=== PATIENT | male | born 1940 | race Caucasian/White ===

== ENCOUNTER → 2016-06-26 | Outpatient (REF) | payer MEDICARE ==
[~2016-06-26] MED LIST: /AUGM875TA OR; /CLON1TA PO; /QUIN20TA PO; ACET65TA OR; ALLO300T PO; AUGM875T27 PO; EUCECRE2 TOP; GLUC1000 PO; LASI80TA PO; LEVO500T PO; LOPR50TA PO; MILKSUS OR; MULTIVIT PO; PRADAXA PO; PRAV20TA2 PO; Pradaxa PO; TRAVATAN Z OU; VITA500C24 PO; XALA0.002 OU; ZINC220T PO; [UNRECOGNIZED DRUG - OTHER] PO; spironolactone PO
[2016-06-26 17:09] LABS: ALBUMIN 3.7 GM/DL (3.2-5.2); ALBUMIN/GLOBULIN RATIO 1.06 (1.00-1.93); BILIRUBIN,TOTAL 0.8 MG/DL (0.2-1.0); CALCIUM LEVEL 9.3 MG/DL (8.8-10.2); CREATININE FOR GFR 1.51 MG/DL (0.70-1.30); FREE T4 1.04 NG/DL (0.76-1.46); GLOMERULAR FILTRATION RATE 47.9 (>42); POTASSIUM SERUM 5.1 MEQ/L (3.5-5.1); TOTAL PROTEIN 7.2 GM/DL (6.4-8.2)
[2016-06-26 17:48] LABS: MEAN CORPUSCULAR HGB CONC 32.8 g/dl (32.0-36.5); MEAN CORPUSCULAR VOLUME 100.6 fl (80.0-96.0); RED CELL DISTRIBUTION WIDTH 12.3 % (11.5-14.5); WHITE BLOOD COUNT 9.4 K/mm3 (4.0-10.0)
== END | disposition home or self-care (01) ==
LOC: M SFHCADAM 11:36
PROVIDERS: ATTEND Family Medicine
DX: R41.3 Other amnesia (principal); E11.21 Type 2 diabetes mellitus with diabetic nephropathy; E78.2 Mixed hyperlipidemia

== ENCOUNTER → 2016-06-26 | Outpatient (CLI) | payer MEDICARE ==
--- NOTE | 2016-06-26 12:27 | REP ---
Clinical: Cough. Technique: PA and lateral. Comparison: 09/07/2013. Findings: Stable cardiomegaly. Lung cruz demonstrate stable chronic changes without acute consolidation, effusion, or pneumothorax. Skeletal structures demonstrate osteopenia and degenerative changes primarily involving the thoracic spine and left shoulder. Impression: Chronic stable changes and cardiomegaly. If the patient remains symptomatic consider chest CT for further investigation. Signed by Garett Beaulieu MD 06/26/2016 12:18 P
== END ==
LOC: M ADAMS 11:53
PROVIDERS: ATTEND Family Medicine
DX: I51.7 Cardiomegaly (principal); R05 Cough; R41.3 Other amnesia; E11.21 Type 2 diabetes mellitus with diabetic nephropathy; E78.2 Mixed hyperlipidemia; Z23 Encounter for immunization
CPT/HCPCS: 71020; 80053; 80061; 82607; 82746; 83036; 84439; 84443; 85027; 90471; 90732; G0463

== ENCOUNTER → 2016-06-28 | Outpatient (REF) | payer MEDICARE | LOC: M SFHCADAM 17:47 | PROVIDERS: ATTEND Family Medicine | DX: R41.3 Other amnesia (principal); E11.21 Type 2 diabetes mellitus with diabetic nephropathy; E78.2 Mixed hyperlipidemia ==

== ENCOUNTER → 2016-08-10 | Outpatient (REF) | payer MEDICARE ==
[~2016-08-10] MED LIST changes: +FURO1TAB15 PO; +LATA5OPD OU; +METF1000 PO; +MULT1TAB10 PO; +PRAD150C PO; +QUIN40TA5 PO; +SPIR50TA2 PO; +VITA-108 PO; +ZINC220C3 PO
== END ==
LOC: M SFHCPLAZ 14:59
PROVIDERS: ATTEND Family Medicine
DX: D23.30 Other benign neoplasm of skin of unspecified part of face (principal); L85.9 Epidermal thickening, unspecified; N87.0 Mild cervical dysplasia; L57.0 Actinic keratosis

== ENCOUNTER → 2016-09-07 | Outpatient (CLI) | payer MEDICARE ==
[~2016-09-07] VITALS: Ht 182.9 cm; Wt 119.7 kg
[~2016-09-07] MED LIST changes: +BACITRACIN OINT 30GM TOP ONE; +LIDOCAINE 2% INJ 100 MG/5 ML SDV (FOR ANES.) As Ordered ONE; +NS 1,000 ML IV SCH; +PROPOFOL 200 MG/20 ML VIAL As Ordered ONE
--- NOTE | 2016-09-07 07:56 | ROOR ---
Patient Name: Saurabh Felipe Procedure Date: 09/07/2016 7:33 AM Date of : 1940 Age: 76 Room: [facility] Gender: Male Note Status: Finalized Procedure: Colonoscopy Indications: High risk colon cancer surveillance: Personal history of colonic polyps, Surveillance: Personal history of piecemeal removal of adenoma on last colonoscopy (less than 1 year ago), Last colonoscopy: May 2015 Providers: Pipe PETERSEN MD Referring MD: Marco Merino MD Requesting Provider: Medicines: Monitored Anesthesia Care Complications: No immediate complications. Procedure: Pre-Anesthesia Assessment: - The heart rate, respiratory rate, oxygen saturations, blood pressure, adequacy of pulmonary ventilation, and response to care were monitored throughout the procedure. - The heart rate, respiratory rate, oxygen saturations, blood pressure, adequacy of pulmonary ventilation, and response to care were monitored throughout the procedure. The Colonoscope was introduced through the anus and advanced to the cecum, identified by appendiceal orifice and ileocecal valve. The colonoscopy was performed without difficulty. The patient tolerated the procedure well. The quality of the bowel preparation was good and fair. Findings: The perianal and digital rectal examinations were normal. Multiple small-mouthed diverticula were found in the sigmoid colon. A tattoo was seen at the splenic flexure. A post-polypectomy scar was found at the tattoo site. There was no evidence of residual polyp tissue. Internal hemorrhoids were found during retroflexion. The hemorrhoids were moderate. Impression: - Preparation of the colon was fair. - Diverticulosis in the sigmoid colon. - A tattoo was seen at the splenic flexure. A post-polypectomy scar was found at the tattoo site. There was no evidence of residual polyp tissue. - Internal hemorrhoids. - No specimens collected. Recommendation: - Repeat colonoscopy in 3 years for surveillance. - Resume Pradaxa (dabigatran) at prior dose today. Pipe Petersen MD Pipe PETERSEN MD 09/07/2016 7:56:35 AM This report has been signed electronically. Number of Addenda: 0 Note Initiated On: 09/07/2016 7:33 AM Estimated Blood Loss: Estimated blood loss: none.
[2016-09-07 08:15] VITALS: BP 109/58
== END | disposition home or self-care (01) ==
LOC: M OPP 06:11
PROVIDERS: ATTEND Internal Medicine Gastroenterology
DX: Z09 Encounter for follow-up examination after completed treatment for conditions other than malignant neoplasm (principal); Z86.010 Personal history of colon polyps; K57.30 Diverticulosis of large intestine without perforation or abscess without bleeding; K64.8 Other hemorrhoids; I48.91 Unspecified atrial fibrillation; I10 Essential (primary) hypertension; E78.00 Pure hypercholesterolemia, unspecified; E11.9 Type 2 diabetes mellitus without complications; M19.90 Unspecified osteoarthritis, unspecified site; E66.01 Morbid (severe) obesity due to excess calories; I50.9 Heart failure, unspecified; G47.30 Sleep apnea, unspecified; Z87.891 Personal history of nicotine dependence; Z79.899 Other long term (current) drug therapy; Z79.84 Long term (current) use of oral hypoglycemic drugs

== ENCOUNTER → 2016-10-25 | Outpatient (CLI) | payer MEDICARE ==
[~2016-10-25] MED LIST changes: +ASCO500T PO; -AUGM875T27 PO; +AUGM875T28 PO; -BACITRACIN OINT 30GM TOP ONE; -FURO1TAB15 PO; +FURO80TA2 PO; +HYDR-3713 PO; +LEVA750T7 PO; -LIDOCAINE 2% INJ 100 MG/5 ML SDV (FOR ANES.) As Ordered ONE; -METF1000 PO; +METF10004 PO; -NS 1,000 ML IV SCH; -PROPOFOL 200 MG/20 ML VIAL As Ordered ONE; +QUIN1TAB15 PO; -QUIN40TA5 PO; +SILV40CR TOP; -XALA0.002 OU; +XALA0.007 OU
[2016-10-25 15:01] LABS: MEAN CORPUSCULAR HEMOGLOBIN 32.6 pg (27.0-33.0); MEAN CORPUSCULAR HGB CONC 33.6 g/dl (32.0-36.5); MEAN CORPUSCULAR VOLUME 96.8 fl (80.0-96.0); RED CELL DISTRIBUTION WIDTH 12.6 % (11.5-14.5); WHITE BLOOD COUNT 10.3 K/mm3 (4.0-10.0)
--- NOTE | 2016-10-25 15:16 | REP ---
Chest two views HISTORY: Cellulitis Comparison: 09/07/2013 A minimal increase in interstitial markings is present in the lungs consistent with chronic interstitial change. The cardiac silhouette is enlarged. The pulmonary vasculature is normal in appearance. The bony structure is intact. IMPRESSION: 1. Chronic interstitial change. 2. Cardiomegaly. Signed by Saurabh Rivera MD 10/25/2016 03:08 P
[2016-10-25 15:20] LABS: CALCIUM LEVEL 9.4 MG/DL (8.8-10.2); CREATININE FOR GFR 1.61 MG/DL (0.70-1.30); GLOMERULAR FILTRATION RATE 44.5 (>42)
--- NOTE | 2016-10-25 17:16 | ECGEPIP ---
Stationary ECG Study [facility] Test Date: 2016-10-25 Pat Name: SEAN GE Department: Room: - Gender: M Cotton Baler: [facility] : 1940 Requested By: Marco Merino Order Number: [id number] Reading MD: Elkin Felipe Measurements Intervals [place] Rate: 74 P: [place]: 0 QRS: -35 QRSD: 132 T: 77 QT: 362 QTc: 404 Interpretive Statements Atrial fibrillation with a controlled ventricular response Left anterior fascicular block Anterior NC of indeterminate age Nonspecific repolarization abnormalities No significant change since prior tracing of 10/16/2013 Electronically Signed On 10-25-2016 17:16:08 EDT by Elkin Felipe
== END ==
LOC: M LAB 14:35
PROVIDERS: ATTEND Family Medicine
DX: Z01.818 Encounter for other preprocedural examination (principal); L03.032 Cellulitis of left toe; E11.42 Type 2 diabetes mellitus with diabetic polyneuropathy

== ENCOUNTER → 2016-10-25 | Outpatient (REF) | payer MEDICARE ==
[~2016-10-25] MED LIST changes: -ASCO500T PO; +AUGM875T27 PO; -AUGM875T28 PO; +FURO1TAB15 PO; -FURO80TA2 PO; -HYDR-3713 PO; -LEVA750T7 PO; +METF1000 PO; -METF10004 PO; -QUIN1TAB15 PO; +QUIN40TA5 PO; +SILV40CR EXT; -SILV40CR TOP; +XALA0.002 OU; -XALA0.007 OU
== END ==
LOC: M LAB REF 16:39
PROVIDERS: ATTEND Podiatrist Foot & Ankle Surgery
DX: E11.42 Type 2 diabetes mellitus with diabetic polyneuropathy (principal); L03.031 Cellulitis of right toe

== ENCOUNTER → 2016-11-05 | Day surgery (SDC) | payer MEDICARE ==
[~2016-11-05] VITALS: Ht 182.9 cm; Wt 112.9 kg
[~2016-11-05] MED LIST changes: +BUPIVACAINE HCL 0.5% 10 ML VIAL As Ordered ONE; +HYDR-3713 PO; +LIDOCAINE 2% INJ 100 MG/5 ML SDV (FOR ANES.) As Ordered ONE; +LIDOCAINE 2% MDV 20 ML VIAL As Ordered ONE; +LR 1,000 ML IV ONE; +LR 1,000 ML IV SCH; +MIDAZOLAM INJ 2 MG/2 ML VIAL (J2250) As Ordered ONE; +ONDANSETRON 4MG/2ML VIAL (J2405) As Ordered ONE; +ONDANSETRON 4MG/2ML VIAL (J2405) IV PRN; +PERCOCET 5MG/325MG TAB PO PRN; +PROPOFOL 200 MG/20 ML VIAL As Ordered ONE; +PROPOFOL 500 MG/50 ML VIAL As Ordered ONE; +fentaNYL 100 MCG/2 ML INJECTION (J3010) As Ordered ONE
[2016-11-05 10:25] VITALS: BP 143/63
--- NOTE | 2016-11-05 12:16 | RO ---
DATE OF PROCEDURE: 11/05/2016 PREPROCEDURE DIAGNOSIS: Right third toe osteomyelitis. POSTPROCEDURE DIAGNOSIS: Right third toe osteomyelitis. PROCEDURE: Right third toe amputation. SURGEON: Enoch Medina DPM ROLL EDGE STITCHER HAND: None. ANESTHESIA: Monitored anesthesia care with preoperative injection of 8 mL of 1:1 mixture of 1% lidocaine plain and 1/2% Marcaine plain. ESTIMATED BLOOD LOSS: Minimal. MATERIALS: #3-0 nylon. INJECTABLES: None. COMPLICATION: None. CONDITION: None. SPECIMEN: Right third toe. Saurabh Felipe is a 76-year-old male who presented to [facility] with complaints of ulceration of his third toe. He had worsening of this wound with bone extruding from the distal aspect of the toe. Decision was made to bring him to the operating room for third toe amputation. The patient side and site were identified and marked in preoperative holding area. Consent was reviewed and obtained. All risks, complications and alternatives to the procedure were explained to the patient in detail and all questions were answered. DESCRIPTION OF PROCEDURE: The patient was brought to the operating room and placed on the operating room table in supine position. Monitored anesthesia care was delivered by the anesthesia team. Preoperative injection of 8 mL of 1:1 mixture of 1% lidocaine plain and 1/2% Marcaine plain were injected to the right foot. The right foot was prepped and draped in a normal sterile fashion. No tourniquet was used for the procedure. Patient received Ancef preoperatively. A racquet-type incision was drawn around the third toe and carried through with #15 blade full thickness. The third toe was disarticulated at the proximal interphalangeal joint and the distal portion of the toe was sent for pathology. Any nonviable tissue was debrided. Site was irrigated with normal saline. The proximal phalanx was inspected and appeared to be free of infection. One more irrigation was performed and the incision was closed with #3-0 Nylon. Sterile dressings were applied. Patient was brought to postanesthesia care unit with vital signs stable, neurovascular status intact. He will be weight bearing as tolerated. Followup in office in 2 days. He will continue his Augmentin.
== END | disposition home or self-care (01) ==
LOC: M SDC 07:14
PROVIDERS: ATTEND Podiatrist Foot & Ankle Surgery
DX: M86.18 Other acute osteomyelitis, other site (principal); H40.9 Unspecified glaucoma; R94.31 Abnormal electrocardiogram [ECG] [EKG]; I35.8 Other nonrheumatic aortic valve disorders; I50.32 Chronic diastolic (congestive) heart failure; I11.0 Hypertensive heart disease with heart failure; E78.00 Pure hypercholesterolemia, unspecified; I34.8 Other nonrheumatic mitral valve disorders; I42.9 Cardiomyopathy, unspecified; M10.9 Gout, unspecified; R29.898 Other symptoms and signs involving the musculoskeletal system; M12.9 Arthropathy, unspecified; E11.40 Type 2 diabetes mellitus with diabetic neuropathy, unspecified; R06.83 Snoring; G47.33 Obstructive sleep apnea (adult) (pediatric); R06.09 Other forms of dyspnea; Z79.899 Other long term (current) drug therapy; Z79.01 Long term (current) use of anticoagulants; Z79.84 Long term (current) use of oral hypoglycemic drugs; Z87.891 Personal history of nicotine dependence; Z96.1 Presence of intraocular lens
CPT/HCPCS: 28825; 88307; J0690; J2250; J2405; J3010

== ENCOUNTER → 2017-02-04 | Outpatient (REF) | payer MEDICARE ==
[~2017-02-04] MED LIST changes: +ASCO500T PO; -AUGM875T27 PO; +AUGM875T28 PO; -BUPIVACAINE HCL 0.5% 10 ML VIAL As Ordered ONE; -FURO1TAB15 PO; +FURO80TA2 PO; +LEVA750T7 PO; -LIDOCAINE 2% INJ 100 MG/5 ML SDV (FOR ANES.) As Ordered ONE; -LIDOCAINE 2% MDV 20 ML VIAL As Ordered ONE; -LR 1,000 ML IV ONE; -LR 1,000 ML IV SCH; -METF1000 PO; +METF10004 PO; -MIDAZOLAM INJ 2 MG/2 ML VIAL (J2250) As Ordered ONE; -ONDANSETRON 4MG/2ML VIAL (J2405) As Ordered ONE; -ONDANSETRON 4MG/2ML VIAL (J2405) IV PRN; -PERCOCET 5MG/325MG TAB PO PRN; -PROPOFOL 200 MG/20 ML VIAL As Ordered ONE; -PROPOFOL 500 MG/50 ML VIAL As Ordered ONE; +QUIN1TAB15 PO; -QUIN40TA5 PO; -SILV40CR EXT; +SILV40CR TOP; -XALA0.002 OU; +XALA0.007 OU; -fentaNYL 100 MCG/2 ML INJECTION (J3010) As Ordered ONE
[2017-02-04 15:19] LABS: ALBUMIN 3.5 GM/DL (3.2-5.2); BILIRUBIN,TOTAL 0.9 MG/DL (0.2-1.0); CALCIUM LEVEL 8.6 MG/DL (8.8-10.2); CREATININE FOR GFR 1.66 MG/DL (0.70-1.30); POTASSIUM SERUM 4.8 MEQ/L (3.5-5.1)
== END ==
LOC: M SFHCPLAZ 11:50
PROVIDERS: ATTEND Family Medicine
DX: E11.21 Type 2 diabetes mellitus with diabetic nephropathy (principal)

== ENCOUNTER 2017-02-27 13:30 | Inpatient (IN) | payer MEDICARE ==
[~2017-02-27] VITALS: Ht 180.3 cm; Wt 112.5 kg
[~2017-02-27 13:30] MED LIST changes: -ASCO500T PO; -LEVA750T7 PO
[2017-02-27] MEDS ORDERED: NS 1,000 ML IV ONE (15:45)
[2017-02-27] MEDS ORDERED: IBUPROFEN 800 MG TAB PO ONE (15:45)
[2017-02-27] MEDS ORDERED: CEFTAROLINE FOSAMIL 600 MG in D5W 50 ML IV ONE (15:45)
[2017-02-27 16:13] LABS: BASO # 0.1 10^3/uL (0.0-0.2); BASO % 0.2 % (0.0-1.0); IMMATURE GRANULOCYTE % 1.1 % (0-0); LYMPH # 0.4 10^3/uL (1.5-4.5); LYMPH % 1.4 % (24.0-44.0); MEAN CORPUSCULAR HEMOGLOBIN 31.9 pg (27.0-33.0); MEAN CORPUSCULAR HGB CONC 33.1 g/dl (32.0-36.5); MEAN CORPUSCULAR VOLUME 96.4 fl (80.0-96.0); MONO # 0.6 10^3/uL (0.0-0.8); MONO % 2.3 % (0.0-5.0); PLATELET COUNT, AUTOMATED 223 10^3/uL (150-450); RED CELL DISTRIBUTION WIDTH 13.6 % (11.5-14.5); WHITE BLOOD COUNT 27.2 10^3/uL (4.0-10.0)
[2017-02-27 16:17] LABS: NEUTROPHILS # 25.9 10^3/uL (1.8-7.7); POSITIVE DIFF POS FLAG
[2017-02-27 16:37] LABS: ALBUMIN 3.3 GM/DL (3.2-5.2); ALBUMIN/GLOBULIN RATIO 0.77 (1.00-1.93); BILIRUBIN,DIRECT 0.3 MG/DL (0.0-0.2); BILIRUBIN,TOTAL 1.2 MG/DL (0.2-1.0); CALCIUM LEVEL 9.1 MG/DL (8.8-10.2); CREATININE FOR GFR 1.74 MG/DL (0.70-1.30); GLOMERULAR FILTRATION RATE 40.7 (>42); POTASSIUM SERUM 4.7 MEQ/L (3.5-5.1); TOTAL PROTEIN 7.6 GM/DL (6.4-8.2)
--- NOTE | 2017-02-27 16:49 | REP ---
Right lower extremity Duplex Doppler venous ultrasound: Real time compression and duplex Doppler interrogation of the right lower extremity deep venous system is performed. The right common femoral, superficial femoral and popliteal veins are fully compressible with transducer pressure and demonstrate normal spontaneous and phasic flow, without evidence of deep venous thrombosis. Impression: No evidence of deep venous thrombosis of the right lower extremity femoral popliteal venous system. Signed by Will Ferrer MD 02/27/2017 04:40 P
[2017-02-27 16:55] LABS: ERYTHROCYTE SEDIMENTATION RATE 58 mm/hr (0-20)
[2017-02-27] MEDS ORDERED: ASCO500T PO (17:03)
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
--- NOTE | 2017-02-27 20:45 | PHACANCOPD ---
PHARMACY VANCOMYCIN DOSING Pt Demographics Demographics Patient Age:76 , Weight:113.640 , Gender: male Adjusted Body Weight Date: 02/27/17, Adjusted Body Weight: [90] Kg Events Past 24 Hours Events Past 24 Hours: YES: Change in CrCl, Fever, Elevation in WBC, NO: Dialysis, Diuretic Therapy, Pending Diagnostics, Pending Procedures, Other Vancomycin Vancomycin indication: sepsis 2/2 cellulitis Vancomycin Target Ranges: 15-20 mcg/ml Vancomycin Load Y/N: Yes Load Dose Date Time Vancomycin Load Dose: 1000mg Date: 02/27 Time: 22:00 Vancomycin Dose Date: 02/27/17. Current Vancomycin Dose: [1g IV q12h @06] Intermittent Dosing?: No Labs Labs Item Value Date Time White Blood Count 27.2 10^3/uL H 02/27/17 1603 Erythrocyte Sedimentation Rate 58 mm/hr H 02/27/17 1603 Creatinine 1.74 MG/DL H 02/27/17 1603 Lactic Acid Level 2.1 MMOL/L *H 02/27/17 1603 C-Reactive Protein, Quantitative 17.10 MG/DL H 02/27/17 1603 Vital Signs Label Value Date Time Patient Temperature 100.8 degrees F 02/27/17 1331 Temperature Source Temporal 02/27/17 1331 Micro Microbiology 02/27/17 Blood Culture, Received Pending 02/27/17 Blood Culture, Received Pending 02/27/17 Gram Stain, Received Pending 02/27/17 Wound Culture, Received Pending Creatinine Clearance Date:02/27/17. Creatinine Clearance: [45 ml/min using adjusted BW]. Pending Labs Vanco trough scheduled 03/01 @05:00 Assessment and Plan Maintaining Current Dose?: Yes Reason for dose change: No Dose Change Pharmacist Note Pharmacist Note Date: 02/27/17. Pharmacist note: pt has been admitted for R lower extremity cellulitis/sepsis and has been started on Zosyn and Vancomycin. He received one dose of Ceftaroline in the ER this afternoon. His past culture hx of his right foot is notable for MSSA, no hx of MRSA at our facility. He was last on vancomycin here in 2013 and I have resumed similar dosing. I will start him on vancomycin 1g tonight and start q12h dosing 8 hours later. Pt has been febrile, inflammatory markers are elevated. Baseline SCr appears to be around 1.2 mg/dl. I have a trough scheduled before the 4th dose. We will continue to monitor and make adjustments as necessary. Epifanio Kirkland.D. Feb 27, 2017 20:44
[2017-02-27] MEDS: HumaLOG INSULIN (NovoLOG) PER UNIT SC SCH (21:00)
[2017-02-27] MEDS ORDERED: PIPERACILLIN/TAZOBACTAM SOD 2.25 GM in D5W 50 ML IV SCH (21:00)
[2017-02-27] MEDS ORDERED: VANCOMYCIN HCL 1,000 MG, VIAL MATE ADAPTER 1 EACH in D5W 250 ML IV ONE (22:00)
[2017-02-27 22:10] VITALS: BP 131/69
[2017-02-27] MEDS: NS 1,000 ML IV SCH (22:38)
[2017-02-27] MEDS ORDERED: DEXTROSE 50% 50 ML SYRINGE IV PRN (22:45)
[2017-02-27] MEDS ORDERED: GLUCOSE 4 GM CHEW TABLET PO PRN (22:45)
[2017-02-27] MEDS ORDERED: GLUCAGON FOR INJ 1 MG VIAL (J1610) SC PRN (22:45)
[2017-02-27] MEDS: PRAVASTATIN 20 MG TAB PO SCH (23:22)
[2017-02-27] MEDS: LATANOPROST 0.005% OPHTH SOLN 2.5 ML OU SCH (23:22)
[2017-02-27] MEDS: ZINC SULFATE 220 MG CAP PO SCH (23:22)
[2017-02-27] MEDS: DABIGATRAN ETEXILATE 75 MG CAP (PRADAXA) PO SCH (23:22)
[2017-02-28] VITALS: BP 126/70
[2017-02-28] MEDS: PIPERACILLIN/TAZOBACTAM SOD 2.25 GM in D5W 50 ML IV SCH ×4 (00:27→16:55)
[2017-02-28] MEDS: VANCOMYCIN HCL 1,000 MG, VIAL MATE ADAPTER 1 EACH in D5W 250 ML IV SCH ×2 (06:03→17:59)
[2017-02-28 08:00] VITALS: BP 141/60
[2017-02-28] MEDS ORDERED: SILVER SULFADIAZINE 1% CR 400 GM JAR TOP SCH (09:00)
[2017-02-28] MEDS: NS 1,000 ML IV SCH (09:18)
[2017-02-28] MEDS: DABIGATRAN ETEXILATE 75 MG CAP (PRADAXA) PO SCH ×2 (09:21→20:03)
[2017-02-28] MEDS: MULTIVITAMINS/MINERALS THERAP 1 TAB PO SCH (09:21)
[2017-02-28] MEDS: HumaLOG INSULIN (NovoLOG) PER UNIT SC SCH ×4 (09:21→20:30)
[2017-02-28] MEDS: ASCORBIC ACID 500 MG TAB PO SCH (09:21)
[2017-02-28 16:00] VITALS: BP 120/84
--- NOTE | 2017-02-28 16:39 | IPNPDOC ---
Subjective Date Seen The patient was seen on 02/28/17. Subjective Chief Complaint/HPI The patient is a 76-year-old male admitted with a reason for visit of Cellulitis , Sepsis. Events since last encounter Patient seen this morning accompanied by his . Patient was started on Zosyn yesterday. They report that his right lower extremity cellulitic infection has receded from the proximal border, but has increased in swelling in his foot. Otherwise, patient reports that he is comfortable. He denies any nausea or vomiting. Denies any fevers. Antibiotics are well tolerated. Patient is typically seen by podiatry as an outpatient. General: Denies: Chills, Fatigue Constitutional: Denies: Chills, Fever Skin: Reports: Other (swelling, erythema, warmth, and tenderness to the right lower extremity.) Pulmonary: Denies: Dyspnea, Cough Cardiovascular: Denies: Chest Pain, Palpitations, Orthopnea, Paroxysmal Noc. Dyspnea, Lt Headedness Gastrointestinal: Denies: Nausea, Vomiting, Abdominal Pain Genitourinary: Denies: Dysuria, Frequency, Incontinence, Retention Neurological: Reports: Numbness (right lower extremity.), Denies: Weakness, Change in speech, Confusion Psych: Reports: Mood Normal, Denies: Depression, Memory Issues Objective Physical Examination General Exam: Positive: Alert, No Acute Distress Eye Exam: Positive: Conjunctiva & lids normal, EOMI ENT Exam: Positive: Mucous membr. moist/pink Chest Exam: Positive: Clear to auscultation, Normal air movement Heart Exam: Positive: Irregular Rhythm Abdomen Exam: Positive: Normal bowel sounds, Soft, Negative: Tenderness Skin Exam: Positive: Other skin issue (circumferential erythema, warmth, swelling, and tenderness in the right lower sternum. Borders are marked. Lesion extends into the right foot. Small lesion on anterior right lower extremity, serosanguineous discharge, wound is dressed.) Neuro Exam: Positive: Normal Speech Psych Exam: Positive: Mental status NL, Mood NL, Oriented x 3 Assessment /Plan Problems (1) Cellulitis of right lower leg Status: Acute Problem Text: 02/28/2017 continue patient vancomycin, Zosyn. Borders of his infection is marked, appear to be receding from previous. Pain is tolerated. Patient has a covered wound on his anterior right lower extremity. We will continue to dress wound with Aquaphor. Patient remains afebrile. Wound culture positive for Streptococcus group C. Patient is managed by podiatry, and was encouraged to follow-up as outpatient. He has recurrent cellulitic infections. Prior infections grew staph aureus. (2) Sepsis Status: Resolved Problem Text: 02/28/2017- Patient is afebrile today. Lactic acidosis had resolved. Sepsis probably secondary to right lower extremity cellulitis. (3) Atrial fibrillation Status: Chronic Problem Text: Continue patient on Pradaxa. (4) LUZ (obstructive sleep apnea) Status: Chronic (5) Essential (primary) hypertension Status: Chronic Problem Text: Restart patient on diuretics. (6) Chronic diastolic CHF (congestive heart failure) Status: Chronic (7) DM type 2 with diabetic peripheral neuropathy Status: Chronic Problem Text: Continue patient on SSI Plan/VTE VTE Prophylaxis Ordered?: Yes Plan Family Medicine Attending Note: I was present on site to supervise Daniele Lazcano DO (PGY-2). We discussed the history and exam. I confirmed the boateng elements during my [id number] encounter with the patient. We conferred on the assessment and plan; I agree with the note as documented. [] (tax revenue officer) VS, I&O, 24H, Fishbone Vital Signs/I&O Vital Signs Date Time Temp Pulse Resp B/P (MAP) Pulse Ox O2 Delivery O2 Flow Rate FiO2 02/28/17 08:00 99.2 89 17 141/60 (87) 97 Room Air I&O- Last 24 Hours up to 6 AM 03/01/17 06:00 Intake Total 890 ml Output Total 400 ml Balance 490 ml Laboratory Data 24H LABS Laboratory Tests 2 02/27/17 16:03: Immature Granulocyte % (Auto) 1.1H, White Blood Count 27.2H, Red Blood Count 3.89L, Hemoglobin 12.4L, Hematocrit 37.5L, Mean Corpuscular Volume 96.4H, Mean Corpuscular Hemoglobin 31.9, Mean Corpuscular Hemoglobin Concent 33.1, Red Cell Distribution Width 13.6, Platelet Count 223, Neutrophils (%) (Auto) 95.0H, Lymphocytes (%) (Auto) 1.4L, Monocytes (%) (Auto) 2.3, Eosinophils (%) (Auto) 0.0, Basophils (%) (Auto) 0.2, Neutrophils # (Auto) 25.9H, Lymphocytes # (Auto) 0.4L, Monocytes # (Auto) 0.6, Eosinophils # (Auto) 0.0, Basophils # (Auto) 0.1, Immature Granulocyte # (Auto) 0.3H, Nucleated Red Blood Cells % (auto) 0.0, Erythrocyte Sedimentation Rate 58H, Anion Gap 7L, Glomerular Filtration Rate 40.7L, Lactic Acid Level 2.1*H, Calcium Level 9.1, Aspartate Amino Transf (AST/ SGOT) 23, Alanine Aminotransferase (ALT/SGPT) 18, Alkaline Phosphatase 70, Total Bilirubin 1.2H, Direct Bilirubin 0.3H, C-Reactive Protein, Quantitative 17.10H, Total Protein 7.6, Albumin 3.3, Albumin/Globulin Ratio 0.77L 02/27/17 16:41: Urine Appearance CLEAR, Urine Color YELLOW, Urine pH 5.0, Urine Specific [place] 1.015, Urine Protein 1+H, Urine Glucose (UA) NEGATIVE, Urine Ketones NEGATIVE, Urine Urobilinogen 0.2, Urine Bilirubin NEGATIVE, Urine Leukocyte Esterase NEGATIVE, Urine Blood 2+H, Urine Nitrite NEGATIVE, Urine WBC (Auto) 1, Urine RBC (Auto) 4H, Urine Hyaline Casts (Auto) 0, Urine Bacteria (Auto) NEGATIVE, Urine Squamous Epithelial Cells 0, Urine Sperm (Auto) 02/28/17 00:32: Bedside Glucose (Misc Panel) 183H 02/28/17 06:36: Erythrocyte Sedimentation Rate 63H, Lactic Acid Level 1.2, C-Reactive Protein, Quantitative 23.20H 02/28/17 07:37: Bedside Glucose (Misc Panel) 171H 02/28/17 12:11: Bedside Glucose (Misc Panel) 149H CBC/BMP Laboratory Tests 02/27/17 16:03 Red Blood Count 3.89 L, Mean Corpuscular Volume 96.4 H, Mean Corpuscular Hemoglobin 31.9, Mean Corpuscular Hemoglobin Concent 33.1, Red Cell Distribution Width 13.6, Neutrophils (%) (Auto) 95.0 H, Lymphocytes (%) (Auto) 1.4 L, Monocytes (%) (Auto) 2.3, Eosinophils (%) (Auto) 0.0, Basophils (%) (Auto ) 0.2, Neutrophils # (Auto) 25.9 H, Lymphocytes # (Auto) 0.4 L, Monocytes # ( Auto) 0.6, Eosinophils # (Auto) 0.0, Basophils # (Auto) 0.1 Microbiology Microbiology 02/27/17 Blood Culture, Received Pending 02/27/17 Blood Culture, Received Pending 02/27/17 Gram Stain - Final, Resulted 02/27/17 Wound Culture - Preliminary, Resulted Streptococcus Group C GME ATTESTATION GME ATTESTATION My preceptor for this patient encounter was physically present in the building during the encounter and was fully available. As needed, all aspects of the patient interview, examination, medical decision making process, and medical care plan development were reviewed and approved by the preceptor. Preceptor is aware and concurs with the plan as stated in the body of this note and will attest to such by his/her cosignature. ATTENDING NOTE Family Medicine Attending Note: I was present on site to supervise Daniele Lazcano DO (PGY-2). We discussed the history and exam. I confirmed the boateng elements during my [id number] encounter with the patient. We conferred on the assessment and plan; I agree with the note as documented. (tax revenue officer) DANIELE LAZCANO DO Feb 28, 2017 15:22 Escobar Braxton MD Mar 01, 2017 18:45
[2017-02-28] MEDS: FUROSEMIDE 80 MG TAB PO SCH (18:00)
--- NOTE | 2017-02-28 19:18 | IPNPDOC ---
Text Note Date of Service The patient was seen on 02/28/17. NOTE Patient's wound grew Strep Group c species. Changed Vancomycin and Zosyn to IV Levaquin 750cc q48hr. VS,Fishbone, I+O VS, Fishbone, I+O Vital Signs Date Time Temp Pulse Resp B/P (MAP) Pulse Ox O2 Delivery O2 Flow Rate FiO2 02/28/17 16:00 99.3 88 18 120/84 (96) 96 Room Air I&O- Last 24 Hours up to 6 AM 03/01/17 06:00 Intake Total 1620 ml Output Total 600 ml Balance 1020 ml GME ATTESTATION GME ATTESTATION My preceptor for this patient encounter was physically present in the building during the encounter and was fully available. As needed, all aspects of the patient interview, examination, medical decision making process, and medical care plan development were reviewed and approved by the preceptor. Preceptor is aware and concurs with the plan as stated in the body of this note and will attest to such by his/her cosignature. SARAVANAN LAZCANO DO Feb 28, 2017 19:18
[2017-02-28] MEDS: LATANOPROST 0.005% OPHTH SOLN 2.5 ML OU SCH (20:03)
[2017-02-28] MEDS: PRAVASTATIN 20 MG TAB PO SCH (20:03)
[2017-02-28] MEDS: ZINC SULFATE 220 MG CAP PO SCH (20:03)
[2017-02-28] MEDS: LevoFLOXacin IV 750 MG in APPROPRIATE DILUENT 1 EA IV SCH (20:49)
[2017-02-28 22:20] VITALS: BP 138/63
[2017-03-01 05:45] VITALS: BP 115/56
[2017-03-01 06:01] LABS: BASO % 0.2 % (0.0-1.0); EOS % 0.2 % (0.0-3.0); IMMATURE GRANULOCYTE % 0.9 % (0-0); LYMPH # 0.6 10^3/uL (1.5-4.5); LYMPH % 4.6 % (24.0-44.0); MEAN CORPUSCULAR HEMOGLOBIN 31.9 pg (27.0-33.0); MEAN CORPUSCULAR HGB CONC 33.5 g/dl (32.0-36.5); MEAN CORPUSCULAR VOLUME 95.1 fl (80.0-96.0); MONO # 0.8 10^3/uL (0.0-0.8); MONO % 6.2 % (0.0-5.0); NEUTROPHILS # 10.9 10^3/uL (1.8-7.7); NEUTROPHILS % 87.9 % (36.0-66.0); PLATELET COUNT, AUTOMATED 168 10^3/uL (150-450); RED CELL DISTRIBUTION WIDTH 13.3 % (11.5-14.5); WHITE BLOOD COUNT 12.4 10^3/uL (4.0-10.0)
[2017-03-01 06:26] LABS: ANION GAP 10 MEQ/L (8-16); BLOOD UREA NITROGEN 23 MG/DL (7-18); CARBON DIOXIDE LEVEL 22 MEQ/L (21-32); CHLORIDE LEVEL 101 MEQ/L (98-107); CREATININE FOR GFR 1.23 MG/DL (0.70-1.30); GLOMERULAR FILTRATION RATE > 60.0 (>42); GLUCOSE, FASTING 133 MG/DL (83-110); POTASSIUM SERUM 4.1 MEQ/L (3.5-5.1); SODIUM LEVEL 133 MEQ/L (136-145)
[2017-03-01 06:28] LABS: ERYTHROCYTE SEDIMENTATION RATE 81 mm/hr (0-20)
[2017-03-01] MEDS: AQUAPHOR **100GM** OINT TOP SCH (09:00)
[2017-03-01] MEDS: MULTIVITAMINS/MINERALS THERAP 1 TAB PO SCH (09:24)
[2017-03-01] MEDS: FUROSEMIDE 80 MG TAB PO SCH ×2 (09:25→17:06)
[2017-03-01] MEDS: ASCORBIC ACID 500 MG TAB PO SCH (09:25)
[2017-03-01] MEDS: DABIGATRAN ETEXILATE 75 MG CAP (PRADAXA) PO SCH ×2 (09:25→21:01)
[2017-03-01] MEDS: SPIRONOLACTONE 50 MG TAB PO SCH (09:25)
[2017-03-01] MEDS: HumaLOG INSULIN (NovoLOG) PER UNIT SC SCH ×4 (09:25→20:16)
[2017-03-01 14:00] VITALS: BP 116/62
--- NOTE | 2017-03-01 20:42 | IPNPDOC ---
Subjective Date Seen The patient was seen on 03/01/17. Subjective Chief Complaint/HPI The patient is a 76-year-old male admitted with a reason for visit of Cellulitis , Sepsis. Events since last encounter Patient seen at bedside this morning. Patient had no complaints. He slept throughout the night with his CPAP. Denies any fevers. Denies any discomfort over the right lower extremity. Patient tolerated changed to IV Levaquin without any side effects. Constitutional: Denies: Chills, Fever, Night Sweats Skin: Reports: Other (right lower extremity swelling and redness) Pulmonary: Denies: Dyspnea, Cough Cardiovascular: Denies: Chest Pain, Palpitations, Orthopnea, Paroxysmal Noc. Dyspnea, Lt Headedness Gastrointestinal: Denies: Nausea, Vomiting, Abdominal Pain, Diarrhea, Constipation Objective Physical Examination General Exam: Positive: Alert, No Acute Distress Eye Exam: Positive: Conjunctiva & lids normal, EOMI ENT Exam: Positive: Mucous membr. moist/pink Chest Exam: Positive: Clear to auscultation, Normal air movement Heart Exam: Positive: Irregular Rhythm Abdomen Exam: Positive: Normal bowel sounds, Soft, Negative: Tenderness Skin Exam: Positive: Other skin issue (circumferential erythema, warmth, swelling, and tenderness in the right lower ext, appears resolving. Borders are marked. Lesion extends into the right foot. Small lesion on anterior right lower extremity, serosanguineous discharge, wound is dressed.) Neuro Exam: Positive: Normal Speech Psych Exam: Positive: Mental status NL, Mood NL, Oriented x 3 Assessment /Plan Problems (1) Cellulitis of right lower leg Status: Acute Problem Text: 03/01/2017: Patient was changed to IV Levaquin last night. Tolerated the change well. Cellulitis appears to be resolving from the marked borders drawn yesterday. 02/28/2017 continue patient vancomycin, Zosyn. Borders of his infection is marked, appear to be receding from previous. Pain is tolerated. Patient has a covered wound on his anterior right lower extremity. We will continue to dress wound with Aquaphor. Patient remains afebrile. Wound culture positive for Streptococcus group C. Patient is managed by podiatry, and was encouraged to follow-up as outpatient. He has recurrent cellulitic infections. Prior infections grew staph aureus. (2) Sepsis Status: Resolved Problem Text: 02/28/2017- Patient is afebrile today. Lactic acidosis had resolved. Sepsis probably secondary to right lower extremity cellulitis. (3) Atrial fibrillation Status: Chronic Problem Text: Continue patient on Pradaxa. (4) LUZ (obstructive sleep apnea) Status: Chronic Problem Text: Continue patient with CPAP overnight (5) Essential (primary) hypertension Status: Chronic Problem Text: Restart patient on diuretics. (6) Chronic diastolic CHF (congestive heart failure) Status: Chronic (7) DM type 2 with diabetic peripheral neuropathy Status: Chronic Problem Text: Continue patient on SSI Plan/VTE VTE Prophylaxis Ordered?: Yes VS, I&O, 24H, Fishbone Vital Signs/I&O Vital Signs Date Time Temp Pulse Resp B/P (MAP) Pulse Ox O2 Delivery O2 Flow Rate FiO2 03/01/17 14:00 97.9 75 18 116/62 (80) 96 Room Air I&O- Last 24 Hours up to 6 AM 03/02/17 06:00 Intake Total 720 ml Output Total 875 ml Balance -155 ml Laboratory Data 24H LABS Laboratory Tests 2 03/01/17 05:33: Immature Granulocyte % (Auto) 0.9H, White Blood Count 12.4H, Red Blood Count 3.26L, Hemoglobin 10.4#L, Hematocrit 31.0L, Mean Corpuscular Volume 95.1, Mean Corpuscular Hemoglobin 31.9, Mean Corpuscular Hemoglobin Concent 33.5, Red Cell Distribution Width 13.3, Platelet Count 168, Neutrophils (%) (Auto) 87.9H, Lymphocytes (%) (Auto) 4.6L, Monocytes (%) (Auto) 6.2H, Eosinophils (%) (Auto) 0.2, Basophils (%) (Auto) 0.2, Neutrophils # (Auto) 10.9H, Lymphocytes # (Auto) 0.6L, Monocytes # (Auto) 0.8, Eosinophils # (Auto) 0.0, Basophils # (Auto) 0.0, Immature Granulocyte # (Auto) 0.1H, Nucleated Red Blood Cells % (auto) 0.0, Erythrocyte Sedimentation Rate 81H 03/01/17 05:36: Anion Gap 10, Glomerular Filtration Rate > 60.0, Blood Urea Nitrogen 23H, Creatinine 1.23, Sodium Level 133L, Potassium Level 4.1, Chloride Level 101, Carbon Dioxide Level 22, Calcium Level 8.0L, C-Reactive Protein, Quantitative 17.20H, Vancomycin Level Trough 10.9 03/01/17 09:24: Bedside Glucose (Misc Panel) 146H 03/01/17 11:50: Bedside Glucose (Misc Panel) 211H 03/01/17 16:53: Bedside Glucose (Misc Panel) 120H 03/01/17 20:11: Bedside Glucose (Misc Panel) 128H CBC/BMP Laboratory Tests 03/01/17 05:33 Red Blood Count 3.26 L, Mean Corpuscular Volume 95.1, Mean Corpuscular Hemoglobin 31.9, Mean Corpuscular Hemoglobin Concent 33.5, Red Cell Distribution Width 13.3, Neutrophils (%) (Auto) 87.9 H, Lymphocytes (%) (Auto) 4.6 L, Monocytes (%) (Auto) 6.2 H, Eosinophils (%) (Auto) 0.2, Basophils (%) ( Auto) 0.2, Neutrophils # (Auto) 10.9 H, Lymphocytes # (Auto) 0.6 L, Monocytes # (Auto) 0.8, Eosinophils # (Auto) 0.0, Basophils # (Auto) 0.0 03/01/17 05:36 Calcium Level 8.0 L Microbiology Microbiology 02/27/17 Blood Culture - Preliminary, Resulted No Growth after 48 hours. All Specime... 02/27/17 Blood Culture - Preliminary, Resulted No Growth after 48 hours. All Specime... 02/27/17 Gram Stain - Final, Resulted 02/27/17 Wound Culture - Preliminary, Resulted Streptococcus Group C GME ATTESTATION GME ATTESTATION My preceptor for this patient encounter was physically present in the building during the encounter and was fully available. As needed, all aspects of the patient interview, examination, medical decision making process, and medical care plan development were reviewed and approved by the preceptor. Preceptor is aware and concurs with the plan as stated in the body of this note and will attest to such by his/her cosignature. ATTENDING NOTE Family Medicine Attending Note: I was present on site to supervise Daniele Lazcano DO (PGY-2). We discussed the history and exam. I confirmed the boateng elements during my [id number] encounter with the patient. We conferred on the assessment and plan; I agree with the note as documented. (histology technologist) DANIELE LAZCANO DO Mar 01, 2017 20:42 Escobar Braxton MD Mar 12, 2017 21:21
[2017-03-01] MEDS: ZINC SULFATE 220 MG CAP PO SCH (21:01)
[2017-03-01] MEDS: LATANOPROST 0.005% OPHTH SOLN 2.5 ML OU SCH (21:01)
[2017-03-01] MEDS: PRAVASTATIN 20 MG TAB PO SCH (21:01)
[2017-03-01 22:00] VITALS: BP 116/64
[2017-03-02 06:00] VITALS: BP 120/67
[2017-03-02 07:07] LABS: BASO % 0.2 % (0.0-1.0); EOS % 0.3 % (0.0-3.0); IMMATURE GRANULOCYTE % 0.8 % (0-0); LYMPH # 0.8 10^3/uL (1.5-4.5); LYMPH % 7.9 % (24.0-44.0); MEAN CORPUSCULAR HEMOGLOBIN 31.5 pg (27.0-33.0); MEAN CORPUSCULAR HGB CONC 32.9 g/dl (32.0-36.5); MEAN CORPUSCULAR VOLUME 95.8 fl (80.0-96.0); MONO # 0.9 10^3/uL (0.0-0.8); MONO % 8.9 % (0.0-5.0); NEUTROPHILS # 8.2 10^3/uL (1.8-7.7); NEUTROPHILS % 81.9 % (36.0-66.0); PLATELET COUNT, AUTOMATED 178 10^3/uL (150-450); WHITE BLOOD COUNT 10.1 10^3/uL (4.0-10.0)
[2017-03-02 07:25] LABS: ANION GAP 8 MEQ/L (8-16); BLOOD UREA NITROGEN 22 MG/DL (7-18); CALCIUM LEVEL 8.5 MG/DL (8.8-10.2); CARBON DIOXIDE LEVEL 25 MEQ/L (21-32); CHLORIDE LEVEL 101 MEQ/L (98-107); CREATININE FOR GFR 1.13 MG/DL (0.70-1.30); GLOMERULAR FILTRATION RATE > 60.0 (>42); GLUCOSE, FASTING 133 MG/DL (83-110); POTASSIUM SERUM 3.7 MEQ/L (3.5-5.1); SODIUM LEVEL 134 MEQ/L (136-145)
[2017-03-02 07:45] LABS: ERYTHROCYTE SEDIMENTATION RATE 73 mm/hr (0-20)
[2017-03-02] MEDS: DABIGATRAN ETEXILATE 75 MG CAP (PRADAXA) PO SCH ×2 (08:30→21:18)
[2017-03-02] MEDS: ASCORBIC ACID 500 MG TAB PO SCH (08:30)
[2017-03-02] MEDS: MULTIVITAMINS/MINERALS THERAP 1 TAB PO SCH (08:30)
[2017-03-02] MEDS: FUROSEMIDE 80 MG TAB PO SCH ×2 (08:30→17:00)
[2017-03-02] MEDS: HumaLOG INSULIN (NovoLOG) PER UNIT SC SCH ×4 (08:31→21:00)
[2017-03-02] MEDS: AQUAPHOR **100GM** OINT TOP SCH (08:31)
[2017-03-02] MEDS: SPIRONOLACTONE 50 MG TAB PO SCH (08:31)
[2017-03-02 14:30] VITALS: BP 133/65
[2017-03-02] MEDS: LATANOPROST 0.005% OPHTH SOLN 2.5 ML OU SCH (21:18)
[2017-03-02] MEDS: LevoFLOXacin IV 750 MG in APPROPRIATE DILUENT 1 EA IV SCH (21:18)
[2017-03-02] MEDS: PRAVASTATIN 20 MG TAB PO SCH (21:18)
[2017-03-02] MEDS: ZINC SULFATE 220 MG CAP PO SCH (21:18)
[2017-03-02 22:00] VITALS: BP 151/60
--- NOTE | 2017-03-02 22:44 | IPNPDOC ---
Subjective Date Seen The patient was seen on 03/02/17. Subjective Chief Complaint/HPI The patient is a 76-year-old male admitted with a reason for visit of Cellulitis , Sepsis. Events since last encounter Patient reports sleeping well overnight. Does not have any pain. States that his legs was elevated with some pillows last night. Otherwise, he denies any diarrhea or, fevers, dysuria, dyspnea. He continues to have a normal appetite. Constitutional: Denies: Chills, Fever, Night Sweats Skin: Reports: Other (right lower extremity redness and swelling.) Pulmonary: Denies: Dyspnea, Cough Cardiovascular: Denies: Chest Pain, Palpitations, Orthopnea, Paroxysmal Noc. Dyspnea, Lt Headedness Gastrointestinal: Denies: Nausea, Vomiting, Abdominal Pain, Diarrhea, Constipation Neurological: Reports: Numbness (Numbness in the R lower extremity) Objective Physical Examination General Exam: Positive: Alert, No Acute Distress Eye Exam: Positive: Conjunctiva & lids normal, EOMI ENT Exam: Positive: Mucous membr. moist/pink Chest Exam: Positive: Clear to auscultation, Normal air movement Heart Exam: Positive: Irregular Rhythm Abdomen Exam: Positive: Normal bowel sounds, Soft, Negative: Tenderness Skin Exam: Positive: Other skin issue (circumferential erythema, warmth, swelling, and tenderness in the right lower ext, appears stable. Borders are marked. Lesion extends into the right foot. Small lesion on anterior right lower extremity, serosanguineous discharge, wound is dressed. ) Neuro Exam: Positive: Normal Speech Psych Exam: Positive: Mental status NL, Mood NL, Oriented x 3 Assessment /Plan Problems (1) Cellulitis of right lower leg Status: Acute Problem Text: 03/02/2017: Patient has no discomfort today. He is tolerating IV Levaquin. Continues to be afebrile. His right lower extremity appears to be stable, although the borders of in his infection does not seem to be receding. His white count, CRP, and ESR are trending downwards today. We will wrap pt leg in MONA wrap. 03/01/2017: Patient was changed to IV Levaquin last night. Tolerated the change well. Cellulitis appears to be resolving from the marked borders drawn yesterday. 02/28/2017 continue patient vancomycin, Zosyn. Borders of his infection is marked, appear to be receding from previous. Pain is tolerated. Patient has a covered wound on his anterior right lower extremity. We will continue to dress wound with Aquaphor. Patient remains afebrile. Wound culture positive for Streptococcus group C. Patient is managed by podiatry, and was encouraged to follow-up as outpatient. He has recurrent cellulitic infections. Prior infections grew staph aureus. (2) Sepsis Status: Resolved Problem Text: 02/28/2017- Patient is afebrile today. Lactic acidosis had resolved. Sepsis probably secondary to right lower extremity cellulitis. (3) Atrial fibrillation Status: Chronic Problem Text: Continue patient on Pradaxa. (4) LUZ (obstructive sleep apnea) Status: Chronic Problem Text: Continue patient with CPAP overnight (5) Essential (primary) hypertension Status: Chronic Problem Text: Restart patient on diuretics. (6) Chronic diastolic CHF (congestive heart failure) Status: Chronic (7) DM type 2 with diabetic peripheral neuropathy Status: Chronic Problem Text: Continue patient on SSI Plan/VTE VTE Prophylaxis Ordered?: Yes VS, I&O, [facility], [facility] Vital Signs/I&O Vital Signs Date Time Temp Pulse Resp B/P (MAP) Pulse Ox O2 Delivery O2 Flow Rate FiO2 03/02/17 06:00 97.3 84 18 120/67 (84) 97 NIPPV (BIPAP/CPAP) I&O- Last 24 Hours up to 6 AM 03/03/17 06:00 Intake Total 480 ml Output Total 300 ml Balance 180 ml Laboratory Data 24H LABS Laboratory Tests 2 03/01/17 11:50: Bedside Glucose (Misc Panel) 211H 03/01/17 16:53: Bedside Glucose (Misc Panel) 120H 03/01/17 20:11: Bedside Glucose (Misc Panel) 128H 03/02/17 06:30: Anion Gap 8, Glomerular Filtration Rate > 60.0, Blood Urea Nitrogen 22H, Creatinine 1.13, Sodium Level 134L, Potassium Level 3.7, Chloride Level 101, Carbon Dioxide Level 25, Calcium Level 8.5L, C-Reactive Protein, Quantitative 12.00H 03/02/17 06:31: Immature Granulocyte % (Auto) 0.8H, White Blood Count 10.1H, Red Blood Count 3.30L, Hemoglobin 10.4L, Hematocrit 31.6L, Mean Corpuscular Volume 95.8, Mean Corpuscular Hemoglobin 31.5, Mean Corpuscular Hemoglobin Concent 32.9, Red Cell Distribution Width 13.0, Platelet Count 178, Neutrophils (%) (Auto) 81.9H, Lymphocytes (%) (Auto) 7.9L, Monocytes (%) (Auto) 8.9H, Eosinophils (%) (Auto) 0.3, Basophils (%) (Auto) 0.2, Neutrophils # (Auto) 8.2H, Lymphocytes # (Auto) 0.8L, Monocytes # (Auto) 0.9H, Eosinophils # (Auto) 0.0, Basophils # (Auto) 0.0 , Immature Granulocyte # (Auto) 0.1H, Nucleated Red Blood Cells % (auto) 0.0, Erythrocyte Sedimentation Rate 73H CBC/BMP Laboratory Tests 03/02/17 06:30 Calcium Level 8.5 L 03/02/17 06:31 Red Blood Count 3.30 L, Mean Corpuscular Volume 95.8, Mean Corpuscular Hemoglobin 31.5, Mean Corpuscular Hemoglobin Concent 32.9, Red Cell Distribution Width 13.0, Neutrophils (%) (Auto) 81.9 H, Lymphocytes (%) (Auto) 7.9 L, Monocytes (%) (Auto) 8.9 H, Eosinophils (%) (Auto) 0.3, Basophils (%) ( Auto) 0.2, Neutrophils # (Auto) 8.2 H, Lymphocytes # (Auto) 0.8 L, Monocytes # ( Auto) 0.9 H, Eosinophils # (Auto) 0.0, Basophils # (Auto) 0.0 Microbiology Microbiology 02/27/17 Blood Culture - Preliminary, Resulted No Growth after 48 hours. All Specime... 02/27/17 Blood Culture - Preliminary, Resulted No Growth after 48 hours. All Specime... 02/27/17 Gram Stain - Final, Complete 02/27/17 Wound Culture - Final, Complete Streptococcus Group C Staphylococcus Sp Coag Neg GME ATTESTATION GME ATTESTATION My preceptor for this patient encounter was physically present in the building during the encounter and was fully available. As needed, all aspects of the patient interview, examination, medical decision making process, and medical care plan development were reviewed and approved by the preceptor. Preceptor is aware and concurs with the plan as stated in the body of this note and will attest to such by his/her cosignature. ATTENDING NOTE Family Medicine Attending Note: I was present on site to supervise Daniele Lazcano DO (PGY-2). We discussed the history and exam. I confirmed the boateng elements during my [id number] encounter with the patient. We conferred on the assessment and plan; I agree with the note as documented. (associate attorney) DANIELE LAZCANO DO Mar 02, 2017 09:53 Escobar Braxton MD Mar 12, 2017 21:48
[2017-03-03 06:00] VITALS: BP 140/58
[2017-03-03 06:30] LABS: BASO % 0.3 % (0.0-1.0); EOS # 0.1 10^3/uL (0.0-0.50); EOS % 0.5 % (0.0-3.0); IMMATURE GRANULOCYTE % 0.7 % (0-0); LYMPH % 9.5 % (24.0-44.0); MEAN CORPUSCULAR HGB CONC 32.6 g/dl (32.0-36.5); MEAN CORPUSCULAR VOLUME 95.1 fl (80.0-96.0); MONO # 0.9 10^3/uL (0.0-0.8); MONO % 8.6 % (0.0-5.0); NEUTROPHILS # 8.1 10^3/uL (1.8-7.7); NEUTROPHILS % 80.4 % (36.0-66.0); PLATELET COUNT, AUTOMATED 197 10^3/uL (150-450); RED CELL DISTRIBUTION WIDTH 12.9 % (11.5-14.5); WHITE BLOOD COUNT 10.1 10^3/uL (4.0-10.0)
[2017-03-03 06:49] LABS: ANION GAP 6 MEQ/L (8-16); BLOOD UREA NITROGEN 23 MG/DL (7-18); CALCIUM LEVEL 8.4 MG/DL (8.8-10.2); CARBON DIOXIDE LEVEL 31 MEQ/L (21-32); CHLORIDE LEVEL 102 MEQ/L (98-107); CREATININE FOR GFR 1.24 MG/DL (0.70-1.30); GLOMERULAR FILTRATION RATE > 60.0 (>42); GLUCOSE, FASTING 141 MG/DL (83-110); POTASSIUM SERUM 4.4 MEQ/L (3.5-5.1); SODIUM LEVEL 139 MEQ/L (136-145)
[2017-03-03 07:03] LABS: ERYTHROCYTE SEDIMENTATION RATE 73 mm/hr (0-20)
[2017-03-03] MEDS: AQUAPHOR **100GM** OINT TOP SCH (09:00)
[2017-03-03] MEDS: SPIRONOLACTONE 50 MG TAB PO SCH (09:03)
[2017-03-03] MEDS: MULTIVITAMINS/MINERALS THERAP 1 TAB PO SCH (09:03)
[2017-03-03] MEDS: ASCORBIC ACID 500 MG TAB PO SCH (09:03)
[2017-03-03] MEDS: DABIGATRAN ETEXILATE 75 MG CAP (PRADAXA) PO SCH ×2 (09:03→20:38)
[2017-03-03] MEDS: FUROSEMIDE 80 MG TAB PO SCH ×2 (09:05→18:16)
[2017-03-03] MEDS: HumaLOG INSULIN (NovoLOG) PER UNIT SC SCH ×4 (09:06→20:38)
[2017-03-03 14:00] VITALS: BP 147/69
--- NOTE | 2017-03-03 18:23 | IPNPDOC ---
Subjective Date Seen The patient was seen on 03/03/17. Subjective Chief Complaint/HPI The patient is a 76-year-old male admitted with a reason for visit of Cellulitis , Sepsis. Events since last encounter Saurabh reports he is feeling reasonably well today. Nursing has been working with him and he has been doing a good job keeping his leg elevated. General: Reports: Normal Appetite Constitutional: Denies: Fever, Malaise Pulmonary: Denies: Cough Cardiovascular: Denies: Chest Pain Psych: Reports: Mood Normal Objective Physical Examination General Exam: Positive: Alert, No Acute Distress Eye Exam: Positive: Conjunctiva & lids normal, Negative: Sclera icteric ENT Exam: Positive: Mucous membr. moist/pink Neck Exam: Negative: Lymphadenopathy Chest Exam: Positive: Clear to auscultation, Normal air movement Heart Exam: Positive: Irregular Rhythm Abdomen Exam: Positive: Normal bowel sounds, Soft, Negative: Tenderness Skin Exam: Positive: Other skin issue (the erythema is well within the marked borders. The edema is improved since yesterday. He still has an area of sloughing on his medial lower leg with scant serous discharge. This does not seem to have gotten worse.) Neuro Exam: Positive: Normal Speech Psych Exam: Positive: Mental status NL, Mood NL, Oriented x 3 Assessment /Plan Problems (1) Cellulitis of right lower leg Status: Acute Problem Text: I feel like we are finally starting to make some improvement today. He has "turned a corner" so to say. Continue on levofloxacin every 48 hours because of renal function. Continue to gently wrap his leg with an Rashel wrap and to keep it elevated. (2) Essential (primary) hypertension Status: Chronic Problem Text: Continue on diuretics. (3) LUZ (obstructive sleep apnea) Status: Chronic Problem Text: Continue patient with CPAP overnight (4) Atrial fibrillation Status: Chronic Response to Treatment: Controlled Problem Text: Continue patient on Pradaxa. (5) Chronic diastolic CHF (congestive heart failure) Status: Chronic Response to Treatment: Stable (6) DM type 2 with diabetic peripheral neuropathy Status: Chronic Problem Text: Continue patient on SSI (7) Sepsis Status: Resolved Plan/VTE VTE Prophylaxis Ordered?: Yes VS, I&O, 24H, Fishbone Vital Signs/I&O Vital Signs Date Time Temp Pulse Resp B/P (MAP) Pulse Ox O2 Delivery O2 Flow Rate FiO2 03/03/17 14:00 96.8 75 18 147/69 (95) 97 Room Air I&O- Last 24 Hours up to 6 AM 03/04/17 06:00 Intake Total 1260 ml Output Total 850 ml Balance 410 ml Laboratory Data 24H LABS Laboratory Tests 2 03/02/17 20:29: Bedside Glucose (Misc Panel) 169H 03/03/17 05:56: Immature Granulocyte % (Auto) 0.7H, White Blood Count 10.1H, Red Blood Count 3.48L, Hemoglobin 10.8L, Hematocrit 33.1L, Mean Corpuscular Volume 95.1, Mean Corpuscular Hemoglobin 31.0, Mean Corpuscular Hemoglobin Concent 32.6, Red Cell Distribution Width 12.9, Platelet Count 197, Neutrophils (%) (Auto) 80.4H, Lymphocytes (%) (Auto) 9.5L, Monocytes (%) (Auto) 8.6H, Eosinophils (%) (Auto) 0.5, Basophils (%) (Auto) 0.3, Neutrophils # (Auto) 8.1H, Lymphocytes # (Auto) 1.0L, Monocytes # (Auto) 0.9H, Eosinophils # (Auto) 0.1, Basophils # (Auto) 0.0 , Immature Granulocyte # (Auto) 0.1H, Nucleated Red Blood Cells % (auto) 0.0, Erythrocyte Sedimentation Rate 73H, Anion Gap 6L, Glomerular Filtration Rate > 60.0, Blood Urea Nitrogen 23H, Creatinine 1.24, Sodium Level 139, Potassium Level 4.4, Chloride Level 102, Carbon Dioxide Level 31, Calcium Level 8.4L, C- Reactive Protein, Quantitative 10.50H 03/03/17 11:36: Bedside Glucose (Misc Panel) 230H 03/03/17 16:52: Bedside Glucose (Misc Panel) 126H CBC/BMP Laboratory Tests 03/03/17 05:56 Red Blood Count 3.48 L, Mean Corpuscular Volume 95.1, Mean Corpuscular Hemoglobin 31.0, Mean Corpuscular Hemoglobin Concent 32.6, Red Cell Distribution Width 12.9, Neutrophils (%) (Auto) 80.4 H, Lymphocytes (%) (Auto) 9.5 L, Monocytes (%) (Auto) 8.6 H, Eosinophils (%) (Auto) 0.5, Basophils (%) ( Auto) 0.3, Neutrophils # (Auto) 8.1 H, Lymphocytes # (Auto) 1.0 L, Monocytes # ( Auto) 0.9 H, Eosinophils # (Auto) 0.1, Basophils # (Auto) 0.0, Calcium Level 8.4 L Microbiology Microbiology 02/27/17 Blood Culture - Preliminary, Resulted No Growth after 72 hours. All specime... 02/27/17 Blood Culture - Preliminary, Resulted No Growth after 72 hours. All specime... 02/27/17 Gram Stain - Final, Complete 02/27/17 Wound Culture - Final, Complete Streptococcus Group C Staphylococcus Sp Coag Neg Escobar Braxton MD Mar 03, 2017 6:23 pm
[2017-03-03] MEDS: PRAVASTATIN 20 MG TAB PO SCH (20:38)
[2017-03-03] MEDS: ZINC SULFATE 220 MG CAP PO SCH (20:38)
[2017-03-03] MEDS: LATANOPROST 0.005% OPHTH SOLN 2.5 ML OU SCH (20:39)
[2017-03-03 22:00] VITALS: BP 169/74
[2017-03-04 06:00] VITALS: BP 145/69
[2017-03-04 06:58] LABS: BASO # 0.1 10^3/uL (0.0-0.2); BASO % 0.4 % (0.0-1.0); EOS % 0.3 % (0.0-3.0); IMMATURE GRANULOCYTE % 0.9 % (0-0); LYMPH # 1.6 10^3/uL (1.5-4.5); LYMPH % 10.3 % (24.0-44.0); MEAN CORPUSCULAR HEMOGLOBIN 31.7 pg (27.0-33.0); MEAN CORPUSCULAR HGB CONC 33.5 g/dl (32.0-36.5); MEAN CORPUSCULAR VOLUME 94.7 fl (80.0-96.0); MONO # 1.2 10^3/uL (0.0-0.8); NEUTROPHILS # 12.4 10^3/uL (1.8-7.7); NEUTROPHILS % 80.1 % (36.0-66.0); PLATELET COUNT, AUTOMATED 284 10^3/uL (150-450); RED CELL DISTRIBUTION WIDTH 12.9 % (11.5-14.5); WHITE BLOOD COUNT 15.5 10^3/uL (4.0-10.0)
[2017-03-04 07:11] LABS: CALCIUM LEVEL 9.2 MG/DL (8.8-10.2); CREATININE FOR GFR 1.28 MG/DL (0.70-1.30); POTASSIUM SERUM 3.7 MEQ/L (3.5-5.1)
[2017-03-04] MEDS: HumaLOG INSULIN (NovoLOG) PER UNIT SC SCH ×4 (07:54→20:44)
[2017-03-04 07:56] LABS: ERYTHROCYTE SEDIMENTATION RATE 90 mm/hr (0-20)
[2017-03-04 08:01] VITALS: BP 168/82
[2017-03-04] MEDS: MULTIVITAMINS/MINERALS THERAP 1 TAB PO SCH (08:59)
[2017-03-04] MEDS: FUROSEMIDE 80 MG TAB PO SCH ×2 (08:59→17:00)
[2017-03-04] MEDS: SPIRONOLACTONE 50 MG TAB PO SCH (08:59)
[2017-03-04] MEDS: DABIGATRAN ETEXILATE 75 MG CAP (PRADAXA) PO SCH ×2 (08:59→20:44)
[2017-03-04] MEDS: ASCORBIC ACID 500 MG TAB PO SCH (08:59)
[2017-03-04] MEDS: AQUAPHOR **100GM** OINT TOP SCH (11:11)
[2017-03-04 13:59] VITALS: BP 143/67
--- NOTE | 2017-03-04 15:54 | IPNPDOC ---
Subjective Date Seen The patient was seen on 03/04/17. Subjective Chief Complaint/HPI The patient is a 76-year-old male admitted with a reason for visit of Cellulitis , Sepsis. Events since last encounter Patient seen in bed this morning. Nursing staff states that he had his R leg elevated. Leg continues to be wrapped. He has no complaints today. Denies fevers. Is tolerating IV Levaquin. Patient refused to work with physical therapy today. Constitutional: Denies: Chills, Fever, Night Sweats Pulmonary: Denies: Dyspnea, Cough Cardiovascular: Denies: Chest Pain, Palpitations, Orthopnea, Paroxysmal Noc. Dyspnea, Lt Headedness Gastrointestinal: Denies: Nausea, Vomiting, Abdominal Pain, Diarrhea, Constipation Genitourinary: Denies: Dysuria, Frequency, Incontinence, Retention Objective Physical Examination General Exam: Positive: Alert, No Acute Distress Eye Exam: Positive: Conjunctiva & lids normal, Negative: Sclera icteric ENT Exam: Positive: Mucous membr. moist/pink Neck Exam: Negative: Lymphadenopathy Chest Exam: Positive: Clear to auscultation, Normal air movement Heart Exam: Positive: Irregular Rhythm Abdomen Exam: Positive: Normal bowel sounds, Soft, Negative: Tenderness Skin Exam: Positive: Other skin issue (the erythema is well within the marked borders. The edema is improved since yesterday. Area of sloughing on his medial lower leg, dressings and skin remain dry today without discharge.) Neuro Exam: Positive: Normal Speech Psych Exam: Positive: Mental status NL, Mood NL, Oriented x 3 Assessment /Plan Problems (1) Cellulitis of right lower leg Status: Acute Problem Text: 03/04/17- Patient R leg was examined today. Appears improved. Less swelling, wounds remain dry without discharge. Patient remains afebrile. Final wound culture was positive for heavy Streptococcus group C and few Coag neg Staphylococcus. Continue Levaquin for Streptococcus; Coag neg staph likely doesn't need treatment due to being only "few". Patient's WBC and ESR trended upwards today, possibly from hemoconcentration. His CRP continues to trend downwards. With his infection visibly looking improved, we will continue his current antibiotic course with oral Levaquin and monitor his labs tomorrow. Potential d/c tomorrow pending PT. 03/03/17- I feel like we are finally starting to make some improvement today. He has "turned a corner" so to say. Continue on levofloxacin every 48 hours because of renal function. Continue to gently wrap his leg with an Rashel wrap and to keep it elevated. (2) Essential (primary) hypertension Status: Chronic Problem Text: Continue on diuretics. (3) LUZ (obstructive sleep apnea) Status: Chronic Problem Text: Continue patient with CPAP overnight (4) Atrial fibrillation Status: Chronic Response to Treatment: Controlled Problem Text: Continue patient on Pradaxa. (5) Chronic diastolic CHF (congestive heart failure) Status: Chronic Response to Treatment: Stable (6) DM type 2 with diabetic peripheral neuropathy Status: Chronic Problem Text: Continue patient on SSI (7) Sepsis Status: Resolved Plan/VTE VTE Prophylaxis Ordered?: Yes VS, I&O, 24H, Fishbone Vital Signs/I&O Vital Signs Date Time Temp Pulse Resp B/P (MAP) Pulse Ox O2 Delivery O2 Flow Rate FiO2 03/04/17 08:01 84 16 98 03/04/17 08:01 97.8 168/82 (110) 03/04/17 06:00 NIPPV (BIPAP/CPAP) I&O- Last 24 Hours up to 6 AM 03/05/17 06:00 Intake Total 740 ml Output Total 200 ml Balance 540 ml Laboratory Data 24H LABS Laboratory Tests 2 03/03/17 11:36: Bedside Glucose (Misc Panel) 230H 03/03/17 16:52: Bedside Glucose (Misc Panel) 126H 03/03/17 20:01: Bedside Glucose (Misc Panel) 163H 03/04/17 06:27: Immature Granulocyte % (Auto) 0.9H, White Blood Count 15.5H, Red Blood Count 3.78L, Hemoglobin 12.0L, Hematocrit 35.8L, Mean Corpuscular Volume 94.7, Mean Corpuscular Hemoglobin 31.7, Mean Corpuscular Hemoglobin Concent 33.5, Red Cell Distribution Width 12.9, Platelet Count 284, Neutrophils (%) (Auto) 80.1H, Lymphocytes (%) (Auto) 10.3L, Monocytes (%) (Auto) 8.0H, Eosinophils (%) (Auto) 0.3, Basophils (%) (Auto) 0.4, Neutrophils # (Auto) 12.4H, Lymphocytes # (Auto) 1.6, Monocytes # (Auto) 1.2H, Eosinophils # (Auto) 0.0, Basophils # (Auto) 0.1, Immature Granulocyte # (Auto) 0.1H, Nucleated Red Blood Cells % (auto) 0.0, Erythrocyte Sedimentation Rate 90H, Anion Gap 7L, Glomerular Filtration Rate 58.0, Blood Urea Nitrogen 23H, Creatinine 1.28, Sodium Level 138, Potassium Level 3.7, Chloride Level 98, Carbon Dioxide Level 33H, Calcium Level 9.2, C- Reactive Protein, Quantitative 8.30H CBC/BMP Laboratory Tests 03/04/17 06:27 Red Blood Count 3.78 L, Mean Corpuscular Volume 94.7, Mean Corpuscular Hemoglobin 31.7, Mean Corpuscular Hemoglobin Concent 33.5, Red Cell Distribution Width 12.9, Neutrophils (%) (Auto) 80.1 H, Lymphocytes (%) (Auto) 10.3 L, Monocytes (%) (Auto) 8.0 H, Eosinophils (%) (Auto) 0.3, Basophils (%) ( Auto) 0.4, Neutrophils # (Auto) 12.4 H, Lymphocytes # (Auto) 1.6, Monocytes # ( Auto) 1.2 H, Eosinophils # (Auto) 0.0, Basophils # (Auto) 0.1, Calcium Level 9.2 Microbiology Microbiology 02/27/17 Blood Culture - Preliminary, Resulted No Growth after 72 hours. All specime... 02/27/17 Blood Culture - Preliminary, Resulted No Growth after 72 hours. All specime... 02/27/17 Gram Stain - Final, Complete 02/27/17 Wound Culture - Final, Complete Streptococcus Group C Staphylococcus Sp Coag Neg GME ATTESTATION GME ATTESTATION My preceptor for this patient encounter was physically present in the building during the encounter and was fully available. As needed, all aspects of the patient interview, examination, medical decision making process, and medical care plan development were reviewed and approved by the preceptor. Preceptor is aware and concurs with the plan as stated in the body of this note and will attest to such by his/her cosignature. ATTENDING NOTE Family Medicine Attending Note: Patient was seen and examined this afternoon; I discussed his care with Dr. Lazcano and I agree with his note as documented. Per Dr. Lazcano, leg is improved; he still has some redness but this has receded from lines that were previously drawn. Previous open wound on anterior lower jacobson is now healed; very slight abrasion on medial lower leg is still visible but leg is mostly dry. If he continues to improve clinically, consider discharge tomorrow. (KES). SARAVANAN LAZCANO DO Mar 04, 2017 11:19 TYRELL DELCID MD Mar 04, 2017 16:41
[2017-03-04] MEDS ORDERED: LevoFLOXacin 750 MG TABLET PO SCH (18:00)
[2017-03-04] MEDS: PRAVASTATIN 20 MG TAB PO SCH (20:43)
[2017-03-04] MEDS: LATANOPROST 0.005% OPHTH SOLN 2.5 ML OU SCH (20:43)
[2017-03-04] MEDS: ZINC SULFATE 220 MG CAP PO SCH (20:43)
[2017-03-04 22:00] VITALS: BP 147/67
[2017-03-05 06:00] VITALS: BP 133/67
[2017-03-05 06:55] LABS: BASO % 0.3 % (0.0-1.0); EOS % 0.2 % (0.0-3.0); IMMATURE GRANULOCYTE % 1.5 % (0-0); LYMPH # 1.1 10^3/uL (1.5-4.5); MEAN CORPUSCULAR HEMOGLOBIN 31.3 pg (27.0-33.0); MEAN CORPUSCULAR HGB CONC 33.1 g/dl (32.0-36.5); MEAN CORPUSCULAR VOLUME 94.3 fl (80.0-96.0); MONO % 8.2 % (0.0-5.0); NEUTROPHILS % 80.8 % (36.0-66.0); PLATELET COUNT, AUTOMATED 280 10^3/uL (150-450); WHITE BLOOD COUNT 12.4 10^3/uL (4.0-10.0)
[2017-03-05 07:15] LABS: CALCIUM LEVEL 8.8 MG/DL (8.8-10.2); CREATININE FOR GFR 1.27 MG/DL (0.70-1.30); GLOMERULAR FILTRATION RATE 58.5 (>42); POTASSIUM SERUM 3.3 MEQ/L (3.5-5.1)
[2017-03-05] MEDS: MULTIVITAMINS/MINERALS THERAP 1 TAB PO SCH (08:39)
[2017-03-05] MEDS: FUROSEMIDE 80 MG TAB PO SCH (08:39)
[2017-03-05] MEDS: ASCORBIC ACID 500 MG TAB PO SCH (08:39)
[2017-03-05] MEDS: AQUAPHOR **100GM** OINT TOP SCH (08:39)
[2017-03-05] MEDS: SPIRONOLACTONE 50 MG TAB PO SCH (08:39)
[2017-03-05] MEDS: DABIGATRAN ETEXILATE 75 MG CAP (PRADAXA) PO SCH (08:39)
[2017-03-05] MEDS: HumaLOG INSULIN (NovoLOG) PER UNIT SC SCH ×2 (08:39→12:40)
[2017-03-05] MEDS ORDERED: POTASSIUM CHLORIDE 10 MEQ SR TABLET PO ONE (10:30)
[2017-03-05] MEDS ORDERED: LEVA750T7 PO (10:33)
--- NOTE | 2017-03-05 11:26 | DSES ---
DATE OF ADMISSION: 02/27/2017 DATE OF DISCHARGE: 03/05/17 ATTENDING PHYSICIAN: Dr. Hosea Eugene PRIMARY CARE PHYSICIAN: Dr. Marco Merino [place]. COMMISSIONER: Dr. Enoch Medina HISTORY OF PRESENT ILLNESS: 76-year-old gentleman with past medical history of obstructive sleep apnea on continuous positive airway pressure (CPAP), chronic right foot venostasis with multiple episodes of cellulitis, dilated coronary myopathy, diabetes, hyperlipidemia, obesity, hypertension, CAD stage III, presented to [facility] emergency department (ED) for complaints of right lower extremity swelling and erythema. Patient had been on his tractor at home. He had placed his foot under the break pedal and developed an abrasion of the lateral side of the dorsum of his foot and presented to 2 days later with progressive worsening and a maximum temperature (Tmax) of 102.5. Patient was subsequently diagnosed with sepsis secondary to right lower extremity cellulitis. He was admitted to the family medicine service and placed on vancomycin and Zosyn. HOSPITAL COURSE: Patient had an initial lactic acid of 2.1. Repeat was 1.2 post intravenous (IV) hydration. Patient's initial C-reactive protein was in the 17 range and has progressively come down most recent on 03/04/2017 to 8.3. White blood cell count on presentation 27,000, most recent today is down to 12,000. Wound culture did return with Streptococcus group C heavy growth, along with coag negative Staphylococcus. Patient was subsequently placed on Levaquin IV every 48 hours secondary to his renal insufficiency. Patient has tolerated that well. Patient was transitioned over oral Levaquin within the last 24 hours, has tolerated that. White blood cell count continues to decline down to 12,000. Patient was evaluated by physical therapy, deemed appropriate for discharge to home with the assistance of a wheeled walker. CONSULTATIONS: None. IMAGING: Vascular ultrasound was completed on presentation. No deep venous thrombosis (DVT) was noted. PROCEDURES: None. On physical exam today, vital signs are stable. He is afebrile. HEENT: Neck is supple, without lymphadenopathy or jugular venous distention (JVD). CARDIOVASCULAR: Heart rate and rhythm are regular. PULMONARY: Lungs are clear. ABDOMEN: Obese, soft and nontender. RIGHT LOWER EXTREMITY: Does show some improving erythema but does have some swelling and mild warmth. He is wrapped in an Rashel bandage, which is improving his edema. LEFT LOWER EXTREMITY: Has slight trace edema. Positive pedal pulses are palpated bilaterally. ASSESSMENT/DISCHARGE DIAGNOSES: 1. Sepsis secondary to right lower extremity cellulitis. 2. Group C Streptococcus cellulitis of the right lower extremity. SECONDARY DIAGNOSES: Include: 1. Obstructive sleep apnea (LUZ) on continuous positive airway pressure. 2. Dilated coronary myopathy. 3. Diabetes. 4. Hyperlipidemia. 5. Obesity. 6. Hypertension. 7. CAD. PLAN: Patient will be discharged home. Diet is carbohydrate consistent diet, 2 gram sodium. Activity is with rolling walking. He will followup with primary care physician, Dr. Marco Merino within the next 7 days. He will followup with Dr. Enoch Medina as soon as possible. He will continue his Optilock foam dressing, which was placed yesterday, that will be removed at podiatry and further recommendations for wound care will be placed by podiatry. Medications are as follows: - Levaquin 750 by mouth q48 hours for five more doses. - ascorbic acid 500 mg by mouth twice a day - Pradaxa 150 mg by mouth twice a day - furosemide 80 mg by mouth twice a day - latanoprost drops one drop both eyes nightly - metformin 1000 mg by mouth twice a day - multivitamin one tablet daily - pravastatin 20 mg by mouth nightly - quinapril 40 mg by mouth daily - spironolactone by mouth daily - zinc sulfate 220 mg by mouth every evening Patient is discharged in stable and satisfactory condition with no further questions at time of discharge. [facility]
== END 2017-03-05 13:10 | disposition home health service (06) | DRG 872 ==
LOC: M ED 13:30 → M ED INP 19:02 → M MS4PR 22:10 → M MS5PR 03-02 14:29
PROVIDERS: ADMIT Internal Medicine; ATTEND Family Medicine
DX: A41.9 Sepsis, unspecified organism (principal); L03.115 Cellulitis of right lower limb; I42.0 Dilated cardiomyopathy; I50.32 Chronic diastolic (congestive) heart failure; I13.0 Hypertensive heart and chronic kidney disease with heart failure and stage 1 through stage 4 chronic kidney disease, or unspecified chronic kidney disease; G47.33 Obstructive sleep apnea (adult) (pediatric); E11.51 Type 2 diabetes mellitus with diabetic peripheral angiopathy without gangrene; E78.5 Hyperlipidemia, unspecified; E66.9 Obesity, unspecified; I25.10 Atherosclerotic heart disease of native coronary artery without angina pectoris; N18.9 Chronic kidney disease, unspecified; I48.91 Unspecified atrial fibrillation; Z79.899 Other long term (current) drug therapy

== ENCOUNTER → 2017-07-31 | Outpatient (CLI) | payer MEDICARE ==
[2017-07-31 11:46] LABS: HEMATOCRIT 31.2 % (42.0-52.0); HEMOGLOBIN 9.8 g/dl (14.0-18.0); MEAN CORPUSCULAR HEMOGLOBIN 30.2 pg (27.0-33.0); MEAN CORPUSCULAR HGB CONC 31.4 g/dl (32.0-36.5); MEAN CORPUSCULAR VOLUME 96.3 fl (80.0-96.0); PLATELET COUNT, AUTOMATED 319 10^3/uL (150-450); RED BLOOD COUNT 3.24 10^6/uL (4.30-6.10); RED CELL DISTRIBUTION WIDTH 13.1 % (11.5-14.5)
[2017-07-31 12:23] LABS: ALBUMIN 3.5 GM/DL (3.2-5.2); ALBUMIN/GLOBULIN RATIO 1.03 (1.00-1.93); ALKALINE PHOSPHATASE 76 U/L (45-117); ALT/SGPT 14 U/L (12-78); ANION GAP 8 MEQ/L (8-16); AST/SGOT 7 U/L (7-37); BILIRUBIN,TOTAL 0.5 MG/DL (0.2-1.0); BLOOD UREA NITROGEN 36 MG/DL (7-18); CALCIUM LEVEL 8.8 MG/DL (8.8-10.2); CARBON DIOXIDE LEVEL 28 MEQ/L (21-32); CHLORIDE LEVEL 103 MEQ/L (98-107); CHOLESTEROL LEVEL 121 MG/DL (<200); CHOLESTEROL RISK RATIO 2.688 (<5); CREATININE FOR GFR 1.58 MG/DL (0.70-1.30); GLOMERULAR FILTRATION RATE 45.4 (>42); GLUCOSE, FASTING 154 MG/DL (70-100); HDL CHOLESTEROL 45 MG/DL (>40); LDL CHOLESTEROL 63.8 MG/DL (<100); NON-HDL-C 76 MG/DL; POTASSIUM SERUM 4.9 MEQ/L (3.5-5.1); SODIUM LEVEL 139 MEQ/L (136-145); TOTAL PROTEIN 6.9 GM/DL (6.4-8.2); TRIGLYCERIDES LEVEL 61 MG/DL (<150); URIC ACID 10.6 MG/DL (3.5-7.2)
[2017-07-31 12:29] LABS: MAU/CREAT RATIO 19.4 MCG/MG (0.0-30.0)
[2017-07-31 12:57] LABS: ESTIMATED AVERAGE GLUCOSE 148 MG/DL (60-110); HEMOGLOBIN A1c 6.8 %
== END ==
LOC: M LAB 11:08
DX: I48.91 Unspecified atrial fibrillation (principal); G47.33 Obstructive sleep apnea (adult) (pediatric); I11.0 Hypertensive heart disease with heart failure; E11.21 Type 2 diabetes mellitus with diabetic nephropathy; E78.2 Mixed hyperlipidemia; M10.9 Gout, unspecified
CPT/HCPCS: 84550

== ENCOUNTER → 2017-09-05 | Outpatient (REF) | payer MEDICARE ==
[2017-09-05 17:57] LABS: BASO # 0.1 10^3/uL (0.0-0.2); BASO % 0.8 % (0.0-1.0); EOS # 0.1 10^3/uL (0.0-0.50); EOS % 1.2 % (0.0-3.0); HEMATOCRIT 32.7 % (42.0-52.0); HEMOGLOBIN 10.5 g/dl (13.5-17.5); IMMATURE GRANULOCYTE % 0.4 % (0-3.0); LYMPH # 1.3 10^3/uL (1.5-4.5); LYMPH % 13.3 % (24.0-44.0); MEAN CORPUSCULAR HEMOGLOBIN 30.6 pg (27.0-33.0); MEAN CORPUSCULAR HGB CONC 32.1 g/dl (32.0-36.5); MEAN CORPUSCULAR VOLUME 95.3 fl (80.0-96.0); MONO # 0.7 10^3/uL (0.0-0.8); MONO % 7.7 % (0.0-5.0); NEUTROPHILS # 7.2 10^3/uL (1.8-7.7); NEUTROPHILS % 76.6 % (36.0-66.0); PLATELET COUNT, AUTOMATED 349 10^3/uL (150-450); RED BLOOD COUNT 3.43 10^6/uL (4.30-6.10); RED CELL DISTRIBUTION WIDTH 13.9 % (11.5-14.5); WHITE BLOOD COUNT 9.4 10^3/uL (4.0-10.0)
[2017-09-05 18:33] LABS: ALBUMIN 3.6 GM/DL (3.2-5.2); ALBUMIN/GLOBULIN RATIO 0.97 (1.00-1.93); ALKALINE PHOSPHATASE 80 U/L (45-117); ALT/SGPT 11 U/L (12-78); ANION GAP 8 MEQ/L (8-16); AST/SGOT 9 U/L (7-37); BILIRUBIN,TOTAL 0.7 MG/DL (0.2-1.0); BLOOD UREA NITROGEN 60 MG/DL (7-18); CARBON DIOXIDE LEVEL 27 MEQ/L (21-32); CHLORIDE LEVEL 101 MEQ/L (98-107); FREE T4 1.13 NG/DL (0.76-1.46); GLOMERULAR FILTRATION RATE 32.7 (>42); GLUCOSE, FASTING 122 MG/DL (70-100); RHEUMATOID FACTOR QUANT < 10.0 IU/ML (<15.0); SODIUM LEVEL 136 MEQ/L (136-145); TOTAL PROTEIN 7.3 GM/DL (6.4-8.2)
[2017-09-05 18:38] LABS: POTASSIUM SERUM 5.6 MEQ/L (3.5-5.1)
[2017-09-05 18:57] LABS: VITAMIN B12 LEVEL 352 PG/ML
[2017-09-05 18:58] LABS: FOLATE 11.7 NG/ML
[2017-09-05 19:23] LABS: ESTIMATED AVERAGE GLUCOSE 151 MG/DL (60-110); HEMOGLOBIN A1c 6.9 %
[2017-09-05 21:03] LABS: ERYTHROCYTE SEDIMENTATION RATE 83 mm/hr (0-20)
== END ==
LOC: M LABNEURO 12:04
DX: E11.9 Type 2 diabetes mellitus without complications (principal); R41.3 Other amnesia; Z11.3 Encounter for screening for infections with a predominantly sexual mode of transmission; Z13.29 Encounter for screening for other suspected endocrine disorder
CPT/HCPCS: 82746

== ENCOUNTER → 2017-09-16 | Outpatient (CLI) | payer MEDICARE ==
[2017-09-16 14:52] LABS: ANION GAP 6 MEQ/L (8-16); BLOOD UREA NITROGEN 48 MG/DL (7-18); CALCIUM LEVEL 8.9 MG/DL (8.8-10.2); CARBON DIOXIDE LEVEL 27 MEQ/L (21-32); CHLORIDE LEVEL 103 MEQ/L (98-107); CREATININE FOR GFR 1.65 MG/DL (0.70-1.30); GLOMERULAR FILTRATION RATE 43.2 (>42); GLUCOSE, FASTING 134 MG/DL (70-100); SODIUM LEVEL 136 MEQ/L (136-145)
[2017-09-16 14:55] LABS: POTASSIUM SERUM 5.3 MEQ/L (3.5-5.1)
== END ==
LOC: M LAB 13:34
DX: N18.3 Chronic kidney disease, stage 3 (moderate) (principal); M10.9 Gout, unspecified
CPT/HCPCS: 84550

== ENCOUNTER → 2017-09-26 | Outpatient (REF) | payer MEDICARE ==
[2017-09-26 19:11] LABS: HEMATOCRIT 29.5 % (42.0-52.0); HEMOGLOBIN 9.2 g/dl (13.5-17.5); MEAN CORPUSCULAR HEMOGLOBIN 30.4 pg (27.0-33.0); MEAN CORPUSCULAR HGB CONC 31.2 g/dl (32.0-36.5); MEAN CORPUSCULAR VOLUME 97.4 fl (80.0-96.0); PLATELET COUNT, AUTOMATED 279 10^3/uL (150-450); RED BLOOD COUNT 3.03 10^6/uL (4.30-6.10); RED CELL DISTRIBUTION WIDTH 15.2 % (11.5-14.5); RETIC HEMOGLOBIN EQUIVALENT 35.4 pg (24-36); RETICULOCYTE # 77.6 10^9/L (17-77); RETICULOCYTE % 2.6 % (0.5-1.5)
[2017-09-26 19:29] LABS: FERRITIN 13 NG/ML (26-388); IRON (FE) 67 UG/DL (65-175); PERCENT SATURATION 16.1 % (19.7-50.0); TOTAL IRON BINDING CAPACITY 415 UG/DL (250-450)
== END ==
LOC: M SFHCADAM 15:17
DX: D64.9 Anemia, unspecified (principal)
CPT/HCPCS: 83550

== ENCOUNTER → 2017-11-19 | Outpatient (REF) | payer MEDICARE ==
[2017-11-19 19:54] LABS: ANION GAP 6 MEQ/L (8-16); BLOOD UREA NITROGEN 20 MG/DL (7-18); CALCIUM LEVEL 9.2 MG/DL (8.8-10.2); CARBON DIOXIDE LEVEL 26 MEQ/L (21-32); CHLORIDE LEVEL 109 MEQ/L (98-107); CREATININE FOR GFR 1.07 MG/DL (0.70-1.30); FERRITIN 25 NG/ML (26-388); GLOMERULAR FILTRATION RATE > 60.0 (>42); GLUCOSE, FASTING 88 MG/DL (70-100); IRON (FE) 92 UG/DL (65-175); PERCENT SATURATION 23.5 % (19.7-50.0); SODIUM LEVEL 141 MEQ/L (136-145); TOTAL IRON BINDING CAPACITY 392 UG/DL (250-450)
[2017-11-19 19:55] LABS: POTASSIUM SERUM 5.7 MEQ/L (3.5-5.1)
[2017-11-19 20:05] LABS: HEMATOCRIT 35.1 % (42.0-52.0); HEMOGLOBIN 10.9 g/dl (13.5-17.5); MEAN CORPUSCULAR HEMOGLOBIN 30.9 pg (27.0-33.0); MEAN CORPUSCULAR HGB CONC 31.1 g/dl (32.0-36.5); MEAN CORPUSCULAR VOLUME 99.4 fl (80.0-96.0); PLATELET COUNT, AUTOMATED 302 10^3/uL (150-450); RED BLOOD COUNT 3.53 10^6/uL (4.30-6.10); RED CELL DISTRIBUTION WIDTH 16.5 % (11.5-14.5); RETIC HEMOGLOBIN EQUIVALENT 33.2 pg (24-36); RETICULOCYTE # 75.9 10^9/L (17-77); RETICULOCYTE % 2.2 % (0.5-1.5); WHITE BLOOD COUNT 9.3 10^3/uL (4.0-10.0)
[2017-11-22 00:12] LABS: FREE KAPPA LIGHT CHAINS SERUM 29.3 mg/L (3.3-19.4); FREE LAMBDA LIGHT CHAINS SERUM 25.6 mg/L (5.7-26.3); KAPPA/LAMBDA RATIO SERUM 1.14 (0.26-1.65)
== END ==
LOC: M SFHCADAM 13:40
DX: D50.8 Other iron deficiency anemias (principal); D53.9 Nutritional anemia, unspecified; N18.3 Chronic kidney disease, stage 3 (moderate)
CPT/HCPCS: 83550

== ENCOUNTER → 2017-11-28 | Outpatient (CLI) | payer MEDICARE | LOC: M ADAMS 15:55 | DX: M17.12 Unilateral primary osteoarthritis, left knee (principal) | CPT/HCPCS: 73564 ==

== ENCOUNTER 2018-01-09 06:21 | Day surgery (SDC) | payer MEDICARE ==
[2018-01-09] MEDS: NS 1,000 ML IV (07:06)
[2018-01-09] MEDS ORDERED: LIDOCAINE 2% INJ 100 MG/5 ML SDV (FOR ANES.) As Ordered (07:41)
[2018-01-09] MEDS ORDERED: PROPOFOL 200 MG/20 ML VIAL As Ordered (07:41)
== END 2018-01-09 08:26 | disposition home or self-care (01) ==
LOC: M OPP 06:21
DX: D50.9 Iron deficiency anemia, unspecified (principal); K22.10 Ulcer of esophagus without bleeding; K20.9 Esophagitis, unspecified; I44.7 Left bundle-branch block, unspecified; I48.91 Unspecified atrial fibrillation; I35.9 Nonrheumatic aortic valve disorder, unspecified; I25.10 Atherosclerotic heart disease of native coronary artery without angina pectoris; I50.32 Chronic diastolic (congestive) heart failure; I12.9 Hypertensive chronic kidney disease with stage 1 through stage 4 chronic kidney disease, or unspecified chronic kidney disease; E78.5 Hyperlipidemia, unspecified; I34.0 Nonrheumatic mitral (valve) insufficiency; I42.9 Cardiomyopathy, unspecified; E11.40 Type 2 diabetes mellitus with diabetic neuropathy, unspecified; M10.9 Gout, unspecified; R23.3 Spontaneous ecchymoses; M19.90 Unspecified osteoarthritis, unspecified site; L89.519 Pressure ulcer of right ankle, unspecified stage; G30.9 Alzheimer's disease, unspecified; G47.30 Sleep apnea, unspecified; R06.83 Snoring; R06.02 Shortness of breath; N18.3 Chronic kidney disease, stage 3 (moderate); E66.01 Morbid (severe) obesity due to excess calories; Z87.891 Personal history of nicotine dependence; Z79.899 Other long term (current) drug therapy; Z79.01 Long term (current) use of anticoagulants; Z79.84 Long term (current) use of oral hypoglycemic drugs
CPT/HCPCS: 43239

== ENCOUNTER → 2018-02-20 | Outpatient (REF) | payer MEDICARE ==
[2018-02-20 20:13] LABS: HEMATOCRIT 39.7 % (42.0-52.0); HEMOGLOBIN 12.6 g/dl (13.5-17.5); MEAN CORPUSCULAR HEMOGLOBIN 31.7 pg (27.0-33.0); MEAN CORPUSCULAR HGB CONC 31.7 g/dl (32.0-36.5); MEAN CORPUSCULAR VOLUME 99.7 fl (80.0-96.0); PLATELET COUNT, AUTOMATED 234 10^3/uL (150-450); RED BLOOD COUNT 3.98 10^6/uL (4.30-6.10); RED CELL DISTRIBUTION WIDTH 15.5 % (11.5-14.5); RETIC HEMOGLOBIN EQUIVALENT 35.5 pg (24-36); RETICULOCYTE # 73.2 10^9/L (17-77); RETICULOCYTE % 1.8 % (0.5-1.5); WHITE BLOOD COUNT 7.9 10^3/uL (4.0-10.0)
[2018-02-20 20:44] LABS: ANION GAP 5 MEQ/L (8-16); BLOOD UREA NITROGEN 18 MG/DL (7-18); CALCIUM LEVEL 8.7 MG/DL (8.8-10.2); CARBON DIOXIDE LEVEL 29 MEQ/L (21-32); CHLORIDE LEVEL 108 MEQ/L (98-107); CREATININE FOR GFR 1.19 MG/DL (0.70-1.30); FERRITIN 45 NG/ML (26-388); GLOMERULAR FILTRATION RATE > 60.0 (>42); GLUCOSE, FASTING 121 MG/DL (70-100); IRON (FE) 97 UG/DL (65-175); PERCENT SATURATION 27.6 % (19.7-50.0); POTASSIUM SERUM 5.1 MEQ/L (3.5-5.1); SODIUM LEVEL 142 MEQ/L (136-145); TOTAL IRON BINDING CAPACITY 352 UG/DL (250-450)
== END ==
LOC: M SFHCADAM 13:48
DX: D50.8 Other iron deficiency anemias (principal); N18.3 Chronic kidney disease, stage 3 (moderate)
CPT/HCPCS: 83550

== ENCOUNTER 2018-05-20 11:04 | Day surgery (SDC) | payer MEDICARE ==
[~2018-05-20] VITALS: Ht 180.3 cm; Wt 106.8 kg
[~2018-05-20 11:04] MED LIST changes: +ALLO10TA PO; +ASCO500T PO; +DONETAB6 PO; +FERR325T3 PO; +LEVA750T7 PO; -QUIN1TAB15 PO; +QUIN1TAB4 PO; -SPIR50TA2 PO; +SPIR50TA4 PO
[2018-05-20] MEDS ORDERED: NS 1,000 ML IV ONE (12:00)
[2018-05-20] MEDS ORDERED: LIDOCAINE 2% INJ 100 MG/5 ML SDV (FOR ANES.) As Ordered ONE (13:00)
[2018-05-20] MEDS ORDERED: PROPOFOL 200 MG/20 ML VIAL As Ordered ONE (13:00)
--- NOTE | 2018-05-20 13:14 | ROOR ---
Patient Name: Saurabh Felipe Procedure Date: 05/20/2018 12:55 PM Date of : 1940 Age: 78 Room: [facility] Gender: Male Note Status: Finalized Procedure: Upper GI endoscopy Indications: Iron deficiency anemia, Suspected esophageal reflux Providers: Pipe PETERSEN MD Referring MD: Marco Merino MD Requesting Provider: Medicines: Monitored Anesthesia Care Complications: No immediate complications. Procedure: Pre-Anesthesia Assessment: - The heart rate, respiratory rate, oxygen saturations, blood pressure, adequacy of pulmonary ventilation, and response to care were monitored throughout the procedure. The Endoscope was introduced through the mouth, and advanced to the second part of duodenum. The upper GI endoscopy was accomplished without difficulty. The patient tolerated the procedure well. Findings: Small Hiatal Hernia. The esophagus was normal. The stomach was normal. The examined duodenum was normal. Impression: - Normal esophagus. (esophageal ulcers has completely healed) - Normal stomach with a small hiatal hernia. - Normal examined duodenum. - No specimens collected. Recommendation: - Use Prilosec (omeprazole) 40 mg PO daily. - Continue present medications. - Observe patient's clinical course. Pipe Petersen MD Pipe PETERSEN MD 05/20/2018 1:14:11 PM This report has been signed electronically. Number of Addenda: 0 Note Initiated On: 05/20/2018 12:55 PM Estimated Blood Loss: Estimated blood loss: none.
[2018-05-20 13:45] VITALS: BP 189/90
== END 2018-05-20 13:58 | disposition home or self-care (01) ==
LOC: M OPP 11:04
PROVIDERS: ATTEND Internal Medicine Gastroenterology
DX: D50.9 Iron deficiency anemia, unspecified (principal); K44.9 Diaphragmatic hernia without obstruction or gangrene; I48.91 Unspecified atrial fibrillation; E11.9 Type 2 diabetes mellitus without complications; I35.9 Nonrheumatic aortic valve disorder, unspecified; I50.33 Acute on chronic diastolic (congestive) heart failure; Z79.82 Long term (current) use of aspirin; Z79.84 Long term (current) use of oral hypoglycemic drugs; Z79.899 Other long term (current) drug therapy; Z87.891 Personal history of nicotine dependence

== ENCOUNTER → 2018-05-30 | Outpatient (REF) | payer MEDICARE ==
[2018-05-30 14:23] LABS: BLOOD UREA NITROGEN 15 MG/DL (7-18); CREATININE FOR GFR 0.98 MG/DL (0.70-1.30); GLOMERULAR FILTRATION RATE > 60.0 (>42)
== END ==
LOC: M LAB REF 13:22
PROVIDERS: ATTEND Surgery
DX: I87.311 Chronic venous hypertension (idiopathic) with ulcer of right lower extremity (principal)

== ENCOUNTER → 2018-06-20 | Outpatient (CLI) | payer MEDICARE ==
[~2018-06-20] MED LIST changes: +PROHANCE 279.3MG/ML 15ML VIAL (A9576) As Ordered ONE; +PROHANCE 279.3MG/ML 5ML VIAL (A9576) As Ordered ONE
--- NOTE | 2018-06-20 15:36 | REP ---
MR ANGIO of the pelvis and lower extremity runoff arteries. With IV contrast: History: Venous hypertension. Ulcer right lower extremity. Gadolinium enhancement dose: 35 ml of intravenous ProHance. Findings: The infrarenal abdominal aorta is widely patent. No common iliac artery stenosis is seen on either side. The external iliac arteries are widely patent. Both internal iliac arteries are patent. There is minimal plaquing in the proximal superficial femoral arteries at their origin. Both profunda femoral arteries are patent. The common femoral arteries are unremarkable. Minimal atherosclerosis is seen in the mid superficial femoral arteries bilaterally, right a little more so than left. There is 50% narrowing of the right mid superficial femoral artery. Atherosclerotic plaquing is seen in the right distal SFA and there is a focal stenosis in the right popliteal artery, 75%. There is venous signal and enhancement in the calf segment of the study bilaterally, rendering evaluation of the arteries somewhat difficult. There is atherosclerotic calf runoff stenosis proximally on the right effecting what appears to be the posterior tibial artery. On the left, there is a high-grade stenosis involving the proximal anterior tibial artery and lesser atherosclerotic changes are seen in the proximal peroneal and posterior tibial artery. The mid and distal calf runoff arteries are less than optimally seen. The left anterior tibial is seen crossing the ankle. Impression: The dominant abnormalities are focal high-grade stenosis of the right popliteal and proximal calf runoff disease present bilaterally, right greater than left. Hyperemia associated early venous enhancement is seen in the calves on both sides. Electronically Signed by Sami Love MD 06/20/2018 03:48 P
== END ==
LOC: M RAD 12:49
PROVIDERS: ATTEND Surgery
DX: I87.311 Chronic venous hypertension (idiopathic) with ulcer of right lower extremity (principal); I70.238 Atherosclerosis of native arteries of right leg with ulceration of other part of lower leg; I70.202 Unspecified atherosclerosis of native arteries of extremities, left leg; L97.919 Non-pressure chronic ulcer of unspecified part of right lower leg with unspecified severity
CPT/HCPCS: A9576; C8914; C8920

== ENCOUNTER → 2018-07-04 | Outpatient (REF) | payer MEDICARE ==
[~2018-07-04] MED LIST changes: -PROHANCE 279.3MG/ML 15ML VIAL (A9576) As Ordered ONE; -PROHANCE 279.3MG/ML 5ML VIAL (A9576) As Ordered ONE
[2018-07-04 12:59] LABS: HEMATOCRIT 39.9 % (42.0-52.0); HEMOGLOBIN 12.6 g/dl (13.5-17.5); MEAN CORPUSCULAR HEMOGLOBIN 32.1 pg (27.0-33.0); MEAN CORPUSCULAR HGB CONC 31.6 g/dl (32.0-36.5); MEAN CORPUSCULAR VOLUME 101.5 fl (80.0-96.0); PLATELET COUNT, AUTOMATED 218 10^3/uL (150-450); RED BLOOD COUNT 3.93 10^6/uL (4.30-6.10); WHITE BLOOD COUNT 7.8 10^3/uL (4.0-10.0)
[2018-07-04 13:32] LABS: ALBUMIN 3.5 GM/DL (3.2-5.2); ALT/SGPT 13 U/L (12-78); BILIRUBIN,TOTAL 1.1 MG/DL (0.2-1.0); BLOOD UREA NITROGEN 16 MG/DL (7-18); CALCIUM LEVEL 8.9 MG/DL (8.8-10.2); CARBON DIOXIDE LEVEL 29 MEQ/L (21-32); CHLORIDE LEVEL 104 MEQ/L (98-107); CHOLESTEROL LEVEL 170 MG/DL (<200); CHOLESTEROL RISK RATIO 3.953 (<5); CREATININE FOR GFR 0.94 MG/DL (0.70-1.30); FERRITIN 58 NG/ML (26-388); FREE T4 1.14 NG/DL (0.76-1.46); GLOMERULAR FILTRATION RATE > 60.0 (>42); GLUCOSE, FASTING 98 MG/DL (70-100); HDL CHOLESTEROL 43 MG/DL (>40); IRON (FE) 136 UG/DL (65-175); LDL CHOLESTEROL 113 MG/DL (<100); NON-HDL-C 127 MG/DL; PERCENT SATURATION 39.4 % (19.7-50.0); SODIUM LEVEL 138 MEQ/L (136-145); TOTAL IRON BINDING CAPACITY 345 UG/DL (250-450); TOTAL PROTEIN 6.6 GM/DL (6.4-8.2); TRIGLYCERIDES LEVEL 69 MG/DL (<150)
[2018-07-04 13:33] LABS: HEMOGLOBIN A1c 6.1 %
[2018-07-04 14:13] LABS: MAU/CREAT RATIO 222.3 MCG/MG (0.0-30.0)
== END ==
LOC: M SFHCADAM 11:11
PROVIDERS: ATTEND Family Medicine
DX: D50.8 Other iron deficiency anemias (principal); E11.21 Type 2 diabetes mellitus with diabetic nephropathy; R41.3 Other amnesia; E78.2 Mixed hyperlipidemia

== ENCOUNTER → 2018-08-14 | Outpatient (CLI) | payer MEDICARE ==
[~2018-08-14] MED LIST changes: -/CLON1TA PO; -/QUIN20TA PO; +ACCU1TAB2 PO; +CLON-412 PO; +LATA0.0013 OU; -LATA5OPD OU; -PRAD150C PO; +PRAD150C6 PO
--- NOTE | 2018-08-14 15:11 | REP ---
Bilateral lower extremity arterial Doppler ultrasound: History: Atherosclerosis. Intermittent claudication bilateral legs. Findings: Ankle brachial indices could not be obtained. Vessels are noncompressible on the left and the distal posterior tibial and anterior tibial arteries on the right are occluded. Moderate calcific plaquing is seen extensively and bilaterally. There is evidence of stenosis in the distal superficial femoral artery on the right. Arterial wave forms are predominately biphasic in the lower extremities. Velocity chart right lower extremity arteries: CF A 151 cm/S Profunda 130 Proximal SFA 124 Mid SFA 129 Distal SFA 209 Popliteal 140 Proximal AT A 77 Tibioperoneal trunk 93 Proximal SHANK ARCHER 87 Distal SHANK ARCHER occluded Distal AT A occluded Velocity chart left lower extremity arteries: CF A 105 cm/S Profunda 55 Proximal SFA 116 Mid SFA 94 Distal SFA 99 Popliteal 88 Proximal AT A 59 Tibioperoneal trunk 88 Proximal SHANK ARCHER 56 Distal SHANK ARCHER 15 Electronically Signed by Sami Love MD 08/14/2018 03:03 P
== END ==
LOC: M RAD 12:43
PROVIDERS: ATTEND Surgery Vascular Surgery
DX: I70.213 Atherosclerosis of native arteries of extremities with intermittent claudication, bilateral legs (principal)
CPT/HCPCS: 15271; 93925; Q4186

== ENCOUNTER → 2018-11-18 | Outpatient (CLI) | payer MEDICARE ==
[~2018-11-18] MED LIST changes: +HEPARIN 1,000 UNITS/ML 10ML VIAL (FOR RADIOLOGY& DIALYSIS ONLY) As Ordered ONE; +ISOVUE-300 61% 50ML VIAL (Q9967) As Ordered ONE; +LIDOCAINE 2% MDV 20 ML VIAL As Ordered ONE; +MIDAZOLAM INJ 2 MG/2 ML VIAL (J2250) As Ordered ONE; +NITROGLYCERIN IN D5W 25MG/250ML (100MCG/ML) As Ordered ONE; +ceFAZolin 1GM INJ (J0690 PER 500MG) As Ordered ONE; +fentaNYL 100 MCG/2 ML INJECTION (J3010) As Ordered ONE
[2018-11-18 07:04] LABS: HEMATOCRIT 42.6 % (42.0-52.0); HEMOGLOBIN 14.5 g/dl (13.5-17.5); MEAN CORPUSCULAR HEMOGLOBIN 33.3 pg (27.0-33.0); MEAN CORPUSCULAR VOLUME 97.9 fl (80.0-96.0); PLATELET COUNT, AUTOMATED 250 10^3/uL (150-450); RED BLOOD COUNT 4.35 10^6/uL (4.30-6.10); WHITE BLOOD COUNT 8.7 10^3/uL (4.0-10.0)
[2018-11-18 07:45] LABS: CALCIUM LEVEL 9.4 MG/DL (8.8-10.2); CREATININE FOR GFR 1.49 MG/DL (0.70-1.30); GLOMERULAR FILTRATION RATE 48.4 (>42); POTASSIUM SERUM 5.3 MEQ/L (3.5-5.1)
--- NOTE | 2018-11-18 10:27 | ROOPDOC ---
[facility] Report Of Operation Report of Operation DATE OF PROCEDURE: 11/18/18 PREPROCEDURE DIAGNOSES: Right lower extremity atherosclerosis of the [place] arteries with nonhealing wound right foot. POSTPROCEDURE DIAGNOSES: Same. PROCEDURE: 1. Ultrasound-guided access left common femoral artery 2. Right lower extremity arteriogram with runoff 3. Select views right popliteal artery 4. Angioplasty distal right superficial femoral artery/proximal and mid popliteal artery with 6 x 200 [place] balloon 5. Angioplasty tibioperoneal trunk and proximal anterior tibial artery with 3 x 100 [place] balloon 6. Completion arteriograms 7. Minx closure left common femoral artery SURGEON: Ky Gabriel MD ANESTHESIA: Local anesthesia 2% lidocaine 5 mL. Moderate intravenous conscious sedation was supervised by Dr. Gabriel. The patient was independently monitored by registered nurse assigned to the Department of radiology using automated blood pressure, EKG and pulse oximetry. Detail conscious record is permanently stored in the hospital information system. The following is a conscious sedation record: Start time 08:21, stop time 09:57, fentanyl 50 g IV, Versed 1 mg IV, heparin 5000 units IV, nitroglycerin 600 g IV. CONTRAST: Isovue 56 mL INDICATION FOR PROCEDURE: Mr. Felipe is a very pleasant 78-year-old gentleman with known atherosclerosis of the right lower extremity and nonhealing wounds of the right foot. Risks benefits and alternatives to an arteriogram and potential intervention were explained extensively to the patient and his . Initially, we did not proceed with arteriogram as the wounds were small and seem to be healing and the patient has extensive comorbidities, but the ones of continued to remain unhealed and therefore we elected to proceed with arteriogram today. After extensive counseling, informed consent was obtained. INTERPRETATION: 1. The right lower extremity iliofemoral system is widely patent, except for several areas of 30-40% focal stenosis around Gaetano's canal. The patient also has several areas of focal stenosis 50-60% within the proximal and mid popliteal artery. 2. The anterior tibial artery is the main runoff to the foot, with a few areas of the 50% focal stenosis in the proximal aspect of the artery. The tibioperoneal trunk is patent but stenotic, and there is a small but widely patent peroneal artery running off to the foot. The posterior tibial artery occluded at its origin and does not reconstitute in the calf or the ankle. 3. After angioplasty, the SFA and popliteal artery are widely patent with no significant residual stenosis. 4. After angioplasty, the tibioperoneal trunk and proximal anterior tibial artery are widely patent with less than 10% residual stenosis. 5. Runoff to the foot was sluggish initially, but significantly more brisk after angioplasty. PROCEDURE: Patient was brought to the angiographic suite in stable condition. His bilateral groins were prepped and draped in a sterile fashion. Sedation antibiotics and IV fluids were given without complication. A timeout was performed. Local anesthesia was a certified surgical tech/first assistant to the skin and subcutaneous tissue in the left groin and a microneedle was used to access the common femoral artery under ultrasound guidance. A wire was passed through this access and a micro- sheath was placed. We then placed a Glidewire through this access into the aorta under fluoroscopic guidance. Exchanged for a 5 [place] sheath and flushed sheath with saline. We then went up and over the bifurcation with a Glidewire and an Omni flushed catheter. Arteriograms in the right lower extremity were performed. We found a widely patent iliofemoral system with some focal areas of stenosis at Gaetano's canal, proximal and mid popliteal artery, tibioperoneal trunk, and proximal anterior tibial artery. The main runoff to the facet is through the anterior tibial artery and the peroneal artery and the posterior tibial arteries chronically occluded. It does not reconstitute through collaterals at the foot or ankle. Our Glidewire was passed into the distal SFA and we then exchanged her sheath over the wire for a destination 90 cm 6 [place] sheath. The sheath was flushed with saline. A 6 x 200 [place] balloon was selected and inflated over the distal SFA and proximal popliteal artery for three-minute inflations. Following this, there is still a little residual focal stenosis in the mid popliteal artery and a second ablation was done slightly distally. Following this, there is no significant residual stenosis in the SFA or the popliteal artery, no extrava sation, and no dissection was noted. This improved our inflow to the tibial system. Next, we advanced the Glidewire across the tibioperoneal trunk and selected a 3 x 100 [place] balloon and did three-minute inflation in this area. Following this, there was a small dissection an area of focal stenosis, and a second inflation provided a much improved outcome with less than 10% residual stenosis. We advanced our Glidewire across the anterior tibial artery proximally and did to three-minute inflations at the proximal aspect in the mid proximal aspect for 3 minutes. Following this, there was widely patent inflow through the anterior tibial artery as well. During this time, the patient had significant increases in his systolic and diastolic blood pressure with his baseline at about 180/70, but during the procedure jumping his highest 220/100. We ended up giving 600 g IV total of nitroglycerin through the sheath to both help treat his hypertension and improve tibial flow with vasodilation. This did help bring his blood pressure back to his baseline of 180/70. We are pleased with our final results, despite the fact that we were not able to cross the posterior tibial artery due to chronic occlusion. His outflow was brisk after angioplasty, whereas it was fairly sluggish in the initial arteriograms. His foot was warm and pink with good signals. We then exchanged her sheath for short 6 [place] sh eath into play to minx closure device with good hemostasis. Pressure was held for 10 minutes and sterile dressings were applied. The patient was taken back to recovery in stable condition where he will be monitored for 4 hours postprocedure on bed rest. ESTIMATED BLOOD LOSS: Approximately 5 mL. COMPLICATIONS: None. PLAN: We will see the patient back in clinic in 1 week. It is okay to resume his pradaxa and all other home medications. Continue local wound care per Dr. Frank. [place] GABRIEL MD Nov 18, 2018 10:26
[2018-11-18 14:00] VITALS: BP 156/74
== END | disposition home or self-care (01) ==
LOC: M IRPRO 06:14
PROVIDERS: ATTEND Surgery Vascular Surgery
DX: I70.235 Atherosclerosis of native arteries of right leg with ulceration of other part of foot (principal); L97.519 Non-pressure chronic ulcer of other part of right foot with unspecified severity; I48.91 Unspecified atrial fibrillation; E78.5 Hyperlipidemia, unspecified; I11.9 Hypertensive heart disease without heart failure; E66.9 Obesity, unspecified; M12.9 Arthropathy, unspecified; E11.9 Type 2 diabetes mellitus without complications; I50.9 Heart failure, unspecified; I34.9 Nonrheumatic mitral valve disorder, unspecified; M10.9 Gout, unspecified; N28.9 Disorder of kidney and ureter, unspecified; Z88.1 Allergy status to other antibiotic agents; Z91.048 Other nonmedicinal substance allergy status; Z79.899 Other long term (current) drug therapy; Z79.84 Long term (current) use of oral hypoglycemic drugs
CPT/HCPCS: 37224; 37228; 37232; 75710; 80048; 85027; 99152; 99153; C1725; C1760; C1769; C1887; C1894; J0690; J2250; J3010; Q9967

== ENCOUNTER → 2018-12-02 | Outpatient (REF) | payer MEDICARE ==
[~2018-12-02] MED LIST changes: +ATOR1TAB21 PO; +ATOR40TA75 PO; +CHOL4PW PO; +COLA100C5 PO; +DONE10TA90 PO; +DOXY100T PO; +ELIQ5TAB PO; +FLON1SPR; +FLUO20CA19 PO; +FLUT15.820 NARES; -HEPARIN 1,000 UNITS/ML 10ML VIAL (FOR RADIOLOGY& DIALYSIS ONLY) As Ordered ONE; -ISOVUE-300 61% 50ML VIAL (Q9967) As Ordered ONE; -LIDOCAINE 2% MDV 20 ML VIAL As Ordered ONE; +METO1TAB32 PO; -MIDAZOLAM INJ 2 MG/2 ML VIAL (J2250) As Ordered ONE; +MILKSUS3 PO; -NITROGLYCERIN IN D5W 25MG/250ML (100MCG/ML) As Ordered ONE; +OMEP40CA97 PO; +TORS10TA3 PO; +TORS20TA2 PO; +VANC1INJ IV; +VITMTA PO; +ZINC220T6 PO; +ZOSY3INJ2 IV; +[UNRECOGNIZED DRUG - CODE] IV; -ceFAZolin 1GM INJ (J0690 PER 500MG) As Ordered ONE; -fentaNYL 100 MCG/2 ML INJECTION (J3010) As Ordered ONE
[2018-12-02 19:59] LABS: HEMATOCRIT 41.3 % (42.0-52.0); HEMOGLOBIN 14.4 g/dl (13.5-17.5); MEAN CORPUSCULAR HEMOGLOBIN 32.5 pg (27.0-33.0); MEAN CORPUSCULAR HGB CONC 34.9 g/dl (32.0-36.5); MEAN CORPUSCULAR VOLUME 93.2 fl (80.0-96.0); PLATELET COUNT, AUTOMATED 320 10^3/uL (150-450); RED BLOOD COUNT 4.43 10^6/uL (4.30-6.10); WHITE BLOOD COUNT 12.4 10^3/uL (4.0-10.0)
[2018-12-02 20:01] LABS: ALBUMIN 4.3 GM/DL (3.2-5.2); CALCIUM LEVEL 10.4 MG/DL (8.8-10.2); CREATININE FOR GFR 1.91 MG/DL (0.70-1.30); GLOMERULAR FILTRATION RATE 36.4 (>42); PERCENT SATURATION 37.7 % (19.7-50.0); POTASSIUM SERUM 5.4 MEQ/L (3.5-5.1); TOTAL PROTEIN 8.3 GM/DL (6.4-8.2)
[2018-12-02 20:17] LABS: HEMOGLOBIN A1c 6.9 %
== END ==
LOC: M SFHCADAM 14:57
PROVIDERS: ATTEND Physician Assistant
DX: N18.3 Chronic kidney disease, stage 3 (moderate) (principal); D50.8 Other iron deficiency anemias; E11.21 Type 2 diabetes mellitus with diabetic nephropathy
CPT/HCPCS: 80053; 82728; 83036; 83550; 85027; 85046; G0463

== ENCOUNTER 2018-12-04 06:45 | Inpatient (IN) | payer MEDICARE ==
[2018-12-04] VITALS (9 sets, daily range): BP systolic 89–110; BP diastolic 50–67
[~2018-12-04] VITALS: Ht 182.9 cm; Wt 91.0 kg
[~2018-12-04 06:45] MED LIST changes: -ATOR1TAB21 PO; -ATOR40TA75 PO; -CHOL4PW PO; -COLA100C5 PO; -DONE10TA90 PO; -DOXY100T PO; -ELIQ5TAB PO; -FLON1SPR; -FLUO20CA19 PO; -FLUT15.820 NARES; -METO1TAB32 PO; -MILKSUS3 PO; -OMEP40CA97 PO; -TORS10TA3 PO; -TORS20TA2 PO; -VANC1INJ IV; -VITMTA PO; -ZINC220T6 PO; -ZOSY3INJ2 IV; -[UNRECOGNIZED DRUG - CODE] IV
[2018-12-04] MEDS ORDERED: FLUT50SP21 NARES (07:41)
--- NOTE | 2018-12-04 07:55 | REPVR ---
EXAM: CT Cervical Spine Without Contrast EXAM DATE/TIME: 12/04/2018 7:17 AM CLINICAL HISTORY: 78 years old, male; Injury or trauma; Fall; Initial encounter; Blunt trauma; Additional info: Head injury on pradaxa TECHNIQUE: Imaging protocol: Computed tomography images of the cervical spine without contrast. Coronal and sagittal reformatted images were created and reviewed. Radiation optimization: All CT scans at this facility use at least one of these dose optimization techniques: automated exposure control; mA and/or kV adjustment per patient size (includes targeted exams where dose is matched to clinical indication); or iterative reconstruction. COMPARISON: No relevant prior studies available. FINDINGS: Vertebrae: Alignment is essentially anatomic. The vertebral body heights are maintained. No compression fracture. The facet joints are aligned. Facet degenerative changes. The posterior elements are intact. The occipital condyles show no evidence of fracture and demonstrate a normal relationship with the C1 lateral masses. No evidence of dens fracture. There is no evidence of acute cervical spine fracture. Foramen transversarium are intact. Discs/Spinal canal/Neural foramina: No blood within the central canal. Degenerative changes. No acute post-traumatic central canal stenosis. If the patient has any signs/symptoms related to the cord or if otherwise clinically warranted, correlation with MRI could be considered. Retropharyngeal space: The retropharyngeal fat stripe is nondisplaced. No prevertebral soft tissue swelling. Soft tissues: Unremarkable. Lungs: No acute findings in the demonstrated portions of the lung apices. Vasculature: There are atherosclerotic changes within the anterior and posterior circulations. IMPRESSION: There are atherosclerotic changes within the anterior and posterior circulations. No evidence of acute cervical spine fracture. No prevertebral soft tissue swelling. No blood within the central canal. Chronic degenerative/non-emergent changes. No acute post-traumatic central canal stenosis. If the patient has any signs/symptoms related to the cord or if otherwise clinically warranted, correlation with MRI could be considered. Electronically signed by: Garett Lomax On 12/04/2018 07:55:33 AM
--- NOTE | 2018-12-04 08:05 | REPVR ---
EXAM: CT Head Without Contrast EXAM DATE/TIME: 12/04/2018 7:17 AM CLINICAL HISTORY: 78 years old, male; Injury or trauma; Fall; Initial encounter; Blunt trauma (contusions or hematomas); Additional info: Head injury on pradaxa TECHNIQUE: Imaging protocol: Computed tomography images of the head without contrast. Radiation optimization: All CT scans at this facility use at least one of these dose optimization techniques: automated exposure control; mA and/or kV adjustment per patient size (includes targeted exams where dose is matched to clinical indication); or iterative reconstruction. COMPARISON: No relevant prior studies available. FINDINGS: Brain: Atrophic changes. No CT evidence of acute cortical infarct. Hypodensity within the white matter most suggestive of chronic small vessel ischemic/gliotic change. No mass effect. No edema. There is no evidence of parenchymal hemorrhage. Subarachnoid hemorrhage right frontal region anteromedially. No subarachnoid blood within the suprasellar cistern/basilar cisterns. No subdural hematoma. No epidural hematoma. Ventricles: The ventricular system is midline and appropriate in size for the degree of sulcal dilatation. No hydrocephalus. Bones/joints: No acute fracture. Sinuses: The demonstrated paranasal sinuses are free of air-fluid level or suspicious mass. Mild mucosal changes. Mastoid air cells: Mastoids are free of acute inflammatory change. Soft tissues: Unremarkable. Vasculature: There are atherosclerotic changes within the anterior and posterior circulations. IMPRESSION: Posttraumatic subarachnoid hemorrhage in the right frontal region anteromedially. No subarachnoid hemorrhage in the suprasellar cistern/basilar cistern. No subdural hematoma. No parenchymal hematoma. Nonemergent/chronic findings as described above. Electronically signed by: Garett Lomax On 12/04/2018 08:05:26 AM
[2018-12-04] MEDS: idaruCIZUmab 2.5 GM in APPROPRIATE DILUENT 1 EA IV SCH ×2 (08:56→09:01)
[2018-12-04 09:09] LABS: HEMATOCRIT 40.3 % (42.0-52.0); HEMOGLOBIN 14.1 g/dl (13.5-17.5); MEAN CORPUSCULAR HEMOGLOBIN 32.9 pg (27.0-33.0); MEAN CORPUSCULAR VOLUME 94.2 fl (80.0-96.0); PLATELET COUNT, AUTOMATED 316 10^3/uL (150-450); RED BLOOD COUNT 4.28 10^6/uL (4.30-6.10); WHITE BLOOD COUNT 20.2 10^3/uL (4.0-10.0)
[2018-12-04 09:22] LABS: CALCIUM LEVEL 9.8 MG/DL (8.8-10.2); CREATININE FOR GFR 3.06 MG/DL (0.70-1.30); GLOMERULAR FILTRATION RATE 21.1 (>42); POTASSIUM SERUM 5.2 MEQ/L (3.5-5.1)
[2018-12-04 09:34] LABS: INR 1.8; PROTHROMBIN TIME 20.6 SECONDS (11.8-14.0)
[2018-12-04 09:36] LABS: PARTIAL THROMBOPLASTIN TIME 58.7 SECONDS (25.0-38.4)
[2018-12-04] MEDS ORDERED: OMEP40CA2 PO (10:06)
[2018-12-04] MEDS ORDERED: VITMTA PO (10:06)
[2018-12-04] MEDS ORDERED: FLON1SPR (10:06)
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
--- NOTE | 2018-12-04 12:02 | NUR ---
Swallow evaluation recommendations: pureed solids, thin liquids, upright positioning during all PO intake. Will f/u to assess for possible diet upgrade when dentures are available. Addendum: 12/04/18 at 1203 by KAYDEN ANDREW [facility] SP Amended: Links added.
[2018-12-04] MEDS ORDERED: GLUCOSE 4 GM CHEW TABLET PO PRN (12:30)
[2018-12-04] MEDS ORDERED: OMEPRAZOLE 20 MG CAP PO PRN (12:45)
[2018-12-04] MEDS: NS 1,000 ML IV SCH (15:30)
[2018-12-04 15:58] LABS: BASO % 0.2 % (0.0-1.0); HEMOGLOBIN 13.5 g/dl (13.5-17.5); LYMPH # 1.2 10^3/uL (1.5-4.5); LYMPH % 6.8 % (24.0-44.0); MEAN CORPUSCULAR HEMOGLOBIN 33.3 pg (27.0-33.0); MEAN CORPUSCULAR HGB CONC 35.5 g/dl (32.0-36.5); MEAN CORPUSCULAR VOLUME 93.8 fl (80.0-96.0); MONO # 0.8 10^3/uL (0.0-0.8); MONO % 4.8 % (0.0-5.0); NEUTROPHILS % 87.7 % (36.0-66.0); PLATELET COUNT, AUTOMATED 299 10^3/uL (150-450); RED BLOOD COUNT 4.05 10^6/uL (4.30-6.10); WHITE BLOOD COUNT 17.1 10^3/uL (4.0-10.0)
[2018-12-04 16:21] LABS: ALBUMIN 3.8 GM/DL (3.2-5.2); CALCIUM LEVEL 9.6 MG/DL (8.8-10.2); CK-MB VALUE MASS 4.5 NG/ML (<3.6); CREATININE FOR GFR 3.4 MG/DL (0.70-1.30); GLOMERULAR FILTRATION RATE 18.7 (>42); MB/CK RELATIVE INDEX 1.2 (< OR =4); PHOSPHORUS LEVEL 6.2 MG/DL (2.5-4.9); POTASSIUM SERUM 5.3 MEQ/L (3.5-5.1); TOTAL PROTEIN 7.4 GM/DL (6.4-8.2); TROPONIN I 0.08 NG/ML (< 0.10)
--- NOTE | 2018-12-04 16:21 | REP ---
HISTORY: Renal disease. COMPARISON: None. The right kidney measures 10.5 x 5 x 5.5 cm and left kidney measures 11.3 x 5.3 x 5.5 cm. The renal cortical echoes are within normal limits bilaterally. Cortical medullary differentiation is preserved bilaterally. There are no cystic or solid masses seen in the left kidney. Seen in the inferior pole of the right kidney, there is a 3.7 x 2.3 x 3 cm sized nearly anechoic structure which exhibits posterior wall enhancement and increased through transmission. This is seen without septations or mural nodules. There is no hydronephrosis seen in either kidney. Images of the urinary bladder show no gross abnormalities. IMPRESSION: There is what is possibly a hyperdense cyst seen on today's ultrasound examination as a nearly anechoic structure, but with low level echoes within it. Pre- and postcontrast enhanced renal CT is recommended for confirmation that this does not represent a hypoechoic renal neoplasm. Electronically Signed by Carmelo Hopper DO 12/05/2018 02:15 P
[2018-12-04] MEDS: HumaLOG INSULIN (NovoLOG) PER UNIT SC SCH ×2 (17:41→21:00)
[2018-12-04 18:49] LABS: SODIUM,RANDOM URINE 47 MEQ/L
[2018-12-04 18:51] LABS: OSMOLALITY URINE 343 MOSM/KG (500-800)
[2018-12-04] MEDS ORDERED: NS 250 ML IV ONE (20:30)
--- NOTE | 2018-12-04 20:47 | ECGEPIP ---
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
[2018-12-04] MEDS: ZINC SULFATE 220 MG CAP PO SCH (21:02)
[2018-12-04] MEDS: LATANOPROST 0.005% OPHTH SOLN 2.5 ML OU SCH (21:02)
[2018-12-04] MEDS: FLUTICASONE PROP 0.05% NASAL SPRAY 16 GM (FLONASE) SCH (21:03)
[2018-12-05] VITALS (13 sets, daily range): BP systolic 101–139; BP diastolic 50–105
[2018-12-05] MEDS: NS 1,000 ML IV SCH ×2 (00:16→11:32)
[2018-12-05 01:00] LABS: CALCIUM LEVEL 9.4 MG/DL (8.8-10.2); CREATININE FOR GFR 3.21 MG/DL (0.70-1.30)
[2018-12-05 04:58] LABS: BASO % 0.3 % (0.0-1.0); EOS % 0.2 % (0.0-3.0); HEMATOCRIT 35.5 % (42.0-52.0); HEMOGLOBIN 12.6 g/dl (13.5-17.5); LYMPH # 1.4 10^3/uL (1.5-4.5); LYMPH % 10.9 % (24.0-44.0); MEAN CORPUSCULAR HEMOGLOBIN 33.7 pg (27.0-33.0); MEAN CORPUSCULAR HGB CONC 35.5 g/dl (32.0-36.5); MEAN CORPUSCULAR VOLUME 94.9 fl (80.0-96.0); MONO # 0.8 10^3/uL (0.0-0.8); MONO % 6.7 % (0.0-5.0); NEUTROPHILS # 10.2 10^3/uL (1.8-7.7); NEUTROPHILS % 81.5 % (36.0-66.0); PLATELET COUNT, AUTOMATED 246 10^3/uL (150-450); RED BLOOD COUNT 3.74 10^6/uL (4.30-6.10); WHITE BLOOD COUNT 12.5 10^3/uL (4.0-10.0)
[2018-12-05 05:22] LABS: ALBUMIN 3.4 GM/DL (3.2-5.2); BILIRUBIN,TOTAL 1.3 MG/DL (0.2-1.0); CALCIUM LEVEL 8.9 MG/DL (8.8-10.2); CREATININE FOR GFR 2.91 MG/DL (0.70-1.30); GLOMERULAR FILTRATION RATE 22.4 (>42); POTASSIUM SERUM 4.6 MEQ/L (3.5-5.1); TOTAL PROTEIN 7.1 GM/DL (6.4-8.2)
[2018-12-05 05:38] LABS: HEMOGLOBIN A1c 7.1 %
[2018-12-05] MEDS: HumaLOG INSULIN (NovoLOG) PER UNIT SC SCH ×4 (08:28→21:00)
--- NOTE | 2018-12-05 09:37 | REP ---
CT of the brain without IV contrast: Comparisons are 12/04/2018 and 05/31/2011. On 12/04/2018 there was a small right frontal subarachnoid hemorrhage. On the study today this subarachnoid hemorrhage has resolved. There is no other subarachnoid, subdural or intraparenchymal hemorrhage today. There is no edema, mass effect or midline shift. The there is diffuse mild cortical atrophy, unchanged . There is mild lucency within the subcortical white matter compatible with chronic microvascular ischemia, unchanged. The cortical stripe is unremarkable and unchanged. The visualized paranasal sinuses and mastoid air cells are clear. Impression: The small right frontal subarachnoid hemorrhage identified on 12/04/2018 has resolved. There is no other acute hemorrhage. There is chronic diffuse cortical atrophy. There is evidence for chronic microvascular ischemia. No mass effect or midline shift. Electronically Signed by Will Yun MD 12/05/2018 09:29 A
--- NOTE | 2018-12-05 11:07 | IPNPDOC ---
Subjective Date Seen The patient was seen on 12/05/18. Subjective Chief Complaint/HPI Pt this morning without new concerns. at bedside. Nursing reports that he has done well this morning. General: Denies: Fatigue Constitutional: Denies: Chills, Fever ENT: Denies: Head Aches Pulmonary: Denies: Dyspnea, Cough Cardiovascular: Denies: Chest Pain, Palpitations Gastrointestinal: Denies: Nausea, Diarrhea Psych: Reports: Mood Normal Objective Physical Examination General Exam: Positive: Alert, Cooperative, No Acute Distress ENT Exam: Positive: Mucous membr. moist/pink Neck Exam: Positive: Supple Chest Exam: Positive: Clear to auscultation, Normal air movement Heart Exam: Positive: Rate Normal, Normal S1, Normal S2 Abdomen Exam: Positive: Normal bowel sounds, Soft; Negative: Tenderness Extremity Exam: Negative: Edema Psych Exam: Positive: Mental status NL, Mood NL Assessment /Plan Problems (1) Leukocytosis Status: Acute Problem Text: favor 2 acute stress 12/05 12.5 (20), AF since admission 12/04 BCX2 NG 12/04 UCX NG (2) ALBARO (acute kidney injury) Status: Acute Problem Text: baseline cr 1.1-1.2 c secondary hypoNa 2 hypovolemia, fur/andi 12/05 Na 129 (126), cr 2.9 (3.4) 12/04 CPK 375 -plan MRI abd c/s hima as outpx 11/14 renal US: Seen in the inferior pole of the right kidney, there is a 3.7 x 2.3 x 3 cm sized nearly anechoic structure which exhibits posterior wall enhancement and increased through transmission. This is seen without septations or mural nodules. (3) Subarachnoid hemorrhage following injury Status: Resolved Discussed With: Nurse, Patient, Family with Pt Consent Problem Specific Plan: Monitor Clinically Problem Text: Repeat CT 12/05 shows resolution of previously noted hemorrhage on CT 12/05 CT head: The small right frontal subarachnoid hemorrhage identified on 12/04/2018 has resolved. There is no other acute hemorrhage. There is chronic diffuse cortical atrophy. There is evidence for chronic microvascular ischemia. No mass effect or midline shift. (4) Chronic diastolic CHF (congestive heart failure) Status: Chronic Response to Treatment: Stable, Compensated Problem Specific Plan: Monitor Clinically, Repeat Labs Problem Text: Euvolemic off HD fur 80 BID, andi 40 (5) Chronic atrial fibrillation Status: Chronic Response to Treatment: Stable Problem Specific Plan: Monitor Clinically Problem Text: RC s chronotrope dabi reversed 12/04 2 SAH (6) DM type 2 with diabetic peripheral neuropathy Status: Chronic Response to Treatment: Stable Problem Text: off HD met 1000 BID 2 ALBARO continue SSLI-AC BG ~130s 11/2018 A1C 7.1 (7) Physical deconditioning Problem Text: 12/06 + PT (8) Dementia Status: Acute Problem Text: Stable off HD donep (9) LUZ (obstructive sleep apnea) Status: Chronic Problem Text: Continue home CPAP (10) Essential (primary) hypertension Status: Chronic Problem Text: as per CHF (11) Hyperlipemia Status: Chronic Response to Treatment: Stable Problem Text: continue HD prav 20 Plan/VTE VTE Prophylaxis Ordered?: No VTE Exclusion Mechanical Proph: Low Risk for VTE VTE Exclusion Pharmacological: Bleeding Risk VS, I&O, 24H, Fishbone Vital Signs/I&O Vital Signs Date Time Temp Pulse Resp B/P (MAP) Pulse Ox O2 Delivery O2 Flow Rate FiO2 12/05/18 08:00 96.9 67 18 135/60 (85) 99 12/04/18 13:00 Room Air I&O- Last 24 Hours up to 6 AM 12/05/18 06:00 Intake Total 1295 ml Output Total 1090 ml Balance 205 ml Laboratory Data 24H LABS Laboratory Tests 2 12/04/18 15:42: Immature Granulocyte % (Auto) 0.5, White Blood Count 17.1H, Red Blood Count 4.05L, Hemoglobin 13.5, Hematocrit 38.0L, Mean Corpuscular Volume 93.8, Mean Corpuscular Hemoglobin 33.3H, Mean Corpuscular Hemoglobin Concent 35.5, Red Cell Distribution Width 13.1, Platelet Count 299, Neutrophils (%) (Auto) 87.7H, Lymphocytes (%) (Auto) 6.8L, Monocytes (%) (Auto) 4.8, Eosinophils (%) (Auto) 0.0, Basophils (%) (Auto) 0.2, Neutrophils # (Auto) 15.0H, Lymphocytes # (Auto) 1.2L, Monocytes # (Auto) 0.8, Eosinophils # (Auto) 0.0, Basophils # (Auto) 0.0, Nucleated Red Blood Cells % (auto) 0.0, Anion Gap 10, Glomerular Filtration Rate 18.7L, Blood Urea Nitrogen 111H, Creatinine 3.40H, Sodium Level 126L, Potassium Level 5.3H, Chloride Level 89L, Carbon Dioxide Level 27, Calcium Level 9.6, Phosphorus Level 6.2H, Aspartate Amino Transf (AST/SGOT) 22, Alanine Aminotransferase (ALT/SGPT) 24, Lactate Dehydrogenase 190, Total Creatine Kinase 375H, Alkaline Phosphatase 110, Total Bilirubin 1.0, Triglycerides Level 112, Cholesterol Level 159, Total Protein 7.4, Albumin 3.8, Creatine Kinase MB 4.5H, Creatine Kinase MB Relative Index 1.20, Troponin I 0.08, Albumin/Globulin Ratio 1.06 12/04/18 15:57: Urine Random Osmolality 343L, Urine Random Sodium 47 12/04/18 17:16: Bedside Glucose (Misc Panel) 159H 12/04/18 20:54: Bedside Glucose (Misc Panel) 131H 12/04/18 23:56: Anion Gap 12, Glomerular Filtration Rate 20.0L, Blood Urea Nitrogen 118H, Creatinine 3.21H, Sodium Level 127L, Potassium Level 5.0, Chloride Level 92L, Carbon Dioxide Level 23, Calcium Level 9.4 12/05/18 04:40: Anion Gap 11, Glomerular Filtration Rate 22.4L, Blood Urea Nitrogen 112H, Creatinine 2.91H, Sodium Level 129L, Potassium Level 4.6, Chloride Level 95L, Carbon Dioxide Level 23, Calcium Level 8.9, Immature Granulocyte % (Auto) 0.4, White Blood Count 12.5H, Red Blood Count 3.74L, Hemoglobin 12.6L, Hematocrit 35.5L, Mean Corpuscular Volume 94.9, Mean Corpuscular Hemoglobin 33.7H, Mean Corpuscular Hemoglobin Concent 35.5, Red Cell Distribution Width 13.2, Platelet Count 246, Neutrophils (%) (Auto) 81.5H, Lymphocytes (%) (Auto) 10.9L, Monocytes (%) (Auto) 6.7H, Eosinophils (%) (Auto) 0.2, Basophils (%) (Auto) 0.3, Neutrophils # (Auto) 10.2H, Lymphocytes # (Auto) 1.4L, Monocytes # (Auto) 0.8, Eosinophils # (Auto) 0.0, Basophils # (Auto) 0.0, Nucleated Red Blood Cells % (auto) 0.0, Estimated Mean Plasma Glucose 157H, Hemoglobin A1c 7.1, Aspartate Amino Transf (AST/SGOT) 19, Alanine Aminotransferase (ALT/SGPT) 20, Alkaline Phosphatase 102, Total Bilirubin 1.3H, Total Protein 7.1, Albumin 3.4, Albumin/Globulin Ratio 0.92L CBC/BMP Laboratory Tests 12/04/18 15:42 Red Blood Count 4.05 L, Mean Corpuscular Volume 93.8, Mean Corpuscular Hemoglobin 33.3 H, Mean Corpuscular Hemoglobin Concent 35.5, Red Cell Distribution Width 13.1, Neutrophils (%) (Auto) 87.7 H, Lymphocytes (%) (Auto) 6.8 L, Monocytes (%) (Auto) 4.8, Eosinophils (%) (Auto) 0.0, Basophils (%) (Auto) 0.2, Neutrophils # (Auto) 15.0 H, Lymphocytes # (Auto) 1.2 L, Monocytes # (Auto) 0.8, Eosinophils # (Auto) 0.0, Basophils # (Auto) 0.0, Calcium Level 9.6, Phosphorus Level 6.2 H, Aspartate Amino Transf (AST/SGOT) 22, Alanine Aminotransferase (ALT/SGPT) 24, Lactate Dehydrogenase 190, Total Creatine Kinase 375 H, Alkaline Phosphatase 110, Total Bilirubin 1.0, Triglycerides Level 112, Cholesterol Level 159, Total Protein 7.4, Albumin 3.8 12/04/18 23:56 Calcium Level 9.4 12/05/18 04:40 Red Blood Count 3.74 L, Mean Corpuscular Volume 94.9, Mean Corpuscular Hemoglobin 33.7 H, Mean Corpuscular Hemoglobin Concent 35.5, Red Cell Distr ibution Width 13.2, Neutrophils (%) (Auto) 81.5 H, Lymphocytes (%) (Auto) 10.9 L, Monocytes (%) (Auto) 6.7 H, Eosinophils (%) (Auto) 0.2, Basophils (%) (Auto) 0.3, Neutrophils # (Auto) 10.2 H, Lymphocytes # (Auto) 1.4 L, Monocytes # (Auto) 0.8, Eosinophils # (Auto) 0.0, Basophils # (Auto) 0.0, Calcium Level 8.9, Aspartate Amino Transf (AST/SGOT) 19, Alanine Aminotransferase (ALT/SGPT) 20, Alkaline Phosphatase 102, Total Bilirubin 1.3 H, Total Protein 7.1, Albumin 3.4 Microbiology Microbiology 12/04/18 Blood Culture, Received Pending 12/04/18 Blood Culture, Received Pending 12/04/18 Urine Culture, Received Pending JEFFREY PINTO PA-C Dec 05, 2018 11:07 Hosea Eugene M.D. Dec 05, 2018 16:42
--- NOTE | 2018-12-05 15:54 | NUR ---
Recommend upgrade to level 2 mechanically altered (NDD) solids and continue thin liquids. Dysphagia tx for diet upgrade as appropriate. Addendum: 12/05/18 at 1555 by KAYDEN ANDREW [facility] SP Amended: Links added.
[2018-12-05] MEDS: ZINC SULFATE 220 MG CAP PO SCH (20:49)
[2018-12-05] MEDS: FLUTICASONE PROP 0.05% NASAL SPRAY 16 GM (FLONASE) SCH (20:50)
[2018-12-05] MEDS: LATANOPROST 0.005% OPHTH SOLN 2.5 ML OU SCH (20:50)
[2018-12-06] MEDS: NS 1,000 ML IV SCH ×3 (00:33→16:53)
[2018-12-06 06:07] VITALS: BP 146/71
[2018-12-06 06:16] LABS: BASO # 0.1 10^3/uL (0.0-0.2); BASO % 0.5 % (0.0-1.0); EOS # 0.1 10^3/uL (0.0-0.50); EOS % 0.7 % (0.0-3.0); HEMATOCRIT 34.8 % (42.0-52.0); HEMOGLOBIN 12.2 g/dl (13.5-17.5); LYMPH # 1.3 10^3/uL (1.5-4.5); LYMPH % 13.2 % (24.0-44.0); MEAN CORPUSCULAR HEMOGLOBIN 33.4 pg (27.0-33.0); MEAN CORPUSCULAR HGB CONC 35.1 g/dl (32.0-36.5); MEAN CORPUSCULAR VOLUME 95.3 fl (80.0-96.0); MONO # 0.7 10^3/uL (0.0-0.8); MONO % 7.2 % (0.0-5.0); NEUTROPHILS # 7.8 10^3/uL (1.8-7.7); PLATELET COUNT, AUTOMATED 218 10^3/uL (150-450); RED BLOOD COUNT 3.65 10^6/uL (4.30-6.10)
[2018-12-06 06:57] LABS: ALBUMIN 2.6 GM/DL (3.2-5.2); ALT/SGPT 15 U/L (12-78); BILIRUBIN,TOTAL 0.9 MG/DL (0.2-1.0); BLOOD UREA NITROGEN 66 MG/DL (7-18); CALCIUM LEVEL 7.4 MG/DL (8.8-10.2); CARBON DIOXIDE LEVEL 25 MEQ/L (21-32); CHLORIDE LEVEL 111 MEQ/L (98-107); CREATININE FOR GFR 1.09 MG/DL (0.70-1.30); FREE T4 1.05 NG/DL (0.76-1.46); GLOMERULAR FILTRATION RATE > 60.0 (>42); GLUCOSE, FASTING 121 MG/DL (70-100); NT-PRO BNP 1858 PG/ML (<450); POTASSIUM SERUM 4.1 MEQ/L (3.5-5.1); SODIUM LEVEL 141 MEQ/L (136-145); THYROID STIMULATING HORMONE 0.686 uIU/ML (0.358-3.740); TOTAL PROTEIN 5.1 GM/DL (6.4-8.2)
[2018-12-06] MEDS: HumaLOG INSULIN (NovoLOG) PER UNIT SC SCH ×4 (08:20→19:56)
--- NOTE | 2018-12-06 09:49 | CR ---
DATE OF CONSULTATION: 12/05/2018 REFERRING PHYSICIAN: Dr. Evelyne Lew REASON FOR CONSULTATION: Fall, small subarachnoid hemorrhage in the presence of anticoagulation. HISTORY OF PRESENT ILLNESS: Saurabh Felipe is a 78-year-old man with history of dementia and atrial fibrillation who lives with his and was brought to [facility] after an unwitnessed fall. According to the patient's , he woke up in the middle of night and she heard a crashing sound. When she found him, he was laying on the floor and his BiPap machine was also on the floor. His head was lodged between a closet and another object. The patient himself does not remember the fall. He remembers coming to the hospital with the help of EMS staff. He had a mild headache yesterday when he fell, but denies any headache today. He denies any neck or back pain. He denies dysphagia, dysarthria, diplopia, urinary incontinence, falls or loss of consciousness. The patient has history of atrial fibrillation for a few years. He follows with cardiology. He has been taking Pradaxa regularly. His Pradaxa was stopped at the time of admission. His CT scan of head showed a small left frontal subarachnoid hemorrhage which has since resolved on CT scan of head today. His creatinine peaked to 3.4 and has decreased to 2.9 today. PAST MEDICAL HISTORY: Atrial fibrillation, hypertension, type 2 diabetes with diabetic neuropathy and peripheral arterial disease, obstructive sleep apnea, dementia, dyslipidemia, right foot and left knee surgery. SOCIAL HISTORY: He has a remote history of smoking. He lives with his . He denies alcohol or illicit drugs. FAMILY HISTORY: Multiple family members with Alzheimer dementia and hypertension. REVIEW OF SYSTEMS: All systems were reviewed and found to be noncontributory except as mentioned in history of present illness. ALLERGIES: None. HOME MEDICATIONS: Allopurinol 100 mg 2 tablets by mouth daily, Pradaxa 150 mg by mouth bnid, donepezil 10 mg by mouth daily, Flonase nasal spray, Lasix 80 mg by mouth twice a day, metformin 1000 mg by mouth twice a day, multivitamin 1 tablet by mouth daily, pravastatin 20 mg by mouth daily, quinapril 40 mg by mouth daily, zinc sulfate 220 mg by mouth daily, Xalatan eye drops 1 drop in both eyes once a day, Prilosec 40 mg by mouth daily. REVIEW OF SYSTEMS: All systems were reviewed and found to be noncontributory except as mentioned in history of present illness. PHYSICAL EXAMINATION: Temperature 96.9, blood pressure 134/63, 96% saturation on room air, pulse 66. Heart: Irregularly irregular. Lungs: Clear to auscultation. Abdomen: Soft, nontender, nondistended. Mild pedal edema. He has chronic venous stasis changes in his feet. He has his right leg wrapped below the knee. The patient is awake, alert, oriented to self, name of hospital, and name of president. He is unable to tell me day, month, year. His recall is 0/3 at 5 minutes. He is unable to do serial sevens. Normal speech, comprehension and repetition. Extraocular muscles are intact. No facial weakness. Tongue and uvula are midline. 5/5 strength in all four extremities except right foot plantar and dorsiflexors which he is unable to do due to his extensive right foot surgery. Deep tendon flexes are 1+ in arms and absent in legs. He has decreased cold and pinprick vibration sensation in his feet. Gait could not be tested. There is no dysmetria. ASSESSMENT: 1. Traumatic small left frontal subarachnoid hemorrhage due to fall and patient's use of Pradaxa. 2. Multifactorial gait difficulty. 3. Cognitive impairment due to suspected Alzheimer dementia. 4. Fall risk. PLAN: 1. Stay off Pradaxa for a few more days. 2. The pros and cons of restarting Pradaxa or any other anticoagulation should be weighed against risk of fall and his multifactorial gait difficulty and dementia. 3. Continue Aricept 10 mg by mouth daily. 4. Consult his salesperson corsets to discuss risks and benefits of Pradaxa. 5. Physical and occupational therapy. He should use a walker and wheelchair as necessary.
[2018-12-06 14:00] VITALS: BP 155/72
--- NOTE | 2018-12-06 16:47 | IPNPDOC ---
Subjective Date Seen The patient was seen on 12/06/18. Subjective Chief Complaint/HPI at baseline MS per Constitutional: Denies: Chills Eyes: Denies: Pain ENT: Denies: Head Aches, Ear Pain Skin: Denies: Rash, Lesions Pulmonary: Denies: Dyspnea Cardiovascular: Denies: Chest Pain Gastrointestinal: Denies: Nausea, Vomiting Objective Physical Examination General Exam: Positive: Alert, Cooperative, No Acute Distress ENT Exam: Positive: Mucous membr. moist/pink Neck Exam: Positive: Supple Chest Exam: Positive: Clear to auscultation, Normal air movement Heart Exam: Positive: Rate Normal, Normal S1, Normal S2 Abdomen Exam: Positive: Normal bowel sounds, Soft; Negative: Tenderness Extremity Exam: Negative: Edema Psych Exam: Positive: Mental status NL, Mood NL Assessment /Plan Problems (1) Chronic atrial fibrillation Status: Chronic Response to Treatment: Stable Problem Specific Plan: Monitor Clinically Problem Text: RC s chronotrope given intermediate-high risk of recurrent ICH (lobar ICH, ataxia, labile BPs), but [id number] 5; per guidelines, favor anti-platelet over AC (if AC is chosen, favor apixaban) dabi reversed 12/04 2 SAH (2) Renal mass Status: Acute Problem Text: plan MRI abd c/s hima as outpx (incidental find) 11/14 renal US: Seen in the inferior pole of the right kidney, there is a 3.7 x 2.3 x 3 cm sized nearly anechoic structure which exhibits posterior wall enhancement and increased through transmission. This is seen without septations or mural nodules. (3) Leukocytosis Status: Acute Problem Text: favor 2 acute stress 12/05 10 (20), AF since admission 12/04 BCX2 NG 12/04 UCX NG (4) ALBARO (acute kidney injury) Status: Acute Problem Text: back to baseline cr 1.1-1.2/ Na low 140s c secondary hypoNa 2 hypovolemia, fur/andi 12/06 SLIVbronwyn (5) Subarachnoid hemorrhage following injury Status: Resolved Response to Treatment: Progressing Discussed With: Nurse, Patient, Family with Pt Consent Problem Specific Plan: Monitor Clinically Problem Text: Repeat CT 12/05 shows resolution of previously noted hemorrhage on CT 12/05 CT head: The small right frontal subarachnoid hemorrhage identified on 12/04/2018 has resolved. There is no other acute hemorrhage. There is chronic diffuse cortical atrophy. There is evidence for chronic microvascular ischemia. No mass effect or midline shift. (6) Chronic diastolic CHF (congestive heart failure) Status: Chronic Response to Treatment: Stable, Compensated Problem Specific Plan: Monitor Clinically, Repeat Labs Problem Text: Euvolemic off HD fur 80 BID, andi 40 12/06 BNP 1858 (no previous in [place])-SLIV (7) DM type 2 with diabetic peripheral neuropathy Status: Chronic Response to Treatment: Stable Problem Text: off HD met 1000 BID 2 ALBARO continue SSLI-AC BG ~130s 11/2018 A1C 7.1 (8) Physical deconditioning Problem Text: 12/06 not safe per PT, but plan home c services (9) Dementia Status: Acute Problem Text: Stable off HD donep (10) LUZ (obstructive sleep apnea) Status: Chronic Problem Text: Continue home CPAP (11) Essential (primary) hypertension Status: Chronic Problem Text: as per CHF (12) Hyperlipemia Status: Chronic Response to Treatment: Stable Problem Text: continue HD prav 20 Plan/VTE VTE Prophylaxis Ordered?: No VTE Exclusion Mechanical Proph: Low Risk for VTE VTE Exclusion Pharmacological: Bleeding Risk VS, I&O, 24H, Fishbone Vital Signs/I&O Vital Signs Date Time Temp Pulse Resp B/P (MAP) Pulse Ox O2 Delivery O2 Flow Rate FiO2 12/06/18 14:00 97.7 65 18 155/72 (99) 98 12/04/18 13:00 Room Air I&O- Last 24 Hours up to 6 AM 12/06/18 06:00 Intake Total 3230 ml Output Total 5300 ml Balance -2070 ml Laboratory Data 24H LABS Laboratory Tests 2 12/05/18 20:52: Bedside Glucose (Misc Panel) 191H 12/06/18 05:56: Immature Granulocyte % (Auto) 0.4, White Blood Count 10.0, Red Blood Count 3.65L, Hemoglobin 12.2L, Hematocrit 34.8L, Mean Corpuscular Volume 95.3, Mean Corpuscular Hemoglobin 33.4H, Mean Corpuscular Hemoglobin Concent 35.1, Red Cell Distribution Width 13.0, Platelet Count 218, Neutrophils (%) (Auto) 78.0H, Lymphocytes (%) (Auto) 13.2L, Monocytes (%) (Auto) 7.2H, Eosinophils (%) (Auto) 0.7, Basophils (%) (Auto) 0.5, Neutrophils # (Auto) 7.8H, Lymphocytes # (Auto) 1.3L, Monocytes # (Auto) 0.7, Eosinophils # (Auto) 0.1, Basophils # (Auto) 0.1, Nucleated Red Blood Cells % (auto) 0.0, Anion Gap 5L, Glomerular Filtration Rate > 60.0, Blood Urea Nitrogen 66H, Creatinine 1.09#, Sodium Level 141#, Potassium Level 4.1, Chloride Level 111H, Carbon Dioxide Level 25, Calcium Level 7.4#L, Aspartate Amino Transf (AST/SGOT) 17, Alanine Aminotransferase (ALT/SGPT) 15, Alkaline Phosphatase 81, Total Bilirubin 0.9, Total Protein 5.1#L, Albumin 2.6#L, JT-[id number]-Type Natriuretic Peptide 1858H, Albumin/Globulin Ratio 1.04, Thyroid Stimulating Hormone (TSH) 0.686, Free Thyroxine 1.05 12/06/18 11:27: Bedside Glucose (Misc Panel) 166H 12/06/18 16:17: Bedside Glucose (Misc Panel) 96 CBC/BMP Laboratory Tests 12/06/18 05:56 Red Blood Count 3.65 L, Mean Corpuscular Volume 95.3, Mean Corpuscular Hemoglobin 33.4 H, Mean Corpuscular Hemoglobin Concent 35.1, Red Cell Distribution Width 13.0, Neutrophils (%) (Auto) 78.0 H, Lymphocytes (%) (Auto) 13.2 L, Monocytes (%) (Auto) 7.2 H, Eosinophils (%) (Auto) 0.7, Basophils (%) (Auto) 0.5, Neutrophils # (Auto) 7.8 H, Lymphocytes # (Auto) 1.3 L, Monocytes # (Auto) 0.7, Eosinophils # (Auto) 0.1, Basophils # (Auto) 0.1, Calcium Level 7.4 #L, Aspartate Amino Transf (AST/SGOT) 17, Alanine Aminotransferase (ALT/SGPT) 15, Alkaline Phosphatase 81, Total Bilirubin 0.9, Total Protein 5.1 #L, Albumin 2.6 #L Microbiology Microbiology 12/04/18 Blood Culture - Preliminary, Resulted No Growth after 48 hours. All Specime... 12/04/18 Blood Culture - Preliminary, Resulted No Growth after 48 hours. All Specime... 12/04/18 Urine Culture - Final, Complete Hosea Eugene M.D. Dec 06, 2018 16:47
[2018-12-06] MEDS: ZINC SULFATE 220 MG CAP PO SCH (19:56)
[2018-12-06] MEDS: FLUTICASONE PROP 0.05% NASAL SPRAY 16 GM (FLONASE) SCH (19:56)
[2018-12-06] MEDS: LATANOPROST 0.005% OPHTH SOLN 2.5 ML OU SCH (19:57)
[2018-12-06 22:00] VITALS: BP 156/72
[2018-12-07 05:49] LABS: BASO # 0.1 10^3/uL (0.0-0.2); BASO % 0.8 % (0.0-1.0); EOS # 0.1 10^3/uL (0.0-0.50); EOS % 1.5 % (0.0-3.0); HEMATOCRIT 38.2 % (42.0-52.0); HEMOGLOBIN 12.8 g/dl (13.5-17.5); LYMPH # 1.3 10^3/uL (1.5-4.5); LYMPH % 13.3 % (24.0-44.0); MEAN CORPUSCULAR HEMOGLOBIN 32.7 pg (27.0-33.0); MEAN CORPUSCULAR HGB CONC 33.5 g/dl (32.0-36.5); MEAN CORPUSCULAR VOLUME 97.4 fl (80.0-96.0); MONO # 0.7 10^3/uL (0.0-0.8); MONO % 7.2 % (0.0-5.0); NEUTROPHILS # 7.4 10^3/uL (1.8-7.7); NEUTROPHILS % 76.8 % (36.0-66.0); PLATELET COUNT, AUTOMATED 231 10^3/uL (150-450); RED BLOOD COUNT 3.92 10^6/uL (4.30-6.10); WHITE BLOOD COUNT 9.6 10^3/uL (4.0-10.0)
[2018-12-07] MEDS: NS 1,000 ML IV SCH ×2 (05:49→09:07)
[2018-12-07 06:00] VITALS: BP 154/74
[2018-12-07 06:25] LABS: ALBUMIN 3.2 GM/DL (3.2-5.2); ALT/SGPT 21 U/L (12-78); BILIRUBIN,TOTAL 1.2 MG/DL (0.2-1.0); BLOOD UREA NITROGEN 46 MG/DL (7-18); CARBON DIOXIDE LEVEL 27 MEQ/L (21-32); CHLORIDE LEVEL 102 MEQ/L (98-107); CREATININE FOR GFR 1.18 MG/DL (0.70-1.30); GLOMERULAR FILTRATION RATE > 60.0 (>42); GLUCOSE, FASTING 135 MG/DL (70-100); NT-PRO BNP 3345 PG/ML (<450); POTASSIUM SERUM 4.1 MEQ/L (3.5-5.1); SODIUM LEVEL 134 MEQ/L (136-145); TOTAL PROTEIN 7.2 GM/DL (6.4-8.2)
[2018-12-07] MEDS: HumaLOG INSULIN (NovoLOG) PER UNIT SC SCH ×4 (09:07→20:37)
[2018-12-07 14:00] VITALS: BP 168/74
--- NOTE | 2018-12-07 16:47 | IPNPDOC ---
Subjective Date Seen The patient was seen on 12/07/18. Subjective Chief Complaint/HPI at baseline MS Constitutional: Denies: Chills Eyes: Denies: Pain ENT: Denies: Head Aches, Ear Pain Skin: Denies: Rash, Lesions Pulmonary: Denies: Dyspnea, Cough Cardiovascular: Denies: Chest Pain Gastrointestinal: Denies: Nausea, Vomiting Objective Physical Examination General Exam: Positive: Alert, Cooperative, No Acute Distress ENT Exam: Positive: Mucous membr. moist/pink Neck Exam: Positive: Supple Chest Exam: Positive: Clear to auscultation, Normal air movement Heart Exam: Positive: Rate Normal, Normal S1, Normal S2 Abdomen Exam: Positive: Normal bowel sounds, Soft; Negative: Tenderness Extremity Exam: Negative: Edema Psych Exam: Positive: Mental status NL, Mood NL Assessment /Plan Problems (1) Chronic diastolic CHF (congestive heart failure) Status: Chronic Response to Treatment: Stable, Compensated Problem Specific Plan: Monitor Clinically, Repeat Labs Problem Text: Euvolemic off HD fur 80 BID, andi 40 12/07 3345 c SBP 150s; therefore, + torse 20 12/06 BNP 1858 (no previous in [place])-SLIV (2) Chronic atrial fibrillation Status: Chronic Response to Treatment: Stable Problem Specific Plan: Monitor Clinically Problem Text: RC s chronotrope given intermediate-high risk of recurrent ICH (lobar ICH, ataxia, labile BPs), but [id number] 5; per guidelines, favor anti-platelet over AC (if AC is chosen, favor apixaban) dabi reversed 12/04 2 SAH (3) Renal mass Status: Acute Problem Text: plan MRI abd c/s hima as outpx (incidental find) 11/14 renal US: Seen in the inferior pole of the right kidney, there is a 3.7 x 2.3 x 3 cm sized nearly anechoic structure which exhibits posterior wall enhancement and increased through transmission. This is seen without septations or mural nodules. (4) Leukocytosis Status: Acute Problem Text: favor 2 acute stress 12/07 9.6 (admission 20), AF since admission 12/04 BCX2 NG 12/04 UCX NG (5) ALBARO (acute kidney injury) Status: Acute Problem Text: back to baseline cr 1.1-1.2/ Na low 140s c secondary hypoNa 2 hypovolemia, fur/andi 12/06 SLbronwyn RAMIREZ (6) Subarachnoid hemorrhage following injury Status: Resolved Response to Treatment: Progressing Discussed With: Nurse, Patient, Family with Pt Consent Problem Specific Plan: Monitor Clinically Problem Text: Repeat CT 12/05 shows resolution of previously noted hemorrhage on CT 12/05 CT head: The small right frontal subarachnoid hemorrhage identified on 12/04/2018 has resolved. There is no other acute hemorrhage. There is chronic diffuse cortical atrophy. There is evidence for chronic microvascular ischemia. No mass effect or midline shift. (7) DM type 2 with diabetic peripheral neuropathy Status: Chronic Response to Treatment: Stable Problem Text: off HD met 1000 BID 2 ALBARO continue SSLI-AC BG ~130s 11/2018 A1C 7.1 (8) Physical deconditioning Problem Text: 12/06 not safe per PT, but plan home c services (9) Dementia Status: Acute Problem Text: Stable off HD donep (10) LUZ (obstructive sleep apnea) Status: Chronic Problem Text: Continue home CPAP (11) Essential (primary) hypertension Status: Chronic Problem Text: as per CHF (12) Hyperlipemia Status: Chronic Response to Treatment: Stable Problem Text: continue HD prav 20 Plan/VTE VTE Prophylaxis Ordered?: No VTE Exclusion Mechanical Proph: Low Risk for VTE VTE Exclusion Pharmacological: Bleeding Risk VS, I&O, 24H, Fishbone Vital Signs/I&O Vital Signs Date Time Temp Pulse Resp B/P (MAP) Pulse Ox O2 Delivery O2 Flow Rate FiO2 12/07/18 14:00 97.3 69 17 168/74 (105) 100 12/04/18 13:00 Room Air I&O- Last 24 Hours up to 6 AM 12/07/18 05:59 Intake Total 1200 ml Output Total 1875 ml Balance -675 ml Laboratory Data 24H LABS Laboratory Tests 2 12/06/18 19:55: Bedside Glucose (Misc Panel) 162H 12/07/18 05:21: Immature Granulocyte % (Auto) 0.4, White Blood Count 9.6, Red Blood Count 3.92L, Hemoglobin 12.8L, Hematocrit 38.2L, Mean Corpuscular Volume 97.4H, Mean Corpuscular Hemoglobin 32.7, Mean Corpuscular Hemoglobin Concent 33.5, Red Cell Distribution Width 12.9, Platelet Count 231, Neutrophils (%) (Auto) 76.8H, Lymphocytes (%) (Auto) 13.3L, Monocytes (%) (Auto) 7.2H, Eosinophils (%) (Auto) 1.5, Basophils (%) (Auto) 0.8, Neutrophils # (Auto) 7.4, Lymphocytes # (Auto) 1.3L, Monocytes # (Auto) 0.7, Eosinophils # (Auto) 0.1, Basophils # (Auto) 0.1, Nucleated Red Blood Cells % (auto) 0.0, Anion Gap 5L, Glomerular Filtration Rate > 60.0, Blood Urea Nitrogen 46H, Creatinine 1.18, Sodium Level 134L, Potassium Level 4.1, Chloride Level 102, Carbon Dioxide Level 27, Calcium Level 9.0#, Aspartate Amino Transf (AST/SGOT) 17, Alanine Aminotransferase (ALT/SGPT) 21, Alkaline Phosphatase 111, Total Bilirubin 1.2H, Total Protein 7.2#, Albumin 3.2#, TJ-Kee-X-Type Natriuretic Peptide 3345H, Albumin/Globulin Ratio 0.80L 12/07/18 11:26: Bedside Glucose (Misc Panel) 172H CBC/BMP Laboratory Tests 12/07/18 05:21 Red Blood Count 3.92 L, Mean Corpuscular Volume 97.4 H, Mean Corpuscular Hemoglobin 32.7, Mean Corpuscular Hemoglobin Concent 33.5, Red Cell Distribution Width 12.9, Neutrophils (%) (Auto) 76.8 H, Lymphocytes (%) (Auto) 13.3 L, Monocytes (%) (Auto) 7.2 H, Eosinophils (%) (Auto) 1.5, Basophils (%) (Auto) 0.8, Neutrophils # (Auto) 7.4, Lymphocytes # (Auto) 1.3 L, Monocytes # (Auto) 0.7, Eosinophils # (Auto) 0.1, Basophils # (Auto) 0.1, Calcium Level 9.0 #, Aspartate Amino Transf (AST/SGOT) 17, Alanine Aminotransferase (ALT/SGPT) 21, Alkaline Phosphatase 111, Total Bilirubin 1.2 H, Total Protein 7.2 #, Albumin 3.2 # Microbiology Microbiology 12/04/18 Blood Culture - Preliminary, Resulted No Growth after 72 hours. All specime... 12/04/18 Blood Culture - Preliminary, Resulted No Growth after 72 hours. All specime... 7/25/19 Urine Culture - Final, Complete Hosea Eugene M.D. Dec 07, 2018 16:46
[2018-12-07] MEDS: TORSEMIDE 20 MG TAB PO SCH (17:03)
[2018-12-07] MEDS: FLUTICASONE PROP 0.05% NASAL SPRAY 16 GM (FLONASE) SCH (20:45)
[2018-12-07] MEDS: ZINC SULFATE 220 MG CAP PO SCH (20:45)
[2018-12-07] MEDS: LATANOPROST 0.005% OPHTH SOLN 2.5 ML OU SCH (20:45)
[2018-12-07] MEDS: PRAVASTATIN 20 MG TAB PO SCH (21:33)
[2018-12-07 22:00] VITALS: BP 137/75
[2018-12-08 06:00] VITALS: BP 129/73
[2018-12-08 07:02] LABS: BASO # 0.1 10^3/uL (0.0-0.2); BASO % 0.4 % (0.0-1.0); EOS # 0.1 10^3/uL (0.0-0.50); EOS % 0.8 % (0.0-3.0); HEMATOCRIT 36.5 % (42.0-52.0); HEMOGLOBIN 12.5 g/dl (13.5-17.5); LYMPH # 1.1 10^3/uL (1.5-4.5); LYMPH % 9.2 % (24.0-44.0); MEAN CORPUSCULAR HEMOGLOBIN 32.9 pg (27.0-33.0); MEAN CORPUSCULAR HGB CONC 34.2 g/dl (32.0-36.5); MEAN CORPUSCULAR VOLUME 96.1 fl (80.0-96.0); MONO # 0.8 10^3/uL (0.0-0.8); MONO % 6.5 % (0.0-5.0); NEUTROPHILS # 9.9 10^3/uL (1.8-7.7); NEUTROPHILS % 82.6 % (36.0-66.0); PLATELET COUNT, AUTOMATED 241 10^3/uL (150-450)
[2018-12-08 07:23] LABS: ALBUMIN 3.2 GM/DL (3.2-5.2); ALT/SGPT 24 U/L (12-78); BILIRUBIN,TOTAL 1.5 MG/DL (0.2-1.0); BLOOD UREA NITROGEN 34 MG/DL (7-18); CALCIUM LEVEL 9.6 MG/DL (8.8-10.2); CARBON DIOXIDE LEVEL 26 MEQ/L (21-32); CHLORIDE LEVEL 101 MEQ/L (98-107); CREATININE FOR GFR 1.12 MG/DL (0.70-1.30); GLOMERULAR FILTRATION RATE > 60.0 (>42); GLUCOSE, FASTING 117 MG/DL (70-100); MAGNESIUM LEVEL 1.9 MG/DL (1.8-2.4); POTASSIUM SERUM 4.1 MEQ/L (3.5-5.1); SODIUM LEVEL 134 MEQ/L (136-145); TOTAL PROTEIN 6.9 GM/DL (6.4-8.2)
[2018-12-08] MEDS: TORSEMIDE 20 MG TAB PO SCH (08:16)
[2018-12-08] MEDS: HumaLOG INSULIN (NovoLOG) PER UNIT SC SCH ×4 (08:16→20:22)
--- NOTE | 2018-12-08 09:22 | IPNPDOC ---
Subjective Date Seen The patient was seen on 12/08/18. Subjective Chief Complaint/HPI nothing new to report. Constitutional: Denies: Chills ENT: Denies: Head Aches Pulmonary: Denies: Dyspnea, Cough Cardiovascular: Denies: Chest Pain, Palpitations Gastrointestinal: Denies: Nausea, Vomiting Hematologic: Denies: Bruising Objective Physical Examination General Exam: Positive: Alert, Cooperative, No Acute Distress Eye Exam: Positive: PERRLA ENT Exam: Positive: Mucous membr. moist/pink Neck Exam: Positive: Supple Chest Exam: Positive: Clear to auscultation, Normal air movement Heart Exam: Positive: Rate Normal, Normal S1, Normal S2 Abdomen Exam: Positive: Normal bowel sounds, Soft Extremity Exam: Positive: Other (s/p right 5th toe amputation.); Negative: Edema Skin Exam: Positive: Lesion (pressure sore at bottom of right foot over 4th metatarsal head, right medial malleolus and spongy texture to edematous heel; on left there is a pressure sore left lateral malleolus) Psych Exam: Positive: Mental status NL, Mood NL; Negative: Memory Intact (unable to remember how long he has had pressure sores on feet or any detail about head injury.) Assessment /Plan Problems (1) Chronic diastolic CHF (congestive heart failure) Status: Chronic Response to Treatment: Stable, Compensated Problem Specific Plan: Monitor Clinically, Repeat Labs Problem Text: Continue 1500 cc fluid restriction. Euvolemic off HD fur 80 BID, andi 40 12/07 3345 c SBP 150s; therefore, + torse 20 12/06 BNP 1858 (no previous in [place])-SLIV (2) Chronic atrial fibrillation Status: Chronic Response to Treatment: Stable Problem Specific Plan: Monitor Clinically Problem Text: will resume prophylaxis with anti-platelet med after 2 weeks. RC s chronotrope given intermediate-high risk of recurrent ICH (lobar ICH, ataxia, labile BPs), but [id number] 5; per guidelines, favor anti-platelet over AC (if AC is chosen, favor apixaban) dabi reversed 12/04 2 SAH (3) Renal mass Status: Acute Problem Text: plan MRI abd c/s hima as outpx (incidental find) 11/14 renal US: Seen in the inferior pole of the right kidney, there is a 3.7 x 2.3 x 3 cm sized nearly anechoic structure which exhibits posterior wall enhancement and increased through transmission. This is seen without septations or mural nodules. (4) Leukocytosis Status: Acute Problem Text: favor 2 acute stress 12/07 9.6 (admission 20), AF since admission 12/04 BCX2 NG 12/04 UCX NG (5) ALBARO (acute kidney injury) Status: Resolved Problem Text: back to baseline cr 1.1-1.2/ Na low 140s c secondary hypoNa 2 hypovolemia, fur/andi 12/06 SLIV, bronwyn finley (6) Subarachnoid hemorrhage following injury Status: Resolved Response to Treatment: Progressing Discussed With: Nurse, Patient, Family with Pt Consent Problem Specific Plan: Monitor Clinically Problem Text: Repeat CT 12/05 shows resolution of previously noted hemorrhage on CT 12/05 CT head: The small right frontal subarachnoid hemorrhage identified on 12/04/2018 has resolved. There is no other acute hemorrhage. There is chronic diffuse cortical atrophy. There is evidence for chronic microvascular ischemia. No mass effect or midline shift. (7) DM type 2 with diabetic peripheral neuropathy Status: Chronic Response to Treatment: Stable Problem Text: will resume metformin at lower dose since his ALBARO has resolved off HD met 1000 BID 2 ALBARO continue SSLI-AC BG ~130s 11/2018 A1C 7.1 (8) Physical deconditioning Status: Chronic Problem Text: 12/06 not safe per PT, but plan home c services (9) Dementia Status: Chronic Problem Text: Stable off HD donep (10) LUZ (obstructive sleep apnea) Status: Chronic Problem Text: Continue home CPAP (11) Essential (primary) hypertension Status: Chronic Problem Text: as per CHF (12) Hyperlipemia Status: Chronic Response to Treatment: Stable Problem Text: continue HD prav 20 (13) Hyponatremia Status: Acute Response to Treatment: Improving Problem Text: continue 1500 cc fluid restriction for now. sodium had improved from 126 to 134, seems to be hovering at this level. (14) Diabetic foot ulcers Status: Chronic Response to Treatment: Stable Problem Specific Plan: Consult Specialist Problem Text: patient is being seen by PT for these wounds. will encourage that he keep the feet elevated. Plan/VTE VTE Prophylaxis Ordered?: No VTE Exclusion Mechanical Proph: Low Risk for VTE VTE Exclusion Pharmacological: Bleeding Risk Plan Anticipated Discharge: Home With Services (vs subacute rehab) VS, I&O, 24H, Fishbone Vital Signs/I&O Vital Signs Date Time Temp Pulse Resp B/P (MAP) Pulse Ox O2 Delivery O2 Flow Rate FiO2 12/08/18 06:00 97.4 74 14 129/73 (91) 97 12/04/18 13:00 Room Air I&O- Last 24 Hours up to 6 AM 12/08/18 06:00 Intake Total 2190 ml Balance 2190 ml Laboratory Data 24H LABS Laboratory Tests 2 12/07/18 11:26: Bedside Glucose (Misc Panel) 172H 12/07/18 16:36: Bedside Glucose (Misc Panel) 93 12/07/18 20:01: Bedside Glucose (Misc Panel) 109 12/08/18 06:15: Immature Granulocyte % (Auto) 0.5, White Blood Count 12.0H, Red Blood Count 3.80L, Hemoglobin 12.5L, Hematocrit 36.5L, Mean Corpuscular Volume 96.1H, Mean Corpuscular Hemoglobin 32.9, Mean Corpuscular Hemoglobin Concent 34.2, Red Cell Distribution Width 13.0, Platelet Count 241, Neutrophils (%) (Auto) 82.6H, Lymphocytes (%) (Auto) 9.2L, Monocytes (%) (Auto) 6.5H, Eosinophils (%) (Auto) 0.8, Basophils (%) (Auto) 0.4, Neutrophils # (Auto) 9.9H, Lymphocytes # (Auto) 1.1L, Monocytes # (Auto) 0.8, Eosinophils # (Auto) 0.1, Basophils # (Auto) 0.1, Nucleated Red Blood Cells % (auto) 0.0, Anion Gap 7L, Glomerular Filtration Rate > 60.0, Blood Urea Nitrogen 34H, Creatinine 1.12, Sodium Level 134L, Potassium Level 4.1, Chloride Level 101, Carbon Dioxide Level 26, Calcium Level 9.6, Aspartate Amino Transf (AST/SGOT) 17, Alanine Aminotransferase (ALT/SGPT) 24, Alkaline Phosphatase 112, Total Bilirubin 1.5H, Total Protein 6.9, Albumin 3.2, Magnesium Level 1.9, Albumin/Globulin Ratio 0.86L CBC/BMP Laboratory Tests 12/08/18 06:15 Red Blood Count 3.80 L, Mean Corpuscular Volume 96.1 H, Mean Corpuscular Hemoglobin 32.9, Mean Corpuscular Hemoglobin Concent 34.2, Red Cell Distribution Width 13.0, Neutrophils (%) (Auto) 82.6 H, Lymphocytes (%) (Auto) 9.2 L, Monocytes (%) (Auto) 6.5 H, Eosinophils (%) (Auto) 0.8, Basophils (%) (Auto) 0.4, Neutrophils # (Auto) 9.9 H, Lymphocytes # (Auto) 1.1 L, Monocytes # (Auto) 0.8, Eosinophils # (Auto) 0.1, Basophils # (Auto) 0.1, Calcium Level 9.6, Aspartate Amino Transf (AST/SGOT) 17, Alanine Aminotransferase (ALT/SGPT) 24, Alkaline Phosphatase 112, Total Bilirubin 1.5 H, Total Protein 6.9, Albumin 3.2 Microbiology Microbiology 12/04/18 Blood Culture - Preliminary, Resulted No Growth after 72 hours. All specime... 12/04/18 Blood Culture - Preliminary, Resulted No Growth after 72 hours. All specime... 12/04/18 Urine Culture - Final, Complete Israel Rodrigez MD Dec 08, 2018 09:22
[2018-12-08] MEDS: metFORMIN (GLUCOPHAGE) 500 MG TAB PO SCH ×2 (12:22→17:15)
--- NOTE | 2018-12-08 15:12 | NUR ---
Recommend upgrade to level 3 mechanical soft solids, continue thin liquids, upright & OOB as tolerated for meals, offer calorie dense options and ensure 1x/day. Addendum: 12/08/18 at 1513 by KAYDEN ANDREW [facility] Amended: Links added.
--- NOTE | 2018-12-08 15:22 | NUR ---
Pt w/ mild cognitive impairment based on administration of MMSE, informal assessment, and pt/family interview. Pt demonstrates poor problem-solving and safety awareness in verbal scenarios. reports decreased processing and problem-solving since fall. Pt w/ baseline dementia and new cognitive deficits since admission for subarachnoid hemorrhage s/p fall 12/04/18. Recommend cognitive tx to improve problem-solving & safety awareness for maximum independence w/ ADL's. Addendum: 12/08/18 at [address] [facility] Amended: Links added.
[2018-12-08 16:00] VITALS: BP 135/74
[2018-12-08] MEDS: ZINC SULFATE 220 MG CAP PO SCH (20:21)
[2018-12-08] MEDS: PRAVASTATIN 20 MG TAB PO SCH (20:22)
[2018-12-08] MEDS: LATANOPROST 0.005% OPHTH SOLN 2.5 ML OU SCH (20:23)
[2018-12-08] MEDS: FLUTICASONE PROP 0.05% NASAL SPRAY 16 GM (FLONASE) SCH (20:23)
[2018-12-08] MEDS ORDERED: DONEPEZIL 5 MG TAB PO SCH (21:00)
[2018-12-08 22:00] VITALS: BP 132/73
[2018-12-09 06:00] VITALS: BP 154/75
[2018-12-09 06:22] LABS: BASO # 0.1 10^3/uL (0.0-0.2); BASO % 0.5 % (0.0-1.0); EOS # 0.1 10^3/uL (0.0-0.50); HEMATOCRIT 36.4 % (42.0-52.0); HEMOGLOBIN 12.7 g/dl (13.5-17.5); LYMPH # 1.5 10^3/uL (1.5-4.5); LYMPH % 11.7 % (24.0-44.0); MEAN CORPUSCULAR HEMOGLOBIN 33.2 pg (27.0-33.0); MEAN CORPUSCULAR HGB CONC 34.9 g/dl (32.0-36.5); MEAN CORPUSCULAR VOLUME 95.3 fl (80.0-96.0); MONO # 0.9 10^3/uL (0.0-0.8); MONO % 6.5 % (0.0-5.0); NEUTROPHILS # 10.5 10^3/uL (1.8-7.7); NEUTROPHILS % 79.8 % (36.0-66.0); PLATELET COUNT, AUTOMATED 253 10^3/uL (150-450); RED BLOOD COUNT 3.82 10^6/uL (4.30-6.10); WHITE BLOOD COUNT 13.2 10^3/uL (4.0-10.0)
[2018-12-09 06:49] LABS: ALBUMIN 3.2 GM/DL (3.2-5.2); BILIRUBIN,TOTAL 1.5 MG/DL (0.2-1.0); CALCIUM LEVEL 9.5 MG/DL (8.8-10.2); CREATININE FOR GFR 1.27 MG/DL (0.70-1.30); GLOMERULAR FILTRATION RATE 58.2 (>42); POTASSIUM SERUM 4.8 MEQ/L (3.5-5.1); TOTAL PROTEIN 7.4 GM/DL (6.4-8.2)
[2018-12-09] MEDS: HumaLOG INSULIN (NovoLOG) PER UNIT SC SCH (07:30)
[2018-12-09] MEDS: TORSEMIDE 20 MG TAB PO SCH (08:23)
[2018-12-09] MEDS: metFORMIN (GLUCOPHAGE) 500 MG TAB PO SCH (08:23)
--- NOTE | 2018-12-09 08:50 | NUR ---
Recommend upgrade to regular solids, thin liquids. Please assist for upright positioning during meals & OOB as tolerated. Will f/u tolerance diet upgrade. Addendum: 12/09/18 at [address] [facility] Amended: Links added.
[2018-12-09] MEDS ORDERED: TORS20TA2 PO (10:48)
--- NOTE | 2018-12-09 15:33 | DSES ---
DATE OF ADMISSION: 12/08/2018 DATE OF DISCHARGE: 12/09/2018 REASON FOR ADMISSION: Mr. Felipe was admitted from emergency department (ED) after presenting with unwitnessed fall. awoke in the night hearing a crash, Found the patient lying on the floor. Seen by Dr. Kumar in the ED. Patient is on Pradaxa for atrial fibrillation (AFib). Seen in consultation by Dr. Hutson who recommended staying off Pradaxa for a few more days, continue Aricept. Confirmed impression by radiology a very small left frontal subarachnoid hemorrhage associated with fall and use of Pradaxa. Patient remained stable in hospital with no development of intracranial pressure increase. No decrease in alertness. He was able to successfully meet home safety evaluation, physical therapy goals for discharge. He is being discharged on the following medications. Torsemide 20 mg daily to replace previous Lasix. Quinapril also stopped. Dabigatran stopped. Other meds will include allopurinol 20 mg daily, donepezil 10 mg daily, Flonase Allergy Release spray two sprays, pravastatin 20 mg daily, omeprazole 40 mg daily, Multivite one a day, metformin 1000 mg twice a day, latanoprost 1 drop each eye at bedtime, zinc sulfate 220 mg daily. Activity will be as tolerated, but no driving, no climbing ladders and no swimming. Followup with his primary care provider in 1 week, with Dr. Hutson per his recommendation. At this point, we will leave him off his anticlotting drugs and leave resumption of anticlotting therapy to his primary care provider and/or segmental paver installer. At this time, deemed to be unsafe to resume high level anticoagulation. Perhaps consider switching him to aspirin for long-term control after another week to confirm absence of any continued bleeding. DISCHARGE DIAGNOSES: Unwitnessed fall resulting in subarachnoid hemorrhage in the setting of anticoagulation for atrial fibrillation prophylaxis against stroke. Chronic atrial fibrillation. Dementia. Hypertension. Acute kidney injury, resolved. Acute renal failure, resolved. Acute renal failure secondary to dehydration in the context of chronic angiotensin-converting enzyme (MONA) inhibitor therapy renal function returned to normal by discharge.
== END 2018-12-09 13:15 | disposition home health service (06) | DRG 86 ==
LOC: M ED 06:45 → M ED INP 06:47 → UNDOADMOB 10:05 → M ED INP 10:05 → M ICU 13:45 → M MS5PR 12-05 15:50 → OBSVTOIN 12-08 09:02
PROVIDERS: ADMIT Internal Medicine; ATTEND Family Medicine
DX: S06.6X0A Traumatic subarachnoid hemorrhage without loss of consciousness, initial encounter (principal); N17.9 Acute kidney failure, unspecified; I50.32 Chronic diastolic (congestive) heart failure; E87.1 Hypo-osmolality and hyponatremia; E66.2 Morbid (severe) obesity with alveolar hypoventilation; I11.0 Hypertensive heart disease with heart failure; I48.2 Chronic atrial fibrillation; E86.0 Dehydration; G30.9 Alzheimer's disease, unspecified; W18.30XA Fall on same level, unspecified, initial encounter; Y92.009 Unspecified place in unspecified non-institutional (private) residence as the place of occurrence of the external cause; E11.51 Type 2 diabetes mellitus with diabetic peripheral angiopathy without gangrene; E78.5 Hyperlipidemia, unspecified; M10.9 Gout, unspecified; Z79.899 Other long term (current) drug therapy; G47.33 Obstructive sleep apnea (adult) (pediatric); F02.80 Dementia in other diseases classified elsewhere, unspecified severity, without behavioral disturbance, psychotic disturbance, mood disturbance, and anxiety

== ENCOUNTER → 2018-12-12 | Outpatient (REF) | payer MEDICARE ==
[~2018-12-12] MED LIST changes: +ATOR1TAB21 PO; +ATOR40TA75 PO; +CHOL4PW PO; +COLA100C5 PO; +DONE10TA90 PO; +DOXY100T PO; +ELIQ5TAB PO; +FLON1SPR; +FLUO20CA19 PO; +FLUT15.820 NARES; +METO1TAB32 PO; +MILKSUS3 PO; +OMEP40CA97 PO; +TORS10TA3 PO; +TORS20TA2 PO; +VANC1INJ IV; +VITMTA PO; +ZINC220T6 PO; +ZOSY3INJ2 IV; +[UNRECOGNIZED DRUG - CODE] IV
[2018-12-12 13:58] LABS: CALCIUM LEVEL 9.7 MG/DL (8.8-10.2); CREATININE FOR GFR 1.27 MG/DL (0.70-1.30); GLOMERULAR FILTRATION RATE 58.2 (>42); POTASSIUM SERUM 3.5 MEQ/L (3.5-5.1)
== END ==
LOC: M SFHCPLAZ 12:05
PROVIDERS: ATTEND Family Medicine
DX: N18.3 Chronic kidney disease, stage 3 (moderate) (principal)
CPT/HCPCS: 36415; 80048; G0463

== ENCOUNTER → 2018-12-26 | Outpatient (CLI) | payer MEDICARE ==
[~2018-12-26] MED LIST changes: -ATOR1TAB21 PO; -ATOR40TA75 PO; -CHOL4PW PO; -COLA100C5 PO; -DONE10TA90 PO; -DOXY100T PO; -ELIQ5TAB PO; -FLUO20CA19 PO; -FLUT15.820 NARES; +FLUT50SP21 NARES; -METO1TAB32 PO; -MILKSUS3 PO; +OMEP40CA2 PO; -OMEP40CA97 PO; -TORS10TA3 PO; -VANC1INJ IV; -ZOSY3INJ2 IV; -[UNRECOGNIZED DRUG - CODE] IV
--- NOTE | 2018-12-26 09:49 | REP ---
CT OF THE HEAD WITHOUT CONTRAST: CLINICAL INDICATION: Not traumatic anterior cerebral hemorrhage. COMPARISON: CT head without contrast of 12/05/2018. FINDINGS: There is no evidence of visible tissue swelling or calvarial fracture. There is no acute intracranial hemorrhage. Previously described right frontal subarachnoid hemorrhage has resolved. There is no mass effect, midline shift or extra-axial fluid collection. The basal cisterns are patent. There are scattered hypodensities within the periventricular subcortical white matter which are nonspecific but suggestive of microvascular ischemic disease. Note is made of dense carotid and vertebral artery vascular calcification. There is prominence of the ventricles and sulci compatible with mild cerebral volume loss. There is no hydrocephalus. IMPRESSION: 1. No evidence of acute intracranial hemorrhage. 2. Stable white matter disease. 3. Dense intracranial vascular calcification. Unreviewed
== END ==
LOC: M RAD 08:33
PROVIDERS: ATTEND Psychiatry & Neurology Neurology
DX: I67.2 Cerebral atherosclerosis (principal); I65.23 Occlusion and stenosis of bilateral carotid arteries; Z86.79 Personal history of other diseases of the circulatory system

== ENCOUNTER → 2019-01-30 | Outpatient (REF) | payer MEDICARE ==
[~2019-01-30] MED LIST changes: +FLUT15.820 NARES; -FLUT50SP21 NARES
[2019-01-30 19:59] LABS: HEMATOCRIT 34.5 % (42.0-52.0); HEMOGLOBIN 10.7 g/dl (13.5-17.5); MEAN CORPUSCULAR HEMOGLOBIN 32.6 pg (27.0-33.0); MEAN CORPUSCULAR VOLUME 105.2 fl (80.0-96.0); PLATELET COUNT, AUTOMATED 345 10^3/uL (150-450); RED BLOOD COUNT 3.28 10^6/uL (4.30-6.10); WHITE BLOOD COUNT 9.8 10^3/uL (4.0-10.0)
[2019-01-30 20:04] LABS: BLOOD UREA NITROGEN 21 MG/DL (7-18); CALCIUM LEVEL 8.9 MG/DL (8.8-10.2); CARBON DIOXIDE LEVEL 31 MEQ/L (21-32); CHLORIDE LEVEL 101 MEQ/L (98-107); CREATININE FOR GFR 1.03 MG/DL (0.70-1.30); GLOMERULAR FILTRATION RATE > 60.0 (>42); GLUCOSE, FASTING 115 MG/DL (70-100); POTASSIUM SERUM 4.4 MEQ/L (3.5-5.1); SODIUM LEVEL 138 MEQ/L (136-145)
[2019-01-30 20:28] LABS: HEMOGLOBIN A1c 5.3 %
== END ==
LOC: M SFHCADAM 14:39
PROVIDERS: ATTEND Family Medicine
DX: I60.9 Nontraumatic subarachnoid hemorrhage, unspecified (principal); E11.621 Type 2 diabetes mellitus with foot ulcer

== ENCOUNTER → 2019-02-05 | Outpatient (REF) | payer MEDICARE ==
[~2019-02-05] MED LIST changes: +DONE10TA90 PO; +DOXY100T PO
== END ==
LOC: M LAB REF 12:28
PROVIDERS: ATTEND Physician Assistant
DX: L97.829 Non-pressure chronic ulcer of other part of left lower leg with unspecified severity (principal)

== ENCOUNTER 2019-02-10 15:23 | Inpatient (IN) | payer MEDICARE ==
[~2019-02-10] VITALS: Ht 185.4 cm; Wt 98.3 kg
[~2019-02-10 15:23] MED LIST changes: -DONE10TA90 PO; -DOXY100T PO
[2019-02-10 17:08] LABS: BASO # 0.1 10^3/uL (0.0-0.2); BASO % 0.9 % (0.0-1.0); EOS # 0.1 10^3/uL (0.0-0.5); EOS % 0.8 % (0.0-3.0); HEMATOCRIT 33.7 % (42.0-52.0); HEMOGLOBIN 10.8 g/dl (13.5-17.5); LYMPH # 1.2 10^3/uL (1.5-5.0); LYMPH % 15.6 % (24.0-44.0); MEAN CORPUSCULAR HEMOGLOBIN 32.5 pg (27.0-33.0); MEAN CORPUSCULAR VOLUME 101.5 fl (80.0-96.0); MONO # 0.8 10^3/uL (0.0-0.8); MONO % 10.3 % (0.0-5.0); NEUTROPHILS # 5.4 10^3/uL (1.5-8.5); NEUTROPHILS % 71.6 % (36.0-66.0); PLATELET COUNT, AUTOMATED 277 10^3/uL (150-450); RED BLOOD COUNT 3.32 10^6/uL (4.30-6.10); WHITE BLOOD COUNT 7.6 10^3/uL (4.0-10.0)
[2019-02-10 17:25] LABS: BLOOD UREA NITROGEN 24 MG/DL (7-18); CALCIUM LEVEL 9.4 MG/DL (8.8-10.2); CARBON DIOXIDE LEVEL 29 MEQ/L (21-32); CHLORIDE LEVEL 101 MEQ/L (98-107); CREATININE FOR GFR 1.12 MG/DL (0.70-1.30); GLOMERULAR FILTRATION RATE > 60.0 (>42); GLUCOSE, FASTING 112 MG/DL (70-100); SODIUM LEVEL 136 MEQ/L (136-145)
[2019-02-10] MEDS ORDERED: DOXYCYCLINE HYCLATE 100 MG in D5W MINI-BAG PLUS 100 ML IV SCH (17:45)
[2019-02-10] MEDS ORDERED: TORS20TA2 PO (18:26)
[2019-02-10] MEDS ORDERED: PRAD150C6 PO (18:26)
[2019-02-10] MEDS ORDERED: DOXY100T PO (18:26)
[2019-02-10] MEDS ORDERED: DONE10TA90 PO (18:26)
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
--- NOTE | 2019-02-10 19:12 | REP ---
Right foot four views: Comparisons are 05/31/2011 and 04/13/2013. The proximal, mid and distal phalanges of the fifth digit are no longer present as an interval change. They may have been resected. The mid and distal phalanges of the third digit are no longer present. They may have been resected. There is diffuse demineralization. The proximal phalanges of the third and fourth digits are angled laterally. There are no lytic, blastic or destructive skeletal changes to suggest osteomyelitis. The IP joint of the great toe appears fused. There is chronic deformity and fusion of the calcaneus and talus. There is chronic osteoarthritis of the remainder of the tarsal ossicles. Impression: No lytic, blastic or destructive skeletal changes. Other findings as described. Electronically Signed by Will Yun MD 02/10/2019 07:04 P
[2019-02-10] MEDS ORDERED: PROHANCE 279.3MG/ML 5ML VIAL (A9576) As Ordered ONE (19:54)
[2019-02-10] MEDS ORDERED: PROHANCE 279.3MG/ML 15ML VIAL (A9576) As Ordered ONE (19:54)
[2019-02-10 20:32] VITALS: BP 123/80
--- NOTE | 2019-02-10 21:13 | REPVR ---
PROCEDURE INFORMATION: Exam: MR Right Lower Extremity Without and With Contrast, Foot Exam date and time: 02/10/2019 8:03 PM Clinical history: 78 years old, male; Other: Diabetic ulcer RT 4th toe; Additional info: Without and with contrast R/O osteomyelitis right 4th toe TECHNIQUE: Imaging protocol: MR of the Right foot without and with intravenous contrast. Contrast material: PROHANCE; Contrast volume: 20 ml; Contrast route: IV; COMPARISON: MRI-Foot W/O FOL WITH 04/13/2013 6:45 PM FINDINGS: There is swelling and fluid signal within the subcutaneous tissues of the ankle and foot. These findings are nonspecific and may be seen with cellulitis, edema, and/or hemorrhage. No abscess is identified. There have been prior amputations of the third toe at the PIP joint and the fifth toe at the MTP joint. Bone marrow edema signal and enhancement of the third proximal phalanx and the fourth proximal, middle, and distal phalanges is present and consistent with osteomyelitis. There is severe destructive arthritis of the tibiotalar and subtalar joints with partial ankylosis of the subtalar joint. There is fragmentation and deformity of the calcaneus. These changes are likely the sequelae of post traumatic or neuropathic arthritis. Infectious arthritis at the tibiotalar joint is not completely excluded. IMPRESSION: 1. Findings consistent with osteomyelitis of the third and fourth toes. 2. 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 Infectious arthritis of the tibiotalar joint is not completely excluded. Electronically signed by: Ian Gleason On 02/10/2019 21:13:00 PM
[2019-02-10] MEDS: MULTIVITAMINS/MINERALS THERAP 1 TAB PO SCH (21:52)
[2019-02-10] MEDS: PRAVASTATIN 20 MG TAB PO SCH (21:53)
[2019-02-10] MEDS: ZINC SULFATE 220 MG CAP PO SCH (21:53)
[2019-02-10] MEDS: DONEPEZIL 5 MG TAB PO SCH (21:53)
[2019-02-10] MEDS: TORSEMIDE 20 MG TAB PO SCH (21:53)
[2019-02-10] MEDS: DOXYCYCLINE HYCLATE 100 MG in D5W MINI-BAG PLUS 100 ML IV SCH (21:54)
[2019-02-10 22:00] VITALS: BP 120/78
[2019-02-11] MEDS ORDERED: GLUCOSE 4 GM CHEW TABLET PO PRN (02:45)
[2019-02-11] MEDS ORDERED: GLUCAGON FOR INJ 1 MG VIAL (J1610) SC PRN (02:45)
[2019-02-11] MEDS ORDERED: DEXTROSE 50% 50 ML SYRINGE IV PRN (02:45)
[2019-02-11] MEDS: HumaLOG INSULIN (NovoLOG) PER UNIT SC SCH ×5 (02:47→21:00)
[2019-02-11 06:00] VITALS: BP 128/69
[2019-02-11 06:40] LABS: HEMATOCRIT 31.1 % (42.0-52.0); HEMOGLOBIN 9.9 g/dl (13.5-17.5); MEAN CORPUSCULAR HEMOGLOBIN 32.2 pg (27.0-33.0); MEAN CORPUSCULAR HGB CONC 31.8 g/dl (32.0-36.5); MEAN CORPUSCULAR VOLUME 101.3 fl (80.0-96.0); PLATELET COUNT, AUTOMATED 261 10^3/uL (150-450); RED BLOOD COUNT 3.07 10^6/uL (4.30-6.10); WHITE BLOOD COUNT 6.6 10^3/uL (4.0-10.0)
[2019-02-11 07:02] LABS: BLOOD UREA NITROGEN 24 MG/DL (7-18); CALCIUM LEVEL 8.9 MG/DL (8.8-10.2); CARBON DIOXIDE LEVEL 31 MEQ/L (21-32); CHLORIDE LEVEL 101 MEQ/L (98-107); CREATININE FOR GFR 1.03 MG/DL (0.70-1.30); GLOMERULAR FILTRATION RATE > 60.0 (>42); GLUCOSE, FASTING 98 MG/DL (70-100); POTASSIUM SERUM 4.1 MEQ/L (3.5-5.1); SODIUM LEVEL 137 MEQ/L (136-145)
--- NOTE | 2019-02-11 08:07 | CR.PDOC ---
General Date of Consultation: Feb 11, 2019 Consultation REASON FOR CONSULTATION/CHIEF COMPLAINT: Patient's : "His foot got infected" HISTORY OF PRESENT ILLNESS: Mr. Felipe is a very pleasant 78-year-old gentleman known to me from outpatient clinic for peripheral vascular disease with nonhealing wounds of the right lower extremity. His healing waxed and waned over 6 months, and during that time we discussed that his noninvasive arterial study was not terrible, and if he was able to heel without an intervention and the risks associated with it, that would be ideal, unfortunately, after many months of seeing him back in clinic, his wounds intact did not heal and we discussed doing an arteriogram. The arteriogram showed fairly good flow to the foot, but we did improve things somewhat with angioplasty to the has a popliteal and his anterior tibial and peroneal arteries. 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 With 2 vessel in- line flow to the foot, we were hopeful that the patient would be able to heal his wounds. Per his he did better in the wounds improved significantly, but the fifth toe ulceration over the past few days have gotten worse. He went for debridement with Dr. Frank on Saturday and they put him on doxycycline, but they said the ulcer track to the bone. When she changed his dressing on Saturday, she said it is much worse and there was a lot of drainage and she felt like she was out of her depth to take care of it. She was trying to clean at the but she couldn't redress it, but felt like it wasn't adequate. She started noticing he had low-grade temperatures and then he had a temperature of almost 102 Fahrenheit, and she became more worried. She gave him some Tylenol and a dose of his antibiotics at that time. Yesterday, I was supposed to see him in clinic but was tied up in a procedure, and Yanely Hurd my PA saw the patient and felt the safest thing was for him to be evaluated for possible admission in the ER. I agree with this decision. The patient was evaluated and admitted for further workup. I tried to see him in the ER last night but he was an MRI for his foot (MRI of the right foot reveals third and fourth toe osteomyelitis.) On exam this morning, the 4th toe is in fact pretty macerated and has some drainage on the dressing. There is no foul odor, but I would suspect the toe was not viable. We will see what Dr Medina recommends. His calf looks much better, and there are no open wounds on the calf. He also developed a small wound on the left lower extremity, and his says it is been healing, but she says it was just a small scratch that turned into a hole. Sometimes those Little small wounds are tough to heal. Last Saturday ordered a bilateral lower extremity arterial duplex, still pending, to make sure what we opened on the right lower extremity is still open, and see if there is anything we need to do on the left lower extremity. The patient should have adequate blood flow to heal a right 3/4 toe amputation if that is required, based on what we saw during the arteriogram postprocedure. However we like to make sure that there is no restenosis or new issues. Further recommendations to follow after imaging is reviewed. ALLERGIES: Please see below. HOME MEDICATIONS: Please see below. PAST MEDICAL HISTORY: Afib HTN DM CHF PVD LUZ Dementia HLD PAST SURGICAL HISTORY: Angioplasty RLE R foot surgery L knee surgery Nose surgery EGD FAMILY HISTORY: Dementia, HTN, heart disease SOCIAL HISTORY: Lives with his who is his primary caregiver, denies tobacco use, alcohol use, illicit drug use. REVIEW OF SYSTEMS: CONSTITUTIONAL: Positive fatigue positive fevers HEENT: Denies vision changes or hearing changes CARDIOVASCULAR: Denies palpitations or chest pain RESPIRATORY: Positive shortness of breath with exertion GENITOURINARY: Denies dysuria MUSCULOSKELETAL: Positive pain extremities denies trouble with ambulation GASTROINTESTINAL: Denies nausea vomiting diarrhea constipation positive reflux SKIN: Positive wounds bilateral lower extremities NEUROLOGICAL: Positive memory loss Denies focal deficits denies seizures or headaches PSYCHIATRIC: Positive depression negative anxiety ENDOCRINE: Positive diabetes HEMATOLOGIC/LYMPHATIC: Positive easy bruising ALLERGIC/IMMUNOLOGIC: Denies PHYSICAL EXAMINATION: VITAL SIGNS: Please see below. GENERAL APPEARANCE: Medically stable HEENT: PERRLA, TMI RESPIRATORY: Clear to auscultation CARDIOVASCULAR: Irregular rate and rhythm ABDOMEN: Soft nontender nondistended EXTREMITIES: Both feet are warm and pink with less than 1 second capillary refill. Pulses are not easily palpable due to swelling and thickened skin. Right DP signal monophasic, PT monophasic. Left DP signal biphasic, PT biphasic. Right fourth toe is macerated, with drainage on the dressing, discolored. No ascending erythema and induration over the dorsum or plantar aspect of the foot proximal to this. Chronic venous skin changes over the calf are present with brawny di scoloration, but previous ulcerations appear to be healed. Left foot is significantly bandaged and this was not removed. NEUROLOGICAL: Alert and oriented to person, not oriented to place or time. No f ocal deficits noted. Moves all extremities equally. PSYCHIATRIC: Pleasant and cooperative LABORATORY DATA: Please see below. ASSESSMENT/PLAN: Very pleasant 78-year-old gentleman known to me from clinic for peripheral vascular disease and nonhealing wound of the right lower extremity, now admitted with worsening infection of the right fourth toe, osteomyelitis right third fourth toe, mental status changes, recent fall, and fevers. 1. Continue local wound care to bilateral lower extremities per Dr. Frank's orders. Continue antibiotics as appropriate. Continue supportive care. Agree with podiatry consult. 2. Bilateral lower extremity arterial duplex is pending. Further vascular recommendations to follow based on imaging study. Vital Signs/I&O Vital Signs Date Time Temp Pulse Resp B/P (MAP) Pulse Ox O2 Delivery O2 Flow Rate FiO2 02/11/19 06:00 97.8 72 80 128/69 (88) 96 02/10/19 19:01 Room Air I&O- Last 24 Hours up to 6 AM 02/11/19 06:00 Intake Total 700 ml Output Total 300 ml Balance 400 ml Laboratory Data Labs 24H Laboratory Tests 2 02/10/19 16:37: Immature Granulocyte % (Auto) 0.8, White Blood Count 7.6, Red Blood Count 3.32L, Hemoglobin 10.8L, Hematocrit 33.7L, Mean Corpuscular Volume 101.5H, Mean Corpuscular Hemoglobin 32.5, Mean Corpuscular Hemoglobin Concent 32.0, Red Cell Distribution Width 13.5, Platelet Count 277, Neutrophils (%) (Auto) 71.6H, Lymphocytes (%) (Auto) 15.6L, Monocytes (%) (Auto) 10.3H, Eosinophils (%) (Auto) 0.8, Basophils (%) (Auto) 0.9, Neutrophils # (Auto) 5.4, Lymphocytes # (Auto) 1.2L, Monocytes # (Auto) 0.8, Eosinophils # (Auto) 0.1, Basophils # (Auto) 0.1, Nucleated Red Blood Cells % (auto) 0.0, Anion Gap 6L, Glomerular Filtration Rate > 60.0, Blood Urea Nitrogen 24H, Creatinine 1.12, Sodium Level 136, Potassium Level 4.0, Chloride Level 101, Carbon Dioxide Level 29, Calcium Level 9.4 02/11/19 06:16: Nucleated Red Blood Cells % (auto) 0.0, Anion Gap 5L, Glomerular Filtration Rate > 60.0, Blood Urea Nitrogen 24H, Creatinine 1.03, Sodium Level 137, Potassium Level 4.1, Chloride Level 101, Carbon Dioxide Level 31, Calcium Level 8.9 CBC/BMP Laboratory Tests 02/10/19 16:37 Red Blood Count 3.32 L, Mean Corpuscular Volume 101.5 H, Mean Corpuscular Hemoglobin 32.5, Mean Corpuscular Hemoglobin Concent 32.0, Red Cell Distribution Width 13.5, Neutrophils (%) (Auto) 71.6 H, Lymphocytes (%) (Auto) 15.6 L, Monocytes (%) (Auto) 10.3 H, Eosinophils (%) (Auto) 0.8, Basophils (%) (Auto) 0.9, Neutrophils # (Auto) 5.4, Lymphocytes # (Auto) 1.2 L, Monocytes # (Auto) 0.8, Eosinophils # (Auto) 0.1, Basophils # (Auto) 0.1, Calcium Level 9.4 02/11/19 06:16 Red Blood Count 3.07 L, Mean Corpuscular Volume 101.3 H, Mean Corpuscular Hemoglobin 32.2, Mean Corpuscular Hemoglobin Concent 31.8 L, Red Cell Distribution Width 13.5, Calcium Level 8.9 Microbiology Microbiology 02/10/19 Blood Culture, Received Pending 02/10/19 Blood Culture, Received Pending Allergies Coded Allergies: No Known Allergies (Unverified , 11/17/18) Home Medications Scheduled Allopurinol (Allopurinol) 100 Mg Tab, 200 MG PO DAILY, (Reported) Dabigatran Etexilate Mesylate (Pradaxa) 150 Mg Capsule, 150 MG PO BID, (Reported) Donepezil HCl (Donepezil HCl) 10 Mg Tablet, 10 MG PO QHS, (Reported) Doxycycline Hyclate (Doxycycline Hyclate) 100 Mg Tablet, 100 MG PO BID, (Reported) FILLED 02/05/19 FOR 12 DAYS Fluticasone Propionate (Flonase Allergy Relief) 9.9 Ml [place].susp, 2 SPRAY NA QHS, (Reported) Latanoprost (Xalatan) 0.005 % [place], 1 DROP OU QHS, (Reported) Metformin HCl (Metformin HCl) 1,000 Mg Tab, 1,000 MG PO BID, (Reported) Multivitamins (Thera M Plus Tablet) 1 Each Tablet, 1 TAB PO DAILY, (Reported) Pravastatin Sodium (Pravastatin Sodium) 20 Mg Tab, 20 MG PO QHS, (Reported) Torsemide (Torsemide) 20 Mg Tablet, 20 MG PO DAILY, (Reported) Zinc Sulfate (Zinc Sulfate) 220 Mg Tab, 220 MG PO QHS, (Reported) Scheduled PRN Omeprazole (Omeprazole) 40 Mg Capsule.dr, 40 MG PO DAILY PRN for HEARTBURN, (Reported) [place] ARIAS MD Feb 11, 2019 08:07
[2019-02-11] MEDS ORDERED: DABIGATRAN ETEXILATE 75 MG CAP (PRADAXA) PO SCH (09:00)
[2019-02-11] MEDS: ALLOPURINOL 100 MG TAB PO SCH (09:29)
[2019-02-11] MEDS: OMEPRAZOLE 20 MG CAP PO SCH (09:29)
[2019-02-11] MEDS: DOXYCYCLINE HYCLATE 100 MG in D5W MINI-BAG PLUS 100 ML IV SCH ×2 (09:29→21:50)
--- NOTE | 2019-02-11 10:55 | IPNPDOC ---
Subjective Date Seen The patient was seen on 02/11/19. Subjective Chief Complaint/HPI Osteomyelitis RIGHT foot. Events since last encounter Admitted for fever, osteomyelitis of LEFT 3,4 toes. Patient was started on Doxycycline IV due to MSSA on prior culturesfrom wound care. He is s/p vascular surgery consult and podiatry consult. patent was seen in conjunction with Dr. Medina this morning. Constitutional: Reports: Chills, Fever Pulmonary: Denies: Dyspnea, Cough Cardiovascular: Denies: Chest Pain, Palpitations, Orthopnea, Paroxysmal Noc. Dyspnea, Lt Headedness Gastrointestinal: Denies: Nausea, Vomiting, Abdominal Pain, Diarrhea, Constipation Psych: Reports: Mood Normal; Denies: Depression, Memory Issues Objective Physical Examination General Exam: Positive: Alert, No Acute Distress Chest Exam: Positive: Clear to auscultation, Normal air movement Heart Exam: Positive: Rate Normal, Regular Rhythm, Normal S1, Normal S2; Negative: Murmurs, Rubs Abdomen Exam: Positive: Normal bowel sounds, Soft; Negative: Tenderness, Hepatospenomegaly Male Exam: Positive: Normal Genital Exam Skin Exam: Positive: Other skin issue (RIGHT foot: necrotic 4th toe, nub of 3rd toe, erythematous, Left ankle wth ulceration) Assessment /Plan Problems (1) Osteomyelitis of toe of right foot Status: Acute Problem Specific Plan: Consult Specialist Problem Text: On Doxycycline IV. Plan if for amputation of 3,4 toes of right foot Saturday. (2) MSSA (methicillin susceptible Staphylococcus aureus) infection Status: Acute (3) DM type 2 with diabetic peripheral neuropathy Status: Chronic Response to Treatment: Stable (4) Chronic diastolic CHF (congestive heart failure) Status: Chronic Response to Treatment: Stable Problem Text: 2L fluid restriction ordered. Appears well compensated. (5) Essential (primary) hypertension Status: Chronic Response to Treatment: Stable (6) Atrial fibrillation Status: Chronic Response to Treatment: Stable Problem Text: Recently resumed Pradaxa 150 mg po daily after episode of SAH. Will continue. Per Dr. Medina, does not need to be held pre-operatively. (7) LUZ (obstructive sleep apnea) Status: Chronic Response to Treatment: Stable Problem Text: will need closer monitoring post-operatively. should bring in home CPAP (8) Peripheral vascular disease Status: Chronic (9) Physical deconditioning Status: Chronic Problem Text: will order PT Plan/VTE VTE Prophylaxis Ordered?: Yes VS, I&O, 24H, Fishbone Vital Signs/I&O Vital Signs Date Time Temp Pulse Resp B/P (MAP) Pulse Ox O2 Delivery O2 Flow Rate FiO2 02/11/19 06:00 97.8 72 80 128/69 (88) 96 02/10/19 19:01 Room Air I&O- Last 24 Hours up to 6 AM 02/11/19 06:00 Intake Total 700 ml Output Total 300 ml Balance 400 ml Laboratory Data 24H LABS Laboratory Tests 2 02/10/19 16:37: Immature Granulocyte % (Auto) 0.8, White Blood Count 7.6, Red Blood Count 3.32L, Hemoglobin 10.8L, Hematocrit 33.7L, Mean Corpuscular Volume 101.5H, Mean Corpuscular Hemoglobin 32.5, Mean Corpuscular Hemoglobin Concent 32.0, Red Cell Distribution Width 13.5, Platelet Count 277, Neutrophils (%) (Auto) 71.6H, Lymphocytes (%) (Auto) 15.6L, Monocytes (%) (Auto) 10.3H, Eosinophils (%) (Auto) 0.8, Basophils (%) (Auto) 0.9, Neutrophils # (Auto) 5.4, Lymphocytes # (Auto) 1.2L, Monocytes # (Auto) 0.8, Eosinophils # (Auto) 0.1, Basophils # (Auto) 0.1, Nucleated Red Blood Cells % (auto) 0.0, Anion Gap 6L, Glomerular Filtration Rate > 60.0, Blood Urea Nitrogen 24H, Creatinine 1.12, Sodium Level 136, Potassium Level 4.0, Chloride Level 101, Carbon Dioxide Level 29, Calcium Level 9.4 02/11/19 06:16: Nucleated Red Blood Cells % (auto) 0.0, Anion Gap 5L, Glomerular Filtration Rate > 60.0, Blood Urea Nitrogen 24H, Creatinine 1.03, Sodium Level 137, Potassium Level 4.1, Chloride Level 101, Carbon Dioxide Level 31, Calcium Level 8.9 CBC/BMP Laboratory Tests 02/10/19 16:37 Red Blood Count 3.32 L, Mean Corpuscular Volume 101.5 H, Mean Corpuscular Hemoglobin 32.5, Mean Corpuscular Hemoglobin Concent 32.0, Red Cell Distribution Width 13.5, Neutrophils (%) (Auto) 71.6 H, Lymphocytes (%) (Auto) 15.6 L, Monocytes (%) (Auto) 10.3 H, Eosinophils (%) (Auto) 0.8, Basophils (%) (Auto) 0.9, Neutrophils # (Auto) 5.4, Lymphocytes # (Auto) 1.2 L, Monocytes # (Auto) 0.8, Eosinophils # (Auto) 0.1, Basophils # (Auto) 0.1, Calcium Level 9.4 02/11/19 06:16 Red Blood Count 3.07 L, Mean Corpuscular Volume 101.3 H, Mean Corpuscular Hemoglobin 32.2, Mean Corpuscular Hemoglobin Concent 31.8 L, Red Cell Distribution Width 13.5, Calcium Level 8.9 Microbiology Microbiology 02/10/19 Blood Culture, Received Pending 02/10/19 Blood Culture, Received Pending Velia AdenP Feb 11, 2019 10:55
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
[2019-02-11 14:46] VITALS: BP 136/74
--- NOTE | 2019-02-11 16:24 | REP ---
HISTORY: Claudication. RIGHT: PSV Ankle brachial index Not calculable MILLWRIGHT 136.7 cm/s, biphasic Profunda 162.9 cm/s, biphasic SFA proximally 94.5 cm/s, triphasic SFA mid portion 104 cm/s, biphasic SFA distal 150.3 cm/s, biphasic Popliteal artery 147.6 cm/s, biphasic Anterior tibial artery proximal 60.3 cm/s, biphasic Tibioperoneal trunk 86.8 cm/s, biphasic Posterior tibial artery proximal 75.2 cm/s, monophasic Posterior tibial artery distal 11.1 cm/s, monophasic Anterior tibial artery distal 138.8 cm/s, monophasic LEFT: Ankle brachial index Not calculable MILLWRIGHT 145.1 cm/s, biphasic Profunda 162.4 cm/s, biphasic SFA proximal 100.4 cm/s, biphasic SFA mid portion 87.3 cm/s, biphasic SFA distal 112.6 cm/s, biphasic Popliteal artery 52.7 cm/s, biphasic Anterior tibial artery proximal 67.1 cm/s, biphasic Tibioperoneal trunk 63.4 cm/s, monophasic Posterior tibial artery proximal 50.4 cm/s, biphasic Posterior tibial artery distal 20.4 cm/s, monophasic Anterior tibial artery distal 109.4 cm/s, triphasic Moderate to severe atherosclerotic plaque was seen in the form of mixed echogenic material along the vessel stewart with focal areas of echogenicity casting acoustic shadows consistent with calcific deposition. The degree of calcification is moderate to heavy. Little to no flow was seen in the distal right posterior tibial artery with increased flow in the right anterior tibial artery as described above. Heavy echogenic material with acoustic shadowing is seen in the left posterior tibial artery with little to no flow as described above. Electronically Signed by Carmelo Hopper DO 02/11/2019 05:05 P
[2019-02-11 21:00] VITALS: BP 142/74
[2019-02-11] MEDS: DONEPEZIL 5 MG TAB PO SCH (21:50)
[2019-02-11] MEDS: ZINC SULFATE 220 MG CAP PO SCH (21:50)
[2019-02-11] MEDS: PRAVASTATIN 20 MG TAB PO SCH (21:51)
[2019-02-11] MEDS: MULTIVITAMINS/MINERALS THERAP 1 TAB PO SCH (21:51)
[2019-02-11] MEDS: TORSEMIDE 20 MG TAB PO SCH (21:51)
[2019-02-12 06:21] VITALS: BP 150/86
[2019-02-12 06:25] LABS: HEMATOCRIT 32.6 % (42.0-52.0); HEMOGLOBIN 10.5 g/dl (13.5-17.5); MEAN CORPUSCULAR HEMOGLOBIN 32.2 pg (27.0-33.0); MEAN CORPUSCULAR HGB CONC 32.2 g/dl (32.0-36.5); PLATELET COUNT, AUTOMATED 275 10^3/uL (150-450); RED BLOOD COUNT 3.26 10^6/uL (4.30-6.10); WHITE BLOOD COUNT 9.1 10^3/uL (4.0-10.0)
[2019-02-12 06:49] LABS: BLOOD UREA NITROGEN 21 MG/DL (7-18); CALCIUM LEVEL 8.9 MG/DL (8.8-10.2); CARBON DIOXIDE LEVEL 31 MEQ/L (21-32); CHLORIDE LEVEL 103 MEQ/L (98-107); CREATININE FOR GFR 1.05 MG/DL (0.70-1.30); GLOMERULAR FILTRATION RATE > 60.0 (>42); GLUCOSE, FASTING 112 MG/DL (70-100); POTASSIUM SERUM 3.7 MEQ/L (3.5-5.1); SODIUM LEVEL 140 MEQ/L (136-145)
[2019-02-12] MEDS: ALLOPURINOL 100 MG TAB PO SCH (08:37)
[2019-02-12] MEDS: OMEPRAZOLE 20 MG CAP PO SCH (08:37)
[2019-02-12] MEDS: HumaLOG INSULIN (NovoLOG) PER UNIT SC SCH ×4 (08:38→21:00)
[2019-02-12] MEDS: DOXYCYCLINE HYCLATE 100 MG in D5W MINI-BAG PLUS 100 ML IV SCH ×2 (08:38→21:52)
--- NOTE | 2019-02-12 09:28 | IPNPDOC ---
Date Seen The patient was seen on 02/12/19. Progress Note Patient seen and examined. He says he is feeling better today. He understands that he will be having a toe amputation with podiatry. I discussed with him that after reviewing his noninvasive arterial study, his flow status post angioplasty in the right lower extremity is still patent. On the left lower extremity the patient has very similar flow patterns, with occlusion of the left posterior t ibial artery but perfusion through the peroneal and anterior tibial artery. He should have adequate blood flow to heal toe amputations in the right foot. His left lower extremity ulcers is superficial, and requires local wound care. If healing is stalled over the next few weeks, we may consider doing an arteriogram of the left lower extremity. The patient does not want procedures unless absolutely necessary, and we will try to respect this if possible. However, if we are not able to heel the ulceration and make progress on left lower extremity, we may need to talk to him about an arteriogram on that limb as well. Possibly we could improve flow somewhat to help with healing. For now, the gabby ent would prefer to just focus on getting through his toe amputation and this is reasonable. Elevate the lower extremities to help with venous return. Likely compression as tolerated. Local wound care per wound care nurses and podiatry. Continue statin daily. I don't see that the patient is on an aspirin, and he needs at minimum and aspirin 81 mg EC daily, and if he cannot tolerate aspirin and we would recommend Plavix. We will follow. VS, I&O, 24H, Fishbone Vital Signs/I&O Vital Signs Date Time Temp Pulse Resp B/P (MAP) Pulse Ox O2 Delivery O2 Flow Rate FiO2 02/12/19 06:21 98.7 62 18 150/86 (107) 94 02/10/19 19:01 Room Air I&O- Last 24 Hours up to 6 AM 02/12/19 06:00 Intake Total 1605 ml Output Total 200 ml Balance 1405 ml Laboratory Data 24H LABS Laboratory Tests 2 02/11/19 11:50: Bedside Glucose (Misc Panel) 127H 02/11/19 17:15: Bedside Glucose (Misc Panel) 140H 02/11/19 21:05: Bedside Glucose (Misc Panel) 142H 02/12/19 06:15: Nucleated Red Blood Cells % (auto) 0.0, Anion Gap 6L, Glomerular Filtration Rate > 60.0, Blood Urea Nitrogen 21H, Creatinine 1.05, Sodium Level 140, Potassium Level 3.7, Chloride Level 103, Carbon Dioxide Level 31, Calcium Level 8.9 CBC/BMP Laboratory Tests 02/12/19 06:15 Red Blood Count 3.26 L, Mean Corpuscular Volume 100.0 H, Mean Corpuscular Hemoglobin 32.2, Mean Corpuscular Hemoglobin Concent 32.2, Red Cell Distribution Width 13.4, Calcium Level 8.9 Microbiology Microbiology 02/10/19 Blood Culture - Preliminary, Resulted No growth after 24 hours . All specim... 02/10/19 Blood Culture - Preliminary, Resulted No growth after 24 hours . All specim... KY ARIAS MD Feb 12, 2019 09:28
--- NOTE | 2019-02-12 10:23 | IPNPDOC ---
Subjective Date Seen The patient was seen on 02/12/19. Subjective Chief Complaint/HPI osteomyelitis Events since last encounter Planned removal of 3,4 toes of right foot tomorrow with Dr. Medina. See his consult for more information. Constitutional: Denies: Chills, Fever, Night Sweats Pulmonary: Denies: Dyspnea, Cough Cardiovascular: Denies: Chest Pain, Palpitations, Orthopnea, Paroxysmal Noc. Dyspnea, Lt Headedness Gastrointestinal: Denies: Nausea, Vomiting, Abdominal Pain, Diarrhea, Constipation Objective Physical Examination General Exam: Positive: Alert, No Acute Distress Chest Exam: Positive: Clear to auscultation, Normal air movement Heart Exam: Positive: Rate Normal, Regular Rhythm, Normal S1, Normal S2; Negative: Murmurs, Rubs Abdomen Exam: Positive: Normal bowel sounds, Soft; Negative: Tenderness, Hepatospenomegaly Male Exam: Positive: Normal Genital Exam Skin Exam: Positive: Other skin issue (RIGHT foot: necrotic 4th toe, nub of 3rd toe, erythematous, Left ankle wth ulceration) Assessment /Plan Problems (1) Osteomyelitis of toe of right foot Status: Acute Problem Specific Plan: Consult Specialist Problem Text: On Doxycycline IV, Day #2. Plan if for amputation of 3,4 toes of right foot Saturday. (2) MSSA (methicillin susceptible Staphylococcus aureus) infection Status: Acute (3) DM type 2 with diabetic peripheral neuropathy Status: Chronic Response to Treatment: Stable (4) Chronic diastolic CHF (congestive heart failure) Status: Chronic Response to Treatment: Stable Problem Text: 2L fluid restriction ordered. Appears well compensated. (5) Essential (primary) hypertension Status: Chronic Response to Treatment: Stable (6) Atrial fibrillation Status: Chronic Response to Treatment: Stable Problem Text: Recently resumed Pradaxa 150 mg po daily after episode of SAH. Will continue. Per Dr. Medina, does not need to be held pre-operatively. (7) LUZ (obstructive sleep apnea) Status: Chronic Response to Treatment: Stable Problem Text: will need closer monitoring post-operatively. should bring in home CPAP (8) Peripheral vascular disease Status: Chronic (9) Physical deconditioning Status: Chronic Problem Text: will order PT Plan/VTE VTE Prophylaxis Ordered?: Yes VS, I&O, 24H, Fishbone Vital Signs/I&O Vital Signs Date Time Temp Pulse Resp B/P (MAP) Pulse Ox O2 Delivery O2 Flow Rate FiO2 02/12/19 06:21 98.7 62 18 150/86 (107) 94 02/10/19 19:01 Room Air I&O- Last 24 Hours up to 6 AM 02/12/19 05:59 Intake Total 1305 ml Output Total 200 ml Balance 1105 ml Laboratory Data 24H LABS Laboratory Tests 2 02/11/19 11:50: Bedside Glucose (Misc Panel) 127H 02/11/19 17:15: Bedside Glucose (Misc Panel) 140H 02/11/19 21:05: Bedside Glucose (Misc Panel) 142H 02/12/19 06:15: Nucleated Red Blood Cells % (auto) 0.0, Anion Gap 6L, Glomerular Filtration Rate > 60.0, Blood Urea Nitrogen 21H, Creatinine 1.05, Sodium Level 140, Potassium Level 3.7, Chloride Level 103, Carbon Dioxide Level 31, Calcium Level 8.9 CBC/BMP Laboratory Tests 02/12/19 06:15 Red Blood Count 3.26 L, Mean Corpuscular Volume 100.0 H, Mean Corpuscular Hemoglobin 32.2, Mean Corpuscular Hemoglobin Concent 32.2, Red Cell Distribution Width 13.4, Calcium Level 8.9 Microbiology Microbiology 02/10/19 Blood Culture - Preliminary, Resulted No growth after 24 hours . All specim... 02/10/19 Blood Culture - Preliminary, Resulted No growth after 24 hours . All specim... Velia Aden Feb 12, 2019 10:23
[2019-02-12 14:07] VITALS: BP 147/67
[2019-02-12 21:38] VITALS: BP 169/76
[2019-02-12] MEDS: TORSEMIDE 20 MG TAB PO SCH (21:52)
[2019-02-12] MEDS: DONEPEZIL 5 MG TAB PO SCH (21:52)
[2019-02-12] MEDS: MULTIVITAMINS/MINERALS THERAP 1 TAB PO SCH (21:52)
[2019-02-12] MEDS: ZINC SULFATE 220 MG CAP PO SCH (21:52)
[2019-02-12] MEDS: PRAVASTATIN 20 MG TAB PO SCH (21:52)
[2019-02-12] MEDS: LATANOPROST 0.005% OPHTH SOLN 2.5 ML OU SCH (21:53)
[2019-02-13 06:13] LABS: HEMATOCRIT 35.6 % (42.0-52.0); HEMOGLOBIN 11.3 g/dl (13.5-17.5); MEAN CORPUSCULAR HEMOGLOBIN 32.3 pg (27.0-33.0); MEAN CORPUSCULAR HGB CONC 31.7 g/dl (32.0-36.5); MEAN CORPUSCULAR VOLUME 101.7 fl (80.0-96.0); PLATELET COUNT, AUTOMATED 294 10^3/uL (150-450); WHITE BLOOD COUNT 9.9 10^3/uL (4.0-10.0)
[2019-02-13 06:41] VITALS: BP 164/74
[2019-02-13 06:42] LABS: BLOOD UREA NITROGEN 20 MG/DL (7-18); CALCIUM LEVEL 9.2 MG/DL (8.8-10.2); CARBON DIOXIDE LEVEL 32 MEQ/L (21-32); CHLORIDE LEVEL 102 MEQ/L (98-107); CREATININE FOR GFR 1.13 MG/DL (0.70-1.30); GLOMERULAR FILTRATION RATE > 60.0 (>42); GLUCOSE, FASTING 110 MG/DL (70-100); POTASSIUM SERUM 3.8 MEQ/L (3.5-5.1); SODIUM LEVEL 140 MEQ/L (136-145)
[2019-02-13] MEDS ORDERED: fentaNYL 100 MCG/2 ML INJECTION (J3010) As Ordered ONE (07:20)
[2019-02-13] MEDS ORDERED: PROPOFOL 200 MG/20 ML VIAL As Ordered ONE (07:20)
[2019-02-13] MEDS ORDERED: MIDAZOLAM INJ 2 MG/2 ML VIAL (J2250) As Ordered ONE (07:20)
[2019-02-13] MEDS ORDERED: LIDOCAINE 2% INJ 100 MG/5 ML SDV (FOR ANES.) As Ordered ONE (07:20)
[2019-02-13] MEDS: HumaLOG INSULIN (NovoLOG) PER UNIT SC SCH ×4 (07:30→21:00)
[2019-02-13] MEDS ORDERED: BUPIVACAINE HCL 0.5% 30 ML VIAL As Ordered ONE (07:39)
[2019-02-13] MEDS ORDERED: LIDOCAINE 1% SDV INJ 30 ML VIAL As Ordered ONE (07:39)
[2019-02-13] MEDS: DOXYCYCLINE HYCLATE 100 MG in D5W MINI-BAG PLUS 100 ML IV SCH ×2 (08:16→22:14)
[2019-02-13] MEDS: ALLOPURINOL 100 MG TAB PO SCH (08:17)
[2019-02-13] MEDS: OMEPRAZOLE 20 MG CAP PO SCH (08:17)
[2019-02-13] MEDS ORDERED: ONDANSETRON 4MG/2ML VIAL (J2405) As Ordered ONE (10:39)
[2019-02-13] MEDS ORDERED: oxyCODONE 5MG TAB PO PRN (11:30)
[2019-02-13] MEDS ORDERED: fentaNYL 100 MCG/2 ML INJECTION (J3010) IV PRN (11:30)
[2019-02-13] MEDS ORDERED: ONDANSETRON 4MG/2ML VIAL (J2405) IV PRN (11:30)
--- NOTE | 2019-02-13 12:44 | IPNPDOC ---
Date Seen The patient was seen on 02/13/19. Progress Note Pt seen and examined in PACU this morning while awaiting his toe amputation with Dr Medina. He seemed in good spirits. He is glad to be getting his surgery done. His feet are warm and well perfused and offload boot in place. No vascular intervention at this time, but we will follow along. After discharge, he should f/u in 2-3 weeks so we can see how he is healing after his toe amputations. VS, I&O, 24H, Fishbone Vital Signs/I&O Vital Signs Date Time Temp Pulse Resp B/P (MAP) Pulse Ox O2 Delivery O2 Flow Rate FiO2 02/13/19 12:10 98.2 52 18 160/72 (101) 100 2 02/10/19 19:01 Room Air I&O- Last 24 Hours up to 6 AM 02/13/19 06:00 Intake Total 2050 ml Output Total 0 ml Balance 2050 ml Laboratory Data 24H LABS Laboratory Tests 2 02/12/19 16:50: Bedside Glucose (Misc Panel) 92 02/12/19 21:40: Bedside Glucose (Misc Panel) 130H 02/13/19 05:54: Nucleated Red Blood Cells % (auto) 0.0, Anion Gap 6L, Glomerular Filtration Rate > 60.0, Blood Urea Nitrogen 20H, Creatinine 1.13, Sodium Level 140, Potassium Level 3.8, Chloride Level 102, Carbon Dioxide Level 32, Calcium Level 9.2 CBC/BMP Laboratory Tests 02/13/19 05:54 Red Blood Count 3.50 L, Mean Corpuscular Volume 101.7 H, Mean Corpuscular Hemoglobin 32.3, Mean Corpuscular Hemoglobin Concent 31.7 L, Red Cell Dist ribution Width 13.5, Calcium Level 9.2 Microbiology Microbiology 02/10/19 Blood Culture - Preliminary, Resulted No Growth after 48 hours. All Specime... 02/10/19 Blood Culture - Preliminary, Resulted No Growth after 48 hours. All Specime... KY ARIAS MD Feb 13, 2019 12:44
[2019-02-13 14:05] VITALS: BP 153/65
[2019-02-13 14:24] VITALS: BP 150/64
[2019-02-13] MEDS ORDERED: traMADol 50 MG TAB PO PRN (15:15)
[2019-02-13] MEDS ORDERED: ACETAMINOPHEN 500 MG TAB PO PRN (15:15)
--- NOTE | 2019-02-13 15:18 | IPN ---
DATE: 02/13/2019 Saurabh is seen on [facility]. He underwent amputation of the toes on the right foot today, amputation of the third and fourth toes of his right foot. He is having no chest pain, shortness of breath, palpitations. PHYSICAL EXAMINATION: VITAL SIGNS: Stable. Afebrile. GENERAL APPEARANCE: He is resting comfortably visiting with his . LUNGS: Clear. HEART: Regular rhythm. ABDOMEN: Soft, nontender. EXTREMITIES: No peripheral edema. LABORATORIES: CBC unremarkable, CMP unremarkable. Blood sugars around 100. PLAN: He has undergone amputation of the third and fourth toes on the right foot today. He is on doxycycline intravenously for methicillin sensitive Staphylococcus aureus (MSSA). The plan is to keep him over the weekend. He will probably be able to be discharged on Saturday. Dr. Braxton will be rounding this weekend.
[2019-02-13 15:50] VITALS: BP 153/102
[2019-02-13 16:38] VITALS: BP 126/67
[2019-02-13 21:15] VITALS: BP 140/70
[2019-02-13] MEDS: DONEPEZIL 5 MG TAB PO SCH (21:39)
[2019-02-13] MEDS: ZINC SULFATE 220 MG CAP PO SCH (21:39)
[2019-02-13] MEDS: TORSEMIDE 20 MG TAB PO SCH (21:40)
[2019-02-13] MEDS: PRAVASTATIN 20 MG TAB PO SCH (21:40)
[2019-02-13] MEDS: MULTIVITAMINS/MINERALS THERAP 1 TAB PO SCH (21:40)
[2019-02-13] MEDS: LATANOPROST 0.005% OPHTH SOLN 2.5 ML OU SCH (21:40)
--- NOTE | 2019-02-13 23:18 | ECGEPIP ---
[facility] Test Date: 2019-02-12 Pat Name: SEAN GE Department: Room: [place] [address] Gender: Male Consulting Utility Forester: KADIE : 1940 Requested By: KIRBY Aguillon Order Number: [id number] Reading MD: Marco Saucedo Measurements Intervals [place] Rate: 46 P: [place]: 0 QRS: -47 QRSD: 132 T: -7 QT: 443 QTc: 388 Interpretive Statements ATRIAL FIBRILLATION WITH SLOW VENTRICULAR RESPONSE INTRAVENTRICULAR CONDUCTION DELAY ANTERIOR MYOCARDIAL INFARCTION, PROBABLY OLD No remarkable changes but slower heart rate. Prior on 12/04/18 at 08:26 Electronically Signed on 02-13-2019 23:18:25 EDT by Marco Saucedo
[2019-02-14] VITALS (15 sets, daily range): BP systolic 155–204; BP diastolic 65–83
[2019-02-14 07:28] LABS: HEMATOCRIT 32.4 % (42.0-52.0); HEMOGLOBIN 10.2 g/dl (13.5-17.5); MEAN CORPUSCULAR HEMOGLOBIN 31.6 pg (27.0-33.0); MEAN CORPUSCULAR HGB CONC 31.5 g/dl (32.0-36.5); MEAN CORPUSCULAR VOLUME 100.3 fl (80.0-96.0); PLATELET COUNT, AUTOMATED 279 10^3/uL (150-450); RED BLOOD COUNT 3.23 10^6/uL (4.30-6.10); WHITE BLOOD COUNT 10.4 10^3/uL (4.0-10.0)
[2019-02-14 07:46] LABS: BLOOD UREA NITROGEN 20 MG/DL (7-18); CALCIUM LEVEL 8.9 MG/DL (8.8-10.2); CARBON DIOXIDE LEVEL 31 MEQ/L (21-32); CHLORIDE LEVEL 102 MEQ/L (98-107); CREATININE FOR GFR 1.08 MG/DL (0.70-1.30); GLOMERULAR FILTRATION RATE > 60.0 (>42); GLUCOSE, FASTING 106 MG/DL (70-100); POTASSIUM SERUM 3.6 MEQ/L (3.5-5.1); SODIUM LEVEL 138 MEQ/L (136-145)
[2019-02-14] MEDS: ALLOPURINOL 100 MG TAB PO SCH (08:27)
[2019-02-14] MEDS: DOXYCYCLINE HYCLATE 100 MG in D5W MINI-BAG PLUS 100 ML IV SCH (08:27)
[2019-02-14] MEDS: OMEPRAZOLE 20 MG CAP PO SCH (08:28)
[2019-02-14] MEDS: HumaLOG INSULIN (NovoLOG) PER UNIT SC SCH ×2 (08:28→12:27)
--- NOTE | 2019-02-14 09:07 | RO ---
DATE OF PROCEDURE: 02/13/2019 PREOPERATIVE DIAGNOSIS: Right third and fourth toe infection and ulceration. POSTOPERATIVE DIAGNOSIS: Right third and fourth toe infection and ulceration. PROCEDURE: Right third and fourth toe amputation. SURGEON: Enoch Medina DPM PHYSICIST SOLID EARTH: None. ANESTHESIA: Monitored anesthesia care (MAC). Preop injection of 10 mL of 1:1 mixture of 1% lidocaine plain and 0.5% Marcaine plain. ESTIMATED BLOOD LOSS: Minimal. MATERIAL: #3-0 nylon. INJECTABLES: None. COMPLICATIONS: None. SPECIMENS: Third and fourth toes, right. CONDITION: Stable. Saurabh Felipe is a 78-year-old male who was admitted to the hospital with ulceration and cellulitis stemming from his right foot. He has peripheral vascular disease. He was evaluated by Dr. Gabriel who believes he should have adequate blood flow for a toe amputation. An MRI had been taken which suggested osteomyelitis of both the right third and fourth toes. A decision was made to bring him to the operating room for removal of said toes. The patient's side and site were identified and marked in the preop holding area. Consent was reviewed and obtained. The risks, complications, and alternatives to the procedure were explained to the patient in detail and all questions were answered. PROCEDURE: Patient was brought to the operating room on the stretcher in supine position. Monitored anesthesia care was delivered by the anesthesia team. Preop injection of 10 mL of 1:1 mixture of 1% lidocaine plain and 0.5% Marcaine plain was injected to the right foot. The right foot was prepped and draped in a normal sterile fashion. No tourniquet was utilized for the procedure. Wound were inspected. There was a large ulceration on the lateral aspect of the fourth toe as well as a large ulceration with necrotic tissue on the lateral aspect of the third toe. This made closure slightly more complicated as a normal elliptical incision was not able to be performed. An irregular elliptical incision was made around the fourth toe, carried through with a #15 blade. This was full thickness down to the metatarsal phalangeal joint. The toe disarticulated at this joint level. Site was irrigated with normal saline. No further necrotic tissue was noted past the proximal phalanx. The wound was closed using #3-0 nylon. Next, attention was paid to the third toe. An irregular flap was used using the medial tissue of the toe. The toe was disarticulated at the metatarsal phalangeal joint and the bone and tissue from the medial skin of the toe were carefully dissected free allowing the medial toe to be used as a flap for closure. Both bones were sent for pathology. Site was irrigated with normal saline and the toe flap and incision were closed using #3-0 nylon. There was fair capillary refill to all of the incisions. The patient was brought to postanesthesia care unit (PACU) with vital signs stable and neurovascular status intact. He will be non-weightbearing for the next few days. Continue antibiotics presently. Will follow.
--- NOTE | 2019-02-14 14:38 | REP ---
CT of the brain without IV contrast: Comparison is 2018. There is motion artifact on some of the images on the original scan, therefore, these levels are rescanned. There is no motion artifact on the repeat scan. There is no hemorrhage. There is no edema, mass effect or midline shift. The sulci are enlarged diffusely. This is unchanged and is compatible with chronic cortical atrophy. There is calcified atheroma in the carotid siphons, unchanged. There is calcified atheroma in the vertebral arteries, unchanged. The visualized paranasal sinuses and mastoids are clear. Impression: There is no hemorrhage. There is no edema, mass effect or midline shift. There is diffuse cortical atrophy. There is calcified atheroma in the carotid siphons and vertebral arteries, unchanged. Results are telephoned to the patient's physician, Dr. Escobar Braxton MD. Electronically Signed by Will Yun MD 02/14/2019 02:29 P
[2019-02-14 14:53] LABS: INR 1.32; PROTHROMBIN TIME 16.1 SECONDS (11.8-14.0)
[2019-02-14 14:54] LABS: PARTIAL THROMBOPLASTIN TIME 35.7 SECONDS (25.0-38.4)
[2019-02-14] MEDS ORDERED: ALTEPLASE 100MG INJ (J2997) As Ordered ONE (15:06)
[2019-02-14] MEDS ORDERED: ALTEPLASE 100MG INJ (J2997) IV ONE (15:15)
[2019-02-14] MEDS ORDERED: ALTEPLASE RECOMBINANT IV ONE (15:30)
--- NOTE | 2019-02-14 15:42 | IPNPDOC ---
Text Note Date of Service The patient was seen on 02/14/19. NOTE FM Rapid Response Note: I was call urgently to Mr. Felipe's room. Nursing re ports that he was at his baseline at 1330 today. At 1350 he pushed his call costello requesting help, but his speech was garbled. (It should be noted that the patient has dementia at baseline, but he more gets confused and forgetful rather than unresponsive or inappropriately responsive.) When the nurses responded they noted that he had significant left sided facial droop and was not moving his left side. I responded to the rapid response and quickly determined that he was having an acute stroke. His initial NIH Stroke Scale was 2+4+1+1+2=10. We sent him downstairs for a STAT CT of his head which showed no significant changes from prior, calcification in the carotid bulb. Significantly, there was no evidence of bleeding at that time. He was transferred to the ICU where we did a teleconsultation with the [facility] Stroke telephone service adviser attending, Dr. Duong. There were some technological difficulties, but we decided to use tPA and fly him to [facility]. We attempted to contact his and HCP, Radha Felipe, four times but were not able to get through. Nursing called their home twice, I personally called the home once, and I called her cell phone (which we found the number for a little later) at . None of these attempts to reach her were successful. I called his PCP, Dr. Marco Merino, and spoke with him. He said that based on his knowledge of the patient and his (who are both his patients), that they wanted every thing done within reason. He believes that this is something that Saurabh would want. I decided to treat him with the tPA using implied consent in an emergent situation. His current weight is 98kg, so he will receive a total of 88.2mg of tPA. We administered the tPA bolus of 8.85mg starting at 1528 (98 minutes after symptoms were noted), and hung the infusion of the remaining 79.35 mg. He was sent to [facility] via helicopter. VS,Zulemae, I+O VS, Nikbone, I+O Laboratory Tests 02/14/19 06:57 Red Blood Count 3.23 L, Mean Corpuscular Volume 100.3 H, Mean Corpuscular Hemoglobin 31.6, Mean Corpuscular Hemoglobin Concent 31.5 L, Red Cell Distribution Width 13.4, Calcium Level 8.9 Vital Signs Date Time Temp Pulse Resp B/P (MAP) Pulse Ox O2 Delivery O2 Flow Rate FiO2 02/14/19 14:17 84 18 171/72 2.0 02/14/19 10:00 97.9 71 02/10/19 19:01 Room Air I&O- Last 24 Hours up to 6 AM 02/14/19 06:00 Intake Total 2040 ml Output Total 802 ml Balance 1238 ml Escobar Braxton MD Feb 14, 2019 15:42
--- NOTE | 2019-02-14 17:38 | DS.PDOC ---
Discharge Summary General Date of Admission Feb 10, 2019 at 17:49 Discharge Summary PROCEDURES PERFORMED DURING STAY: [None]. ADMITTING DIAGNOSES: 1. . DISCHARGE DIAGNOSES: 1. . COMPLICATIONS/CHIEF COMPLAINT: Diabetic Foot Ulcer. HISTORY OF PRESENT ILLNESS: . HOSPITAL COURSE: . DISCHARGE MEDICATIONS: Please see below. ALLERGIES: Please see below. PHYSICAL EXAMINATION ON DISCHARGE: VITAL SIGNS: Please see below. GENERAL: HEENT: NECK: CARDIOVASCULAR EXAMINATION: RESPIRATORY EXAMINATION: ABDOMINAL EXAMINATION: EXTREMITIES: SKIN: NEUROLOGICAL EXAMINATION: PSYCHIATRIC EXAMINATION: LABORATORY DATA: Please see below. IMAGING: PROGNOSIS: ACTIVITY: [As tolerated]. DIET: DISCHARGE PLAN: DISPOSITION: Xfer To Acute Hosp. DISCHARGE INSTRUCTIONS: 1. . ITEMS TO FOLLOWUP ON ON OUTPATIENT: 1. . DISCHARGE CONDITION: [Stable]. TIME SPENT ON DISCHARGE: Greater than minutes. Vital Signs/I&Os Vital Signs Date Time Temp Pulse Resp B/P (MAP) Pulse Ox O2 Delivery O2 Flow Rate FiO2 02/14/19 15:40 66 176/79 (111) 100 2.0 02/14/19 14:42 98.7 17 02/10/19 19:01 Room Air I&O- Last 24 Hours up to 6 AM 02/14/19 05:59 Intake Total 1900 ml Output Total 802 ml Balance 1098 ml Laboratory Data Labs 24H Laboratory Tests 2 02/13/19 21:24: Bedside Glucose (Misc Panel) 174H 02/14/19 06:57: Nucleated Red Blood Cells % (auto) 0.0, Anion Gap 5L, Glomerular Filtration Rate > 60.0, Blood Urea Nitrogen 20H, Creatinine 1.08, Sodium Level 138, Potassium Level 3.6, Chloride Level 102, Carbon Dioxide Level 31, Calcium Level 8.9 02/14/19 12:15: Bedside Glucose (Misc Panel) 134H 02/14/19 14:31: Prothrombin Time 16.1H, Prothromb Time International Ratio 1.32, Activated Partial Thromboplast Time 35.7 CBC/BMP Laboratory Tests 02/14/19 06:57 Red Blood Count 3.23 L, Mean Corpuscular Volume 100.3 H, Mean Corpuscular Hemoglobin 31.6, Mean Corpuscular Hemoglobin Concent 31.5 L, Red Cell Distribution Width 13.4, Calcium Level 8.9 FSBS Laboratory Tests Test 02/13/19 21:24 02/14/19 12:15 Range/Units Bedside Glucose (Misc Panel) 174 134 83-110 MG/DL Microbiology Microbiology 02/10/19 Blood Culture - Preliminary, Resulted No Growth after 72 hours. All specime... 02/10/19 Blood Culture - Preliminary, Resulted No Growth after 72 hours. All specime... Discharge Medications Scheduled Allopurinol (Allopurinol) 100 Mg Tab, 200 MG PO DAILY, (Reported) Dabigatran Etexilate Mesylate (Pradaxa) 150 Mg Capsule, 150 MG PO BID, (Reported) Donepezil HCl (Donepezil HCl) 10 Mg Tablet, 10 MG PO QHS, (Reported) Doxycycline Hyclate (Doxycycline Hyclate) 100 Mg Tablet, 100 MG PO BID, (Reported) FILLED 02/05/19 FOR 12 DAYS Fluticasone Propionate (Flonase Allergy Relief) 9.9 Ml [place].susp, 2 SPRAY NA QHS, (Reported) Latanoprost (Xalatan) 0.005 % Shaniqua, 1 DROP OU QHS, (Reported) Metformin HCl (Metformin HCl) 1,000 Mg Tab, 1,000 MG PO BID, (Reported) Multivitamins (Thera M Plus Tablet) 1 Each Tablet, 1 TAB PO DAILY, (Reported) Pravastatin Sodium (Pravastatin Sodium) 20 Mg Tab, 20 MG PO QHS, (Reported) Torsemide (Torsemide) 20 Mg Tablet, 20 MG PO DAILY, (Reported) Zinc Sulfate (Zinc Sulfate) 220 Mg Tab, 220 MG PO QHS, (Reported) Scheduled PRN Omeprazole (Omeprazole) 40 Mg Capsule.dr, 40 MG PO DAILY PRN for HEARTBURN, (Reported) Allergies Coded Allergies: No Known Allergies (Unverified , 11/17/18) Escobar Braxton MD Feb 14, 2019 17:38
--- NOTE | 2019-02-14 19:18 | IPNPDOC ---
Text Note Date of Service The patient was seen on 02/14/19. NOTE Note: I spoke to Dr. Moore, the on-call consumer educator, regarding using [facility] for this patient, since my privileges, do not include thrombolysis. Local neurology had not yet assessed the patient. She affirmed my plan of using 0.9mg/kg with 10% infused in the first minute and the remaining 90% over the next 59 minutes. VS,Fishbone, I+O VS, Fishbone, I+O Laboratory Tests 02/14/19 06:57 Red Blood Count 3.23 L, Mean Corpuscular Volume 100.3 H, Mean Corpuscular Hemoglobin 31.6, Mean Corpuscular Hemoglobin Concent 31.5 L, Red Cell Distribution Width 13.4, Calcium Level 8.9 Vital Signs Date Time Temp Pulse Resp B/P (MAP) Pulse Ox O2 Delivery O2 Flow Rate FiO2 02/14/19 15:40 66 176/79 (111) 100 2.0 02/14/19 14:42 98.7 17 02/10/19 19:01 Room Air I&O- Last 24 Hours up to 6 AM 02/14/19 05:59 Intake Total 1900 ml Output Total 802 ml Balance 1098 ml Escobar Braxton MD Feb 14, 2019 19:18
== END 2019-02-14 15:53 | disposition short-term general hospital (02) | DRG 617 ==
LOC: M ED 15:23 → M ED INP 17:49 → M MS5PR 20:23 → M ICU 02-14 14:15
PROVIDERS: ADMIT General Practice; ATTEND Family Medicine
PROC: 0Y6V0Z0 Detachment at Right 4th Toe, Complete, Open Approach (ICD-10-PCS; 2019-02-13)
PROC: 0Y6T0Z0 Detachment at Right 3rd Toe, Complete, Open Approach (ICD-10-PCS; principal; 2019-02-13 10:00)
DX: E11.621 Type 2 diabetes mellitus with foot ulcer (principal); L97.919 Non-pressure chronic ulcer of unspecified part of right lower leg with unspecified severity; L97.929 Non-pressure chronic ulcer of unspecified part of left lower leg with unspecified severity; I48.20 Chronic atrial fibrillation, unspecified; I50.32 Chronic diastolic (congestive) heart failure; E11.51 Type 2 diabetes mellitus with diabetic peripheral angiopathy without gangrene; Z79.899 Other long term (current) drug therapy; I11.0 Hypertensive heart disease with heart failure; G47.33 Obstructive sleep apnea (adult) (pediatric); E75.5 Other lipid storage disorders; F03.90 Unspecified dementia, unspecified severity, without behavioral disturbance, psychotic disturbance, mood disturbance, and anxiety; Z87.891 Personal history of nicotine dependence; L03.031 Cellulitis of right toe; B95.61 Methicillin susceptible Staphylococcus aureus infection as the cause of diseases classified elsewhere

== ENCOUNTER 2019-02-18 09:26 | Inpatient (IN) | payer MEDICARE ==
[~2019-02-18] VITALS: Ht 185.4 cm; Wt 100.8 kg
[~2019-02-18 09:26] MED LIST changes: +DONE10TA90 PO; +DOXY100T PO; -OMEP40CA2 PO; +OMEP40CA97 PO
[2019-02-18] MEDS ORDERED: MILKSUS3 PO (13:56)
[2019-02-18] MEDS ORDERED: ELIQ5TAB PO (13:56)
[2019-02-18] MEDS ORDERED: TORS10TA3 PO (13:56)
[2019-02-18] MEDS ORDERED: [UNRECOGNIZED DRUG - CODE] IV (13:56)
[2019-02-18] MEDS ORDERED: ZOSY3INJ2 IV (13:56)
[2019-02-18] MEDS ORDERED: ATOR40TA75 PO (13:56)
[2019-02-18] MEDS ORDERED: COLA100C5 PO (13:56)
[2019-02-18] MEDS ORDERED: VANC1INJ IV (13:56)
[2019-02-18] MEDS ORDERED: VANCOMYCIN HCL IV SCH (14:30)
[2019-02-18] MEDS ORDERED: MATE ADAPTER IV SCH (14:30)
[2019-02-18] MEDS ORDERED: BISACODYL 10 MG SUPP PR PRN (14:30)
[2019-02-18] MEDS ORDERED: D5W IV SCH (14:30)
[2019-02-18 14:34] VITALS: BP 184/81
--- NOTE | 2019-02-18 15:58 | HPEPDOC ---
Manager Of Drilling Note DATE OF ADMISSION: 02-18-19 SOURCE OF ADMISSION INFORMATION: [facility] records and patient CHIEF COMPLAINT: stroke and osteomyelitis HISTORY OF PRESENT ILLNESS: 78M pmh HTN, DM, Afib, diastolic HF, PAD on pradaxa initially presented to [facility] with fever and right foot wound where he underwent 4th and 5th digit amputation of his right foot in setting osteomyelitis on 02/13/19 after which he developed slurred speech and left sided weakness and transferred to [facility] for further work-up. On arrival he was given tPA and admitted to the stroke unit on telemetry. MRI showed on 02-15-19 Acute infarct of the posterior right MCA territory. Scattered areas of increased susceptibility within the infarct most likely represent minimal petechial hemorrhages MRA showed Proximal to mid basilar artery is nonvisualized/diminutive, likely represent chronic occlusion. Diminutive distal basilar artery supplying bilateral superior cerebellar arteries likely with retrograde flow from the left DIRECTOR TECHNICAL. His stroke was presumed to be embolic and he was placed on Eliquis 5mg BID and subsequent CTH did not show progression of bleed. He was maintained on IV Vancomycin and Zosyn and discharged with recommendations to follow up with Dr. Garcia for managing the transition to oral antibiotics. He remained NWB to the RLE and was deemed medically appropriate for discharge to ARU on 02/18/19. REVIEW OF SYSTEMS: The following is a completed review of systems and has been reviewed. Review of systems otherwise unremarkable. PAIN: Patient self reports no pain EYES: no recent vision changes EARS, NOSE, & THROAT: No throat pain, or dysphagia, or rhinorrhea CARDIOVASCULAR: Denies chest pain or palpitations PULMONARY: Denies shortness of breath GASTROINTESTINAL: Denies constipation/diarrhea GENITOURINARY: +finley MUSCULOSKELETAL: right D4/D5 amputation NEUROLOGICAL:left sided weakness HEMATOLOGICAL: denies easy bruising SKIN: left lateral ankle wound and right foot amputation PSYCHIATRIC: Unremarkable All other review of systems found to be negative. PAST MEDICAL HISTORY: as per HPI PAST SURGICAL HISTORY: as per HPI ALLERGIES: Please see below. MEDICATIONS: Please see below. SOCIAL HISTORY: no etoh, smoking, illicit drugs DIET: mechanical soft PHYSICAL EXAMINATION: VITAL SIGNS: Please see below. GENERAL: Pleasant and cooperative. No acute distress. Obese HEENT: PERRL. Extraocular movements intact. Clear conjunctiva, +glasses CARDIOVASCULAR: Regular rate and rhythm. No murmurs, rubs, or gallops LUNGS: Clear to auscultation bilaterally. No wheezes. No rhonch ABDOMEN: Soft, nontender, nondistended. Positive bowel sounds. Normal active bowel sounds NEUROLOGICAL: Alert and oriented times three. Cranial nerves II through XII grossly intact. Sensation grossly intact, no facial droop, no neglect, no notable aphasia EXTREMITIES: 5\5 strength right upper extremity, 4+/5 left upper extremity 5\5 strength right hip flexors and knee extension, 4/5 ankle dorsiflexion. 5/5 stre ngth in left lower extremity. SKIN: RUE PICC, hyperpigmented calves with scaly skin, right amputation site with sutures scant serosanguinous drainage, mild maceration of periwound, no induration Left lateral ankle ulcer unstageable with slough LABORATORY DATA: Please see below. IMAGING:Imaging documentation personally reviewed by record. FUNCTIONAL STATUS: Premorbid: Modified Independent with all activities of daily life as well as mobility with RW On Admission: Min- Maximum assistance for bathing, upper body dressing, bed chair and wheelchair transfers, toilet transfers, ambulation. GOALS: Modified Independent from wheelchair level for functional transfers, dressing, toileting, bathing while maintaining NWB to RLE. ASSESSMENT:78-year-old M with past medical history of DM, HTN, PAD with non- healing wound s/p right D4/5 amputation for osteomyelitis and right MCA stroke s/p tPA. PLAN: 1. rehab: PT- maintain ROM, stretch and strenghten bilat LE- maintain NWB to RLE except ok for partial heel weight bearing for functional transfers OT- stretch/strengthen/maintain ROM bilat UE BUTT TRIMMER- evaluate for cognitive impairment/dysphagia 2. Neuro: s/p right MCA stroke thought to be embolic in setting of Afib, c/u El iquis and statin therapy, monitor BPs, f/u Stroke clinic at [facility] 3. Cardio: pmh Afib and HTN, c/u torsemide and Eliquis- will monitor BPs and adjust prn, medicine consulted to assist in management -pmh PAD s/p right D4 and D5 toe amputation, will follow-up with vascular 4. Resp: encourage incentive spirometry- LUZ patient may use his own CPAP 5. ID: osteomyelitis, bone pathology pending, c/u Vanco/Zosyn- ID consulted to assist in possible transition to oral 6. : patient with Finley will d/c tomorrow 7. GI ppx: protonix, optimize bowel regimen 8. DVT ppx: on eliquis 9. Skin: daily wound care, monitor for infection 10. Pain: Tylenol prn 11. Dispo: TBD POST ADMISSION PHYSICIAN EVALUATION: Medical and functional status: Description of medical status, medical assessment: As above. Rehabilitation diagnosis and current and prior cold morbid medical conditions as above. Risk of complications and plans to mitigate them as above. Description of functional status current status is as above. Prior status as above. Status compared to preadmission: There are no clinically significant differences between the patient's current status and the information described on the preadmission screening document. Treatment plan anticipated: Treatment plan is as described above. Required disciplines including physical therapy, occupational therapy, others as noted above Intensity of services: 3 hours a day, 6 days a week. Special considerations: There are no specific special or safety considerations that would likely preclude immediate implementation of an intensive rehabilitation program or subsequently influence the plan of care. ATTESTATION: Considering all the information above, it is my best judgment that this patient requires intensive rehabilitation therapy as described above and an inpatient hospital environment due to the complexity of nursing, medical, and rehabilitation needs required by the patient. Furthermore, this patient can reasonably be expected to participate in an benefit from an inpatient rehabilitation stay with an interdisciplinary team approach to the delivery of rehabilitation care under the direction and supervision of rehabilitation ph ysician PROGNOSIS: Excellent ESTIMATED LENGTH OF STAY:14-18 days PROJECTED DISCHARGE DESTINATION: Home with family support and any durable medical equipment required to increase functional safety and mobility. TIME SPENT COUNSELING AND COORDINATING INITIAL CARE: Greater than 70 minutes. Vital Signs Vital Sign - Last 24 Hours 02/18/19 14:34 Temp 97.2 Pulse 60 Resp 16 B/P (MAP) 184/81 (115) Pulse Ox 98 Home Medications Scheduled Allopurinol (Allopurinol) 100 Mg Tab, 200 MG PO DAILY, (Reported) Apixaban (Eliquis) 5 Mg Tablet, 5 MG PO BID, (Reported) STARTED AT [facility] Atorvastatin Calcium (Atorvastatin Calcium) 40 Mg Tablet, 40 MG PO DAILY, (Reported) CHANGED FROM HOME MED PRAVASTATIN 20MG AT [facility] Docusate Sodium (Colace) 100 Mg Capsule, 100 MG PO BID, (Reported) STARTED AT [facility] Donepezil HCl (Donepezil HCl) 10 Mg Tablet, 10 MG PO QHS, (Reported) Fluticasone Propionate (Flonase Allergy Relief) 9.9 Ml [place].susp, 2 SPRAY NA QHS, (Reported) Heparin Sodium,Porcine/Pf (Heparin Lock Flush 10 Units/ml) 10 Unit/1 Ml Vial, 20 UNIT IV Q12H, (Reported) RECEIVED AT [facility] Latanoprost (Xalatan) 0.005 % Shaniqua, 1 DROP OU QHS, (Reported) Magnesium Hydroxide (Milk of Magnesia) 400 Mg/5 Ml Oral.susp, 45 ML PO QHS, (Reported) STARTED AT [facility] Metformin HCl (Metformin HCl) 1,000 Mg Tab, 1,000 MG PO BID, (Reported) Multivitamins (Thera M Plus Tablet) 1 Each Tablet, 1 TAB PO DAILY, (Reported) Piperacillin Sodium/Tazobactam (Zosyn 3.375 Gram Vial) 3.375 Gm Vial, 1 INJ IV Q8H, (Reported) STARTED AT [facility] ON 02/15/19 Torsemide (Torsemide) 10 Mg Tablet, 10 MG PO DAILY, (Reported) DECREASED FROM 20MG AT [facility] Vancomycin/0.9 % Sod Chloride (Vanco 1.75 gm/500 ml-0.9% NaCl) 1.75 Gm/500 Ml Plast..bag, 1.75 MG IV DAILY, (Reported) STARTED AT [facility] Zinc Sulfate (Zinc Sulfate) 220 Mg Tab, 220 MG PO QHS, (Reported) Scheduled PRN Omeprazole (Omeprazole) 40 Mg Capsule.dr, 40 MG PO DAILY PRN for HEARTBURN, (Reported) Allergies Coded Allergies: No Known Allergies (Unverified , 11/17/18) A-FIB/CHADSVASC A-FIB History Current/History of A-Fib/PAF?: Yes Current PO Anticoag Therapy: Yes LASHELL MCKEON MD Feb 18, 2019 15:58
[2019-02-18] MEDS ORDERED: SODIUM CHLORIDE 0.9% INJ 10 ML SYR IV PRN (17:00)
[2019-02-18] MEDS: SODIUM CHLORIDE 0.9% INJ 10 ML SYR IV SCH (17:29)
[2019-02-18] MEDS: PANTOPRAZOLE 40MG TAB (PROTONIX) PO SCH (17:29)
[2019-02-18] MEDS: PIPERACILLIN/TAZOBACTAM SOD 3.375 GM in D5W MINI-BAG PLUS 50 ML IV SCH (17:30)
--- NOTE | 2019-02-18 18:29 | PHACANCOPD ---
PHARMACY VANCOMYCIN DOSING Pt Demographics Demographics Patient Age:78 , Weight:96.600 , Gender: male Adjusted Body Weight Date: 02/18/19, Adjusted Body Weight: Kg Events Past 24 Hours Events Past 24 Hours: YES: Diuretic Therapy; NO: Dialysis, Change in CrCl, Fever, Elevation in WBC, Pending Diagnostics, Pending Procedures, Other Vancomycin Vancomycin indication: OSTEOMYELITIS Vancomycin Target Ranges: 15-20 mcg/ml Vancomycin Load Y/N: No Load Dose Date Time Vancomycin Load Dose: Date: Time: Vancomycin Dose Date: 02/18/19. Current Vancomycin Dose: [ 1.75 GRAM Q24H @09 ] Intermittent Dosing?: No Labs Labs Vital Signs Label Value Date Time Patient Temperature 97.2 degrees F 02/18/19 1434 Temperature Source Temporal 02/18/19 143 Blood Pressure Assessment 184/81 (115) 02/18/19 143 Creatinine Clearance Date:02/18/19. Creatinine Clearance: . Assessment and Plan Maintaining Current Dose?: Yes Reason for dose change: No Dose Change Pharmacist Note Pharmacist Note Date: 02/18/19. Pharmacist note: Patient returned to [facility] after a few days as an inpatient at [facility]. Patient is currently being treated for osteomyelitis with zosyn 3.375 grams every 8 hours and vancomycin 1.75 grams daily at 0900. We will continue the dose he received at [facility]. A trough was scheduled before the first dose to assess current therapeutic level. We will continue to monitor and make adjustments as necessary. RAJAN MURO PHARMACY Feb 18, 2019 18:29
--- NOTE | 2019-02-18 19:39 | HPEPDOC ---
General Date of Admission Feb 18, 2019 at 13:23 Date of Service: Feb 18, 2019 Attending Physician: JEFF GUERRERO MD Chief Complaint The patient is a 78-year-old male admitted with a reason for visit of Ischemic Right Mca Stroke. 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 MRI showed on 02-15-19 Acute infarct of the posterior right MCA territory with scattered areas of increased susceptibility within the infarct that mostly represent minimal petechial hemorrhages shown in the MRA Proximally to the mid basilar artery is nonvisualized/diminutive, which correlates to chronic occlusion. He is seen today on the Acute Rehab Unit Inpatient floor in his room, laying down in bed using his incentive spirometer, during the physical examination, he had slurred speech, no complaints of pain with right third and fourth toe amputated due to Osteomyelitis secondary to diabetes mellitus, right sided muscle weakens late effect of right sided CVA and multiple wounds on lower extremities, glaucoma, and dementia on Aricept. He has a Alba catheter intact draining to to gravity at bedside, he denies nausea, vomiting, chest pain, headache, dizziness, change in vision at this time, diarrhea, abdominal pain, numbness and tingling. He has significant medical history of essential hypertension, diabetes mellitus type 2, atrial fibrillation, was on Pradaxa as previously before the stroke and is now on Eliquis 5 mg by mouth twice a day and subsequent CTH, which did not show progression on the bleed, diastolic congestive heart failure, peripheral arterial disease. Upon arrival to [facility]. He had a fever, which is now abated and vital signs, a monitor closely . Patient was treated with vancomycin and Zosyn and will follow-up with Dr. Garcia as he transitions to oral antibiotics. Home Medications Scheduled Allopurinol (Allopurinol) 100 Mg Tab, 200 MG PO DAILY, (Reported) Apixaban (Eliquis) 5 Mg Tablet, 5 MG PO BID, (Reported) STARTED AT [facility] Atorvastatin Calcium (Atorvastatin Calcium) 40 Mg Tablet, 40 MG PO DAILY, (Reported) CHANGED FROM HOME MED PRAVASTATIN 20MG AT [facility] Docusate Sodium (Colace) 100 Mg Capsule, 100 MG PO BID, (Reported) STARTED AT [facility] Donepezil HCl (Donepezil HCl) 10 Mg Tablet, 10 MG PO QHS, (Reported) Fluticasone Propionate (Flonase Allergy Relief) 9.9 Ml [place].susp, 2 SPRAY NA QHS, (Reported) Heparin Sodium,Porcine/Pf (Heparin Lock Flush 10 Units/ml) 10 Unit/1 Ml Vial, 20 UNIT IV Q12H, (Reported) RECEIVED AT [facility] Latanoprost (Xalatan) 0.005 % Shaniqua, 1 DROP OU QHS, (Reported) Magnesium Hydroxide (Milk of Magnesia) 400 Mg/5 Ml Oral.susp, 45 ML PO QHS, (Reported) STARTED AT [facility] Metformin HCl (Metformin HCl) 1,000 Mg Tab, 1,000 MG PO BID, (Reported) Multivitamins (Thera M Plus Tablet) 1 Each Tablet, 1 TAB PO DAILY, (Reported) Piperacillin Sodium/Tazobactam (Zosyn 3.375 Gram Vial) 3.375 Gm Vial, 1 INJ IV Q8H, (Reported) STARTED AT [facility] ON 02/15/19 Torsemide (Torsemide) 10 Mg Tablet, 10 MG PO DAILY, (Reported) DECREASED FROM 20MG AT [facility] Vancomycin/0.9 % Sod Chloride (Vanco 1.75 gm/500 ml-0.9% NaCl) 1.75 Gm/500 Ml P last..bag, 1.75 MG IV DAILY, (Reported) STARTED AT [facility] Zinc Sulfate (Zinc Sulfate) 220 Mg Tab, 220 MG PO QHS, (Reported) Scheduled PRN Omeprazole (Omeprazole) 40 Mg Capsule.dr, 40 MG PO DAILY PRN for HEARTBURN, (Reported) Allergies Coded Allergies: No Known Allergies (Unverified , 11/17/18) Past Medical History Medical History See HPI Surgical History Gallbladder, tonsillectomy, Right 3rd& 4th toe amputation due to Osteomyelitis Family History Significant Family History: Noncontributory Social History * Smoker: Denies Alcohol: Denies Drugs: prescription drugs Recent Travel/Sick Contacts: Denies: Recent travel, Recent sick contacts Psychosocial History: No pertinent psych hx, [place] SI and HI A-FIB/CHADSVASC A-FIB History Current/History of A-Fib/PAF?: Yes Current PO Anticoag Therapy: Yes Age/Risk Factor Scoring CHADSVASC: CHADSVASC Response (Comments) Value Age Risk Factor Age >/= 75 years old 2 Gender Risk Factor Male 0 Hx of CHF Yes 1 Hx of HTN Yes 1 Hx of Stroke/TIA/or VTE Yes 2 Hx of Diabetes Yes 1 Total 7 Treatment Treatment ordered: Apixaban Review of Systems Constitutional: Reports: Weakness, Fatigue; Denies: Chills, Fever, Malaise, Night Sweats, Weight Loss, Lethargy, Other Eyes: Denies: Pain, Vision change, Conjunctivae inflammation, Eyelid inflammation, Redness, Other ENT: Denies: Head Aches, Ear Pain, Dysphagia, Sinus Congestion, Post Nasal Drip, Sore Throat, Epistaxis, Other Symptoms Skin: Denies: Rash, Lesions, Jaundice, Bruising, Itching, Dry, Breakdown, Nail Changes, Other Pulmonary: Denies: Dyspnea, Cough, Pleuritic Chest Pain, Other Symptoms Cardiovascular: Denies: Chest Pain, Palpitations, Orthopnea, Paroxysmal Noc. Dyspnea, Edema, Lt Headedness, Other Symptoms Gastrointestinal: Denies: Nausea, Vomiting, Abdominal Pain, Diarrhea, Constipation, Melena, Hematochezia, Other Symptoms Genitourinary: Denies: Dysuria, Frequency, Incontinence, Hematuria, Retention, Other Symptoms Hematologic: Reports: Bruising, Purpura; Denies: Bleeding Excessively, Petecchia, Enlarged Lymph Nodes, Other Hematologic Endocrine: Denies: Polydipsia, Polyphagia, Polyuria, Heat Intolerance, Cold Intolerance, Other Endocrine Sx Musculoskeletal: Reports: Foot Pain, Joint Pain; Denies: Neck Pain, Back Pain, Shoulder Pain, Arm Pain, Hand Pain, Leg Pain, Muscle Pain, Spasms, Other Symptoms Neurological: Reports: Weakness, Numbness, Incoordination, Change in speech, Confusion Psych: Reports: Memory Issues; Denies: Mood Normal, Anxiety, Depression, Thoughts of Self Harm, Anger, Thoughts of Harming Other, Other Psych Physical Examination General Exam: Positive: Alert, Cooperative, No Acute Distress (no pain, shortness of breath) Eye Exam: Positive: PERRLA, Conjunctiva & lids normal, EOMI ENT Exam: Positive: Atraumatic, Mucous membr. moist/pink, Pharynx Normal, Tongue Midline, Ext Auditory Canal Nml, Pinna Normal Neck Exam: Positive: Supple, +2 carotid pulse wo bruit Chest Exam: Positive: Clear to auscultation, Normal air movement Heart Exam: Positive: Rate Normal, Regular Rhythm, Normal S1, Normal S2 Abdomen Exam: Positive: Normal bowel sounds, Soft, Other (Alba catheter draining hanna urine to bedside ) Extremity Exam: Positive: Edema (+3 pitting bilateral lower legs cool to touch), Swelling Skin Exam: Positive: Breakdown (Tegaderm right lower extremity Intact to wound, third and fourth toe amputated right foot, mutliple wounds on lower legs) Neuro Exam: Positive: Other (speech slow, mildly slurred, mentationtakes patient wall to come up with the words he wants to verbalize, he does mix up some things he wants to say, mildly confused intermittently, laughs it off saying its because examiner made him laugh is the reason he forgot which hospital he was in) Psych Exam: Positive: Anxiety (currently), Other (oriented to self and time/yea r) Vital Signs Vital Signs Date Time Temp Pulse Resp B/P (MAP) Pulse Ox O2 Delivery O2 Flow Rate FiO2 02/18/19 14:34 97.2 60 16 184/81 (115) 98 Problems (1) CVA (cerebral vascular accident) Status: Acute Response to Treatment: Improving Discussed With: Patient Problem Specific Plan: Monitor Clinically Problem Text: 78 year-old elderly male arrives at [facility] from [facility] via EMS, 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 MRI showed on 02-15-19 Acute infarct of the posterior right MCA territory with scattered areas of increased susceptibility within the infarct that mostly represent minimal petechial hemorrhages shown in the MRA Proximally to the mid basilar artery is nonvisualized/diminutive, which correlates to chronic occlusion. Plan CVA with Left-Sided Weakness Under acute rehabilitation unit management Osteomyelitis with Right fourth and fifth toe amputationacute Follow-up with Dr. Garcia for antibiotic management Continue vancomycin and Zosyn IV until switching over to by mouth antibiotics Monitor temperature Initiate bowel regimen Gentle hydration as needed Essential Hypertension Continue taking taking metoprolol tartrate 25 mg by mouth 8 hours [place], blood pressure Diastolic Congestive Heart Failure Continue taking torsemide 10 mg by mouth a day Monitor BNP Weigh patient daily Diabetes mellitus type 2, [id number] Monitor A1c Bedside glucose (POC) before meals and at bedtime continue taking metformin thousand milligrams by mouth every 12 hours Atrial fibrillation Continue taking Eliquis 5 mg every 12 hours Hyperlipidemia Check cardiac profile, fasting lipid panel Continue atorvastatin 40 mg at bedtime Wounds Multiple Wound Care-Ostomy treatment should be directed by wound care nurse Wound discharge/secretions tested positive for MSSA which does not require contact precaution Peripheral vascular disease PT/OT Continue taking zinc sulfate Paternal 300 mg by mouth daily Seasonal allergies/allergic rhinitis Continue Flonase 2 sprays each nostril Glaucoma Continue Latanoprost drops 1 each eye twice a day Dementia Continued on Donepezil 10 mg at bedtime Prognosis: Fair DVT prophylaxis: Eliquis 5 mg by mouth twice a day Discharge: Subacute rehabilitation unitpending Plan / VTE VTE Prophylaxis Ordered?: Yes VTE Exclusion Pharmacological: N/A:VTE Prophy Ordered Plan / Urinary Catheter Urinary Catheter: Other Catheter: (Catheter in place upon arrival) Plan Diet: Continue Current Activity: Continue Current Therapy: PT, OT Diagnostics: Check Labs Anticipated Discharge: Sub Acute Rehab SPENCER MOJICA Feb 18, 2019 19:39
[2019-02-18 19:40] VITALS: BP 142/78
[2019-02-18] MEDS: SENNA 8.6 MG TAB (SENOKOT) PO SCH (20:06)
[2019-02-18] MEDS: APIXABAN 5 MG TAB (ELIQUIS) PO SCH (20:06)
[2019-02-19] MEDS: PIPERACILLIN/TAZOBACTAM SOD 3.375 GM in D5W MINI-BAG PLUS 50 ML IV SCH ×3 (00:21→18:18)
[2019-02-19 05:30] VITALS: BP 142/68
[2019-02-19] MEDS: SODIUM CHLORIDE 0.9% INJ 10 ML SYR IV SCH ×2 (06:38→18:18)
[2019-02-19 08:13] LABS: BASO # 0.1 10^3/uL (0.0-0.2); BASO % 0.9 % (0.0-1.0); EOS # 0.4 10^3/uL (0.0-0.5); EOS % 4.3 % (0.0-3.0); HEMATOCRIT 35.5 % (42.0-52.0); HEMOGLOBIN 11.1 g/dl (13.5-17.5); LYMPH % 11.5 % (24.0-44.0); MEAN CORPUSCULAR HEMOGLOBIN 31.6 pg (27.0-33.0); MEAN CORPUSCULAR HGB CONC 31.3 g/dl (32.0-36.5); MEAN CORPUSCULAR VOLUME 101.1 fl (80.0-96.0); MONO # 0.6 10^3/uL (0.0-0.8); MONO % 6.6 % (0.0-5.0); NEUTROPHILS # 6.6 10^3/uL (1.5-8.5); NEUTROPHILS % 76.4 % (36.0-66.0); PLATELET COUNT, AUTOMATED 307 10^3/uL (150-450); RED BLOOD COUNT 3.51 10^6/uL (4.30-6.10); WHITE BLOOD COUNT 8.7 10^3/uL (4.0-10.0)
[2019-02-19] MEDS: APIXABAN 5 MG TAB (ELIQUIS) PO SCH ×2 (08:20→21:06)
[2019-02-19] MEDS: PANTOPRAZOLE 40MG TAB (PROTONIX) PO SCH (08:20)
[2019-02-19] MEDS: ATORVASTATIN 20 MG TAB PO SCH (08:20)
[2019-02-19] MEDS: TORSEMIDE 10 MG TABLET PO SCH (08:21)
[2019-02-19 08:44] LABS: ALBUMIN 2.6 GM/DL (3.2-5.2); ALT/SGPT 24 U/L (12-78); BLOOD UREA NITROGEN 12 MG/DL (7-18); CALCIUM LEVEL 8.9 MG/DL (8.8-10.2); CARBON DIOXIDE LEVEL 30 MEQ/L (21-32); CHLORIDE LEVEL 101 MEQ/L (98-107); GLOMERULAR FILTRATION RATE > 60.0 (>42); GLUCOSE, FASTING 104 MG/DL (70-100); POTASSIUM SERUM 4.1 MEQ/L (3.5-5.1); SODIUM LEVEL 137 MEQ/L (136-145); VANCOMYCIN LEVEL TROUGH 15.8 UG/ML (10.0-20.0)
[2019-02-19] MEDS ORDERED: VANCOMYCIN HCL 1,000 MG, VIAL MATE ADAPTER 1 EACH in D5W 250 ML IV SCH (09:00)
[2019-02-19] MEDS ORDERED: VANCOMYCIN HCL 750 MG, VIAL MATE ADAPTER 1 EACH in D5W 250 ML IV SCH (10:00)
[2019-02-19 11:36] LABS: C REACTIVE PROTEIN QUANTITATIV 3.55 MG/DL (0.00-0.30)
[2019-02-19 12:35] LABS: ERYTHROCYTE SEDIMENTATION RATE 60 mm/hr (0-20)
--- NOTE | 2019-02-19 13:36 | IPNPDOC ---
PM&R Progress Note DATE OF SERVICE: Feb 19, 2019 Slide Fasteners Inspector Progress Note Subjective: Patient seen in his room stating he is feeling well enough today. He had a large bowel movement. REVIEW OF SYSTEMS: The following is a completed review of systems and has been reviewed. Review of systems otherwise unremarkable. PAIN: Patient self reports no pain EYES: no recent vision changes EARS, NOSE, & THROAT: No throat pain, or dysphagia, or rhinorrhea CARDIOVASCULAR: Denies chest pain or palpitations PULMONARY: Denies shortness of breath GASTROINTESTINAL: Denies constipation/diarrhea GENITOURINARY: +finley MUSCULOSKELETAL: right D4/D5 amputation NEUROLOGICAL:left sided weakness HEMATOLOGICAL: denies easy bruising SKIN: left lateral ankle wound and right foot amputation PSYCHIATRIC: Unremarkable All other review of systems found to be negative. SOCIAL HISTORY: no etoh, smoking, illicit drugs PHYSICAL EXAMINATION: VITAL SIGNS: Please see below. GENERAL: Pleasant and cooperative. No acute distress. Obese HEENT: PERRL. Extraocular movements intact. Clear conjunctiva, +glasses CARDIOVASCULAR: Regular rate and rhythm. No murmurs, rubs, or gallops LUNGS: Clear to auscultation bilaterally. No wheezes. No rhonch ABDOMEN: Soft, nontender, nondistended. Positive bowel sounds. Normal active bowel sounds NEUROLOGICAL: Alert and oriented times three. Cranial nerves II through XII grossly intact. Sensation grossly intact, no facial droop, no neglect, no notable aphasia EXTREMITIES: 5\5 strength right upper extremity, 4+/5 left upper extremity 5\5 strength right hip flexors and knee extension, 4/5 ankle dorsiflexion. 5/5 strength in left lower extremity. SKIN: RUE PICC, hyperpigmented calves with scaly skin, right amputation site with sutures scant serosanguinous drainage, mild maceration of periwound, no induration Left lateral ankle ulcer unstageable with slough ASSESSMENT:78-year-old M with past medical history of DM, HTN, PAD with non- healing wound s/p right D4/5 amputation for osteomyelitis and right MCA stroke s /p tPA. PLAN: 1. rehab: PT- maintain ROM, stretch and strenghten bilat LE- maintain NWB to RLE except ok for partial heel weight bearing for functional transfers OT- stretch/strengthen/maintain ROM bilat UE CHEFS- evaluate for cognitive impairment/dysphagia 2. Neuro: s/p right MCA stroke thought to be embolic in setting of Afib, c/u Eliquis and statin therapy, monitor BPs, f/u Stroke clinic at [facility] 3. Cardio: pmh Afib and HTN, c/u torsemide and Eliquis- will monitor BPs and adjust prn, medicine consulted to assist in management -will add metoprolol tartrate 25mg q8h -pmh PAD s/p right D4 and D5 toe amputation, will follow-up with vascular 4. Resp: encourage incentive spirometry- LUZ patient may use his own CPAP 5. ID: osteomyelitis, bone pathology pending, c/u Vanco/Zosyn- ID consulted to assist in possible transition to oral 6. : d/c finley today, monitor PVRs 7. GI ppx: protonix, optimize bowel regimen 8. DVT ppx: on eliquis 9. Skin: daily wound care, monitor for infection 10. Pain: Tylenol prn 11. Dispo: TBD Allergies Coded Allergies: No Known Allergies (Unverified , 11/17/18) Vital Signs Vital Signs Date Time Temp Pulse Resp B/P (MAP) Pulse Ox O2 Delivery O2 Flow Rate FiO2 02/19/19 05:30 98.0 60 18 142/68 (92) 98 Laboratory Data CBC/BMP Laboratory Tests 02/19/19 08:01 Red Blood Count 3.51 L, Mean Corpuscular Volume 101.1 H, Mean Corpuscular Hemo globin 31.6, Mean Corpuscular Hemoglobin Concent 31.3 L, Red Cell Distribution Width 13.2, Neutrophils (%) (Auto) 76.4 H, Lymphocytes (%) (Auto) 11.5 L, Monocytes (%) (Auto) 6.6 H, Eosinophils (%) (Auto) 4.3 H, Basophils (%) (Auto) 0.9, Neutrophils # (Auto) 6.6, Lymphocytes # (Auto) 1.0 L, Monocytes # (Auto) 0.6, Eosinophils # (Auto) 0.4, Basophils # (Auto) 0.1, Calcium Level 8.9, Aspartate Amino Transf (AST/SGOT) 28, Alanine Aminotransferase (ALT/SGPT) 24, Alkaline Phosphatase 185 H, Total Bilirubin 1.0, Total Protein 7.0, Albumin 2.6 L Labs 24H Laboratory Tests 2 02/19/19 08:01: Immature Granulocyte % (Auto) 0.3, White Blood Count 8.7, Red Blood Count 3.51L, Hemoglobin 11.1L, Hematocrit 35.5L, Mean Corpuscular Volume 101.1H, Mean Corpuscular Hemoglobin 31.6, Mean Corpuscular Hemoglobin Concent 31.3L, Red Cell Distribution Width 13.2, Platelet Count 307, Neutrophils (%) (Auto) 76.4H, Lymphocytes (%) (Auto) 11.5L, Monocytes (%) (Auto) 6.6H, Eosinophils (%) (Auto) 4.3H, Basophils (%) (Auto) 0.9, Neutrophils # (Auto) 6.6, Lymphocytes # (Auto) 1.0L, Monocytes # (Auto) 0.6, Eosinophils # (Auto) 0.4, Basophils # (Auto) 0.1, Nucleated Red Blood Cells % (auto) 0.0, Erythrocyte Sedimentation Rate 60H, Anion Gap 6L, Glomerular Filtration Rate > 60.0, Blood Urea Nitrogen 12, Creatinine 1.00, Sodium Level 137, Potassium Level 4.1, Chloride Level 101, Carbon Dioxide Level 30, Calcium Level 8.9, Aspartate Amino Transf (AST/SGOT) 28, Alanine Aminotransferase (ALT/SGPT) 24, Alkaline Phosphatase 185H, Total Bilirubin 1.0, Total Protein 7.0, Albumin 2.6L, C-Reactive Protein, Quantitative 3.55H, Albumin/Globulin Ratio 0.59L, Vancomycin Level Trough 15.8 Current Medications Current Medications Current Medications Medications (Trade) Dose Ordered Sig/Keely Route PRN Reason Start Time Stop Time Status Last Admin Dose Admin Acetaminophen (Tylenol Tab) 650 mg Q4HP PRN PO fever/pain 02/18/19 14:30 Apixaban (Eliquis) 5 mg BID PO 02/18/19 21:00 02/19/19 08:20 Atorvastatin Calcium (Lipitor) 40 mg DAILY PO 02/19/19 09:00 02/19/19 08:20 Bisacodyl (Dulcolax Suppository) 10 mg DAILYPRN PRN [place] CONSTIPATION 02/18/19 14:30 Heparin Sodium (Heparin (Flush)) 200 units ASDIRECTED PRN IV SEE LABEL COMMENTS 02/18/19 17:00 Heparin Sodium (Heparin (Flush)) 200 units PICC IV 02/18/19 18:00 02/19/19 06:38 Home Med (Med Rec Complete!) ASDIRECTED XX 02/18/19 14:15 02/18/19 14:09 DC Pantoprazole Sodium (Protonix) 40 mg DAILY PO 02/18/19 17:00 02/19/19 08:20 Piperacillin Sod/ Tazobactam Sod 3.375 gm/Dextrose 50 ml @ 50 mls/hr Q8H IV 02/18/19 17:00 02/19/19 08:21 Senna (Senokot) 1 tab QHS PO 02/18/19 21:00 02/18/19 20:06 Sodium Chloride (Saline Lock Flush) 10 ml ASDIRECTED PRN IV SEE LABEL COMMENTS 02/18/19 17:00 Sodium Chloride (Saline Lock Flush) 10 ml PICC IV 02/18/19 18:00 02/19/19 06:38 Torsemide (Demadex) 10 mg DAILY PO 02/19/19 09:00 02/19/19 08:21 Vancomycin HCl 750 mg/IV Miscellaneous Supplies 1 each/ Dextrose 275 ml @ 275 mls/hr Q24H IV 02/19/19 10:00 02/19/19 13:00 DC 02/19/19 11:23 Vancomycin HCl 750 mg/IV Miscellaneous Supplies 1 each/ Dextrose 275 ml @ 275 mls/hr Q24H IV 02/20/19 07:00 Vancomycin HCl 1000 mg/IV Miscellaneous Supplies 1 each/ Dextrose 270 ml @ 270 mls/hr Q24H IV 02/19/19 09:00 02/19/19 12:59 DC 02/19/19 09:34 Vancomycin HCl 1000 mg/IV Miscellaneous Supplies 1 each/ Dextrose 270 ml @ 270 mls/hr Q24H IV 02/20/19 06:00 Vancomycin HCl 1750 mg/IV Miscellaneous Supplies 1 each/ Dextrose 285 ml @ 270 mls/hr Q24H IV 02/18/19 14:30 LASHELL DELGADO MD Feb 19, 2019 13:36
--- NOTE | 2019-02-19 14:12 | IPN ---
DATE: 02/19/2019 Mr. Felipe was admitted after suffering a stroke during recent hospital stay here. He had been transferred to [facility] and had evidence of a parietal stroke at that time involving the right middle cerebral artery posterior circulation. Per the patient himself, he believes there is no residual effect from the stroke; however, he does have chronic wounds that require some ongoing treatment. He was being treated by Willow Lopez at [facility] wound center under the direction of Dr. Little. He had inpatient and receiving IV antibiotics for same. Culture had identified methicillin sensitive Staphylococcus aureus (MSSA) from wound. He has three different wounds documented; right fourth metatarsal head, right medial lower leg, which is a venous ulcer, and the left lateral malleolus pressure ulcer from diabetes and neuropathy. ALLERGIES: NO KNOWN DRUG ALLERGIES. PAST MEDICAL HISTORY: 1. Status post gallbladder and tonsil surgery. CURRENT MEDICATIONS: - omeprazole 40 mg daily - torsemide 10 mg daily - vancomycin IV - zinc sulfate 220 mg daily - piperacillin tazobactam 3.375 grams every 8 hours - metformin 1000 mg twice a day - magnesium hydroxide 45 mL at bedtime - Xalatan drops 1 drop to both eyes at bedtime - fluticasone nasal spray 2 sprays at night - donepezil 10 mg daily - docusate sodium 100 mg by mouth twice a day - atorvastatin 40 mg daily - apixaban 5 mg by mouth twice a day - allopurinol 200 mg daily PHYSICAL EXAMINATION: Vital signs: 142/68 pressure, pulse 60 and irregular, respiratory rate 18 unlabored, O2 sat 98% on room air. He is alert pleasant, cooperative. HEENT: Normocephalic, atraumatic. Heart: Irregular rhythm. No murmur noted. Lungs: Clear to auscultation percussion. Abdomen is soft without guarding or tenderness or rebound. He has extensive dressings in place on his lower extremities, these were not taken down. ASSESSMENT: 1. Recent stroke, right middle cerebral artery posterior circulation. 2. Atrial fibrillation, chronically has been on Pradaxa before recent admission. He is currently on apixaban 5 mg twice a day. 3. Hypertension. 4. Diabetic nephropathy with microalbuminuria. 5. Wound infections, previous culture identifying methicillin sensitive Staphylococcus aureus (MSSA). PLAN: The patient admitted to ARU for continued rehabilitation treatment of his wounds. Vancomycin reasonable at this time to continue. Consider consultation with infectious disease. I think this consult has been requested. Activity per building performance specialist. It would be reasonable to continue metformin for his diabetes control since his A1c was excellent prior to this recent admission in the 5s, in fact perhaps better than is needed considering increased risk of adverse reaction and adverse effects of too tight glycemic control. Alternative plan would be to monitor blood sugars on a four times a day basis and use sliding scale coverage or monitoring glucose on a twice a day schedule until we can determine that he actually requires any intervention. For now, we will move forward with the request for twice a day scheduling of glucose and contact provider if glucose over 200 for initiation of intervention directed at his blood sugar.
[2019-02-19] MEDS: METOPROLOL TART 25 MG TABLET PO SCH ×2 (15:14→21:03)
[2019-02-19] MEDS: SANTYL OINT 30GM TOP SCH (15:14)
[2019-02-19 15:15] VITALS: BP 158/60
[2019-02-19] MEDS: SENNA 8.6 MG TAB (SENOKOT) PO SCH (21:06)
[2019-02-19 21:15] VITALS: BP 142/70
--- NOTE | 2019-02-19 23:13 | CR ---
DATE OF CONSULTATION: 02/19/2019 INFECTIOUS DISEASE CONSULTATION Asked to consult by Dr. Hill for evaluation of osteomyelitis of the right foot, status post amputation of the third and fourth toe by Dr. Medina. HISTORY OF PRESENT ILLNESS: Mr. Felipe is a 78-year-old gentleman who was admitted to [facility] on February 10 with gangrene and acute osteomyelitis of third and fourth toe. The patient had an MRI done on 02/10/2019 which showed osteomyelitis of third, fourth toe with severe destructive arthritis of the ankle and hindfoot related to neuropathic changes. The patient was taken to the operating room on 02/13/2019 and had amputation of the third and fourth toes. No intraoperative cultures were sent. Blood cultures were negative times two. The patient developed postoperatively a stroke and received TPA and was transferred to [place] on 02/14/2019. The patient was transferred back to rehabilitation and was doing much better. He today denies any nausea, vomiting, diarrhea, fever or chills. He has no pain in his foot. He has no sensation in bilateral feet from diabetic neuropathy. He has no chest pain or shortness of breath. No fever or chills. He has mild left-sided weakness. Initially his stroke symptoms were left facial droop and expressive aphasia. His past medical history is significant for insulin-dependent diabetes with diabetic neuropathy, right ischemic middle cerebral artery (MCA) stroke, gout, hyperlipidemia, hypertension, diabetes, history of atrial fibrillation diastolic heart failure, peripheral artery disease, history of dementia, acute osteomyelitis of the third and fourth toes, status post amputation, on IV vancomycin and Zosyn. ALLERGIES: No known drug allergies. PAST SURGICAL HISTORY: Cholecystectomy, tonsillectomy, amputation of third and fourth toe done by Dr. Medina on 02/13/2019. PHYSICAL EXAM: He is a pleasant elderly gentleman in no acute distress. Heart: Normal S1, S2. Systolic ejection murmur 2/6, irregular. Lungs are clear. No wheezes, rales or rhonchi. Abdomen: Obese, soft, nontender. No hepatosplenomegaly. Extremities: No clubbing, cyanosis or edema. Oropharynx is clear. No facial droop. Grasp is 5 on the right side, 5- on the left side. Diabetic exam: Both feet are cold. There is absent sensation to light touch in astocking distribution Diminished pulses bilaterally. Right foot has amputation of third, fourth and fifth toes with sutures in place. No evidence of infection. Minimal erythema at the site of the sutures. No purulent discharge. No tenderness. Left foot has a lateral malleolus ulcer measuring about 2 x 1 cm with purulent drainage on the Optifoam. Right calf has a small superficial ulceration with no discharge. Left elbow has a skin tear measuring about 2.5 x 2 cm with bloody discharge. Wound cultures from 02/05/2019: Positive for methicillin-sensitive Staphylococcus aureus (MSSA) of the toe. Blood cultures, two sets, from 02/10/2019 no growth after 5 days. White count 8.7, hemoglobin 11.1, hematocrit 35.5, platelets 307, 76% neutrophils, 7% lymphocytes, 6% monocytes. ESR 60. Sodium 137, potassium 4.1, chloride 101, bicarbonate 30, BUN 12, creatinine 1, glucose 104, calcium 8.9, bilirubin 1, AST 28, ALT 24, CRP 3.55. IMPRESSION: Acute osteomyelitis of third and fourth toes, status post amputation on 02/13/2019. The patient is 6 days postoperatively. The wound is healing well. No intraoperative wound culture was obtained. Blood culture from previous was positive for MSSA as an outpatient. He has developed an MCA stroke, which is improving, and the patient is currently in rehab for that reason. PLAN: Discontinue IV vancomycin and Zosyn. The patient could be on Augmentin 875 mg by mouth twice a day, which would cover for MSSA and anaerobes and some gram-negative. There was no other culture that was obtained, but I am presuming it was MSSA as the outpatient culture suggests. Eucerin cream to both lower extremities. He has significant dry skin. Optifoam dressing on all ulcerations he has, including the lateral malleolus, left elbow and right calf pain. Clean the wounds with saline and apply Santyl on the left ankle. Start Augmentin 875 mg by mouth twice a day for one week. Repeat CRP, sedimentation rate next week. MTDD
[2019-02-19] MEDS: LATANOPROST 0.005% OPHTH SOLN 2.5 ML OU SCH (23:35)
[2019-02-19] MEDS: DONEPEZIL 5 MG TAB PO SCH (23:36)
[2019-02-20] MEDS: SODIUM CHLORIDE 0.9% INJ 10 ML SYR IV SCH ×2 (05:51→17:36)
[2019-02-20] MEDS: METOPROLOL TART 25 MG TABLET PO SCH ×3 (05:51→21:18)
[2019-02-20] MEDS ORDERED: VANCOMYCIN HCL 1,000 MG, VIAL MATE ADAPTER 1 EACH in D5W 250 ML IV SCH (06:00)
[2019-02-20 06:52] LABS: BASO # 0.1 10^3/uL (0.0-0.2); BASO % 0.9 % (0.0-1.0); EOS # 0.3 10^3/uL (0.0-0.5); EOS % 3.9 % (0.0-3.0); HEMATOCRIT 34.5 % (42.0-52.0); HEMOGLOBIN 10.8 g/dl (13.5-17.5); LYMPH % 11.7 % (24.0-44.0); MEAN CORPUSCULAR HEMOGLOBIN 32.2 pg (27.0-33.0); MEAN CORPUSCULAR HGB CONC 31.3 g/dl (32.0-36.5); MONO # 0.7 10^3/uL (0.0-0.8); NEUTROPHILS # 6.5 10^3/uL (1.5-8.5); NEUTROPHILS % 75.3 % (36.0-66.0); PLATELET COUNT, AUTOMATED 289 10^3/uL (150-450); RED BLOOD COUNT 3.35 10^6/uL (4.30-6.10); WHITE BLOOD COUNT 8.7 10^3/uL (4.0-10.0)
[2019-02-20 06:57] VITALS: BP 142/80
[2019-02-20] MEDS ORDERED: VANCOMYCIN HCL 750 MG, VIAL MATE ADAPTER 1 EACH in D5W 250 ML IV SCH (07:00)
[2019-02-20 07:08] LABS: BLOOD UREA NITROGEN 9 MG/DL (7-18); CALCIUM LEVEL 8.5 MG/DL (8.8-10.2); CARBON DIOXIDE LEVEL 26 MEQ/L (21-32); CHLORIDE LEVEL 101 MEQ/L (98-107); CREATININE FOR GFR 0.93 MG/DL (0.70-1.30); GLOMERULAR FILTRATION RATE > 60.0 (>42); GLUCOSE, FASTING 98 MG/DL (70-100); POTASSIUM SERUM 3.7 MEQ/L (3.5-5.1); SODIUM LEVEL 135 MEQ/L (136-145)
[2019-02-20] MEDS: PANTOPRAZOLE 40MG TAB (PROTONIX) PO SCH (08:55)
[2019-02-20] MEDS: ATORVASTATIN 20 MG TAB PO SCH (08:55)
[2019-02-20] MEDS: APIXABAN 5 MG TAB (ELIQUIS) PO SCH ×2 (08:55→21:18)
[2019-02-20] MEDS: TORSEMIDE 10 MG TABLET PO SCH (08:55)
[2019-02-20] MEDS: AUGMENTIN 875 MG TAB PO SCH ×2 (08:55→21:18)
[2019-02-20] MEDS: MULTIVITAMINS/MINERALS THERAP 1 TAB PO SCH (08:55)
[2019-02-20] MEDS: SANTYL OINT 30GM TOP SCH (08:56)
[2019-02-20] MEDS: VANICREAM MOISTURIZING SKIN CREAM 113GM TUBE TOP SCH (08:56)
--- NOTE | 2019-02-20 11:26 | IPNPDOC ---
PM&R Progress Note DATE OF SERVICE: Feb 20, 2019 Continuous Improvement Facilitator Progress Note Subjective: Patient reporting he feels well overall and thinks he is progressing in therapy. He denies pain. REVIEW OF SYSTEMS: The following is a completed review of systems and has been reviewed. Review of systems otherwise unremarkable. PAIN: Patient self reports no pain EYES: no recent vision changes EARS, NOSE, & THROAT: No throat pain, or dysphagia, or rhinorrhea CARDIOVASCULAR: Denies chest pain or palpitations PULMONARY: Denies shortness of breath GASTROINTESTINAL: Denies constipation/diarrhea GENITOURINARY: denies dysuria MUSCULOSKELETAL: right D4/D5 amputation NEUROLOGICAL:left sided weakness HEMATOLOGICAL: denies easy bruising SKIN: left lateral ankle wound and right foot amputation PSYCHIATRIC: Unremarkable All other review of systems found to be negative. PHYSICAL EXAMINATION: VITAL SIGNS: Please see below. GENERAL: Pleasant and cooperative. No acute distress. Obese HEENT: PERRL. Extraocular movements intact. Clear conjunctiva, +glasses CARDIOVASCULAR: Regular rate and rhythm. No murmurs, rubs, or gallops LUNGS: Clear to auscultation bilaterally. No wheezes. No rhonch ABDOMEN: Soft, nontender, nondistended. Positive bowel sounds. Normal active bowel sounds NEUROLOGICAL: Alert and oriented times three. Cranial nerves II through XII grossly intact. Sensation grossly intact, no facial droop, no neglect, no notable aphasia EXTREMITIES: 5\5 strength right upper extremity, 4+/5 left upper extremity 5\5 strength right hip flexors and knee extension, 4/5 ankle dorsiflexion. 5/5 strength in left lower extremity. SKIN: RUE PICC, hyperpigmented calves with scaly skin, right amputation site with sutures no induration/drainage Left lateral ankle ulcer unstageable with slough ASSESSMENT:78-year-old M with past medical history of DM, HTN, PAD with non- healing wound s/p right D4/5 amputation for osteomyelitis and right MCA stroke s/p tPA. PLAN: 1. 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 Neuro: s/p right MCA stroke thought to be embolic in setting of Afib, c/u Eliquis and statin therapy, monitor BPs, f/u Stroke clinic at [facility] -c/u prozac for motor recover -cognitive impairment/dementia-c/u Aricept 10mg qHS 3. Cardio: pmh Afib and HTN, c/u torsemide and Eliquis- will monitor BPs and adjust prn, medicine consulted to assist in management -c/u metoprolol tartrate 25mg q8h -pmh PAD s/p right D4 and D5 toe amputation, will follow-up with vascular 4. Resp: encourage incentive spirometry- LUZ patient may use his own CPAP 5. ID: osteomyelitis, bone pathology pending, s/p Vanco/Zosyn, switched to Augmentin, ID recs appreciated 6. : monitor PVRs 7. GI ppx: protonix, optimize bowel regimen 8. DVT ppx: on eliquis 9. Skin: daily wound care, monitor for infection 10. Pain: Tylenol prn 11. Dispo: TBD 11. Endo: pmh DM however recent A1C 5.6% c/u diet control Allergies Coded Allergies: No Known Allergies (Unverified , 11/17/18) Vital Signs Vital Signs Date Time Temp Pulse Resp B/P (MAP) Pulse Ox O2 Delivery O2 Flow Rate FiO2 02/20/19 06:57 97.3 64 18 142/80 (100) 94 Laboratory Data CBC/BMP Laboratory Tests 02/20/19 06:40 Red Blood Count 3.35 L, Mean Corpuscular Volume 103.0 H, Mean Corpuscular Hemoglobin 32.2, Mean Corpuscular Hemoglobin Concent 31.3 L, Red Cell Distribution Width 13.2, Neutrophils (%) (Auto) 75.3 H, Lymphocytes (%) (Auto) 11.7 L, Monocytes (%) (Auto) 8.0 H, Eosinophils (%) (Auto) 3.9 H, Basophils (%) (Auto) 0.9, Neutrophils # (Auto) 6.5, Lymphocytes # (Auto) 1.0 L, Monocytes # (Auto) 0.7, Eosinophils # (Auto) 0.3, Basophils # (Auto) 0.1, Calcium Level 8.5 L Labs 24H Laboratory Tests 2 02/19/19 12:07: Bedside Glucose (Misc Panel) 152H 02/20/19 05:46: Bedside Glucose (Misc Panel) 105 02/20/19 06:40: Immature Granulocyte % (Auto) 0.2, White Blood Count 8.7, Red Blood Count 3.35L, Hemoglobin 10.8L, Hematocrit 34.5L, Mean Corpuscular Volume 103.0H, Mean Corpuscular Hemoglobin 32.2, Mean Corpuscular Hemoglobin Concent 31.3L, Red Cell Distribution Width 13.2, Platelet Count 289, Neutrophils (%) (Auto) 75.3H, Lymphocytes (%) (Auto) 11.7L, Monocytes (%) (Auto) 8.0H, Eosinophils (%) (Auto) 3.9H, Basophils (%) (Auto) 0.9, Neutrophils # (Auto) 6.5, Lymphocytes # (Auto) 1.0L, Monocytes # (Auto) 0.7, Eosinophils # (Auto) 0.3, Basophils # (Auto) 0.1, Nucleated Red Blood Cells % (auto) 0.0, Erythrocyte Sedimentation Rate 58H, Anion Gap 8, Glomerular Filtration Rate > 60.0, Blood Urea Nitrogen 9, Creatinine 0.93, Sodium Level 135L, Potassium Level 3.7, Chloride Level 101, Carbon Dioxide Level 26, Calcium Level 8.5L Current Medications Current Medications Current Medications Medications (Trade) Dose Ordered Sig/Keely Route PRN Reason Start Time Stop Time Status Last Admin Dose Admin Acetaminophen (Tylenol Tab) 650 mg Q4HP PRN PO fever/pain 02/18/19 14:30 Amoxicillin/ Clavulanate Potassium (Augmentin) 875 mg BID PO 02/20/19 09:00 02/20/19 08:55 Apixaban (Eliquis) 5 mg BID PO 02/18/19 21:00 02/20/19 08:55 Atorvastatin Calcium (Lipitor) 40 mg DAILY PO 02/19/19 09:00 02/20/19 08:55 Bisacodyl (Dulcolax Suppository) 10 mg DAILYPRN PRN [place] CONSTIPATION 02/18/19 14:30 Collagenase (Santyl) 1 dose DAILY TOP 02/19/19 15:00 02/20/19 08:56 Donepezil HCl (AriCEPT) 10 mg QHS PO 02/19/19 21:00 Emollient Cream (Vanicream) APPLY TO AFFECTED AREA DAILY TOP 02/20/19 09:00 02/20/19 08:56 Heparin Sodium (Heparin (Flush)) 200 units ASDIRECTED PRN IV SEE LABEL COMMENTS 02/18/19 17:00 Heparin Sodium (Heparin (Flush)) 200 units PICC IV 02/18/19 18:00 02/20/19 05:51 Home Med (Med Rec Complete!) ASDIRECTED XX 02/18/19 14:15 02/18/19 14:09 DC Latanoprost (Xalatan 0.005% Op Soln) 1 drop QHS OU 02/19/19 21:00 Metoprolol Tartrate (Lopressor) 25 mg Q8H PO 02/19/19 14:00 02/20/19 05:51 Multivitamins (Theragram-M) 1 tab DAILY PO 02/20/19 09:00 02/20/19 08:55 Pantoprazole Sodium (Protonix) 40 mg DAILY PO 02/18/19 17:00 02/20/19 08:55 Piperacillin Sod/ Tazobactam Sod 3.375 gm/Dextrose 50 ml @ 50 mls/hr Q8H IV 02/18/19 17:00 02/19/19 22:21 DC 02/19/19 18:18 Senna (Senokot) 1 tab QHS PO 02/18/19 21:00 02/19/19 21:06 Sodium Chloride (Saline Lock Flush) 10 ml ASDIRECTED PRN IV SEE LABEL COMMENTS 02/18/19 17:00 Sodium Chloride (Saline Lock Flush) 10 ml PICC IV 02/18/19 18:00 02/20/19 05:51 Torsemide (Demadex) 10 mg DAILY PO 02/19/19 09:00 02/20/19 08:55 Vancomycin HCl 750 mg/IV Miscellaneous Supplies 1 each/ Dextrose 275 ml @ 275 mls/hr Q24H IV 02/19/19 10:00 02/19/19 13:00 DC 02/19/19 11:23 Vancomycin HCl 750 mg/IV Miscellaneous Supplies 1 each/ Dextrose 275 ml @ 275 mls/hr Q24H IV 02/20/19 07:00 02/19/19 18:02 DC Vancomycin HCl 1000 mg/IV Miscellaneous Supplies 1 each/ Dextrose 270 ml @ 270 mls/hr Q24H IV 02/19/19 09:00 02/19/19 12:59 DC 02/19/19 09:34 Vancomycin HCl 1000 mg/IV Miscellaneous Supplies 1 each/ Dextrose 270 ml @ 270 mls/hr Q24H IV 02/20/19 06:00 02/19/19 16:50 DC Vancomycin HCl 1750 mg/IV Miscellaneous Supplies 1 each/ Dextrose 285 ml @ 270 mls/hr Q24H IV 02/18/19 14:30 LASHELL DELGADO MD Feb 20, 2019 11:26
--- NOTE | 2019-02-20 13:18 | IPN ---
DATE: 02/20/2019 Saurabh is doing well. He denies any nausea, vomiting, diarrhea, abdominal pain, fever or chills. He is having difficulty with physical therapy (PT) because he has a left-sided stroke and right offloading from his amputation. The case has been discussed with Dr. Medina who was informed that the patient is back and he will see him in followup. MEDICATIONS: Day number one of by mouth Augmentin. The patient has been on vancomycin and Zosyn for a total of 10 days since February 10. PHYSICAL EXAMINATION: Heart: Normal S1 and S2. No murmurs. Irregular. Lungs are clear. No wheezes or rhonchi. Abdomen: Soft, obese, nontender. Extremities: No edema. Right foot third, fourth and fifth toe ray amputation, sutures in place healing well. Left lateral malleolus ulcer measuring about 1.5 x 1 cm with yellow discharge on the Optifoam. LABORATORY DATA: White count is 8.7, hemoglobin 10.8, hematocrit 34.5, platelets 289, 75% neutrophils, 11% lymphocytes, 8% monocytes. ESR 58. Sodium 135, potassium 3.7, chloride 101, bicarb 26, BUN 9, creatinine 0.93, glucose 98, calcium 8.5, CRP 3.55. IMPRESSION: Right foot acute osteomyelitis with gangrene. Culture positive for methicillin-sensitive Staphylococcus aureus (MSSA). No intraoperative cultures were sent from amputation site. The patient is day #1 of Augmentin. 2. Middle cerebral artery (MCA) infarct. The patient is in rehab for physical therapy. PLAN: The patient is switched to Augmentin 875 mg by mouth twice a day for 5-7 days. Monitor CBC, ESR, CRP next week. Discontinue after 5-7 days.
[2019-02-20] MEDS: FLUoxetine 20 MG CAP PO SCH (13:39)
--- NOTE | 2019-02-20 13:40 | IPN ---
DATE: 02/20/2019 The patient is seen and examined. Notes reviewed. He states that he is doing well after his stroke. He does not seem to be having any pain in his feet. Lower extremity examination: Right foot surgical site is examined. Incision is coapted. Good capillary refill to margins. No surrounding erythema. ASSESSMENT: 78-year-old diabetic male status post fourth and fifth toe amputations. PLAN: Continue dressing changes as ordered. Okay to weightbear with therapy with postoperative shoe.
[2019-02-20 14:00] VITALS: BP 160/73
[2019-02-20 19:50] VITALS: BP 161/70
[2019-02-20] MEDS: DONEPEZIL 5 MG TAB PO SCH (21:17)
[2019-02-20] MEDS: LATANOPROST 0.005% OPHTH SOLN 2.5 ML OU SCH (21:17)
[2019-02-20] MEDS: SENNA 8.6 MG TAB (SENOKOT) PO SCH (21:18)
[2019-02-21 05:30] VITALS: BP 160/78
[2019-02-21] MEDS: METOPROLOL TART 25 MG TABLET PO SCH ×3 (06:00→21:06)
[2019-02-21] MEDS: SODIUM CHLORIDE 0.9% INJ 10 ML SYR IV SCH ×2 (06:00→17:29)
[2019-02-21] MEDS: FLUoxetine 20 MG CAP PO SCH (08:21)
[2019-02-21] MEDS: AUGMENTIN 875 MG TAB PO SCH ×2 (08:21→21:05)
[2019-02-21] MEDS: ATORVASTATIN 20 MG TAB PO SCH (08:21)
[2019-02-21] MEDS: PANTOPRAZOLE 40MG TAB (PROTONIX) PO SCH (08:21)
[2019-02-21] MEDS: APIXABAN 5 MG TAB (ELIQUIS) PO SCH ×2 (08:22→21:06)
[2019-02-21] MEDS: ACETAMINOPHEN TAB 650MG DOSE (2X325MG) PO PRN (08:22)
[2019-02-21] MEDS: MULTIVITAMINS/MINERALS THERAP 1 TAB PO SCH (08:22)
[2019-02-21] MEDS: SANTYL OINT 30GM TOP SCH (08:23)
[2019-02-21] MEDS: TORSEMIDE 10 MG TABLET PO SCH (08:23)
[2019-02-21] MEDS: VANICREAM MOISTURIZING SKIN CREAM 113GM TUBE TOP SCH (08:24)
[2019-02-21 08:59] VITALS: BP 142/66
[2019-02-21 14:00] VITALS: BP 137/63
[2019-02-21 19:45] VITALS: BP 161/72
[2019-02-21] MEDS: SENNA 8.6 MG TAB (SENOKOT) PO SCH (21:00)
[2019-02-21] MEDS: DONEPEZIL 5 MG TAB PO SCH (21:05)
[2019-02-21] MEDS: LATANOPROST 0.005% OPHTH SOLN 2.5 ML OU SCH (21:06)
[2019-02-22 05:43] VITALS: BP 178/80
[2019-02-22] MEDS: METOPROLOL TART 25 MG TABLET PO SCH (06:00)
[2019-02-22] MEDS ORDERED: amLODIPine 5 MG TAB PO ONE (06:30)
[2019-02-22] MEDS: SODIUM CHLORIDE 0.9% INJ 10 ML SYR IV SCH ×2 (06:35→17:24)
[2019-02-22] MEDS: AUGMENTIN 875 MG TAB PO SCH ×2 (08:10→20:19)
[2019-02-22] MEDS: MULTIVITAMINS/MINERALS THERAP 1 TAB PO SCH (08:11)
[2019-02-22] MEDS: TORSEMIDE 10 MG TABLET PO SCH (08:11)
[2019-02-22] MEDS: ATORVASTATIN 20 MG TAB PO SCH (08:11)
[2019-02-22] MEDS: APIXABAN 5 MG TAB (ELIQUIS) PO SCH ×2 (08:11→20:19)
[2019-02-22] MEDS: FLUoxetine 20 MG CAP PO SCH (08:11)
[2019-02-22] MEDS: PANTOPRAZOLE 40MG TAB (PROTONIX) PO SCH (08:11)
[2019-02-22] MEDS: VANICREAM MOISTURIZING SKIN CREAM 113GM TUBE TOP SCH (08:12)
[2019-02-22] MEDS: SANTYL OINT 30GM TOP SCH (08:12)
[2019-02-22] MEDS ORDERED: amLODIPine 5 MG TAB PO SCH (09:00)
--- NOTE | 2019-02-22 09:02 | IPNPDOC ---
Subjective Date Seen The patient was seen on 02/22/19. Subjective Chief Complaint/HPI I feel ok. Patient was noted to be bradycardic and since Hospitalist had seen him initially and I had seen him subsequently there was confusion about whom to call. Hospitalist apparently evaluated patient with his asymptomatic bradycardia and appropriately discontinued his beta stefanie. BP was elevated at the time and amlodipine was added. Patient denies CP, nausea, dyspnea, palpitations. Constitutional: Denies: Chills, Night Sweats ENT: Denies: Head Aches Cardiovascular: Denies: Chest Pain, Orthopnea Gastrointestinal: Denies: Nausea, Abdominal Pain Hematologic: Reports: Petecchia Objective Physical Examination General Exam: Positive: Alert, Cooperative, No Acute Distress (no pain, shortness of breath) Eye Exam: Positive: PERRLA, Conjunctiva & lids normal, EOMI ENT Exam: Positive: Atraumatic, Mucous membr. moist/pink, Pharynx Normal, Tongue Midline, Ext Auditory Canal Nml, Pinna Normal Neck Exam: Positive: Supple, +2 carotid pulse wo bruit Chest Exam: Positive: Clear to auscultation, Normal air movement Heart Exam: Positive: Bradycardic (sustained at rest HR <50 is new for him but last ECG 02/12/19 showed HR in 40's.), Irregular Rhythm (afib), Normal S1, Normal S2 Abdomen Exam: Positive: Normal bowel sounds, Soft, Other (Alba catheter draining hanna urine to bedside ) Extremity Exam: Positive: Edema (+3 pitting bilateral lower legs cool to touch), Swelling Skin Exam: Positive: Nl turgor and temperature, Breakdown (Tegaderm right lower extremity Intact to wound, third and fourth toe amputated right foot, mutliple wounds on lower legs), Other skin issue (small ecchymoses on chest, arms noted.) Neuro Exam: Positive: Other (speech slow, mildly slurred, mentationtakes patient wall to come up with the words he wants to verbalize, he does mix up some things he wants to say, mildly confused intermittently, laughs it off saying its because examiner made him laugh is the reason he forgot which hos pital he was in) Psych Exam: Positive: Anxiety (currently), Other (oriented to self and time/year) Assessment /Plan Problems (1) Chronic atrial fibrillation Status: Chronic Response to Treatment: Stable Problem Text: new finding of bradycardia. beta stefanie dose has been held. will monitor. provided his HR increases appropriately with activity and he remains symptom free, would expect HR to improve as beta stefanie effect dissipates. Will d/c metoprolol tartrate. Also contributing to bradycardia is donepezil. Both rate slowing agents will be stopped for now. If rate improves, donepezil could be resumed at 5mg/day. Also resume beta stefanie at lower dose if rate increases above 80 at rest. ECG reviewed: essentially unchanged other than rate with Afib, LBBB. Subtle changes in V4,V5 likely are due to lead position variability compared to previous record. (2) CVA (cerebral vascular accident) Status: Acute Response to Treatment: Improving Problem Text: here for rehab (3) Diabetic foot ulcers Status: Chronic Response to Treatment: Improving Problem Text: had been seeing account installation specialist for diabetic foot ulcers associated with Staph infection and venous stasis ulcer. No longer on vanco. Now on augmentin. Plan/VTE VTE Prophylaxis Ordered?: Yes VS, I&O, 24H, Fishbone Vital Signs/I&O Vital Signs Date Time Temp Pulse Resp B/P (MAP) Pulse Ox O2 Delivery O2 Flow Rate FiO2 02/22/19 06:35 42 178/80 02/22/19 05:43 96.9 18 100 I&O- Last 24 Hours up to 6 AM 02/22/19 06:00 Intake Total 720 ml Output Total 625 ml Balance 95 ml Israel Rodrigez MD Feb 22, 2019 09:02
[2019-02-22 09:44] VITALS: BP 154/70
[2019-02-22 14:00] VITALS: BP 176/76
[2019-02-22 15:04] VITALS: BP 138/70
--- NOTE | 2019-02-22 17:25 | ECGEPIP ---
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
[2019-02-22 20:00] VITALS: BP 147/67
[2019-02-22] MEDS: LATANOPROST 0.005% OPHTH SOLN 2.5 ML OU SCH (20:19)
[2019-02-22] MEDS: SENNA 8.6 MG TAB (SENOKOT) PO SCH (20:19)
[2019-02-23] MEDS: SODIUM CHLORIDE 0.9% INJ 10 ML SYR IV SCH ×2 (05:36→17:26)
[2019-02-23 06:00] VITALS: BP 170/82
[2019-02-23 06:24] LABS: HEMATOCRIT 32.4 % (42.0-52.0); HEMOGLOBIN 10.2 g/dl (13.5-17.5); MEAN CORPUSCULAR HEMOGLOBIN 31.8 pg (27.0-33.0); MEAN CORPUSCULAR HGB CONC 31.5 g/dl (32.0-36.5); MEAN CORPUSCULAR VOLUME 100.9 fl (80.0-96.0); PLATELET COUNT, AUTOMATED 323 10^3/uL (150-450); RED BLOOD COUNT 3.21 10^6/uL (4.30-6.10); WHITE BLOOD COUNT 8.1 10^3/uL (4.0-10.0)
[2019-02-23 06:55] LABS: C REACTIVE PROTEIN QUANTITATIV 1.85 MG/DL (0.00-0.30); FREE T4 1.31 NG/DL (0.76-1.46); THYROID STIMULATING HORMONE 3.2 uIU/ML (0.358-3.740)
[2019-02-23] MEDS: ATORVASTATIN 20 MG TAB PO SCH (08:26)
[2019-02-23] MEDS: PANTOPRAZOLE 40MG TAB (PROTONIX) PO SCH (08:26)
[2019-02-23] MEDS: AUGMENTIN 875 MG TAB PO SCH ×2 (08:26→20:14)
[2019-02-23] MEDS: FLUoxetine 20 MG CAP PO SCH (08:27)
[2019-02-23] MEDS: APIXABAN 5 MG TAB (ELIQUIS) PO SCH ×2 (08:27→20:14)
[2019-02-23] MEDS: amLODIPine 5 MG TAB PO SCH (08:27)
[2019-02-23] MEDS: MULTIVITAMINS/MINERALS THERAP 1 TAB PO SCH (08:27)
[2019-02-23] MEDS: TORSEMIDE 10 MG TABLET PO SCH (08:27)
[2019-02-23] MEDS: VANICREAM MOISTURIZING SKIN CREAM 113GM TUBE TOP SCH (08:28)
[2019-02-23] MEDS: SANTYL OINT 30GM TOP SCH (08:29)
[2019-02-23 14:00] VITALS: BP 174/74
[2019-02-23 15:34] VITALS: BP 148/64
--- NOTE | 2019-02-23 16:00 | IPNPDOC ---
PM&R Progress Note DATE OF SERVICE: Feb 23, 2019 Osteopathic Neurologist Progress Note Subjective: Patient reporting he feels well overall and thinks he is progressing in therapy. He denies pain. REVIEW OF SYSTEMS: The following is a completed review of systems and has been reviewed. Review of systems otherwise unremarkable. PAIN: Patient self reports no pain EYES: no recent vision changes EARS, NOSE, & THROAT: No throat pain, or dysphagia, or rhinorrhea CARDIOVASCULAR: Denies chest pain or palpitations PULMONARY: Denies shortness of breath GASTROINTESTINAL: Denies constipation/diarrhea GENITOURINARY: denies dysuria MUSCULOSKELETAL: right D4/D5 amputation NEUROLOGICAL:left sided weakness HEMATOLOGICAL: denies easy bruising SKIN: left lateral ankle wound and right foot amputation PSYCHIATRIC: Unremarkable All other review of systems found to be negative. PHYSICAL EXAMINATION: VITAL SIGNS: Please see below. GENERAL: Pleasant and cooperative. No acute distress. Obese HEENT: PERRL. Extraocular movements intact. Clear conjunctiva, +glasses CARDIOVASCULAR: Regular rate and rhythm. No murmurs, rubs, or gallops LUNGS: Clear to auscultation bilaterally. No wheezes. No rhonch ABDOMEN: Soft, nontender, nondistended. Positive bowel sounds. Normal active bowel sounds NEUROLOGICAL: Alert and oriented times three. Cranial nerves II through XII grossly intact. Sensation grossly intact, no facial droop, no neglect, no notable aphasia EXTREMITIES: 5\5 strength right upper extremity, 4+/5 left upper extremity 5\5 strength right hip flexors and knee extension, 4/5 ankle dorsiflexion. 5/5 strength in left lower extremity. SKIN: RUE PICC, hyperpigmented calves with scaly skin, right amputation site with sutures no induration/drainage Left lateral ankle ulcer unstageable with slough ASSESSMENT:78-year-old M with past medical history of DM, HTN, PAD with non- healing wound s/p right D4/5 amputation for osteomyelitis and right MCA stroke s/p tPA. PLAN: 1. 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 Neuro: s/p right MCA stroke thought to be embolic in setting of Afib, c/u Eliquis and statin therapy, monitor BPs, f/u Stroke clinic at [facility] -c/u prozac for motor recover -cognitive impairment/dementia-c/u Aricept on hold due to bradycardia- asymptomatic 3. Cardio: pmh Afib and HTN, c/u torsemide and Eliquis- will monitor BPs and ad just prn, medicine consulted to assist in management -metoprolol held over the weekend for bradycardia- asymptomatic, medicine recs appreciated -pmh PAD s/p right D4 and D5 toe amputation, will follow-up with vascular 4. Resp: encourage incentive spirometry- LUZ patient may use his own CPAP 5. ID: osteomyelitis, bone pathology pending, s/p Vanco/Zosyn, switched to Augmentin, ID recs appreciated 6. : monitor PVRs 7. GI ppx: protonix, optimize bowel regimen 8. DVT ppx: on eliquis 9. Skin: daily wound care, monitor for infection 10. Pain: Tylenol prn 11. Dispo: TBD 11. Endo: pmh DM however recent A1C 5.6% c/u diet control Allergies Coded Allergies: No Known Allergies (Unverified , 11/17/18) Vital Signs Vital Signs Date Time Temp Pulse Resp B/P (MAP) Pulse Ox O2 Delivery O2 Flow Rate FiO2 02/23/19 15:34 148/64 (92) 02/23/19 08:27 51 02/23/19 06:00 97.7 18 100 Laboratory Data CBC/BMP Laboratory Tests 02/23/19 05:50 Red Blood Count 3.21 L, Mean Corpuscular Volume 100.9 H, Mean Corpuscular Hemoglobin 31.8, Mean Corpuscular Hemoglobin Concent 31.5 L, Red Cell Distribution Width 13.3 Labs 24H Laboratory Tests 2 02/23/19 05:50: Nucleated Red Blood Cells % (auto) 0.0, C-Reactive Protein, Quantitative 1.85H, Thyroid Stimulating Hormone (TSH) 3.200, Free Thyroxine 1.31 Current Medications Current Medications Current Medications Medications (Trade) Dose Ordered Sig/Keely Route PRN Reason Start Time Stop Time Status Last Admin Dose Admin Acetaminophen (Tylenol Tab) 650 mg Q4HP PRN PO fever/pain 02/18/19 14:30 02/21/19 08:22 Amlodipine Besylate (Norvasc) 5 mg DAILY PO 10/13/19 09:00 02/23/19 07:53 DC Amlodipine Besylate (Norvasc) 10 mg DAILY PO 02/23/19 09:00 02/23/19 08:27 Amoxicillin/ Clavulanate Potassium (Augmentin) 875 mg BID PO 02/20/19 09:00 02/23/19 08:26 Apixaban (Eliquis) 5 mg BID PO 02/18/19 21:00 02/23/19 08:27 Atorvastatin Calcium (Lipitor) 40 mg DAILY PO 02/19/19 09:00 02/23/19 08:26 Bisacodyl (Dulcolax Suppository) 10 mg DAILYPRN PRN [place] CONSTIPATION 02/18/19 14:30 Collagenase (Santyl) 1 dose DAILY TOP 02/19/19 15:00 02/23/19 08:29 Donepezil HCl (AriCEPT) 10 mg QHS PO 02/19/19 21:00 02/22/19 08:58 DC 02/21/19 21:05 Emollient Cream (Vanicream) APPLY TO AFFECTED AREA DAILY TOP 02/20/19 09:00 02/23/19 08:28 Fluoxetine HCl (PROzac) 20 mg DAILY PO 02/20/19 09:00 02/23/19 08:27 Heparin Sodium (Heparin (Flush)) 200 units ASDIRECTED PRN IV SEE LABEL COMMENTS 02/18/19 17:00 02/23/19 05:36 Heparin Sodium (Heparin (Flush)) 200 units PICC IV 02/18/19 18:00 02/23/19 05:36 Home Med (Med Rec Complete!) ASDIRECTED XX 02/18/19 14:15 02/18/19 14:09 DC Latanoprost (Xalatan 0.005% Op Soln) 1 drop QHS OU 02/19/19 21:00 02/22/19 20:19 Metoprolol Tartrate (Lopressor) 25 mg Q8H PO 02/19/19 14:00 02/22/19 08:58 DC 02/21/19 21:06 Multivitamins (Theragram-M) 1 tab DAILY PO 02/20/19 09:00 02/23/19 08:27 Pantoprazole Sodium (Protonix) 40 mg DAILY PO 02/18/19 17:00 02/23/19 08:26 Piperacillin Sod/ Tazobactam Sod 3.375 gm/Dextrose 50 ml @ 50 mls/hr Q8H IV 02/18/19 17:00 02/19/19 22:21 DC 02/19/19 18:18 Senna (Senokot) 1 tab QHS PO 02/18/19 21:00 02/22/19 20:19 Sodium Chloride (Saline Lock Flush) 10 ml ASDIRECTED PRN IV SEE LABEL COMMENTS 02/18/19 17:00 02/23/19 05:36 Sodium Chloride (Saline Lock Flush) 10 ml PICC IV 02/18/19 18:00 02/23/19 05:36 Torsemide (Demadex) 10 mg DAILY PO 02/19/19 09:00 02/23/19 08:27 Vancomycin HCl 750 mg/IV Miscellaneous Supplies 1 each/ Dextrose 275 ml @ 275 mls/hr Q24H IV 02/19/19 10:00 02/19/19 13:00 DC 02/19/19 11:23 Vancomycin HCl 750 mg/IV Miscellaneous Supplies 1 each/ Dextrose 275 ml @ 275 mls/hr Q24H IV 02/20/19 07:00 02/19/19 18:02 DC Vancomycin HCl 1000 mg/IV Miscellaneous Supplies 1 each/ Dextrose 270 ml @ 270 mls/hr Q24H IV 02/19/19 09:00 02/19/19 12:59 DC 02/19/19 09:34 Vancomycin HCl 1000 mg/IV Miscellaneous Supplies 1 each/ Dextrose 270 ml @ 270 mls/hr Q24H IV 02/20/19 06:00 02/19/19 16:50 DC Vancomycin HCl 1750 mg/IV Miscellaneous Supplies 1 each/ Dextrose 285 ml @ 270 mls/hr Q24H IV 02/18/19 14:30 LASHELL DELGADO MD Feb 23, 2019 16:00
[2019-02-23] MEDS: LATANOPROST 0.005% OPHTH SOLN 2.5 ML OU SCH (20:14)
[2019-02-23] MEDS: SENNA 8.6 MG TAB (SENOKOT) PO SCH (20:14)
[2019-02-23 21:39] VITALS: BP 142/68
[2019-02-24 05:45] VITALS: BP 136/64
[2019-02-24] MEDS: AUGMENTIN 875 MG TAB PO SCH ×2 (08:35→20:51)
[2019-02-24] MEDS: TORSEMIDE 10 MG TABLET PO SCH (08:36)
[2019-02-24] MEDS: MULTIVITAMINS/MINERALS THERAP 1 TAB PO SCH (08:36)
[2019-02-24] MEDS: FLUoxetine 20 MG CAP PO SCH (08:36)
[2019-02-24] MEDS: ATORVASTATIN 20 MG TAB PO SCH (08:36)
[2019-02-24] MEDS: APIXABAN 5 MG TAB (ELIQUIS) PO SCH ×2 (08:36→20:51)
[2019-02-24] MEDS: amLODIPine 5 MG TAB PO SCH (08:36)
[2019-02-24] MEDS: PANTOPRAZOLE 40MG TAB (PROTONIX) PO SCH (08:36)
[2019-02-24] MEDS: VANICREAM MOISTURIZING SKIN CREAM 113GM TUBE TOP SCH (09:00)
[2019-02-24] MEDS ORDERED: POTASSIUM CHLORIDE 10 MEQ SR TABLET PO ONE (11:00)
[2019-02-24] MEDS: SANTYL OINT 30GM TOP SCH (13:30)
[2019-02-24 14:00] VITALS: BP 162/70
--- NOTE | 2019-02-24 17:02 | IPNPDOC ---
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 REVIEW OF SYSTEMS: The following is a completed review of systems and has been reviewed. Review of systems otherwise unremarkable. PAIN: Patient self reports no pain EYES: no recent vision changes EARS, NOSE, & THROAT: No throat pain, or dysphagia, or rhinorrhea CARDIOVASCULAR: Denies chest pain or palpitations PULMONARY: Denies shortness of breath GASTROINTESTINAL: Denies constipation/diarrhea GENITOURINARY: denies dysuria MUSCULOSKELETAL: right D4/D5 amputation NEUROLOGICAL:left sided weakness HEMATOLOGICAL: denies easy bruising SKIN: left lateral ankle wound and right foot amputation PSYCHIATRIC: Unremarkable All other review of systems found to be negative. PHYSICAL EXAMINATION: VITAL SIGNS: Please see below. GENERAL: Pleasant and cooperative. No acute distress. Obese HEENT: PERRL. Extraocular movements intact. Clear conjunctiva, +glasses CARDIOVASCULAR: Regular rate and rhythm. No murmurs, rubs, or gallops LUNGS: Clear to auscultation bilaterally. No wheezes. No rhonch ABDOMEN: Soft, nontender, nondistended. Positive bowel sounds. Normal active bowel sounds NEUROLOGICAL: Alert and oriented times three. Cranial nerves II through XII grossly intact. Sensation grossly intact, no facial droop, no neglect, no notable aphasia EXTREMITIES: 5\5 strength right upper extremity, 4+/5 left upper extremity 5\5 strength right hip flexors and knee extension, 4/5 ankle dorsiflexion. 5/5 stre ngth in left lower extremity. SKIN: RUE PICC, hyperpigmented calves with scaly skin, right amputation site with sutures no induration/drainage Left lateral ankle ulcer unstageable with slough ASSESSMENT:78-year-old M with past medical history of DM, HTN, PAD with non- healing wound s/p right D4/5 amputation for osteomyelitis and right MCA stroke s/p tPA. PLAN: 1. rehab: PT- maintain ROM, stretch and strenghten bilat LE- maintain PWB to RLE except ok WBAT per Dr. 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 Neuro: s/p right MCA stroke thought to be embolic in setting of Afib, c/u Eliquis and statin therapy, monitor BPs, f/u Stroke clinic at [facility] -c/u proza for motor recover -cognitive impairment/dementia-c/u Aricept on hold due to bradycardia- asymptomatic 3. Cardio: pmh Afib and HTN, c/u torsemide and Eliquis- will monitor BPs and adjust prn, medicine consulted to assist in management -metoprolol held over the weekend for bradycardia- asymptomatic, medicine recs appreciated -pmh PAD s/p right D4 and D5 toe amputation, will follow-up with vascular 4. Resp: encourage incentive spirometry- LUZ patient may use his own CPAP 5. ID: osteomyelitis, bone pathology pending, s/p Vanco/Zosyn, switched to Augmentin, ID recs appreciated 6. : monitor PVRs 7. GI ppx: protonix, optimize bowel regimen 8. DVT ppx: on eliquis 9. Skin: daily wound care, monitor for infection 10. Pain: Tylenol prn 11. Endo: pmh DM however recent A1C 5.6% c/u diet control 12. Dispo: 03-10-19 to home Allergies Coded Allergies: No Known Allergies (Unverified , 11/17/18) Vital Signs Vital Signs Date Time Temp Pulse Resp B/P (MAP) Pulse Ox O2 Delivery O2 Flow Rate FiO2 02/24/19 14:00 97.8 69 18 162/70 (100) 100 Laboratory Data Labs 24H Laboratory Tests 2 02/23/19 19:46: Bedside Glucose (Misc Panel) 167H 02/24/19 05:44: Bedside Glucose (Misc Panel) 117H Current Medications Current Medications Current Medications Medications (Trade) Dose Ordered Sig/Keely Route PRN Reason Start Time Stop Time Status Last Admin Dose Admin Acetaminophen (Tylenol Tab) 650 mg Q4HP PRN PO fever/pain 02/18/19 14:30 02/21/19 08:22 Amlodipine Besylate (Norvasc) 5 mg DAILY PO 02/22/19 09:00 02/23/19 07:53 DC Amlodipine Besylate (Norvasc) 10 mg DAILY PO 02/23/19 09:00 02/24/19 08:36 Amoxicillin/ Clavulanate Potassium (Augmentin) 875 mg BID PO 02/20/19 09:00 02/24/19 08:35 Apixaban (Eliquis) 5 mg BID PO 02/18/19 21:00 02/24/19 08:36 Atorvastatin Calcium (Lipitor) 40 mg DAILY PO 02/19/19 09:00 02/24/19 08:36 Bisacodyl (Dulcolax Suppository) 10 mg DAILYPRN PRN [place] CONSTIPATION 02/18/19 14:30 Collagenase (Santyl) 1 dose DAILY TOP 02/19/19 15:00 02/23/19 08:29 Donepezil HCl (AriCEPT) 10 mg QHS PO 02/19/19 21:00 02/22/19 08:58 DC 02/21/19 21:05 Emollient Cream (Vanicream) APPLY TO AFFECTED AREA DAILY TOP 02/20/19 09:00 02/24/19 09:00 Fluoxetine HCl (PROzac) 20 mg DAILY PO 02/20/19 09:00 02/24/19 08:36 Heparin Sodium (Heparin (Flush)) 200 units ASDIRECTED PRN IV SEE LABEL COMMENTS 02/18/19 17:00 02/24/19 00:59 DC 02/23/19 05:36 Heparin Sodium (Heparin (Flush)) 200 units PICC IV 02/18/19 18:00 02/24/19 00:59 DC 02/23/19 05:36 Home Med (Med Rec Complete!) ASDIRECTED XX 02/18/19 14:15 02/18/19 14:09 DC Latanoprost (Xalatan 0.005% Op Soln) 1 drop QHS OU 02/19/19 21:00 02/23/19 20:14 Metoprolol Tartrate (Lopressor) 25 mg Q8H PO 02/19/19 14:00 02/22/19 08:58 DC 02/21/19 21:06 Multivitamins (Theragram-M) 1 tab DAILY PO 02/20/19 09:00 02/24/19 08:36 Pantoprazole Sodium (Protonix) 40 mg DAILY PO 02/18/19 17:00 02/24/19 08:36 Piperacillin Sod/ Tazobactam Sod 3.375 gm/Dextrose 50 ml @ 50 mls/hr Q8H IV 02/18/19 17:00 02/19/19 22:21 DC 02/19/19 18:18 Senna (Senokot) 1 tab QHS PO 02/18/19 21:00 02/23/19 20:14 Sodium Chloride (Saline Lock Flush) 10 ml ASDIRECTED PRN IV SEE LABEL COMMENTS 02/18/19 17:00 02/24/19 00:59 DC 02/23/19 05:36 Sodium Chloride (Saline Lock Flush) 10 ml PICC IV 02/18/19 18:00 02/24/19 00:59 DC 02/23/19 05:36 Torsemide (Demadex) 10 mg DAILY PO 02/19/19 09:00 02/24/19 08:36 Vancomycin HCl 750 mg/IV Miscellaneous Supplies 1 each/ Dextrose 275 ml @ 275 mls/hr Q24H IV 02/19/19 10:00 02/19/19 13:00 DC 02/19/19 11:23 Vancomycin HCl 750 mg/IV Miscellaneous Supplies 1 each/ Dextrose 275 ml @ 275 mls/hr Q24H IV 02/20/19 07:00 02/19/19 18:02 DC Vancomycin HCl 1000 mg/IV Miscellaneous Supplies 1 each/ Dextrose 270 ml @ 270 mls/hr Q24H IV 02/19/19 09:00 02/19/19 12:59 DC 02/19/19 09:34 Vancomycin HCl 1000 mg/IV Miscellaneous Supplies 1 each/ Dextrose 270 ml @ 270 mls/hr Q24H IV 02/20/19 06:00 02/19/19 16:50 DC Vancomycin HCl 1750 mg/IV Miscellaneous Supplies 1 each/ Dextrose 285 ml @ 270 mls/hr Q24H IV 02/18/19 14:30 LASHELL DELGADO MD Feb 24, 2019 17:02
[2019-02-24] MEDS: LATANOPROST 0.005% OPHTH SOLN 2.5 ML OU SCH (20:51)
[2019-02-24] MEDS: SENNA 8.6 MG TAB (SENOKOT) PO SCH (20:51)
[2019-02-24] MEDS: ACETAMINOPHEN TAB 650MG DOSE (2X325MG) PO PRN (20:51)
[2019-02-24 20:54] VITALS: BP 115/67
[2019-02-25 06:00] VITALS: BP 133/89
[2019-02-25] MEDS: FLUoxetine 20 MG CAP PO SCH (08:21)
[2019-02-25] MEDS: amLODIPine 5 MG TAB PO SCH (08:22)
[2019-02-25] MEDS: ATORVASTATIN 20 MG TAB PO SCH (08:22)
[2019-02-25] MEDS: TORSEMIDE 10 MG TABLET PO SCH (08:22)
[2019-02-25] MEDS: MULTIVITAMINS/MINERALS THERAP 1 TAB PO SCH (08:22)
[2019-02-25] MEDS: AUGMENTIN 875 MG TAB PO SCH ×2 (08:22→20:39)
[2019-02-25] MEDS: PANTOPRAZOLE 40MG TAB (PROTONIX) PO SCH (08:22)
[2019-02-25] MEDS: APIXABAN 5 MG TAB (ELIQUIS) PO SCH ×2 (08:22→20:39)
[2019-02-25] MEDS: VANICREAM MOISTURIZING SKIN CREAM 113GM TUBE TOP SCH (09:00)
[2019-02-25] MEDS: SANTYL OINT 30GM TOP SCH (09:00)
[2019-02-25] MEDS: DONEPEZIL 5 MG TAB PO SCH (12:58)
[2019-02-25 14:00] VITALS: BP 152/70
--- NOTE | 2019-02-25 17:30 | IPNPDOC ---
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 He has no complaints. REVIEW OF SYSTEMS: The following is a completed review of systems and has been reviewed. Review of systems otherwise unremarkable. PAIN: Patient self reports no pain EYES: no recent vision changes EARS, NOSE, & THROAT: No throat pain, or dysphagia, or rhinorrhea CARDIOVASCULAR: Denies chest pain or palpitations PULMONARY: Denies shortness of breath GASTROINTESTINAL: Denies constipation/diarrhea GENITOURINARY: denies dysuria MUSCULOSKELETAL: right D4/D5 amputation NEUROLOGICAL:left sided weakness HEMATOLOGICAL: denies easy bruising SKIN: left lateral ankle wound and right foot amputation PSYCHIATRIC: Unremarkable All other review of systems found to be negative. PHYSICAL EXAMINATION: VITAL SIGNS: Please see below. GENERAL: Pleasant and cooperative. No acute distress. Obese HEENT: PERRL. Extraocular movements intact. Clear conjunctiva, +glasses CARDIOVASCULAR: Regular rate and rhythm. No murmurs, rubs, or gallops LUNGS: Clear to auscultation bilaterally. No wheezes. No rhonch ABDOMEN: Soft, nontender, nondistended. Positive bowel sounds. Normal active bowel sounds NEUROLOGICAL: Alert and oriented times three. Cranial nerves II through XII grossly intact. Sensation grossly intact, no facial droop, no neglect, no notable aphasia EXTREMITIES: 5\5 strength right upper extremity, 4+/5 left upper extremity 5\5 strength right hip flexors and knee extension, 4/5 ankle dorsiflexion. 5/5 strength in left lower extremity. SKIN: RUE PICC, hyperpigmented calves with scaly skin, right amputation site with sutures no induration/drainage Left lateral ankle ulcer unstageable with slough ASSESSMENT:78-year-old M with past medical history of DM, HTN, PAD with non- healing wound s/p right D4/5 amputation for osteomyelitis and right MCA stroke s/p tPA. PLAN: 1. rehab: PT- maintain ROM, stretch and strenghten bilat LE- maintain PWB to RLE except ok WBAT per Dr. 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 Neuro: s/p right MCA stroke thought to be embolic in setting of Afib, c/u Eliquis and statin therapy, monitor BPs, f/u Stroke clinic at [facility] -c/u prozac for motor recover -cognitive impairment/dementia-bradycardia improved, will restarted Aricept at lower dose 5mg and monitor 3. Cardio: pmh Afib and HTN, c/u torsemide and Eliquis- will monitor BPs and a djust prn, Amlodiipine added, medicine consulted to assist in management -metoprolol held over the weekend for bradycardia- asymptomatic, medicine recs appreciated -pmh PAD s/p right D4 and D5 toe amputation, will follow-up with vascular 4. Resp: encourage incentive spirometry- LUZ patient may use his own CPAP 5. ID: osteomyelitis, bone pathology pending, s/p Vanco/Zosyn, switched to Augmentin, ID recs appreciated 6. : monitor PVRs 7. GI ppx: protonix, optimize bowel regimen 8. DVT ppx: on eliquis 9. Skin: daily wound care, monitor for infection 10. Pain: Tylenol prn 11. Endo: pmh DM however recent A1C 5.6% c/u diet control 12. Dispo: 03-10-19 to home Allergies Coded Allergies: No Known Allergies (Unverified , 11/17/18) Vital Signs Vital Signs Date Time Temp Pulse Resp B/P (MAP) Pulse Ox O2 Delivery O2 Flow Rate FiO2 02/25/19 14:00 97.3 66 17 152/70 (97) 98 Laboratory Data Labs 24H Laboratory Tests 2 02/24/19 17:56: Bedside Glucose (Misc Panel) 146H 02/25/19 05:50: Bedside Glucose (Misc Panel) 101 02/25/19 16:43: Bedside Glucose (Misc Panel) 150H Current Medications Current Medications Current Medications Medications (Trade) Dose Ordered Sig/Keely Route PRN Reason Start Time Stop Time Status Last Admin Dose Admin Acetaminophen (Tylenol Tab) 650 mg Q4HP PRN PO fever/pain 02/18/19 14:30 02/24/19 20:51 Amlodipine Besylate (Norvasc) 5 mg DAILY PO 02/22/19 09:00 02/23/19 07:53 DC Amlodipine Besylate (Norvasc) 10 mg DAILY PO 02/23/19 09:00 02/25/19 08:22 Amoxicillin/ Clavulanate Potassium (Augmentin) 875 mg BID PO 02/20/19 09:00 02/25/19 08:22 Apixaban (Eliquis) 5 mg BID PO 02/18/19 21:00 02/25/19 08:22 Atorvastatin Calcium (Lipitor) 40 mg DAILY PO 02/19/19 09:00 02/25/19 08:22 Bisacodyl (Dulcolax Suppository) 10 mg DAILYPRN PRN [place] CONSTIPATION 02/18/19 14:30 Collagenase (Santyl) 1 dose DAILY TOP 02/19/19 15:00 02/24/19 13:30 Donepezil HCl (AriCEPT) 5 mg DAILY PO 02/25/19 09:00 02/25/19 12:58 Donepezil HCl (AriCEPT) 10 mg QHS PO 02/19/19 21:00 02/22/19 08:58 DC 02/21/19 21:05 Emollient Cream (Vanicream) APPLY TO AFFECTED AREA DAILY TOP 02/20/19 09:00 02/24/19 09:00 Fluoxetine HCl (PROzac) 20 mg DAILY PO 02/20/19 09:00 02/25/19 08:21 Heparin Sodium (Heparin (Flush)) 200 units ASDIRECTED PRN IV SEE LABEL COMMENTS 02/18/19 17:00 02/24/19 00:59 DC 02/23/19 05:36 Heparin Sodium (Heparin (Flush)) 200 units PICC IV 02/18/19 18:00 02/24/19 00:59 DC 02/23/19 05:36 Home Med (Med Rec Complete!) ASDIRECTED XX 02/18/19 14:15 02/18/19 14:09 DC Latanoprost (Xalatan 0.005% Op Soln) 1 drop QHS OU 02/19/19 21:00 02/24/19 20:51 Metoprolol Tartrate (Lopressor) 25 mg Q8H PO 02/19/19 14:00 02/22/19 08:58 DC 02/21/19 21:06 Multivitamins (Theragram-M) 1 tab DAILY PO 02/20/19 09:00 02/25/19 08:22 Pantoprazole Sodium (Protonix) 40 mg DAILY PO 02/18/19 17:00 02/25/19 08:22 Piperacillin Sod/ Tazobactam Sod 3.375 gm/Dextrose 50 ml @ 50 mls/hr Q8H IV 02/18/19 17:00 02/19/19 22:21 DC 02/19/19 18:18 Senna (Senokot) 1 tab QHS PO 02/18/19 21:00 02/24/19 20:51 Sodium Chloride (Saline Lock Flush) 10 ml ASDIRECTED PRN IV SEE LABEL COMMENTS 02/18/19 17:00 02/24/19 00:59 DC 02/23/19 05:36 Sodium Chloride (Saline Lock Flush) 10 ml PICC IV 02/18/19 18:00 02/24/19 00:59 DC 02/23/19 05:36 Torsemide (Demadex) 10 mg DAILY PO 02/19/19 09:00 02/25/19 08:22 Vancomycin HCl 750 mg/IV Miscellaneous Supplies 1 each/ Dextrose 275 ml @ 275 mls/hr Q24H IV 02/19/19 10:00 02/19/19 13:00 DC 02/19/19 11:23 Vancomycin HCl 750 mg/IV Miscellaneous Supplies 1 each/ Dextrose 275 ml @ 275 mls/hr Q24H IV 02/20/19 07:00 02/19/19 18:02 DC Vancomycin HCl 1000 mg/IV Miscellaneous Supplies 1 each/ Dextrose 270 ml @ 270 mls/hr Q24H IV 02/19/19 09:00 02/19/19 12:59 DC 02/19/19 09:34 Vancomycin HCl 1000 mg/IV Miscellaneous Supplies 1 each/ Dextrose 270 ml @ 270 mls/hr Q24H IV 02/20/19 06:00 02/19/19 16:50 DC Vancomycin HCl 1750 mg/IV Miscellaneous Supplies 1 each/ Dextrose 285 ml @ 270 mls/hr Q24H IV 02/18/19 14:30 LASHELL DELGADO MD Feb 25, 2019 17:30
[2019-02-25 20:25] VITALS: BP 189/77
[2019-02-25 20:39] VITALS: BP 156/80
[2019-02-25] MEDS: SENNA 8.6 MG TAB (SENOKOT) PO SCH (20:39)
[2019-02-25] MEDS: LATANOPROST 0.005% OPHTH SOLN 2.5 ML OU SCH (20:39)
[2019-02-26 05:35] VITALS: BP 168/74
[2019-02-26] MEDS: PANTOPRAZOLE 40MG TAB (PROTONIX) PO SCH (08:26)
[2019-02-26] MEDS: SANTYL OINT 30GM TOP SCH (08:26)
[2019-02-26] MEDS: amLODIPine 5 MG TAB PO SCH (08:26)
[2019-02-26] MEDS: AUGMENTIN 875 MG TAB PO SCH ×2 (08:26→20:35)
[2019-02-26] MEDS: DONEPEZIL 5 MG TAB PO SCH (08:26)
[2019-02-26] MEDS: APIXABAN 5 MG TAB (ELIQUIS) PO SCH ×2 (08:26→20:35)
[2019-02-26] MEDS: ATORVASTATIN 20 MG TAB PO SCH (08:26)
[2019-02-26] MEDS: FLUoxetine 20 MG CAP PO SCH (08:26)
[2019-02-26] MEDS: TORSEMIDE 10 MG TABLET PO SCH (08:26)
[2019-02-26] MEDS: MULTIVITAMINS/MINERALS THERAP 1 TAB PO SCH (08:26)
[2019-02-26] MEDS: VANICREAM MOISTURIZING SKIN CREAM 113GM TUBE TOP SCH (08:27)
[2019-02-26 14:00] VITALS: BP_SYST 145
[2019-02-26 20:00] VITALS: BP 164/80
[2019-02-26] MEDS: SENNA 8.6 MG TAB (SENOKOT) PO SCH (20:35)
[2019-02-26] MEDS: LATANOPROST 0.005% OPHTH SOLN 2.5 ML OU SCH (20:36)
[2019-02-27 05:51] VITALS: BP 129/66
[2019-02-27 07:51] LABS: BASO # 0.1 10^3/uL (0.0-0.2); BASO % 1.2 % (0.0-1.0); EOS # 0.2 10^3/uL (0.0-0.5); EOS % 2.7 % (0.0-3.0); HEMATOCRIT 32.9 % (42.0-52.0); HEMOGLOBIN 10.6 g/dl (13.5-17.5); LYMPH # 1.2 10^3/uL (1.5-5.0); MEAN CORPUSCULAR HGB CONC 32.2 g/dl (32.0-36.5); MEAN CORPUSCULAR VOLUME 99.4 fl (80.0-96.0); MONO # 0.7 10^3/uL (0.0-0.8); MONO % 8.4 % (0.0-5.0); NEUTROPHILS # 5.8 10^3/uL (1.5-8.5); NEUTROPHILS % 72.5 % (36.0-66.0); PLATELET COUNT, AUTOMATED 326 10^3/uL (150-450); RED BLOOD COUNT 3.31 10^6/uL (4.30-6.10)
[2019-02-27 08:11] LABS: BLOOD UREA NITROGEN 12 MG/DL (7-18); C REACTIVE PROTEIN QUANTITATIV 2.12 MG/DL (0.00-0.30); CALCIUM LEVEL 9.3 MG/DL (8.8-10.2); CARBON DIOXIDE LEVEL 30 MEQ/L (21-32); CHLORIDE LEVEL 101 MEQ/L (98-107); CREATININE FOR GFR 1.21 MG/DL (0.70-1.30); GLOMERULAR FILTRATION RATE > 60.0 (>42); GLUCOSE, FASTING 139 MG/DL (70-100); POTASSIUM SERUM 4.1 MEQ/L (3.5-5.1); SODIUM LEVEL 135 MEQ/L (136-145)
[2019-02-27 08:20] LABS: ERYTHROCYTE SEDIMENTATION RATE 56 mm/hr (0-20)
[2019-02-27] MEDS: ATORVASTATIN 20 MG TAB PO SCH (08:23)
[2019-02-27] MEDS: APIXABAN 5 MG TAB (ELIQUIS) PO SCH ×2 (08:23→20:12)
[2019-02-27] MEDS: PANTOPRAZOLE 40MG TAB (PROTONIX) PO SCH (08:23)
[2019-02-27] MEDS: AUGMENTIN 875 MG TAB PO SCH ×2 (08:23→20:12)
[2019-02-27] MEDS: MULTIVITAMINS/MINERALS THERAP 1 TAB PO SCH (08:23)
[2019-02-27] MEDS: TORSEMIDE 10 MG TABLET PO SCH (08:24)
[2019-02-27] MEDS: FLUoxetine 20 MG CAP PO SCH (08:24)
[2019-02-27] MEDS: amLODIPine 5 MG TAB PO SCH (08:24)
[2019-02-27] MEDS: DONEPEZIL 5 MG TAB PO SCH (08:24)
[2019-02-27] MEDS: ACETAMINOPHEN TAB 650MG DOSE (2X325MG) PO PRN (08:25)
[2019-02-27] MEDS: VANICREAM MOISTURIZING SKIN CREAM 113GM TUBE TOP SCH (09:00)
[2019-02-27 14:04] VITALS: BP 153/69
[2019-02-27] MEDS: SANTYL OINT 30GM TOP SCH (14:13)
[2019-02-27 19:35] VITALS: BP 157/67
[2019-02-27] MEDS: SENNA 8.6 MG TAB (SENOKOT) PO SCH (20:12)
[2019-02-27] MEDS: LATANOPROST 0.005% OPHTH SOLN 2.5 ML OU SCH (20:13)
[2019-02-28] MEDS: PANTOPRAZOLE 40MG TAB (PROTONIX) PO SCH (08:37)
[2019-02-28] MEDS: DONEPEZIL 5 MG TAB PO SCH (08:37)
[2019-02-28] MEDS: TORSEMIDE 10 MG TABLET PO SCH (08:37)
[2019-02-28] MEDS: amLODIPine 5 MG TAB PO SCH (08:38)
[2019-02-28] MEDS: MULTIVITAMINS/MINERALS THERAP 1 TAB PO SCH (08:38)
[2019-02-28] MEDS: ATORVASTATIN 20 MG TAB PO SCH (08:38)
[2019-02-28] MEDS: AUGMENTIN 875 MG TAB PO SCH ×2 (08:38→20:15)
[2019-02-28] MEDS: FLUoxetine 20 MG CAP PO SCH (08:38)
[2019-02-28] MEDS: APIXABAN 5 MG TAB (ELIQUIS) PO SCH ×2 (08:38→20:15)
[2019-02-28] MEDS: VANICREAM MOISTURIZING SKIN CREAM 113GM TUBE TOP SCH (10:22)
[2019-02-28] MEDS: SANTYL OINT 30GM TOP SCH (11:00)
[2019-02-28 14:00] VITALS: BP 122/80
[2019-02-28 19:30] VITALS: BP 175/79
[2019-02-28] MEDS: SENNA 8.6 MG TAB (SENOKOT) PO SCH (20:15)
[2019-02-28] MEDS: LATANOPROST 0.005% OPHTH SOLN 2.5 ML OU SCH (20:17)
[2019-03-01 05:00] VITALS: BP 148/82
[2019-03-01] MEDS: FLUoxetine 20 MG CAP PO SCH (08:09)
[2019-03-01] MEDS: amLODIPine 5 MG TAB PO SCH (08:09)
[2019-03-01] MEDS: PANTOPRAZOLE 40MG TAB (PROTONIX) PO SCH (08:09)
[2019-03-01] MEDS: TORSEMIDE 10 MG TABLET PO SCH (08:09)
[2019-03-01] MEDS: AUGMENTIN 875 MG TAB PO SCH ×2 (08:09→20:05)
[2019-03-01] MEDS: MULTIVITAMINS/MINERALS THERAP 1 TAB PO SCH (08:09)
[2019-03-01] MEDS: DONEPEZIL 5 MG TAB PO SCH (08:09)
[2019-03-01] MEDS: ATORVASTATIN 20 MG TAB PO SCH (08:09)
[2019-03-01] MEDS: APIXABAN 5 MG TAB (ELIQUIS) PO SCH ×2 (08:09→20:05)
[2019-03-01] MEDS: SANTYL OINT 30GM TOP SCH (08:10)
[2019-03-01] MEDS: VANICREAM MOISTURIZING SKIN CREAM 113GM TUBE TOP SCH (08:11)
[2019-03-01 14:00] VITALS: BP 168/73
[2019-03-01 20:00] VITALS: BP 152/71
[2019-03-01] MEDS: LATANOPROST 0.005% OPHTH SOLN 2.5 ML OU SCH (20:05)
[2019-03-01] MEDS: SENNA 8.6 MG TAB (SENOKOT) PO SCH (20:05)
[2019-03-02 06:00] VITALS: BP 172/85
[2019-03-02 07:17] LABS: BLOOD UREA NITROGEN 12 MG/DL (7-18); CALCIUM LEVEL 9.5 MG/DL (8.8-10.2); CARBON DIOXIDE LEVEL 32 MEQ/L (21-32); CHLORIDE LEVEL 98 MEQ/L (98-107); CREATININE FOR GFR 1.17 MG/DL (0.70-1.30); GLOMERULAR FILTRATION RATE > 60.0 (>42); GLUCOSE, FASTING 108 MG/DL (70-100); POTASSIUM SERUM 4.1 MEQ/L (3.5-5.1); SODIUM LEVEL 135 MEQ/L (136-145)
[2019-03-02] MEDS: MULTIVITAMINS/MINERALS THERAP 1 TAB PO SCH (08:41)
[2019-03-02] MEDS: DONEPEZIL 5 MG TAB PO SCH (08:41)
[2019-03-02] MEDS: FLUoxetine 20 MG CAP PO SCH (08:41)
[2019-03-02] MEDS: PANTOPRAZOLE 40MG TAB (PROTONIX) PO SCH (08:41)
[2019-03-02] MEDS: APIXABAN 5 MG TAB (ELIQUIS) PO SCH ×2 (08:41→19:49)
[2019-03-02] MEDS: AUGMENTIN 875 MG TAB PO SCH (08:41)
[2019-03-02] MEDS: TORSEMIDE 10 MG TABLET PO SCH (08:42)
[2019-03-02] MEDS: ATORVASTATIN 20 MG TAB PO SCH (08:42)
[2019-03-02] MEDS: amLODIPine 5 MG TAB PO SCH (08:42)
[2019-03-02] MEDS: SANTYL OINT 30GM TOP SCH (08:43)
[2019-03-02] MEDS: VANICREAM MOISTURIZING SKIN CREAM 113GM TUBE TOP SCH (08:44)
[2019-03-02 14:00] VITALS: BP 150/67
[2019-03-02 19:45] VITALS: BP 179/82
[2019-03-02] MEDS: SENNA 8.6 MG TAB (SENOKOT) PO SCH (19:49)
[2019-03-02] MEDS: LATANOPROST 0.005% OPHTH SOLN 2.5 ML OU SCH (19:49)
[2019-03-02 19:52] VITALS: BP 152/68
[2019-03-03 05:10] VITALS: BP 169/74
[2019-03-03 06:48] LABS: BASO # 0.1 10^3/uL (0.0-0.2); BASO % 1.1 % (0.0-1.0); EOS # 0.3 10^3/uL (0.0-0.5); HEMATOCRIT 33.6 % (42.0-52.0); HEMOGLOBIN 10.5 g/dl (13.5-17.5); LYMPH # 1.1 10^3/uL (1.5-5.0); LYMPH % 15.4 % (24.0-44.0); MEAN CORPUSCULAR HEMOGLOBIN 31.1 pg (27.0-33.0); MEAN CORPUSCULAR HGB CONC 31.3 g/dl (32.0-36.5); MEAN CORPUSCULAR VOLUME 99.4 fl (80.0-96.0); MONO # 0.6 10^3/uL (0.0-0.8); NEUTROPHILS # 5.2 10^3/uL (1.5-8.5); NEUTROPHILS % 71.2 % (36.0-66.0); PLATELET COUNT, AUTOMATED 332 10^3/uL (150-450); RED BLOOD COUNT 3.38 10^6/uL (4.30-6.10); WHITE BLOOD COUNT 7.2 10^3/uL (4.0-10.0)
[2019-03-03 07:12] LABS: BLOOD UREA NITROGEN 13 MG/DL (7-18); C REACTIVE PROTEIN QUANTITATIV 2.06 MG/DL (0.00-0.30); CALCIUM LEVEL 9.5 MG/DL (8.8-10.2); CARBON DIOXIDE LEVEL 32 MEQ/L (21-32); CHLORIDE LEVEL 100 MEQ/L (98-107); CREATININE FOR GFR 1.14 MG/DL (0.70-1.30); GLOMERULAR FILTRATION RATE > 60.0 (>42); GLUCOSE, FASTING 114 MG/DL (70-100); POTASSIUM SERUM 4.2 MEQ/L (3.5-5.1); SODIUM LEVEL 137 MEQ/L (136-145)
[2019-03-03 07:16] LABS: ERYTHROCYTE SEDIMENTATION RATE 61 mm/hr (0-20)
--- NOTE | 2019-03-03 07:57 | IPN ---
DATE: 03/02/2019 Mr. Felipe is doing well. He is scheduled to be hopefully discharge at the end of the week. He has no nausea, vomiting or diarrhea. No abdominal pain. Right foot sutures are still in place, status post ray amputation. Dr. Medina was on the floor and I asked him to come and see the patient and hopefully sutures could be removed. MEDICATIONS: Augmentin currently day number 10. PHYSICAL EXAMINATION: On physical examination, temperature is 97.5, pulse 72, respirations 18, blood pressure 150/67, oxygen saturation 92% on room air. Right foot: No redness, swelling. Sutures in place status post right foot surgical excision with absence of 4th and 5th toe. An ulcer on the medial calf, superficial with no purulent discharge. IMPRESSION: Diabetic foot ulcer with gangrene status post amputation. No evidence of infection. Culture was positive for Staphylococcus aureus. PLAN: Discontinue Augmentin, remove sutures today.
[2019-03-03] MEDS: MULTIVITAMINS/MINERALS THERAP 1 TAB PO SCH (08:34)
[2019-03-03] MEDS: DONEPEZIL 5 MG TAB PO SCH (08:34)
[2019-03-03] MEDS: PANTOPRAZOLE 40MG TAB (PROTONIX) PO SCH (08:34)
[2019-03-03] MEDS: TORSEMIDE 10 MG TABLET PO SCH (08:34)
[2019-03-03] MEDS: APIXABAN 5 MG TAB (ELIQUIS) PO SCH ×2 (08:34→20:22)
[2019-03-03] MEDS: FLUoxetine 20 MG CAP PO SCH (08:34)
[2019-03-03] MEDS: ATORVASTATIN 20 MG TAB PO SCH (08:35)
[2019-03-03] MEDS: SANTYL OINT 30GM TOP SCH (08:35)
[2019-03-03] MEDS: VANICREAM MOISTURIZING SKIN CREAM 113GM TUBE TOP SCH (08:35)
[2019-03-03] MEDS: amLODIPine 5 MG TAB PO SCH (08:35)
--- NOTE | 2019-03-03 11:33 | IPNPDOC ---
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 REVIEW OF SYSTEMS: The following is a completed review of systems and has been reviewed. Review of systems otherwise unremarkable. PAIN: Patient self reports no pain EYES: no recent vision changes EARS, NOSE, & THROAT: No throat pain, or dysphagia, or rhinorrhea CARDIOVASCULAR: Denies chest pain or palpitations PULMONARY: Denies shortness of breath GASTROINTESTINAL: Denies constipation/diarrhea GENITOURINARY: denies dysuria MUSCULOSKELETAL: right D4/D5 amputation NEUROLOGICAL:left sided weakness HEMATOLOGICAL: denies easy bruising SKIN: left lateral ankle wound and right foot amputation PSYCHIATRIC: Unremarkable All other review of systems found to be negative. PHYSICAL EXAMINATION: VITAL SIGNS: Please see below. GENERAL: Pleasant and cooperative. No acute distress. Obese HEENT: PERRL. Extraocular movements intact. Clear conjunctiva, +glasses CARDIOVASCULAR: Regular rate and rhythm. No murmurs, rubs, or gallops LUNGS: Clear to auscultation bilaterally. No wheezes. No rhonch ABDOMEN: Soft, nontender, nondistended. Positive bowel sounds. Normal active bowel sounds NEUROLOGICAL: Alert and oriented times three. Cranial nerves II through XII grossly intact. Sensation grossly intact, no facial droop, no neglect, no notable aphasia EXTREMITIES: 5\5 strength right upper extremity, 4+/5 left upper extremity 5\5 strength right hip flexors and knee extension, 4/5 ankle dorsiflexion. 5/5 strength in left lower extremity. SKIN: RUE PICC, hyperpigmented calves with scaly skin, right amputation site with sutures no induration/drainage Left lateral ankle ulcer unstageable with slough Right inter-digit D1-D2 stage 2 pressure ulcer ASSESSMENT:78-year-old M with past medical history of DM, HTN, PAD with non- healing wound s/p right D4/5 amputation for osteomyelitis and right MCA stroke s/p tPA. PLAN: 1. rehab: PT- maintain ROM, stretch and strenghten bilat LE- maintain PWB to RLE except ok WBAT per Dr. 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 Cardio: pmh Afib and HTN, c/u torsemide and Eliquis- will monitor BPs and adjust prn, c/u Amlodipine, medicine consulted to assist in management -metoprolol held over the weekend for bradycardia- asymptomatic, medicine recs appreciated -pmh PAD s/p right D4 and D5 toe amputation, will follow-up with vascular 4. Resp: encourage incentive spirometry- LUZ patient may use his own CPAP 5. ID: osteomyelitis, bone pathology pending, s/p Vanco/Zosyn, switched to Augmentin, ID recs appreciated 6. : monitor PVRs 7. GI ppx: protonix, optimize bowel regimen 8. DVT ppx: on eliquis 9. Skin: daily wound care, monitor for infection, patient with new inter-digit (D1-D2) ulcers on the right foot, wound care adjusted to optimize healing 10. Pain: Tylenol prn 11. Endo: pmh DM however recent A1C 5.6% c/u diet control 12. Dispo: 03-10-19 to home Allergies Coded Allergies: No Known Allergies (Unverified , 11/17/18) Vital Signs Vital Signs Date Time Temp Pulse Resp B/P (MAP) Pulse Ox O2 Delivery O2 Flow Rate FiO2 03/03/19 08:35 57 169/74 03/03/19 05:10 98.0 17 96 Room Air Laboratory Data CBC/BMP Laboratory Tests 03/03/19 06:17 Labs 24H Laboratory Tests 2 03/02/19 16:49: Bedside Glucose (Misc Panel) 122H 03/03/19 05:25: Bedside Glucose (Misc Panel) 107 03/03/19 06:17: Immature Granulocyte % (Auto) 0.3, Neutrophils (%) (Auto) 71.2H, Lymphocytes (%) (Auto) 15.4L, Monocytes (%) (Auto) 8.0H, Eosinophils (%) (Auto) 4.0H, Basophils (%) (Auto) 1.1H, Neutrophils # (Auto) 5.2, Lymphocytes # (Auto) 1.1L, Monocytes # (Auto) 0.6, Eosinophils # (Auto) 0.3, Basophils # (Auto) 0.1, Nucleated Red Blood Cells % (auto) 0.0, Erythrocyte Sedimentation Rate 61H, Anion Gap 5L, Glomerular Filtration Rate > 60.0, Calcium Level 9.5, C-Reactive Protein, Quantitative 2.06H Current Medications Current Medications Current Medications Medications (Trade) Dose Ordered Sig/Keely Route PRN Reason Start Time Stop Time Status Last Admin Dose Admin Acetaminophen (Tylenol Tab) 650 mg Q4HP PRN PO fever/pain 02/18/19 14:30 02/27/19 08:25 Amlodipine Besylate (Norvasc) 5 mg DAILY PO 02/22/19 09:00 02/23/19 07:53 DC Amlodipine Besylate (Norvasc) 10 mg DAILY PO 02/23/19 09:00 03/03/19 08:35 Amoxicillin/ Clavulanate Potassium (Augmentin) 875 mg BID PO 02/20/19 09:00 03/02/19 16:43 DC 03/02/19 08:41 Apixaban (Eliquis) 5 mg BID PO 02/18/19 21:00 03/03/19 08:34 Atorvastatin Calcium (Lipitor) 40 mg DAILY PO 02/19/19 09:00 03/03/19 08:35 Bisacodyl (Dulcolax Suppository) 10 mg DAILYPRN PRN [place] CONSTIPATION 02/18/19 14:30 Collagenase (Santyl) 1 dose DAILY TOP 02/19/19 15:00 03/03/19 08:35 Donepezil HCl (AriCEPT) 5 mg DAILY PO 02/25/19 09:00 03/03/19 08:34 Donepezil HCl (AriCEPT) 10 mg QHS PO 02/19/19 21:00 02/22/19 08:58 DC 02/21/19 21:05 Emollient Cream (Vanicream) APPLY TO AFFECTED AREA DAILY TOP 02/20/19 09:00 03/03/19 08:35 Fluoxetine HCl (PROzac) 20 mg DAILY PO 02/20/19 09:00 03/03/19 08:34 Heparin Sodium (Heparin (Flush)) 200 units ASDIRECTED PRN IV SEE LABEL COMMENTS 02/18/19 17:00 02/24/19 00:59 DC 02/23/19 05:36 Heparin Sodium (Heparin (Flush)) 200 units PICC IV 02/18/19 18:00 02/24/19 00:59 DC 02/23/19 05:36 Home Med (Med Rec Complete!) ASDIRECTED XX 02/18/19 14:15 02/18/19 14:09 DC Latanoprost (Xalatan 0.005% Op Soln) 1 drop QHS OU 02/19/19 21:00 03/02/19 19:49 Metoprolol Tartrate (Lopressor) 25 mg Q8H PO 02/19/19 14:00 02/22/19 08:58 DC 02/21/19 21:06 Miscellaneous (Unresolved Clarification Entry) SEE LABEL COMMENTS DAILY XX 03/02/19 09:00 03/03/19 06:46 DC Multivitamins (Theragram-M) 1 tab DAILY PO 02/20/19 09:00 03/03/19 08:34 Pantoprazole Sodium (Protonix) 40 mg DAILY PO 02/18/19 17:00 03/03/19 08:34 Piperacillin Sod/ Tazobactam Sod 3.375 gm/Dextrose 50 ml @ 50 mls/hr Q8H IV 02/18/19 17:00 02/19/19 22:21 DC 02/19/19 18:18 Senna (Senokot) 1 tab QHS PO 02/18/19 21:00 03/02/19 19:49 Sodium Chloride (Saline Lock Flush) 10 ml ASDIRECTED PRN IV SEE LABEL COMMENTS 02/18/19 17:00 02/24/19 00:59 DC 02/23/19 05:36 Sodium Chloride (Saline Lock Flush) 10 ml PICC IV 02/18/19 18:00 02/24/19 00:59 DC 02/23/19 05:36 Torsemide (Demadex) 10 mg DAILY PO 02/19/19 09:00 03/03/19 08:34 Vancomycin HCl 750 mg/IV Miscellaneous Supplies 1 each/ Dextrose 275 ml @ 275 mls/hr Q24H IV 02/19/19 10:00 02/19/19 13:00 DC 02/19/19 11:23 Vancomycin HCl 750 mg/IV Miscellaneous Supplies 1 each/ Dextrose 275 ml @ 275 mls/hr Q24H IV 02/20/19 07:00 02/19/19 18:02 DC Vancomycin HCl 1000 mg/IV Miscellaneous Supplies 1 each/ Dextrose 270 ml @ 270 mls/hr Q24H IV 02/19/19 09:00 02/19/19 12:59 DC 02/19/19 09:34 Vancomycin HCl 1000 mg/IV Miscellaneous Supplies 1 each/ Dextrose 270 ml @ 270 mls/hr Q24H IV 02/20/19 06:00 02/19/19 16:50 DC Vancomycin HCl 1750 mg/IV Miscellaneous Supplies 1 each/ Dextrose 285 ml @ 270 mls/hr Q24H IV 02/18/19 14:30 LASHELL DELGADO MD Mar 03, 2019 11:33
--- NOTE | 2019-03-03 11:36 | IPNPDOC ---
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 He says he is feeling well and believes he is progressing in therapy. REVIEW OF SYSTEMS: The following is a completed review of systems and has been reviewed. Review of systems otherwise unremarkable. PAIN: Patient self reports no pain EYES: no recent vision changes EARS, NOSE, & THROAT: No throat pain, or dysphagia, or rhinorrhea CARDIOVASCULAR: Denies chest pain or palpitations PULMONARY: Denies shortness of breath GASTROINTESTINAL: Denies constipation/diarrhea GENITOURINARY: denies dysuria MUSCULOSKELETAL: right D4/D5 amputation NEUROLOGICAL:left sided weakness HEMATOLOGICAL: denies easy bruising SKIN: left lateral ankle wound and right foot amputation PSYCHIATRIC: Unremarkable All other review of systems found to be negative. PHYSICAL EXAMINATION: VITAL SIGNS: Please see below. GENERAL: Pleasant and cooperative. No acute distress. Obese HEENT: PERRL. Extraocular movements intact. Clear conjunctiva, +glasses CARDIOVASCULAR: Regular rate and rhythm. No murmurs, rubs, or gallops LUNGS: Clear to auscultation bilaterally. No wheezes. No rhonch ABDOMEN: Soft, nontender, nondistended. Positive bowel sounds. Normal active bowel sounds NEUROLOGICAL: Alert and oriented times three. Cranial nerves II through XII grossly intact. Sensation grossly intact, no facial droop, no neglect, no n otable aphasia EXTREMITIES: 5\5 strength right upper extremity, 4+/5 left upper extremity 5\5 strength right hip flexors and knee extension, 4/5 ankle dorsiflexion. 5/5 strength in left lower extremity. SKIN: RUE PICC, hyperpigmented calves with scaly skin, right amputation site with sutures no induration/drainage Left lateral ankle ulcer unstageable with slough Right inter-digit D1-D2 stage 2 pressure ulcers drying up on today's exam ASSESSMENT:78-year-old M with past medical history of DM, HTN, PAD with non- healing wound s/p right D4/5 amputation for osteomyelitis and right MCA stroke s/p tPA. PLAN: 1. rehab: PT- maintain ROM, stretch and strenghten bilat LE- ok WBAT per Dr. 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 Cardio: pmh Afib and HTN, c/u torsemide and Eliquis- will monitor BPs and adjust prn, c/u Amlodipine, medicine consulted to assist in management -metoprolol held over the weekend for bradycardia- asymptomatic, medicine recs appreciated -pmh PAD s/p right D4 and D5 toe amputation, will follow-up with vascular 4. Resp: encourage incentive spirometry- LUZ patient may use his own CPAP 5. ID: osteomyelitis, bone pathology pending, s/p Vanco/Zosyn, switched to Augmentin, finishing up 10-day course, ID recs appreciated 6. : monitor PVRs 7. GI ppx: protonix, optimize bowel regimen 8. DVT ppx: on eliquis 9. Skin: daily wound care, monitor for infection, patient with new inter-digit (D1-D2) ulcers on the right foot, wound care adjusted to optimize healing- improving 10. Pain: Tylenol prn 11. Endo: pmh DM however recent A1C 5.6% c/u diet control 12. Dispo: 03-10-19 to home Allergies Coded Allergies: No Known Allergies (Unverified , 11/17/18) Vital Signs Vital Signs Date Time Temp Pulse Resp B/P (MAP) Pulse Ox O2 Delivery O2 Flow Rate FiO2 03/03/19 08:35 57 169/74 03/03/19 05:10 98.0 17 96 Room Air Laboratory Data CBC/BMP Laboratory Tests 03/03/19 06:17 Labs 24H Laboratory Tests 2 03/02/19 16:49: Bedside Glucose (Misc Panel) 122H 03/03/19 05:25: Bedside Glucose (Misc Panel) 107 03/03/19 06:17: Immature Granulocyte % (Auto) 0.3, Neutrophils (%) (Auto) 71.2H, Lymphocytes (%) (Auto) 15.4L, Monocytes (%) (Auto) 8.0H, Eosinophils (%) (Auto) 4.0H, Basophils (%) (Auto) 1.1H, Neutrophils # (Auto) 5.2, Lymphocytes # (Auto) 1.1L, Monocytes # (Auto) 0.6, Eosinophils # (Auto) 0.3, Basophils # (Auto) 0.1, Nucleated Red Blood Cells % (auto) 0.0, Erythrocyte Sedimentation Rate 61H, Anion Gap 5L, Glomerular Filtration Rate > 60.0, Calcium Level 9.5, C-Reactive Protein, Quantitative 2.06H Current Medications Current Medications Current Medications Medications (Trade) Dose Ordered Sig/Keely Route PRN Reason Start Time Stop Time Status Last Admin Dose Admin Acetaminophen (Tylenol Tab) 650 mg Q4HP PRN PO fever/pain 02/18/19 14:30 02/27/19 08:25 Amlodipine Besylate (Norvasc) 5 mg DAILY PO 02/22/19 09:00 02/23/19 07:53 DC Amlodipine Besylate (Norvasc) 10 mg DAILY PO 02/23/19 09:00 03/03/19 08:35 Amoxicillin/ Clavulanate Potassium (Augmentin) 875 mg BID PO 02/20/19 09:00 03/02/19 16:43 DC 03/02/19 08:41 Apixaban (Eliquis) 5 mg BID PO 02/18/19 21:00 03/03/19 08:34 Atorvastatin Calcium (Lipitor) 40 mg DAILY PO 02/19/19 09:00 03/03/19 08:35 Bisacodyl (Dulcolax Suppository) 10 mg DAILYPRN PRN [place] CONSTIPATION 02/18/19 14:30 Collagenase (Santyl) 1 dose DAILY TOP 02/19/19 15:00 03/03/19 08:35 Donepezil HCl (AriCEPT) 5 mg DAILY PO 02/25/19 09:00 03/03/19 08:34 Donepezil HCl (AriCEPT) 10 mg QHS PO 02/19/19 21:00 02/22/19 08:58 DC 02/21/19 21:05 Emollient Cream (Vanicream) APPLY TO AFFECTED AREA DAILY TOP 02/20/19 09:00 03/03/19 08:35 Fluoxetine HCl (PROzac) 20 mg DAILY PO 02/20/19 09:00 03/03/19 08:34 Heparin Sodium (Heparin (Flush)) 200 units ASDIRECTED PRN IV SEE LABEL COMMENTS 02/18/19 17:00 02/24/19 00:59 DC 02/23/19 05:36 Heparin Sodium (Heparin (Flush)) 200 units PICC IV 02/18/19 18:00 02/24/19 00:59 DC 02/23/19 05:36 Home Med (Med Rec Complete!) ASDIRECTED XX 02/18/19 14:15 02/18/19 14:09 DC Latanoprost (Xalatan 0.005% Op Soln) 1 drop QHS OU 02/19/19 21:00 03/02/19 19:49 Metoprolol Tartrate (Lopressor) 25 mg Q8H PO 02/19/19 14:00 02/22/19 08:58 DC 02/21/19 21:06 Miscellaneous (Unresolved Clarification Entry) SEE LABEL COMMENTS DAILY XX 03/02/19 09:00 03/03/19 06:46 DC Multivitamins (Theragram-M) 1 tab DAILY PO 02/20/19 09:00 03/03/19 08:34 Pantoprazole Sodium (Protonix) 40 mg DAILY PO 02/18/19 17:00 03/03/19 08:34 Piperacillin Sod/ Tazobactam Sod 3.375 gm/Dextrose 50 ml @ 50 mls/hr Q8H IV 02/18/19 17:00 02/19/19 22:21 DC 02/19/19 18:18 Senna (Senokot) 1 tab QHS PO 02/18/19 21:00 03/02/19 19:49 Sodium Chloride (Saline Lock Flush) 10 ml ASDIRECTED PRN IV SEE LABEL COMMENTS 02/18/19 17:00 02/24/19 00:59 DC 02/23/19 05:36 Sodium Chloride (Saline Lock Flush) 10 ml PICC IV 02/18/19 18:00 02/24/19 00:59 DC 02/23/19 05:36 Torsemide (Demadex) 10 mg DAILY PO 02/19/19 09:00 03/03/19 08:34 Vancomycin HCl 750 mg/IV Miscellaneous Supplies 1 each/ Dextrose 275 ml @ 275 mls/hr Q24H IV 02/19/19 10:00 02/19/19 13:00 DC 02/19/19 11:23 Vancomycin HCl 750 mg/IV Miscellaneous Supplies 1 each/ Dextrose 275 ml @ 275 mls/hr Q24H IV 02/20/19 07:00 02/19/19 18:02 DC Vancomycin HCl 1000 mg/IV Miscellaneous Supplies 1 each/ Dextrose 270 ml @ 270 mls/hr Q24H IV 02/19/19 09:00 02/19/19 12:59 DC 02/19/19 09:34 Vancomycin HCl 1000 mg/IV Miscellaneous Supplies 1 each/ Dextrose 270 ml @ 270 mls/hr Q24H IV 02/20/19 06:00 02/19/19 16:50 DC Vancomycin HCl 1750 mg/IV Miscellaneous Supplies 1 each/ Dextrose 285 ml @ 270 mls/hr Q24H IV 02/18/19 14:30 LASHELL DELGADO MD Mar 03, 2019 11:35
--- NOTE | 2019-03-03 11:39 | IPNPDOC ---
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 REVIEW OF SYSTEMS: The following is a completed review of systems and has been reviewed. Review of systems otherwise unremarkable. PAIN: Patient self reports no pain EYES: no recent vision changes EARS, NOSE, & THROAT: No throat pain, or dysphagia, or rhinorrhea CARDIOVASCULAR: Denies chest pain or palpitations PULMONARY: Denies shortness of breath GASTROINTESTINAL: Denies constipation/diarrhea GENITOURINARY: denies dysuria MUSCULOSKELETAL: right D4/D5 amputation NEUROLOGICAL:left sided weakness HEMATOLOGICAL: denies easy bruising SKIN: left lateral ankle wound and right foot amputation PSYCHIATRIC: Unremarkable All other review of systems found to be negative. PHYSICAL EXAMINATION: VITAL SIGNS: Please see below. GENERAL: Pleasant and cooperative. No acute distress. Obese HEENT: PERRL. Extraocular movements intact. Clear conjunctiva, +glasses CARDIOVASCULAR: Regular rate and rhythm. No murmurs, rubs, or gallops LUNGS: Clear to auscultation bilaterally. No wheezes. No rhonch ABDOMEN: Soft, nontender, nondistended. Positive bowel sounds. Normal active bowel sounds NEUROLOGICAL: Alert and oriented times three. Cranial nerves II through XII grossly intact. Sensation grossly intact, no facial droop, no neglect, no notable aphasia EXTREMITIES: 5\5 strength right upper extremity, 4+/5 left upper extremity 5\5 strength right hip flexors and knee extension, 4/5 ankle dorsiflexion. 5/5 strength in left lower extremity. SKIN: RUE PICC, hyperpigmented calves with scaly skin, right amputation site with sutures no induration/drainage Left lateral ankle ulcer unstageable with slough Right inter-digit D1-D2 stage 2 pressure ulcers drying up on today's exam ASSESSMENT:78-year-old M with past medical history of DM, HTN, PAD with non- healing wound s/p right D4/5 amputation for osteomyelitis and right MCA stroke s/p tPA. PLAN: 1. 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 Cardio: pmh Afib and HTN, c/u torsemide and Eliquis- will monitor BPs and adjust prn, c/u Amlodipine, medicine consulted to assist in management -metoprolol held over the weekend for bradycardia- asymptomatic, medicine recs appreciated -pmh PAD s/p right D4 and D5 toe amputation, will follow-up with podiatry- sutures to be removed today per Dr. Morley's recs 4. Resp: encourage incentive spirometry- LUZ patient may use his own CPAP 5. ID: osteomyelitis, bone pathology pending, s/p Vanco/Zosyn, switched to Augmentin,s/p 10-day course, ID recs appreciated 6. : monitor PVRs 7. GI ppx: protonix, optimize bowel regimen 8. DVT ppx: on eliquis 9. Skin: daily wound care, monitor for infection, patient with new inter-digit (D1-D2) ulcers on the right foot, wound care adjusted to optimize healing- improving 10. Pain: Tylenol prn 11. Endo: pmh DM however recent A1C 5.6% c/u diet control 12. Dispo: 03-10-19 to home Allergies Coded Allergies: No Known Allergies (Unverified , 11/17/18) Vital Signs Vital Signs Date Time Temp Pulse Resp B/P (MAP) Pulse Ox O2 Delivery O2 Flow Rate FiO2 03/03/19 08:35 57 169/74 03/03/19 05:10 98.0 17 96 Room Air Laboratory Data CBC/BMP Laboratory Tests 03/03/19 06:17 Labs 24H Laboratory Tests 2 03/02/19 16:49: Bedside Glucose (Misc Panel) 122H 03/03/19 05:25: Bedside Glucose (Misc Panel) 107 03/03/19 06:17: Immature Granulocyte % (Auto) 0.3, Neutrophils (%) (Auto) 71.2H, Lymphocytes (%) (Auto) 15.4L, Monocytes (%) (Auto) 8.0H, Eosinophils (%) (Auto) 4.0H, Basophils (%) (Auto) 1.1H, Neutrophils # (Auto) 5.2, Lymphocytes # (Auto) 1.1L, Monocytes # (Auto) 0.6, Eosinophils # (Auto) 0.3, Basophils # (Auto) 0.1, Nucleated Red Blood Cells % (auto) 0.0, Erythrocyte Sedimentation Rate 61H, Anion Gap 5L, Glomerular Filtration Rate > 60.0, Calcium Level 9.5, C-Reactive Protein, Quantitative 2.06H Current Medications Current Medications Current Medications Medications (Trade) Dose Ordered Sig/Keely Route PRN Reason Start Time Stop Time Status Last Admin Dose Admin Acetaminophen (Tylenol Tab) 650 mg Q4HP PRN PO fever/pain 02/18/19 14:30 02/27/19 08:25 Amlodipine Besylate (Norvasc) 5 mg DAILY PO 02/22/19 09:00 02/23/19 07:53 DC Amlodipine Besylate (Norvasc) 10 mg DAILY PO 02/23/19 09:00 03/03/19 08:35 Amoxicillin/ Clavulanate Potassium (Augmentin) 875 mg BID PO 02/20/19 09:00 03/02/19 16:43 DC 03/02/19 08:41 Apixaban (Eliquis) 5 mg BID PO 02/18/19 21:00 03/03/19 08:34 Atorvastatin Calcium (Lipitor) 40 mg DAILY PO 02/19/19 09:00 03/03/19 08:35 Bisacodyl (Dulcolax Suppository) 10 mg DAILYPRN PRN [place] CONSTIPATION 02/18/19 14:30 Collagenase (Santyl) 1 dose DAILY TOP 02/19/19 15:00 03/03/19 08:35 Donepezil HCl (AriCEPT) 5 mg DAILY PO 02/25/19 09:00 03/03/19 08:34 Donepezil HCl (AriCEPT) 10 mg QHS PO 02/19/19 21:00 02/22/19 08:58 DC 02/21/19 21:05 Emollient Cream (Vanicream) APPLY TO AFFECTED AREA DAILY TOP 02/20/19 09:00 03/03/19 08:35 Fluoxetine HCl (PROzac) 20 mg DAILY PO 02/20/19 09:00 03/03/19 08:34 Heparin Sodium (Heparin (Flush)) 200 units ASDIRECTED PRN IV SEE LABEL COMMENTS 02/18/19 17:00 02/24/19 00:59 DC 02/23/19 05:36 Heparin Sodium (Heparin (Flush)) 200 units PICC IV 02/18/19 18:00 02/24/19 00:59 DC 02/23/19 05:36 Home Med (Med Rec Complete!) ASDIRECTED XX 02/18/19 14:15 02/18/19 14:09 DC Latanoprost (Xalatan 0.005% Op Soln) 1 drop QHS OU 02/19/19 21:00 03/02/19 19:49 Metoprolol Tartrate (Lopressor) 25 mg Q8H PO 02/19/19 14:00 02/22/19 08:58 DC 02/21/19 21:06 Miscellaneous (Unresolved Clarification Entry) SEE LABEL COMMENTS DAILY XX 03/02/19 09:00 03/03/19 06:46 DC Multivitamins (Theragram-M) 1 tab DAILY PO 02/20/19 09:00 03/03/19 08:34 Pantoprazole Sodium (Protonix) 40 mg DAILY PO 02/18/19 17:00 03/03/19 08:34 Piperacillin Sod/ Tazobactam Sod 3.375 gm/Dextrose 50 ml @ 50 mls/hr Q8H IV 02/18/19 17:00 02/19/19 22:21 DC 02/19/19 18:18 Senna (Senokot) 1 tab QHS PO 02/18/19 21:00 03/02/19 19:49 Sodium Chloride (Saline Lock Flush) 10 ml ASDIRECTED PRN IV SEE LABEL COMMENTS 02/18/19 17:00 02/24/19 00:59 DC 02/23/19 05:36 Sodium Chloride (Saline Lock Flush) 10 ml PICC IV 02/18/19 18:00 02/24/19 00:59 DC 02/23/19 05:36 Torsemide (Demadex) 10 mg DAILY PO 02/19/19 09:00 03/03/19 08:34 Vancomycin HCl 750 mg/IV Miscellaneous Supplies 1 each/ Dextrose 275 ml @ 275 mls/hr Q24H IV 02/19/19 10:00 02/19/19 13:00 DC 02/19/19 11:23 Vancomycin HCl 750 mg/IV Miscellaneous Supplies 1 each/ Dextrose 275 ml @ 275 mls/hr Q24H IV 02/20/19 07:00 02/19/19 18:02 DC Vancomycin HCl 1000 mg/IV Miscellaneous Supplies 1 each/ Dextrose 270 ml @ 270 mls/hr Q24H IV 02/19/19 09:00 02/19/19 12:59 DC 02/19/19 09:34 Vancomycin HCl 1000 mg/IV Miscellaneous Supplies 1 each/ Dextrose 270 ml @ 270 mls/hr Q24H IV 02/20/19 06:00 02/19/19 16:50 DC Vancomycin HCl 1750 mg/IV Miscellaneous Supplies 1 each/ Dextrose 285 ml @ 270 mls/hr Q24H IV 02/18/19 14:30 LASHELL DELGADO MD Mar 03, 2019 11:39
[2019-03-03 14:00] VITALS: BP 150/72
[2019-03-03] MEDS: QUINAPRIL 20 MG TAB PO SCH (17:17)
[2019-03-03 19:10] VITALS: BP 137/64
[2019-03-03] MEDS: SENNA 8.6 MG TAB (SENOKOT) PO SCH (20:22)
[2019-03-03] MEDS: LATANOPROST 0.005% OPHTH SOLN 2.5 ML OU SCH (20:22)
[2019-03-03] MEDS ORDERED: LISINOPRIL 20 MG TAB PO SCH (21:00)
[2019-03-04 05:10] VITALS: BP 160/70
[2019-03-04] MEDS: APIXABAN 5 MG TAB (ELIQUIS) PO SCH ×2 (10:07→20:30)
[2019-03-04] MEDS: MULTIVITAMINS/MINERALS THERAP 1 TAB PO SCH (10:08)
[2019-03-04] MEDS: DONEPEZIL 5 MG TAB PO SCH (10:08)
[2019-03-04] MEDS: FLUoxetine 20 MG CAP PO SCH (10:08)
[2019-03-04] MEDS: PANTOPRAZOLE 40MG TAB (PROTONIX) PO SCH (10:08)
[2019-03-04] MEDS: QUINAPRIL 20 MG TAB PO SCH (10:08)
[2019-03-04] MEDS: TORSEMIDE 10 MG TABLET PO SCH (10:08)
[2019-03-04] MEDS: amLODIPine 5 MG TAB PO SCH (10:08)
[2019-03-04] MEDS: ATORVASTATIN 20 MG TAB PO SCH (10:08)
[2019-03-04] MEDS: VANICREAM MOISTURIZING SKIN CREAM 113GM TUBE TOP SCH (10:09)
[2019-03-04] MEDS: SANTYL OINT 30GM TOP SCH (10:10)
[2019-03-04 14:00] VITALS: BP 151/67
[2019-03-04 19:35] VITALS: BP 138/65
[2019-03-04] MEDS: SENNA 8.6 MG TAB (SENOKOT) PO SCH (20:30)
[2019-03-04] MEDS: LATANOPROST 0.005% OPHTH SOLN 2.5 ML OU SCH (20:30)
[2019-03-05 05:10] VITALS: BP 166/74
[2019-03-05] MEDS: amLODIPine 5 MG TAB PO SCH (10:08)
[2019-03-05] MEDS: FLUoxetine 20 MG CAP PO SCH (10:08)
[2019-03-05] MEDS: TORSEMIDE 10 MG TABLET PO SCH (10:08)
[2019-03-05] MEDS: MULTIVITAMINS/MINERALS THERAP 1 TAB PO SCH (10:08)
[2019-03-05] MEDS: ATORVASTATIN 20 MG TAB PO SCH (10:08)
[2019-03-05] MEDS: DONEPEZIL 5 MG TAB PO SCH (10:08)
[2019-03-05] MEDS: APIXABAN 5 MG TAB (ELIQUIS) PO SCH ×2 (10:08→20:32)
[2019-03-05] MEDS: PANTOPRAZOLE 40MG TAB (PROTONIX) PO SCH (10:08)
[2019-03-05] MEDS: QUINAPRIL 20 MG TAB PO SCH (10:09)
[2019-03-05] MEDS: SANTYL OINT 30GM TOP SCH (10:12)
[2019-03-05] MEDS: VANICREAM MOISTURIZING SKIN CREAM 113GM TUBE TOP SCH (10:13)
[2019-03-05] MEDS: METOPROLOL SUCC *XL* 25MG TAB (TopROL *XL*) PO SCH (10:29)
[2019-03-05 14:00] VITALS: BP 136/62
[2019-03-05 19:30] VITALS: BP 117/66
[2019-03-05] MEDS: LATANOPROST 0.005% OPHTH SOLN 2.5 ML OU SCH (20:32)
[2019-03-05] MEDS: SENNA 8.6 MG TAB (SENOKOT) PO SCH (20:32)
[2019-03-06 05:05] VITALS: BP 130/58
[2019-03-06 07:10] LABS: BASO # 0.1 10^3/uL (0.0-0.2); BASO % 1.3 % (0.0-1.0); EOS # 0.3 10^3/uL (0.0-0.5); EOS % 4.8 % (0.0-3.0); HEMATOCRIT 32.2 % (42.0-52.0); HEMOGLOBIN 10.2 g/dl (13.5-17.5); LYMPH # 1.2 10^3/uL (1.5-5.0); LYMPH % 18.5 % (24.0-44.0); MEAN CORPUSCULAR HEMOGLOBIN 31.4 pg (27.0-33.0); MEAN CORPUSCULAR HGB CONC 31.7 g/dl (32.0-36.5); MEAN CORPUSCULAR VOLUME 99.1 fl (80.0-96.0); MONO # 0.5 10^3/uL (0.0-0.8); MONO % 7.9 % (0.0-5.0); NEUTROPHILS # 4.5 10^3/uL (1.5-8.5); NEUTROPHILS % 67.4 % (36.0-66.0); PLATELET COUNT, AUTOMATED 330 10^3/uL (150-450); RED BLOOD COUNT 3.25 10^6/uL (4.30-6.10); WHITE BLOOD COUNT 6.7 10^3/uL (4.0-10.0)
[2019-03-06 07:38] LABS: CALCIUM LEVEL 9.2 MG/DL (8.8-10.2); CREATININE FOR GFR 1.62 MG/DL (0.70-1.30); POTASSIUM SERUM 3.9 MEQ/L (3.5-5.1)
[2019-03-06] MEDS: METOPROLOL SUCC *XL* 25MG TAB (TopROL *XL*) PO SCH (09:00)
[2019-03-06] MEDS: FLUoxetine 20 MG CAP PO SCH (09:36)
[2019-03-06] MEDS: APIXABAN 5 MG TAB (ELIQUIS) PO SCH ×2 (09:36→20:15)
[2019-03-06] MEDS: PANTOPRAZOLE 40MG TAB (PROTONIX) PO SCH (09:37)
[2019-03-06] MEDS: ATORVASTATIN 20 MG TAB PO SCH (09:37)
[2019-03-06] MEDS: DONEPEZIL 5 MG TAB PO SCH (09:37)
[2019-03-06] MEDS: QUINAPRIL 20 MG TAB PO SCH (09:37)
[2019-03-06] MEDS: MULTIVITAMINS/MINERALS THERAP 1 TAB PO SCH (09:37)
[2019-03-06] MEDS: TORSEMIDE 10 MG TABLET PO SCH (09:37)
[2019-03-06] MEDS: amLODIPine 5 MG TAB PO SCH (09:38)
[2019-03-06] MEDS: VANICREAM MOISTURIZING SKIN CREAM 113GM TUBE TOP SCH (09:39)
[2019-03-06] MEDS: SANTYL OINT 30GM TOP SCH (09:39)
[2019-03-06 14:00] VITALS: BP 126/61
--- NOTE | 2019-03-06 15:44 | IPNPDOC ---
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 He is wondering when he can go home and was told he needed to improve his ADL management so that his would not need to help him as much. REVIEW OF SYSTEMS: The following is a completed review of systems and has been reviewed. Review of systems otherwise unremarkable. PAIN: Patient self reports no pain EYES: no recent vision changes EARS, NOSE, & THROAT: No throat pain, or dysphagia, or rhinorrhea CARDIOVASCULAR: Denies chest pain or palpitations PULMONARY: Denies shortness of breath GASTROINTESTINAL: Denies constipation/diarrhea GENITOURINARY: denies dysuria MUSCULOSKELETAL: right D4/D5 amputation NEUROLOGICAL:left sided weakness HEMATOLOGICAL: denies easy bruising SKIN: left lateral ankle wound and right foot amputation PSYCHIATRIC: Unremarkable All other review of systems found to be negative. PHYSICAL EXAMINATION: VITAL SIGNS: Please see below. GENERAL: Pleasant and cooperative. No acute distress. Obese HEENT: PERRL. Extraocular movements intact. Clear conjunctiva, +glasses CARDIOVASCULAR: Regular rate and rhythm. No murmurs, rubs, or gallops LUNGS: Clear to auscultation bilaterally. No wheezes. No rhonch ABDOMEN: Soft, nontender, nondistended. Positive bowel sounds. Normal active bowel sounds NEUROLOGICAL: Alert and oriented times three. Cranial nerves II through XII grossly intact. Sensation grossly intact, no facial droop, no neglect, no notable aphasia EXTREMITIES: 5\5 strength right upper extremity, 4+/5 left upper extremity 5\5 strength right hip flexors and knee extension, 4/5 ankle dorsiflexion. 5/5 strength in left lower extremity. SKIN: RUE PICC, hyperpigmented calves with scaly skin, right amputation site with sutures no induration/drainage Left lateral ankle ulcer unstageable with slough Right inter-digit D1-D2 stage 2 pressure ulcers drying up on today's exam ASSESSMENT:78-year-old M with past medical history of DM, HTN, PAD with non-h ealing wound s/p right D4/5 amputation for osteomyelitis and right MCA stroke s/p tPA. PLAN: 1. 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 Cardio: pmh Afib and HTN, c/u torsemide and Eliquis- will monitor BPs and adjust prn, c/u Amlodipine, medicine consulted to assist in management -metoprolol held over the weekend for bradycardia- asymptomatic, medicine recs appreciated -pmh PAD s/p right D4 and D5 toe amputation, will follow-up with podiatry- sutures removed 03-03-19 4. Resp: encourage incentive spirometry- LUZ patient may use his own CPAP 5. ID: osteomyelitis, bone pathology pending, s/p Vanco/Zosyn, switched to Augmentin,s/p 10-day course, ID recs appreciated 6. : monitor PVRs 7. GI ppx: protonix, optimize bowel regimen 8. DVT ppx: on eliquis 9. Skin: daily wound care, monitor for infection, patient with new inter-digit (D1-D2) ulcers on the right foot, wound care adjusted to optimize healing- improving 10. Pain: Tylenol prn 11. Endo: pmh DM however recent A1C 5.6% c/u diet control 12. Dispo: 03-10-19 to home Allergies Coded Allergies: No Known Allergies (Unverified , 11/17/18) Vital Signs Vital Signs Date Time Temp Pulse Resp B/P (MAP) Pulse Ox O2 Delivery O2 Flow Rate FiO2 03/06/19 14:00 97.0 51 16 126/61 (82) 96 Room Air Laboratory Data CBC/BMP Laboratory Tests 03/06/19 06:25 Labs 24H Laboratory Tests 2 03/05/19 16:59: Bedside Glucose (Misc Panel) 122H 03/06/19 05:34: Bedside Glucose (Misc Panel) 118H 03/06/19 06:25: Immature Granulocyte % (Auto) 0.1, Neutrophils (%) (Auto) 67.4H, Lymphocytes (%) (Auto) 18.5L, Monocytes (%) (Auto) 7.9H, Eosinophils (%) (Auto) 4.8H, Basophils (%) (Auto) 1.3H, Neutrophils # (Auto) 4.5, Lymphocytes # (Auto) 1.2L, Monocytes # (Auto) 0.5, Eosinophils # (Auto) 0.3, Basophils # (Auto) 0.1, Nucleated Red Blood Cells % (auto) 0.0, Anion Gap 5L, Glomerular Filtration Rate 44.0, Calcium Level 9.2 Current Medications Current Medications Current Medications Medications (Trade) Dose Ordered Sig/Keely Route PRN Reason Start Time Stop Time Status Last Admin Dose Admin Acetaminophen (Tylenol Tab) 650 mg Q4HP PRN PO fever/pain 02/18/19 14:30 02/27/19 08:25 Amlodipine Besylate (Norvasc) 5 mg DAILY PO 02/22/19 09:00 02/23/19 07:53 DC Amlodipine Besylate (Norvasc) 10 mg DAILY PO 02/23/19 09:00 03/06/19 09:38 Amoxicillin/ Clavulanate Potassium (Augmentin) 875 mg BID PO 02/20/19 09:00 03/02/19 16:43 DC 03/02/19 08:41 Apixaban (Eliquis) 5 mg BID PO 02/18/19 21:00 03/06/19 09:36 Atorvastatin Calcium (Lipitor) 40 mg DAILY PO 02/19/19 09:00 03/06/19 09:37 Bisacodyl (Dulcolax Suppository) 10 mg DAILYPRN PRN [place] CONSTIPATION 02/18/19 14:30 Collagenase (Santyl) 1 dose DAILY TOP 02/19/19 15:00 03/06/19 09:39 Donepezil HCl (AriCEPT) 5 mg DAILY PO 02/25/19 09:00 03/06/19 09:37 Donepezil HCl (AriCEPT) 10 mg QHS PO 02/19/19 21:00 02/22/19 08:58 DC 02/21/19 21:05 Emollient Cream (Vanicream) APPLY TO AFFECTED AREA DAILY TOP 02/20/19 09:00 03/06/19 09:39 Fluoxetine HCl (PROzac) 20 mg DAILY PO 02/20/19 09:00 03/06/19 09:36 Heparin Sodium (Heparin (Flush)) 200 units ASDIRECTED PRN IV SEE LABEL COMMENTS 02/18/19 17:00 02/24/19 00:59 DC 02/23/19 05:36 Heparin Sodium (Heparin (Flush)) 200 units PICC IV 02/18/19 18:00 02/24/19 00:59 DC 02/23/19 05:36 Home Med (Med Rec Complete!) ASDIRECTED XX 02/18/19 14:15 02/18/19 14:09 DC Latanoprost (Xalatan 0.005% Op Soln) 1 drop QHS OU 02/19/19 21:00 03/05/19 20:32 Lisinopril (Prinivil) 20 mg QHS PO 03/03/19 21:00 UNV Metoprolol Succinate (TopROL XL) 25 mg DAILY PO 03/05/19 09:00 03/05/19 10:29 Metoprolol Tartrate (Lopressor) 25 mg Q8H PO 02/19/19 14:00 02/22/19 08:58 DC 02/21/19 21:06 Miscellaneous (Unresolved Clarification Entry) SEE LABEL COMMENTS DAILY XX 03/02/19 09:00 03/03/19 06:46 DC Multivitamins (Theragram-M) 1 tab DAILY PO 02/20/19 09:00 03/06/19 09:37 Pantoprazole Sodium (Protonix) 40 mg DAILY PO 02/18/19 17:00 03/06/19 09:37 Piperacillin Sod/ Tazobactam Sod 3.375 gm/Dextrose 50 ml @ 50 mls/hr Q8H IV 02/18/19 17:00 02/19/19 22:21 DC 02/19/19 18:18 Quinapril HCl (Accupril) 40 mg DAILY PO 03/03/19 09:00 03/06/19 09:37 Senna (Senokot) 1 tab QHS PO 02/18/19 21:00 03/05/19 20:32 Sodium Chloride (Saline Lock Flush) 10 ml ASDIRECTED PRN IV SEE LABEL COMMENTS 02/18/19 17:00 02/24/19 00:59 DC 02/23/19 05:36 Sodium Chloride (Saline Lock Flush) 10 ml PICC IV 02/18/19 18:00 02/24/19 00:59 DC 02/23/19 05:36 Torsemide (Demadex) 10 mg DAILY PO 02/19/19 09:00 03/06/19 14:36 DC 03/06/19 09:37 Vancomycin HCl 750 mg/IV Miscellaneous Supplies 1 each/ Dextrose 275 ml @ 275 mls/hr Q24H IV 02/19/19 10:00 02/19/19 13:00 DC 02/19/19 11:23 Vancomycin HCl 750 mg/IV Miscellaneous Supplies 1 each/ Dextrose 275 ml @ 275 mls/hr Q24H IV 02/20/19 07:00 02/19/19 18:02 DC Vancomycin HCl 1000 mg/IV Miscellaneous Supplies 1 each/ Dextrose 270 ml @ 270 mls/hr Q24H IV 02/19/19 09:00 02/19/19 12:59 DC 02/19/19 09:34 Vancomycin HCl 1000 mg/IV Miscellaneous Supplies 1 each/ Dextrose 270 ml @ 270 mls/hr Q24H IV 02/20/19 06:00 02/19/19 16:50 DC Vancomycin HCl 1750 mg/IV Miscellaneous Supplies 1 each/ Dextrose 285 ml @ 270 mls/hr Q24H IV 02/18/19 14:30 LASHELL DELGADO MD Mar 06, 2019 15:44
--- NOTE | 2019-03-06 15:46 | IPNPDOC ---
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 He is wondering when he can go home and was told he needed to improve his ADL management so that his would not need to help him as much. REVIEW OF SYSTEMS: The following is a completed review of systems and has been reviewed. Review of systems otherwise unremarkable. PAIN: Patient self reports no pain EYES: no recent vision changes EARS, NOSE, & THROAT: No throat pain, or dysphagia, or rhinorrhea CARDIOVASCULAR: Denies chest pain or palpitations PULMONARY: Denies shortness of breath GASTROINTESTINAL: Denies constipation/diarrhea GENITOURINARY: denies dysuria MUSCULOSKELETAL: right D4/D5 amputation NEUROLOGICAL:left sided weakness HEMATOLOGICAL: denies easy bruising SKIN: left lateral ankle wound and right foot amputation PSYCHIATRIC: Unremarkable All other review of systems found to be negative. PHYSICAL EXAMINATION: VITAL SIGNS: Please see below. GENERAL: Pleasant and cooperative. No acute distress. Obese HEENT: PERRL. Extraocular movements intact. Clear conjunctiva, +glasses CARDIOVASCULAR: Regular rate and rhythm. No murmurs, rubs, or gallops LUNGS: Clear to auscultation bilaterally. No wheezes. No rhonch ABDOMEN: Soft, nontender, nondistended. Positive bowel sounds. Normal active bowel sounds NEUROLOGICAL: Alert and oriented times three. Cranial nerves II through XII grossly intact. Sensation grossly intact, no facial droop, no neglect, no notable aphasia EXTREMITIES: 5\5 strength right upper extremity, 4+/5 left upper extremity 5\5 strength right hip flexors and knee extension, 4/5 ankle dorsiflexion. 5/5 strength in left lower extremity. SKIN: RUE PICC, hyperpigmented calves with scaly skin, right amputation site with sutures no induration/drainage Left lateral ankle ulcer unstageable with slough Right inter-digit D1-D2 stage 2 pressure ulcers drying up on today's exam ASSESSMENT:78-year-old M with past medical history of DM, HTN, PAD with non-h ealing wound s/p right D4/5 amputation for osteomyelitis and right MCA stroke s/p tPA. PLAN: 1. 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 Neuro: s/p right MCA stroke thought to be embolic in setting of Afib, c/u Eliquis and statin therapy, monitor BPs, f/u Stroke clinic at [facility] -c/u proza for motor recover -cognitive impairment/dementia-bradycardia improved, restarted Aricept at lower dose 5mg and monitor 3. Cardio: pmh Afib and HTN, c/u torsemide and Eliquis- will monitor BPs and adjust prn, c/u Amlodipine, medicine consulted to assist in management -will add back Metoprolol at lower dose for HTN, bradycardia overall better (asymptomatic) medicine recs appreciated -pmh PAD s/p right D4 and D5 toe amputation, will follow-up with podiatry- sutures removed 03-03-19 4. Resp: encourage incentive spirometry- LUZ patient may use his own CPAP 5. ID: osteomyelitis, bone pathology pending, s/p Vanco/Zosyn, switched to Augmentin,s/p 10-day course, ID recs appreciated 6. : monitor PVRs 7. GI ppx: protonix, optimize bowel regimen 8. DVT ppx: on eliquis 9. Skin: daily wound care, monitor for infection, patient with new inter-digit (D1-D2) ulcers on the right foot, wound care adjusted to optimize healing- improving 10. Pain: Tylenol prn 11. Endo: pmh DM however recent A1C 5.6% c/u diet control 12. Dispo: 03-10-19 to home Allergies Coded Allergies: No Known Allergies (Unverified , 11/17/18) Vital Signs Vital Signs Date Time Temp Pulse Resp B/P (MAP) Pulse Ox O2 Delivery O2 Flow Rate FiO2 03/06/19 14:00 97.0 51 16 126/61 (82) 96 Room Air Laboratory Data CBC/BMP Laboratory Tests 03/06/19 06:25 Labs 24H Laboratory Tests 2 03/05/19 16:59: Bedside Glucose (Misc Panel) 122H 03/06/19 05:34: Bedside Glucose (Misc Panel) 118H 03/06/19 06:25: Immature Granulocyte % (Auto) 0.1, Neutrophils (%) (Auto) 67.4H, Lymphocytes (%) (Auto) 18.5L, Monocytes (%) (Auto) 7.9H, Eosinophils (%) (Auto) 4.8H, Basophils (%) (Auto) 1.3H, Neutrophils # (Auto) 4.5, Lymphocytes # (Auto) 1.2L, Monocytes # (Auto) 0.5, Eosinophils # (Auto) 0.3, Basophils # (Auto) 0.1, Nucleated Red Blood Cells % (auto) 0.0, Anion Gap 5L, Glomerular Filtration Rate 44.0, Calcium Level 9.2 Current Medications Current Medications Current Medications Medications (Trade) Dose Ordered Sig/Keely Route PRN Reason Start Time Stop Time Status Last Admin Dose Admin Acetaminophen (Tylenol Tab) 650 mg Q4HP PRN PO fever/pain 02/18/19 14:30 02/27/19 08:25 Amlodipine Besylate (Norvasc) 5 mg DAILY PO 02/22/19 09:00 02/23/19 07:53 DC Amlodipine Besylate (Norvasc) 10 mg DAILY PO 02/23/19 09:00 03/06/19 09:38 Amoxicillin/ Clavulanate Potassium (Augmentin) 875 mg BID PO 02/20/19 09:00 03/02/19 16:43 DC 03/02/19 08:41 Apixaban (Eliquis) 5 mg BID PO 02/18/19 21:00 03/06/19 09:36 Atorvastatin Calcium (Lipitor) 40 mg DAILY PO 02/19/19 09:00 03/06/19 09:37 Bisacodyl (Dulcolax Suppository) 10 mg DAILYPRN PRN [place] CONSTIPATION 02/18/19 14:30 Collagenase (Santyl) 1 dose DAILY TOP 02/19/19 15:00 03/06/19 09:39 Donepezil HCl (AriCEPT) 5 mg DAILY PO 02/25/19 09:00 03/06/19 09:37 Donepezil HCl (AriCEPT) 10 mg QHS PO 02/19/19 21:00 02/22/19 08:58 DC 02/21/19 21:05 Emollient Cream (Vanicream) APPLY TO AFFECTED AREA DAILY TOP 02/20/19 09:00 03/06/19 09:39 Fluoxetine HCl (PROzac) 20 mg DAILY PO 02/20/19 09:00 03/06/19 09:36 Heparin Sodium (Heparin (Flush)) 200 units ASDIRECTED PRN IV SEE LABEL COMMENTS 02/18/19 17:00 02/24/19 00:59 DC 02/23/19 05:36 Heparin Sodium (Heparin (Flush)) 200 units PICC IV 02/18/19 18:00 02/24/19 00:59 DC 02/23/19 05:36 Home Med (Med Rec Complete!) ASDIRECTED XX 02/18/19 14:15 02/18/19 14:09 DC Latanoprost (Xalatan 0.005% Op Soln) 1 drop QHS OU 02/19/19 21:00 03/05/19 20:32 Lisinopril (Prinivil) 20 mg QHS PO 03/03/19 21:00 UNV Metoprolol Succinate (TopROL XL) 25 mg DAILY PO 03/05/19 09:00 03/05/19 10:29 Metoprolol Tartrate (Lopressor) 25 mg Q8H PO 02/19/19 14:00 02/22/19 08:58 DC 02/21/19 21:06 Miscellaneous (Unresolved Clarification Entry) SEE LABEL COMMENTS DAILY XX 03/02/19 09:00 03/03/19 06:46 DC Multivitamins (Theragram-M) 1 tab DAILY PO 02/20/19 09:00 03/06/19 09:37 Pantoprazole Sodium (Protonix) 40 mg DAILY PO 02/18/19 17:00 03/06/19 09:37 Piperacillin Sod/ Tazobactam Sod 3.375 gm/Dextrose 50 ml @ 50 mls/hr Q8H IV 02/18/19 17:00 02/19/19 22:21 DC 02/19/19 18:18 Quinapril HCl (Accupril) 40 mg DAILY PO 03/03/19 09:00 03/06/19 09:37 Senna (Senokot) 1 tab QHS PO 02/18/19 21:00 03/05/19 20:32 Sodium Chloride (Saline Lock Flush) 10 ml ASDIRECTED PRN IV SEE LABEL COMMENTS 02/18/19 17:00 02/24/19 00:59 DC 02/23/19 05:36 Sodium Chloride (Saline Lock Flush) 10 ml PICC IV 02/18/19 18:00 02/24/19 00:59 DC 02/23/19 05:36 Torsemide (Demadex) 10 mg DAILY PO 02/19/19 09:00 03/06/19 14:36 DC 03/06/19 09:37 Vancomycin HCl 750 mg/IV Miscellaneous Supplies 1 each/ Dextrose 275 ml @ 275 mls/hr Q24H IV 02/19/19 10:00 02/19/19 13:00 DC 02/19/19 11:23 Vancomycin HCl 750 mg/IV Miscellaneous Supplies 1 each/ Dextrose 275 ml @ 275 mls/hr Q24H IV 02/20/19 07:00 02/19/19 18:02 DC Vancomycin HCl 1000 mg/IV Miscellaneous Supplies 1 each/ Dextrose 270 ml @ 270 mls/hr Q24H IV 02/19/19 09:00 02/19/19 12:59 DC 02/19/19 09:34 Vancomycin HCl 1000 mg/IV Miscellaneous Supplies 1 each/ Dextrose 270 ml @ 270 mls/hr Q24H IV 02/20/19 06:00 02/19/19 16:50 DC Vancomycin HCl 1750 mg/IV Miscellaneous Supplies 1 each/ Dextrose 285 ml @ 270 mls/hr Q24H IV 02/18/19 14:30 LASHELL DELGADO MD Mar 06, 2019 15:46
--- NOTE | 2019-03-06 15:48 | IPNPDOC ---
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 REVIEW OF SYSTEMS: The following is a completed review of systems and has been reviewed. Review of systems otherwise unremarkable. PAIN: Patient self reports no pain EYES: no recent vision changes EARS, NOSE, & THROAT: No throat pain, or dysphagia, or rhinorrhea CARDIOVASCULAR: Denies chest pain or palpitations PULMONARY: Denies shortness of breath GASTROINTESTINAL: Denies constipation/diarrhea GENITOURINARY: denies dysuria MUSCULOSKELETAL: right D4/D5 amputation NEUROLOGICAL:left sided weakness HEMATOLOGICAL: denies easy bruising SKIN: left lateral ankle wound and right foot amputation PSYCHIATRIC: Unremarkable All other review of systems found to be negative. PHYSICAL EXAMINATION: VITAL SIGNS: Please see below. GENERAL: Pleasant and cooperative. No acute distress. Obese HEENT: PERRL. Extraocular movements intact. Clear conjunctiva, +glasses CARDIOVASCULAR: Regular rate and rhythm. No murmurs, rubs, or gallops LUNGS: Clear to auscultation bilaterally. No wheezes. No rhonch ABDOMEN: Soft, nontender, nondistended. Positive bowel sounds. Normal active bowel sounds NEUROLOGICAL: Alert and oriented times three. Cranial nerves II through XII grossly intact. Sensation grossly intact, no facial droop, no neglect, no notable aphasia EXTREMITIES: 5\\5 strength right upper extremity, 4+/5 left upper extremity 5\\5 strength right hip flexors and knee extension, 4/5 ankle dorsiflexion. 5/5 strength in left lower extremity. SKIN: RUE PICC, hyperpigmented calves with scaly skin, right amputation site with sutures no induration/drainage Left lateral ankle ulcer unstageable with slough Right inter-digit D1-D2 stage 2 pressure ulcers drying up on today's exam ASSESSMENT:78-year-old M with past medical history of DM, HTN, PAD with non- healing wound s/p right D4/5 amputation for osteomyelitis and right MCA stroke s/p tPA. PLAN: 1. 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 Cardio: pmh Afib and HTN, c/u and Eliquis- c/u Amlodipine, holding torsemide for next few days for prerenal azotemia with ALBARO -medicine consulted to assist in management -c/u Metoprolol at lower dose for HTN, bradycardia overall better (asymptomatic) medicine recs appreciated -pmh PAD s/p right D4 and D5 toe amputation, will follow-up with podiatry- sutures removed 03-03-19 4. Resp: encourage incentive spirometry- LUZ patient may use his own CPAP 5. ID: osteomyelitis, bone pathology "Chronic ulcer with acute and chronic inflammation, extending into underlying bone, consistent with osteomyelitis." - s/p Vanco/Zosyn then switched to Augmentin,s/p 10-day course, ID recs appreciated 6. : monitor PVRs 7. GI ppx: protonix, optimize bowel regimen 8. DVT ppx: on eliquis 9. Skin: daily wound care, monitor for infection, patient with new inter-digit (D1-D2) ulcers on the right foot, wound care adjusted to optimize healing- improving 10. Pain: Tylenol prn 11. Endo: pmh DM however recent A1C 5.6% c/u diet control 12. Renal: ALBARO with elevated BUN, will hold Torsemide and monitor, will consider gently IVf if does not improve over the weekend 12. Dispo: 03-10-19 to home Allergies Coded Allergies: No Known Allergies (Unverified , 11/17/18) Vital Signs Vital Signs Date Time Temp Pulse Resp B/P (MAP) Pulse Ox O2 Delivery O2 Flow Rate FiO2 03/06/19 14:00 97.0 51 16 126/61 (82) 96 Room Air Laboratory Data CBC/BMP Laboratory Tests 03/06/19 06:25 Labs 24H Laboratory Tests 2 03/05/19 16:59: Bedside Glucose (Misc Panel) 122H 03/06/19 05:34: Bedside Glucose (Misc Panel) 118H 03/06/19 06:25: Immature Granulocyte % (Auto) 0.1, Neutrophils (%) (Auto) 67.4H, Lymphocytes (%) (Auto) 18.5L, Monocytes (%) (Auto) 7.9H, Eosinophils (%) (Auto) 4.8H, Basophils (%) (Auto) 1.3H, Neutrophils # (Auto) 4.5, Lymphocytes # (Auto) 1.2L, Monocytes # (Auto) 0.5, Eosinophils # (Auto) 0.3, Basophils # (Auto) 0.1, Nucleated Red Blood Cells % (auto) 0.0, Anion Gap 5L, Glomerular Filtration Rate 44.0, Calcium Level 9.2 Current Medications Current Medications Current Medications Medications (Trade) Dose Ordered Sig/Keely Route PRN Reason Start Time Stop Time Status Last Admin Dose Admin Acetaminophen (Tylenol Tab) 650 mg Q4HP PRN PO fever/pain 02/18/19 14:30 02/27/19 08:25 Amlodipine Besylate (Norvasc) 5 mg DAILY PO 02/22/19 09:00 02/23/19 07:53 DC Amlodipine Besylate (Norvasc) 10 mg DAILY PO 02/23/19 09:00 03/06/19 09:38 Amoxicillin/ Clavulanate Potassium (Augmentin) 875 mg BID PO 02/20/19 09:00 03/02/19 16:43 DC 03/02/19 08:41 Apixaban (Eliquis) 5 mg BID PO 02/18/19 21:00 03/06/19 09:36 Atorvastatin Calcium (Lipitor) 40 mg DAILY PO 02/19/19 09:00 03/06/19 09:37 Bisacodyl (Dulcolax Suppository) 10 mg DAILYPRN PRN [place] CONSTIPATION 02/18/19 14:30 Collagenase (Santyl) 1 dose DAILY TOP 02/19/19 15:00 03/06/19 09:39 Donepezil HCl (AriCEPT) 5 mg DAILY PO 02/25/19 09:00 03/06/19 09:37 Donepezil HCl (AriCEPT) 10 mg QHS PO 02/19/19 21:00 02/22/19 08:58 DC 02/21/19 21:05 Emollient Cream (Vanicream) APPLY TO AFFECTED AREA DAILY TOP 02/20/19 09:00 03/06/19 09:39 Fluoxetine HCl (PROzac) 20 mg DAILY PO 02/20/19 09:00 03/06/19 09:36 Heparin Sodium (Heparin (Flush)) 200 units ASDIRECTED PRN IV SEE LABEL COMMENTS 02/18/19 17:00 02/24/19 00:59 DC 02/23/19 05:36 Heparin Sodium (Heparin (Flush)) 200 units PICC IV 02/18/19 18:00 02/24/19 00:59 DC 02/23/19 05:36 Home Med (Med Rec Complete!) ASDIRECTED XX 02/18/19 14:15 02/18/19 14:09 DC Latanoprost (Xalatan 0.005% Op Soln) 1 drop QHS OU 02/19/19 21:00 03/05/19 20:32 Lisinopril (Prinivil) 20 mg QHS PO 03/03/19 21:00 UNV Metoprolol Succinate (TopROL XL) 25 mg DAILY PO 03/05/19 09:00 03/05/19 10:29 Metoprolol Tartrate (Lopressor) 25 mg Q8H PO 02/19/19 14:00 02/22/19 08:58 DC 02/21/19 21:06 Miscellaneous (Unresolved Clarification Entry) SEE LABEL COMMENTS DAILY XX 03/02/19 09:00 03/03/19 06:46 DC Multivitamins (Theragram-M) 1 tab DAILY PO 02/20/19 09:00 03/06/19 09:37 Pantoprazole Sodium (Protonix) 40 mg DAILY PO 02/18/19 17:00 03/06/19 09:37 Piperacillin Sod/ Tazobactam Sod 3.375 gm/Dextrose 50 ml @ 50 mls/hr Q8H IV 02/18/19 17:00 02/19/19 22:21 DC 02/19/19 18:18 Quinapril HCl (Accupril) 40 mg DAILY PO 03/03/19 09:00 03/06/19 09:37 Senna (Senokot) 1 tab QHS PO 02/18/19 21:00 03/05/19 20:32 Sodium Chloride (Saline Lock Flush) 10 ml ASDIRECTED PRN IV SEE LABEL COMMENTS 02/18/19 17:00 02/24/19 00:59 DC 02/23/19 05:36 Sodium Chloride (Saline Lock Flush) 10 ml PICC IV 02/18/19 18:00 02/24/19 00:59 DC 02/23/19 05:36 Torsemide (Demadex) 10 mg DAILY PO 02/19/19 09:00 03/06/19 14:36 DC 03/06/19 09:37 Vancomycin HCl 750 mg/IV Miscellaneous Supplies 1 each/ Dextrose 275 ml @ 275 mls/hr Q24H IV 02/19/19 10:00 02/19/19 13:00 DC 02/19/19 11:23 Vancomycin HCl 750 mg/IV Miscellaneous Supplies 1 each/ Dextrose 275 ml @ 275 mls/hr Q24H IV 02/20/19 07:00 02/19/19 18:02 DC Vancomycin HCl 1000 mg/IV Miscellaneous Supplies 1 each/ Dextrose 270 ml @ 270 mls/hr Q24H IV 02/19/19 09:00 02/19/19 12:59 DC 02/19/19 09:34 Vancomycin HCl 1000 mg/IV Miscellaneous Supplies 1 each/ Dextrose 270 ml @ 270 mls/hr Q24H IV 02/20/19 06:00 02/19/19 16:50 DC Vancomycin HCl 1750 mg/IV Miscellaneous Supplies 1 each/ Dextrose 285 ml @ 270 mls/hr Q24H IV 02/18/19 14:30 LASHELL DELGADO MD Mar 06, 2019 15:48
[2019-03-06 20:00] VITALS: BP 158/66
[2019-03-06] MEDS: SENNA 8.6 MG TAB (SENOKOT) PO SCH (20:15)
[2019-03-06] MEDS: LATANOPROST 0.005% OPHTH SOLN 2.5 ML OU SCH (20:15)
[2019-03-07 06:00] VITALS: BP 158/72
[2019-03-07] MEDS: PANTOPRAZOLE 40MG TAB (PROTONIX) PO SCH (08:42)
[2019-03-07] MEDS: METOPROLOL SUCC *XL* 25MG TAB (TopROL *XL*) PO SCH (08:42)
[2019-03-07] MEDS: FLUoxetine 20 MG CAP PO SCH (08:42)
[2019-03-07] MEDS: DONEPEZIL 5 MG TAB PO SCH (08:42)
[2019-03-07] MEDS: ATORVASTATIN 20 MG TAB PO SCH (08:42)
[2019-03-07] MEDS: APIXABAN 5 MG TAB (ELIQUIS) PO SCH ×2 (08:42→20:10)
[2019-03-07] MEDS: SANTYL OINT 30GM TOP SCH (08:43)
[2019-03-07] MEDS: VANICREAM MOISTURIZING SKIN CREAM 113GM TUBE TOP SCH (08:43)
[2019-03-07] MEDS: MULTIVITAMINS/MINERALS THERAP 1 TAB PO SCH (08:43)
[2019-03-07 14:00] VITALS: BP 157/70
[2019-03-07] MEDS: SENNA 8.6 MG TAB (SENOKOT) PO SCH (20:10)
[2019-03-07] MEDS: LATANOPROST 0.005% OPHTH SOLN 2.5 ML OU SCH (20:11)
[2019-03-07 22:00] VITALS: BP 137/61
[2019-03-08 06:00] VITALS: BP 150/82
[2019-03-08] MEDS: FLUoxetine 20 MG CAP PO SCH (08:25)
[2019-03-08] MEDS: APIXABAN 5 MG TAB (ELIQUIS) PO SCH ×2 (08:26→20:12)
[2019-03-08] MEDS: PANTOPRAZOLE 40MG TAB (PROTONIX) PO SCH (08:26)
[2019-03-08] MEDS: MULTIVITAMINS/MINERALS THERAP 1 TAB PO SCH (08:26)
[2019-03-08] MEDS: ATORVASTATIN 20 MG TAB PO SCH (08:26)
[2019-03-08] MEDS: SANTYL OINT 30GM TOP SCH (08:27)
[2019-03-08] MEDS: VANICREAM MOISTURIZING SKIN CREAM 113GM TUBE TOP SCH (08:27)
[2019-03-08] MEDS: TORSEMIDE 10 MG TABLET PO SCH (08:30)
[2019-03-08] MEDS: METOPROLOL SUCC *XL* 25MG TAB (TopROL *XL*) PO SCH (08:30)
[2019-03-08 14:00] VITALS: BP 169/70
[2019-03-08] MEDS: LATANOPROST 0.005% OPHTH SOLN 2.5 ML OU SCH (20:12)
[2019-03-08] MEDS: SENNA 8.6 MG TAB (SENOKOT) PO SCH (20:12)
[2019-03-08 22:00] VITALS: BP 128/61
[2019-03-09 05:37] VITALS: BP 110/64
[2019-03-09 06:50] LABS: BASO # 0.1 10^3/uL (0.0-0.2); BASO % 1.1 % (0.0-1.0); EOS # 0.2 10^3/uL (0.0-0.5); EOS % 3.4 % (0.0-3.0); HEMATOCRIT 30.9 % (42.0-52.0); HEMOGLOBIN 9.8 g/dl (13.5-17.5); LYMPH # 1.3 10^3/uL (1.5-5.0); LYMPH % 18.5 % (24.0-44.0); MEAN CORPUSCULAR HEMOGLOBIN 30.9 pg (27.0-33.0); MEAN CORPUSCULAR HGB CONC 31.7 g/dl (32.0-36.5); MEAN CORPUSCULAR VOLUME 97.5 fl (80.0-96.0); MONO # 0.6 10^3/uL (0.0-0.8); MONO % 8.7 % (0.0-5.0); NEUTROPHILS # 4.8 10^3/uL (1.5-8.5); PLATELET COUNT, AUTOMATED 247 10^3/uL (150-450); RED BLOOD COUNT 3.17 10^6/uL (4.30-6.10); WHITE BLOOD COUNT 7.1 10^3/uL (4.0-10.0)
[2019-03-09 07:15] LABS: CALCIUM LEVEL 9.1 MG/DL (8.8-10.2); CREATININE FOR GFR 1.36 MG/DL (0.70-1.30); GLOMERULAR FILTRATION RATE 53.8 (>42); POTASSIUM SERUM 4.3 MEQ/L (3.5-5.1)
[2019-03-09] MEDS: MULTIVITAMINS/MINERALS THERAP 1 TAB PO SCH (07:25)
[2019-03-09] MEDS: APIXABAN 5 MG TAB (ELIQUIS) PO SCH ×2 (07:25→20:02)
[2019-03-09] MEDS: FLUoxetine 20 MG CAP PO SCH (07:25)
[2019-03-09] MEDS: METOPROLOL SUCC *XL* 25MG TAB (TopROL *XL*) PO SCH (07:26)
[2019-03-09] MEDS: ATORVASTATIN 20 MG TAB PO SCH (07:26)
[2019-03-09] MEDS: PANTOPRAZOLE 40MG TAB (PROTONIX) PO SCH (07:26)
[2019-03-09] MEDS: VANICREAM MOISTURIZING SKIN CREAM 113GM TUBE TOP SCH (07:27)
[2019-03-09] MEDS: SANTYL OINT 30GM TOP SCH (07:27)
[2019-03-09 14:00] VITALS: BP 133/87
[2019-03-09 19:30] VITALS: BP 150/60
[2019-03-09] MEDS: LATANOPROST 0.005% OPHTH SOLN 2.5 ML OU SCH (20:02)
[2019-03-09] MEDS: SENNA 8.6 MG TAB (SENOKOT) PO SCH (20:02)
[2019-03-10 05:08] VITALS: BP 153/72
[2019-03-10 07:21] LABS: CALCIUM LEVEL 9.4 MG/DL (8.8-10.2); CREATININE FOR GFR 1.25 MG/DL (0.70-1.30); GLOMERULAR FILTRATION RATE 59.3 (>42); POTASSIUM SERUM 4.6 MEQ/L (3.5-5.1)
[2019-03-10] MEDS: TORSEMIDE 10 MG TABLET PO SCH (08:38)
[2019-03-10] MEDS: PANTOPRAZOLE 40MG TAB (PROTONIX) PO SCH (08:38)
[2019-03-10] MEDS: ATORVASTATIN 20 MG TAB PO SCH (08:38)
[2019-03-10] MEDS: MULTIVITAMINS/MINERALS THERAP 1 TAB PO SCH (08:38)
[2019-03-10] MEDS: FLUoxetine 20 MG CAP PO SCH (08:38)
[2019-03-10] MEDS: APIXABAN 5 MG TAB (ELIQUIS) PO SCH (08:38)
[2019-03-10 08:39] VITALS: BP 153/72
[2019-03-10] MEDS: SANTYL OINT 30GM TOP SCH (08:39)
[2019-03-10] MEDS: VANICREAM MOISTURIZING SKIN CREAM 113GM TUBE TOP SCH (08:39)
[2019-03-10] MEDS: METOPROLOL SUCC *XL* 25MG TAB (TopROL *XL*) PO SCH (08:39)
[2019-03-10] MEDS ORDERED: ATOR1TAB21 PO (10:15)
[2019-03-10] MEDS ORDERED: ELIQ5TAB PO (10:15)
[2019-03-10] MEDS ORDERED: METO1TAB32 PO (10:15)
[2019-03-10] MEDS ORDERED: FLUO20CA19 PO (10:15)
[2019-03-10] MEDS ORDERED: TORS10TA3 PO (10:15)
--- NOTE | 2019-04-06 14:01 | IPNPDOC ---
PM&R Progress Note DATE OF SERVICE: Mar 09, 2019 [employer] Progress Note Subjective: Patient seen in his room for wound care, stating he feels well overall and is looking forward to going home. REVIEW OF SYSTEMS: The following is a completed review of systems and has been reviewed. Review of systems otherwise unremarkable. PAIN: Patient self reports no pain EYES: no recent vision changes EARS, NOSE, & THROAT: No throat pain, or dysphagia, or rhinorrhea CARDIOVASCULAR: Denies chest pain or palpitations PULMONARY: Denies shortness of breath GASTROINTESTINAL: Denies constipation/diarrhea GENITOURINARY: denies dysuria MUSCULOSKELETAL: right D4/D5 amputation NEUROLOGICAL:left sided weakness HEMATOLOGICAL: denies easy bruising SKIN: left lateral ankle wound and right foot amputation PSYCHIATRIC: Unremarkable All other review of systems found to be negative. PHYSICAL EXAMINATION: VITAL SIGNS: Please see below. GENERAL: Pleasant and cooperative. No acute distress. Obese HEENT: PERRL. Extraocular movements intact. Clear conjunctiva, +glasses CARDIOVASCULAR: Regular rate and rhythm. No murmurs, rubs, or gallops LUNGS: Clear to auscultation bilaterally. No wheezes. No rhonch ABDOMEN: Soft, nontender, nondistended. Positive bowel sounds. Normal active bowel sounds NEUROLOGICAL: Alert and oriented times three. Cranial nerves II through XII grossly intact. Sensation grossly intact, no facial droop, no neglect, no notable aphasia EXTREMITIES: 5\\5 strength right upper extremity, 4+/5 left upper extremity 5\\5 strength right hip flexors and knee extension, 4/5 ankle dorsiflexion. 5/5 stre ngth in left lower extremity. Bilat LE edema SKIN: RUE PICC, hyperpigmented calves with scaly skin, right amputation site wit h sutures no induration/drainage Left lateral ankle ulcer unstageable with slough Right inter-digit D1-D2 stage 2 pressure ulcers drying up on today's exam ASSESSMENT:78-year-old M with past medical history of DM, HTN, PAD with non- healing wound s/p right D4/5 amputation for osteomyelitis and right MCA stroke s/p tPA. PLAN: 1. 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 Neuro: s/p right MCA stroke thought to be embolic in setting of Afib, c/u Eliquis and statin therapy, monitor BPs, f/u Stroke clinic at [facility] -c/u prozac for motor recover -cognitive impairment/dementia-bradycardia improved, restarted Aricept at lower dose 5mg and monitor, then stopped due to persistent bradycardia 3. Cardio: pmh Afib and HTN, c/u and Eliquis-d/c'd amlodipine as likely c ontributing to LE edema, c/u acewrapping, c/u Torsemide -medicine consulted to assist in management -c/u Metoprolol at lower dose for HTN, bradycardia overall better (asymptomatic) medicine recs appreciated -pmh PAD s/p right D4 and D5 toe amputation, will follow-up with podiatry- sutures removed 03-03-19 4. Resp: encourage incentive spirometry- LUZ patient may use his own CPAP 5. ID: osteomyelitis, bone pathology "Chronic ulcer with acute and chronic inflammation, extending into underlying bone, consistent with osteomyelitis." - s/p Vanco/Zosyn then switched to Augmentin,s/p 10-day course, ID recs appreciated 6. : monitor PVRs 7. GI ppx: protonix, optimize bowel regimen 8. DVT ppx: on eliquis 9. Skin: daily wound care, monitor for infection, patient with new inter-digit (D1-D2) ulcers on the right foot, wound care adjusted to optimize healing- i mproving 10. Pain: Tylenol prn 11. Endo: pmh DM however recent A1C 5.6% c/u diet control 12. Renal: ALBARO with elevated BUN, c/u to hold MONA-I and change Torsemide to q48h 12. Dispo: 03-10-19 to home Allergies Coded Allergies: No Known Allergies (Unverified , 11/17/18) Current Medications Current Medications Current Medications Medications (Trade) Dose Ordered Sig/Keely Route PRN Reason Start Time Stop Time Status Last Admin Dose Admin Acetaminophen (Tylenol Tab) 650 mg Q4HP PRN PO fever/pain 02/18/19 14:30 03/10/19 12:10 DC 02/27/19 08:25 Amlodipine Besylate (Norvasc) 5 mg DAILY PO 02/22/19 09:00 02/23/19 07:53 DC Amlodipine Besylate (Norvasc) 10 mg DAILY PO 02/23/19 09:00 03/06/19 17:25 DC 03/06/19 09:38 Amoxicillin/ Clavulanate Potassium (Augmentin) 875 mg BID PO 02/20/19 09:00 03/02/19 16:43 DC 03/02/19 08:41 Apixaban (Eliquis) 5 mg BID PO 02/18/19 21:00 03/10/19 12:10 DC 03/10/19 08:38 Atorvastatin Calcium (Lipitor) 40 mg DAILY PO 02/19/19 09:00 03/10/19 12:10 DC 03/10/19 08:38 Bisacodyl (Dulcolax Suppository) 10 mg DAILYPRN PRN IA CONSTIPATION 02/18/19 14:30 03/10/19 12:10 DC Collagenase (Santyl) 1 dose DAILY TOP 02/19/19 15:00 03/10/19 12:10 DC 03/10/19 08:39 Donepezil HCl (AriCEPT) 5 mg DAILY PO 02/25/19 09:00 03/07/19 12:26 DC 03/07/19 08:42 Donepezil HCl (AriCEPT) 10 mg QHS PO 02/19/19 21:00 02/22/19 08:58 DC 02/21/19 21:05 Emollient Cream (Vanicream) APPLY TO AFFECTED AREA DAILY TOP 02/20/19 09:00 03/10/19 12:10 DC 03/08/19 08:27 Fluoxetine HCl (PROzac) 20 mg DAILY PO 02/20/19 09:00 03/10/19 12:10 DC 03/10/19 08:38 Heparin Sodium (Heparin (Flush)) 200 units ASDIRECTED PRN IV SEE LABEL COMMENTS 02/18/19 17:00 02/24/19 00:59 DC 02/23/19 05:36 Heparin Sodium (Heparin (Flush)) 200 units PICC IV 02/18/19 18:00 02/24/19 00:59 DC 02/23/19 05:36 Home Med (Med Rec Complete!) ASDIRECTED XX 02/18/19 14:15 02/18/19 14:09 DC Latanoprost (Xalatan 0.005% Op Soln) 1 drop QHS OU 02/19/19 21:00 03/10/19 12:10 DC 03/09/19 20:02 Lisinopril (Prinivil) 20 mg QHS PO 03/03/19 21:00 UNV Metoprolol Succinate (TopROL XL) 25 mg DAILY PO 03/05/19 09:00 03/10/19 12:10 DC 03/10/19 08:39 Metoprolol Tartrate (Lopressor) 25 mg Q8H PO 02/19/19 14:00 02/22/19 08:58 DC 02/21/19 21:06 Miscellaneous (Unresolved Clarification Entry) SEE LABEL COMMENTS DAILY XX 03/02/19 09:00 03/03/19 06:46 DC Miscellaneous (Unresolved Clarification Entry) SEE LABEL COMMENTS DAILY XX 03/09/19 09:00 03/10/19 12:10 DC Multivitamins (Theragram-M) 1 tab DAILY PO 02/20/19 09:00 03/10/19 12:10 DC 03/10/19 08:38 Pantoprazole Sodium (Protonix) 40 mg DAILY PO 02/18/19 17:00 03/10/19 12:10 DC 03/10/19 08:38 Piperacillin Sod/ Tazobactam Sod 3.375 gm/Dextrose 50 ml @ 50 mls/hr Q8H IV 02/18/19 17:00 02/19/19 22:21 DC 02/19/19 18:18 Quinapril HCl (Accupril) 40 mg DAILY PO 03/03/19 09:00 03/06/19 17:33 DC 03/06/19 09:37 Senna (Senokot) 1 tab QHS PO 02/18/19 21:00 03/10/19 12:10 DC 03/09/19 20:02 Sodium Chloride (Saline Lock Flush) 10 ml ASDIRECTED PRN IV SEE LABEL COMMENTS 02/18/19 17:00 02/24/19 00:59 DC 02/23/19 05:36 Sodium Chloride (Saline Lock Flush) 10 ml PICC IV 02/18/19 18:00 02/24/19 00:59 DC 02/23/19 05:36 Torsemide (Demadex) 10 mg DAILY PO 02/19/19 09:00 03/06/19 14:36 DC 03/06/19 09:37 Torsemide (Demadex) 10 mg Q48H PO 03/08/19 09:00 03/10/19 12:10 DC 03/10/19 08:38 Vancomycin HCl 750 mg/IV Miscellaneous Supplies 1 each/ Dextrose 275 ml @ 275 mls/hr Q24H IV 02/19/19 10:00 02/19/19 13:00 DC 02/19/19 11:23 Vancomycin HCl 750 mg/IV Miscellaneous Supplies 1 each/ Dextrose 275 ml @ 275 mls/hr Q24H IV 02/20/19 07:00 02/19/19 18:02 DC Vancomycin HCl 1000 mg/IV Miscellaneous Supplies 1 each/ Dextrose 270 ml @ 270 mls/hr Q24H IV 02/19/19 09:00 02/19/19 12:59 DC 02/19/19 09:34 Vancomycin HCl 1000 mg/IV Miscellaneous Supplies 1 each/ Dextrose 270 ml @ 270 mls/hr Q24H IV 02/20/19 06:00 02/19/19 16:50 DC Vancomycin HCl 1750 mg/IV Miscellaneous Supplies 1 each/ Dextrose 285 ml @ 270 mls/hr Q24H IV 02/18/19 14:30 LASHELL DELGADO MD Apr 06, 2019 14:01
--- NOTE | 2019-04-07 19:41 | PMRDS ---
DATE OF ADMISSION: 02/18/2019 DATE OF DISCHARGE: 03/10/2019 CHIEF COMPLAINT/ DISCHARGE DIAGNOSIS: Stroke with osteomyelitis. status post toe amputation. HISTORY OF PRESENT ILLNESS: This is a 78-year-old male with a past medical history of hypertension, diabetes atrial fibrillation. diastolic heart failure, peripheral arterial disease (PAD) on Pradaxa initially, presented to [facility] with fever and right foot wound where he underwent a fourth and fifth digit amputation of his right foot in the setting of osteomyelitis on 02/13/2019 after which he developed slurred speech and left-sided weakness and was transferred to [facility] for further workup. On arrival, he was given t-PA and admitted to the stroke unit on telemetry. MRI showed on 02/15/2019 "acute infarct of the posterior right MCA territory. 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 Dimunitive distal basilar artery supplying bilateral superior cerebellar arteries slightly with retrograde flow from the left MEASUREMENT COORDINATOR." His stroke was presumed to be embolic and he was placed on Eliquis 5 mg twice a day and subsequent CT did not show progression of bleed. He was maintained on IV vancomycin and Zosyn and discharge with recommendations to follow up with Dr. Garcia for managing the transitioned to oral antibiotics. He remained non-weightbearing to the right lower extremity and was deemed medically appropriate for discharge to ARU on 02/18/2019. HOSPITAL COURSE: The patient was admitted and enrolled in comprehensive physical therapy (PT), occupational therapy (OT), speech and language pathology program. He received 24-hour nursing supervision and weekly team meetings were held to discuss his progress. The patient was started on Prozac for motor recovery in the setting of stroke and was maintained on Eliquis and statin therapy. The patient had episodes of bradycardia while on metoprolol and Aricept and his Aricept dosing was lowered and discontinued, restarted and then ultimately discontinued for a persistent bradycardia. He was evaluated by infectious disease switched to Augmentin for a 10-day oral course following his IV antibiotics. His right toe amputation incision healed well and he alternated between weightbearing as tolerated and non-weightbearing for optimal wound healing. The patient had elevation in his BUN, creatinine for which his MONA inhibitor was held and his torsemide was eventually switched to every 48 hours. The patient progressed in therapy, was able to participate well and made his functional goals and was deemed medically and functionally stable to return home. DISCHARGE MEDICATIONS: As per instructions. FUNCTIONAL HISTORY: On discharge, the patient was modified independent for all functional transfers, able to ambulate 300 feet with a rolling walker, able to negotiate six stairs as standby assist level; and in occupational therapy, he was standby assist for transfers, upper and lower body dressing and bathing. Thank you for this referral.
== END 2019-03-10 12:10 | disposition home health service (06) | DRG 57 ==
LOC: M PM&R 13:23
PROVIDERS: ADMIT Physical Medicine & Rehabilitation; ATTEND Physical Medicine & Rehabilitation
DX: I69.354 Hemiplegia and hemiparesis following cerebral infarction affecting left non-dominant side (principal); I50.32 Chronic diastolic (congestive) heart failure; L97.329 Non-pressure chronic ulcer of left ankle with unspecified severity; L97.819 Non-pressure chronic ulcer of other part of right lower leg with unspecified severity; I11.0 Hypertensive heart disease with heart failure; I48.91 Unspecified atrial fibrillation; Z89.421 Acquired absence of other right toe(s); E11.622 Type 2 diabetes mellitus with other skin ulcer; Z79.84 Long term (current) use of oral hypoglycemic drugs; Z79.899 Other long term (current) drug therapy; I25.10 Atherosclerotic heart disease of native coronary artery without angina pectoris; E11.51 Type 2 diabetes mellitus with diabetic peripheral angiopathy without gangrene; H40.9 Unspecified glaucoma; F03.90 Unspecified dementia, unspecified severity, without behavioral disturbance, psychotic disturbance, mood disturbance, and anxiety; L89.529 Pressure ulcer of left ankle, unspecified stage; M10.9 Gout, unspecified; E78.5 Hyperlipidemia, unspecified

== ENCOUNTER → 2019-03-19 | Outpatient (REF) | payer MEDICARE ==
[~2019-03-19] MED LIST changes: +ATOR1TAB21 PO; +ATOR40TA75 PO; +COLA100C5 PO; +ELIQ5TAB PO; +FLUO20CA19 PO; +METO1TAB32 PO; +MILKSUS3 PO; +TORS10TA3 PO; +VANC1INJ IV; +ZOSY3INJ2 IV; +[UNRECOGNIZED DRUG - CODE] IV
[2019-03-19 17:06] LABS: HEMATOCRIT 31.3 % (42.0-52.0); HEMOGLOBIN 9.4 g/dl (13.5-17.5); MEAN CORPUSCULAR HEMOGLOBIN 29.7 pg (27.0-33.0); MEAN CORPUSCULAR VOLUME 98.7 fl (80.0-96.0); PLATELET COUNT, AUTOMATED 313 10^3/uL (150-450); RED BLOOD COUNT 3.17 10^6/uL (4.30-6.10); WHITE BLOOD COUNT 7.5 10^3/uL (4.0-10.0)
[2019-03-19 17:22] LABS: ALBUMIN 3.1 GM/DL (3.2-5.2); BILIRUBIN,TOTAL 0.8 MG/DL (0.2-1.0); CALCIUM LEVEL 9.3 MG/DL (8.8-10.2); CREATININE FOR GFR 1.29 MG/DL (0.70-1.30); GLOMERULAR FILTRATION RATE 57.2 (>42); POTASSIUM SERUM 5.3 MEQ/L (3.5-5.1); TOTAL PROTEIN 7.3 GM/DL (6.4-8.2)
== END ==
LOC: M SFHCADAM 11:43
PROVIDERS: ATTEND Family Medicine
DX: I11.0 Hypertensive heart disease with heart failure (principal); N18.3 Chronic kidney disease, stage 3 (moderate); I50.32 Chronic diastolic (congestive) heart failure; N17.9 Acute kidney failure, unspecified; E87.1 Hypo-osmolality and hyponatremia
CPT/HCPCS: 80053; 85027; 99495; G0463

== ENCOUNTER 2019-04-06 10:32 | Inpatient (IN) | payer MEDICARE ==
[2019-04-06 11:12] LABS: BASO # 0.1 10^3/uL (0.0-0.2); BASO % 1.2 % (0.0-1.0); EOS # 0.1 10^3/uL (0.0-0.5); EOS % 1.2 % (0.0-3.0); HEMOGLOBIN 9.5 g/dl (13.5-17.5); LYMPH % 13.9 % (24.0-44.0); MEAN CORPUSCULAR HEMOGLOBIN 29.1 pg (27.0-33.0); MEAN CORPUSCULAR HGB CONC 30.6 g/dl (32.0-36.5); MEAN CORPUSCULAR VOLUME 94.8 fl (80.0-96.0); MONO # 0.8 10^3/uL (0.0-0.8); MONO % 10.3 % (0.0-5.0); NEUTROPHILS # 5.4 10^3/uL (1.5-8.5); PLATELET COUNT, AUTOMATED 269 10^3/uL (150-450); RED BLOOD COUNT 3.27 10^6/uL (4.30-6.10); WHITE BLOOD COUNT 7.4 10^3/uL (4.0-10.0)
[2019-04-06 11:30] LABS: INR 2.28; PROTHROMBIN TIME 24.9 SECONDS (11.8-14.0)
[2019-04-06] MEDS ORDERED: TORS20TA2 PO (11:32)
[2019-04-06] MEDS ORDERED: NS 1,000 ML IV SCH (11:33)
[2019-04-06 11:37] LABS: ALBUMIN 2.8 GM/DL (3.2-5.2); ALT/SGPT 22 U/L (12-78); BILIRUBIN,DIRECT 0.4 MG/DL (0.0-0.2); BILIRUBIN,TOTAL 1.3 MG/DL (0.2-1.0); LIPASE 104 U/L (73-393); TOTAL PROTEIN 7.3 GM/DL (6.4-8.2)
[2019-04-06 12:00] LABS: AMYLASE 31 U/L (25-115); BLOOD UREA NITROGEN 22 MG/DL (7-18); CALCIUM LEVEL 8.9 MG/DL (8.8-10.2); CARBON DIOXIDE LEVEL 27 MEQ/L (21-32); CHLORIDE LEVEL 104 MEQ/L (98-107); CREATININE FOR GFR 1.16 MG/DL (0.70-1.30); GLOMERULAR FILTRATION RATE > 60.0 (>42); GLUCOSE, FASTING 93 MG/DL (70-100); SODIUM LEVEL 137 MEQ/L (136-145)
--- NOTE | 2019-04-06 12:15 | REP ---
Clinical: Abdominal pain. Technique: AP and cross-table lateral. Findings: Left lower lobe infiltrate and pleural effusion. Cardiomegaly with elements of pulmonary vascular congestion. No pneumothorax. Impression: Left lower lobe opacity and effusion along with evidence for cardiomegaly and pulmonary vascular congestion. Electronically Signed by Garett Beaulieu MD 04/06/2019 12:07 P
--- NOTE | 2019-04-06 12:38 | REP ---
Right upper quadrant sonography: History: Jaundice. Comparison study: No comparison study Findings: Scanning through the right upper quadrant of the abdomen demonstrates a normal sized, thin-walled gallbladder with shadowing echogenic foci consistent with gallstones. There appears to be a large 3 cm gallstone near the neck of the gallbladder. This was observed to be mobile. Common bile duct is normal measuring 0.33 cm in greatest diameter. No focal liver lesion is seen. Liver size is normal. No pancreatic abnormality is observed. There is a right renal cyst measuring 3.4 x 2.6 x 3.4 cm. No other right renal abnormality is seen. There is no evidence of ascites. There is a small quantity of right pleural fluid seen. The right kidney measures 11.1 x 5.5 x 5.9 cm. Impression: Large shadowing calculus in the gallbladder consistent with cholelithiasis. Cyst in the right kidney. A small quantity of right pleural fluid was visualized. Otherwise negative right upper quadrant sonography. Electronically Signed by Sami Love MD 04/06/2019 12:29 P
[2019-04-06 13:35] LABS: CK-MB VALUE MASS 1.2 NG/ML (<3.6); CPK CREATINE PHOSPHOKINASE 88 U/L (39-308); MB/CK RELATIVE INDEX 1.36 (< OR =4); NT-PRO BNP 9511 PG/ML (<450); TROPONIN I < 0.02 NG/ML (< 0.10)
[2019-04-06] MEDS ORDERED: ELIQ5TAB PO (13:35)
[2019-04-06] MEDS ORDERED: XALA0.007 OU (13:35)
[2019-04-06] MEDS ORDERED: ATOR40TA75 PO (13:35)
[2019-04-06] MEDS ORDERED: METO1TAB32 PO (13:35)
[2019-04-06] MEDS: FLUoxetine 20 MG CAP PO SCH (16:55)
[2019-04-06 17:25] VITALS: BP 146/98
--- NOTE | 2019-04-06 19:49 | ECGEPIP ---
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
[2019-04-06] MEDS: ZINC SULFATE 220 MG CAP PO SCH (20:06)
[2019-04-06] MEDS: APIXABAN 5 MG TAB (ELIQUIS) PO SCH (20:06)
[2019-04-06] MEDS: LATANOPROST 0.005% OPHTH SOLN 2.5 ML OU SCH (20:06)
[2019-04-06] MEDS: METOPROLOL SUCC *XL* 25MG TAB (TopROL *XL*) PO SCH (20:06)
[2019-04-06] MEDS: ATORVASTATIN 20 MG TAB PO SCH (20:06)
[2019-04-06 22:00] VITALS: BP 146/70
[2019-04-07 06:00] VITALS: BP 150/80
[2019-04-07 06:40] LABS: HEMATOCRIT 30.9 % (42.0-52.0); HEMOGLOBIN 9.2 g/dl (13.5-17.5); MEAN CORPUSCULAR HEMOGLOBIN 28.4 pg (27.0-33.0); MEAN CORPUSCULAR HGB CONC 29.8 g/dl (32.0-36.5); MEAN CORPUSCULAR VOLUME 95.4 fl (80.0-96.0); PLATELET COUNT, AUTOMATED 270 10^3/uL (150-450); RED BLOOD COUNT 3.24 10^6/uL (4.30-6.10); WHITE BLOOD COUNT 6.4 10^3/uL (4.0-10.0)
[2019-04-07 06:59] LABS: ALBUMIN 2.7 GM/DL (3.2-5.2); ALT/SGPT 20 U/L (12-78); BILIRUBIN,TOTAL 1.2 MG/DL (0.2-1.0); BLOOD UREA NITROGEN 20 MG/DL (7-18); CALCIUM LEVEL 8.5 MG/DL (8.8-10.2); CARBON DIOXIDE LEVEL 26 MEQ/L (21-32); CHLORIDE LEVEL 106 MEQ/L (98-107); CREATININE FOR GFR 1.09 MG/DL (0.70-1.30); GLOMERULAR FILTRATION RATE > 60.0 (>42); GLUCOSE, FASTING 85 MG/DL (70-100); POTASSIUM SERUM 4.5 MEQ/L (3.5-5.1); SODIUM LEVEL 138 MEQ/L (136-145); TOTAL PROTEIN 6.8 GM/DL (6.4-8.2)
[2019-04-07] MEDS: APIXABAN 5 MG TAB (ELIQUIS) PO SCH ×2 (08:07→20:13)
[2019-04-07] MEDS: FLUoxetine 20 MG CAP PO SCH (08:07)
--- NOTE | 2019-04-07 08:38 | HPE ---
DATE OF ADMISSION: 04/06/2019 "Brandon" is a 78-year-old patient of mine being admitted with intractable diarrhea. Per his , he has had diarrhea since discharge from acute rehabilitation unit (ARU) but it has gotten much worse in the last week. He is getting up every 2 hours having involuntary stooling requiring change of clothes and bedding, soaking into the dressings on his right foot where he recently underwent partial amputation being admitted for further evaluation. He reported has lost 20 pounds over the last month. He has a peripheral artery disease, osteomyelitis requiring amputation of his right 3rd and 4th toes February 2018. He had a postoperative stroke, probably embolic, to the right cerebral artery. He underwent tissue plasminogen activator (tPA) at [facility] and then went to ARU after that. He has a history of type 2 diabetes, which is now under good control with dietary therapy. He is on no medications. Last hemoglobin A1c was 5.3% in January 2019. He has severe obstructive sleep apnea (LUZ) on continuous positive airway pressure (CPAP) from Dr. Catalan, hypertensive heart disease, morbid obesity, history of gout, atrial fibrillation/flutter, on Eliquis, had embolic stroke February 2019. Has chronic wounds. He has had venous stasis ulcers due treated with Unna boot in the past. Dr. Frank has been managing his most wound problems. 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 He is on Aricept being followed by [facility]. History of stage III chronic kidney disease, esophageal ulcers/severe esophagitis on esophagogastroduodenoscopy (EGD) from December 2017. MRA November 2017 showed "thread-like" basilar artery. He had a fall November 2018, had a small subarachnoid hemorrhage. At that point, he was on Pradaxa. This was held for 4 weeks and restarted. He has had acute kidney injury November 2018 secondary to spironolactone therapy. HOME MEDICATIONS: - On 03/19/2019, he was on Eliquis 5 mg twice a day. - Lipitor 40 mg daily - fluoxetine 20 mg daily - metoprolol succinate 25 mg daily - torsemide 20 mg half a tablet every other day - eye drops SOCIAL HISTORY: . His 's name is Radha. He quit smoking over 10 years ago. No alcohol use. ALLERGIES: LEVAQUIN caused central nervous system side effects. SPIRONOLACTONE caused hyperkalemia, acute kidney injury for which he was admitted November 2018. FAMILY HISTORY: Father had Alzheimer. Mother of cardiac complications in her 90s. She had a history of substance abuse. Has a sister with Alzheimer. Son with hypertension. REVIEW OF SYSTEMS: No rectal bleeding. No significant abdominal pain. No vomiting. His appetite has been poor. His oral intake has been poor. No polyuria or polydipsia. No chest pain. He missed his last appointment at the wound clinic. PHYSICAL EXAMINATION: Vital signs per flow sheet. 166/74, pulse of 60. General Appearance: Alert, conversant, in no distress. Looks mildly chronically ill. Pupils equal round, reactive to light. Tympanic membranes and oropharynx benign. Neck: No masses. Lungs: Clear. Heart: Regular rate and rhythm. No murmur. Abdomen: Soft, nondistended. No masses. Nontender. Extremities: No clubbing or cyanosis. Trace peripheral edema. His right foot has a large dressing on it. The right foot was dressed in gauze. LABS: CBC looks unremarkable. Hemoglobin 9.5, stable from 03/19/2019. Electrolytes unremarkable. BUN 22, creatinine 1.16. BNP is 9500. IMPRESSION: 1. Intractable diarrhea. He has had recent prolonged antibiotic exposure. Will check a gastrointestinal (GI) panel to rule out Clostridium (C) difficile. He is on no medications that should account for this. I do not think he is taking Aricept currently. He said that in the past it is associated with diarrhea as a predominant side effect but at his last appointment it was not on his med list. Going through an external prescription history however, it looks he did refill a prescription for Aricept 10 mg daily on 01/31/2019, though again, I do not think he is currently on this as his daily medication. Followup upon results of GI panel. Lactulose free diet recommended. 2. Atrial dysrhythmia, history of atrial fibrillation/flutter, rate controlled. He is in atrial fibrillation at a rate of 60. Continue his metoprolol ER 25 mg daily and Eliquis 5 mg twice a day. 3. Hyperlipidemia. He is on atorvastatin 40 mg daily. 4. History of chronic heart failure with preserved ejection fraction. Will hold his torsemide for now. He might be a little dry from the diarrhea. This will eventually need to be restarted. 5. History of depression. Continue his fluoxetine 20 mg daily.
--- NOTE | 2019-04-07 08:41 | IPNPDOC ---
Subjective Date Seen The patient was seen on 04/07/19. Subjective Chief Complaint/HPI diarrhea Events since last encounter Admitted yesterday for c/o recurrent diarrhea, weakness, dehydration. CXR: Left lower lobe opacity and effusion along with evidence for cardiomegaly and pulmonary vascular congestion. RUQ US: Large shadowing calculus in the gallbladder consistent with cholelithiasis. Cyst in the right kidney. A small quantity of right pleural fluid was visualized. Otherwise negative right upper quadrant sonography. Patient denies c/o today. Tolerating breakfast. Documented 2 BMs since admission Constitutional: Denies: Chills, Fever, Night Sweats Pulmonary: Denies: Dyspnea, Cough Cardiovascular: Denies: Chest Pain, Palpitations, Orthopnea, Paroxysmal Noc. Dyspnea, Lt Headedness Gastrointestinal: Reports: Diarrhea; Denies: Nausea, Vomiting, Abdominal Pain, Constipation Genitourinary: Denies: Dysuria, Frequency, Incontinence, Retention Objective Physical Examination General Exam: Positive: Alert, Cooperative, No Acute Distress Chest Exam: Positive: Clear to auscultation, Normal air movement Heart Exam: Positive: Rate Normal, Regular Rhythm, Normal S1, Normal S2; Negative: Murmurs, Rubs Abdomen Exam: Positive: Normal bowel sounds, Soft; Negative: Tenderness, Hepatospenomegaly Extremity Exam: Positive: Edema (unable to asses due to dressings on legs. does not appear edematous), Normal pulses; Negative: Clubbing, Cyanosis Skin Exam: Positive: Other skin issue (large wound dressing on RLE) Psych Exam: Positive: Mental status NL Assessment /Plan Problems (1) Cholelithiasis Status: Acute Problem Text: US reviewed. (2) Intractable diarrhea Status: Acute Problem Text: Trial Questran. (3) Pleural effusion Status: Acute Problem Text: We will resume HD of Torsemide and monitor. (4) DM type 2 with diabetic peripheral neuropathy Status: Chronic (5) Chronic diastolic CHF (congestive heart failure) Status: Chronic Problem Text: EF 60% on last echo from Cardiology office. (6) Atrial fibrillation Status: Chronic Problem Text: rate controlled. Anti-coagulated with Eliquis. (7) Essential (primary) hypertension Status: Chronic Response to Treatment: Stable (8) LUZ (obstructive sleep apnea) Status: Chronic Plan/VTE VTE Prophylaxis Ordered?: Yes VS, I&O, 24H, Fishbone Vital Signs/I&O Vital Signs Date Time Temp Pulse Resp B/P (MAP) Pulse Ox O2 Delivery O2 Flow Rate FiO2 04/07/19 06:00 96.9 61 20 150/80 (103) 96 Room Air I&O- Last 24 Hours up to 6 AM 04/07/19 06:00 Intake Total 1300 ml Output Total 0 ml Balance 1300 ml Laboratory Data 24H LABS Laboratory Tests 2 04/06/19 11:02: Immature Granulocyte % (Auto) 0.4, Neutrophils (%) (Auto) 73.0H, Lymphocytes (%) (Auto) 13.9L, Monocytes (%) (Auto) 10.3H, Eosinophils (%) (Auto) 1.2, Basophils (%) (Auto) 1.2H, Neutrophils # (Auto) 5.4, Lymphocytes # (Auto) 1.0L, Monocytes # (Auto) 0.8, Eosinophils # (Auto) 0.1, Basophils # (Auto) 0.1, Nucleated Red Blood Cells % (auto) 0.0, Prothrombin Time 24.9H, Prothromb Time International Ratio 2.28, Anion Gap 6L, Glomerular Filtration Rate > 60.0, Calcium Level 8.9, Total Bilirubin 1.3H, Direct Bilirubin 0.4H, Aspartate Amino Transf (AST/SGOT) 27, Alanine Aminotransferase (ALT/SGPT) 22, Alkaline Phosphatase 145H, Total Creatine Kinase 88, Creatine Kinase MB 1.2, Creatine Kinase MB Relative Index 1 .36, Troponin I < 0.02, WI-Gzs-P-Type Natriuretic Peptide 9511H, Total Protein 7.3, Albumin 2.8L, Albumin/Globulin Ratio 0.62L, Amylase Level 31, Lipase 104 04/06/19 12:32: POC Glucose (Misc Panel) 83, POC Sodium (Misc Panel) 133L, POC Potassium (Misc Panel) 7.7*H, POC Chloride (Misc Panel) 103, POC Total CO2 (Misc Panel) 27.0, POC Blood Urea Nitrogen (Misc Panel 30H, POC Ionized Calcium (Misc Panel) 4.0L, POC Creatinine (Misc Panel) 1.2, POC Hematocrit (Misc Panel) < 15.0L 04/06/19 13:35: Lactic Acid Level 1.4 04/07/19 06:20: Nucleated Red Blood Cells % (auto) 0.0, Anion Gap 6L, Glomerular Filtration Rate > 60.0, Calcium Level 8.5L, Total Bilirubin 1.2H, Aspartate Amino Transf (AST/SGOT) 21, Alanine Aminotransferase (ALT/SGPT) 20, Alkaline Phosphatase 157H, Total Protein 6.8, Albumin 2.7L, Albumin/Globulin Ratio 0.66L CBC/BMP Laboratory Tests 04/06/19 11:02 04/07/19 06:20 Microbiology Microbiology 04/06/19 Gastrointestinal Tract Panel (PCR) - Final, Complete 04/06/19 Blood Culture, Received Pending 04/06/19 Blood Culture, Received Pending Velia Aden [facility] Apr 07, 2019 08:41
[2019-04-07] MEDS: TORSEMIDE 20 MG TAB PO SCH (09:51)
[2019-04-07] MEDS: CHOLESTYRAMINE 4 GM PWD PKT PO SCH ×3 (12:29→21:23)
[2019-04-07 14:00] VITALS: BP 167/84
[2019-04-07] MEDS: LATANOPROST 0.005% OPHTH SOLN 2.5 ML OU SCH (20:13)
[2019-04-07] MEDS: ZINC SULFATE 220 MG CAP PO SCH (20:13)
[2019-04-07] MEDS: ATORVASTATIN 20 MG TAB PO SCH (20:13)
[2019-04-07] MEDS: METOPROLOL SUCC *XL* 25MG TAB (TopROL *XL*) PO SCH (20:14)
[2019-04-07 22:00] VITALS: BP 150/67
[2019-04-08 06:00] VITALS: BP 151/68
[2019-04-08 06:12] LABS: HEMATOCRIT 29.6 % (42.0-52.0); HEMOGLOBIN 9.2 g/dl (13.5-17.5); MEAN CORPUSCULAR HEMOGLOBIN 28.6 pg (27.0-33.0); MEAN CORPUSCULAR HGB CONC 31.1 g/dl (32.0-36.5); MEAN CORPUSCULAR VOLUME 91.9 fl (80.0-96.0); PLATELET COUNT, AUTOMATED 268 10^3/uL (150-450); RED BLOOD COUNT 3.22 10^6/uL (4.30-6.10); WHITE BLOOD COUNT 6.5 10^3/uL (4.0-10.0)
[2019-04-08 06:39] LABS: ALBUMIN 2.6 GM/DL (3.2-5.2); ALT/SGPT 22 U/L (12-78); BILIRUBIN,TOTAL 1.2 MG/DL (0.2-1.0); BLOOD UREA NITROGEN 19 MG/DL (7-18); CALCIUM LEVEL 8.7 MG/DL (8.8-10.2); CARBON DIOXIDE LEVEL 27 MEQ/L (21-32); CHLORIDE LEVEL 102 MEQ/L (98-107); CREATININE FOR GFR 1.08 MG/DL (0.70-1.30); GLOMERULAR FILTRATION RATE > 60.0 (>42); GLUCOSE, FASTING 87 MG/DL (70-100); POTASSIUM SERUM 4.4 MEQ/L (3.5-5.1); SODIUM LEVEL 136 MEQ/L (136-145); TOTAL PROTEIN 6.8 GM/DL (6.4-8.2)
[2019-04-08] MEDS: CHOLESTYRAMINE 4 GM PWD PKT PO SCH ×4 (07:40→21:35)
[2019-04-08] MEDS: FLUoxetine 20 MG CAP PO SCH (09:00)
[2019-04-08] MEDS ORDERED: FLUBLOK(EGG FREE)(QUAD)INFLUENZA VACC 0.5ML SYRINGE (90682)18YRS&OLDER IM ONE (09:00)
[2019-04-08] MEDS: IODOSORB TOP SCH (09:00)
--- NOTE | 2019-04-08 09:43 | REP ---
Clinical: Follow up pleural effusion. Technique: AP and lateral views. Comparison: 04/06/2019. Findings: Stable cardiomegaly. Lateral view suggests small pleural effusions (right greater than left) along with right lower lobe atelectasis. Findings appear relatively unchanged. No pneumothorax. Skeletal structures intact. Impression: Continued evidence for pleural effusions and basilar atelectasis similar to prior examination. Electronically Signed by Garett Beaulieu MD 04/08/2019 09:35 A
--- NOTE | 2019-04-08 10:15 | IPNPDOC ---
Subjective Date Seen The patient was seen on 04/08/19. Subjective Chief Complaint/HPI diarrhea Events since last encounter Stools have reduced to 2 BMs in the last 12 hrs. Denies c/o today. Increase urine output with Torsemide noted in I/O. Constitutional: Denies: Chills, Fever, Night Sweats Skin: Denies: Rash, Lesions, Breakdown Pulmonary: Reports: Dyspnea Cardiovascular: Denies: Chest Pain, Palpitations, Orthopnea, Paroxysmal Noc. Dyspnea, Lt Headedness Gastrointestinal: Denies: Nausea, Vomiting, Abdominal Pain, Diarrhea, Constipation Psych: Reports: Mood Normal; Denies: Depression, Memory Issues Objective Physical Examination General Exam: Positive: Alert, Cooperative, No Acute Distress Chest Exam: Positive: Clear to auscultation, Normal air movement Heart Exam: Positive: Rate Normal, Regular Rhythm, Normal S1, Normal S2; Negative: Murmurs, Rubs Abdomen Exam: Positive: Normal bowel sounds, Soft; Negative: Tenderness, Hepatospenomegaly Extremity Exam: Positive: Edema (unable to asses due to dressings on legs. does not appear edematous), Normal pulses; Negative: Clubbing, Cyanosis Skin Exam: Positive: Other skin issue (large wound dressing on RLE) Psych Exam: Positive: Mental status NL Assessment /Plan Problems (1) Cholelithiasis Status: Acute Problem Text: US reviewed.no necessary intervention at this time. (2) Intractable diarrhea Status: Acute Problem Text: Improved with addition of Questran. (3) Pleural effusion Status: Acute Response to Treatment: Improving Problem Text: We will resume HD of Torsemide and monitor. (4) DM type 2 with diabetic peripheral neuropathy Status: Chronic (5) Chronic diastolic CHF (congestive heart failure) Status: Chronic Problem Text: EF 60% on last echo from Cardiology office. (6) Atrial fibrillation Status: Chronic Problem Text: rate controlled. Anti-coagulated with Eliquis. (7) Essential (primary) hypertension Status: Chronic Response to Treatment: Stable (8) LUZ (obstructive sleep apnea) Status: Chronic Plan/VTE VTE Prophylaxis Ordered?: Yes VS, I&O, 24H, Fishbone Vital Signs/I&O Vital Signs Date Time Temp Pulse Resp B/P (MAP) Pulse Ox O2 Delivery O2 Flow Rate FiO2 04/08/19 06:00 96.8 59 17 151/68 (95) 93 Room Air I&O- Last 24 Hours up to 6 AM 04/08/19 06:00 Intake Total 945 ml Output Total 0 ml Balance 945 ml Laboratory Data 24H LABS Laboratory Tests 2 04/08/19 05:54: Nucleated Red Blood Cells % (auto) 0.0, Anion Gap 7L, Glomerular Filtration Rate > 60.0, Calcium Level 8.7L, Total Bilirubin 1.2H, Aspartate Amino Transf (AST/SGOT) 22, Alanine Aminotransferase (ALT/SGPT) 22, Alkaline Phosphatase 151H, Total Protein 6.8, Albumin 2.6L, Albumin/Globulin Ratio 0.62L CBC/BMP Laboratory Tests 04/08/19 05:54 Microbiology Microbiology 04/06/19 Gastrointestinal Tract Panel (PCR) - Final, Complete 04/06/19 Blood Culture - Preliminary, Resulted No growth after 24 hours . All specim... 04/06/19 Blood Culture - Preliminary, Resulted No growth after 24 hours . All specim... Velia Aden Apr 08, 2019 10:15
[2019-04-08] MEDS: APIXABAN 5 MG TAB (ELIQUIS) PO SCH ×2 (11:17→20:01)
--- NOTE | 2019-04-08 13:27 | IPN ---
DATE: 04/08/2019 Saurabh was seen together with his and son. His diarrhea has significantly improved with the Questran. is wondering whether he might be lactose intolerant as this runs in the family and affects his son quite a bit, so we will add lactose-free to the diet. Though it is on his home medication list, apparently he was not taking fluoxetine at home. As this too can cause diarrhea, we will discontinue this. We had a prolonged discussion about the Aricept that apparently had been prescribed for him by neurology. This was discontinued when he was [facility]. We discussed the fact that there was very little clinical evidence that Aricept provides any significant improvement in real life function and the most common side effect is diarrhea which he has been suffering from chronically. We all agreed not to restart this. I talked to Omar Gonzalez from patient and family services ([facility]). The plan is for subacute rehabilitation.
[2019-04-08 14:00] VITALS: BP 159/73
[2019-04-08] MEDS: ATORVASTATIN 20 MG TAB PO SCH (20:01)
[2019-04-08] MEDS: ZINC SULFATE 220 MG CAP PO SCH (20:01)
[2019-04-08] MEDS: METOPROLOL SUCC *XL* 25MG TAB (TopROL *XL*) PO SCH (20:02)
[2019-04-08] MEDS: LATANOPROST 0.005% OPHTH SOLN 2.5 ML OU SCH (20:02)
[2019-04-08 22:00] VITALS: BP 140/69
--- NOTE | 2019-04-09 03:37 | CR ---
DATE OF CONSULTATION: 04/07/2019 REQUESTED BY: Marco Merino MD This is regarding bilateral lower extremity wounds. 78-year-old male, who was deteriorating and health, has had multiple falls and has been hospitalized for further workup. The patient has been treated at the wound care center in the past for right and left lower extremity wounds, which have healed, but now due to local trauma have recurred. When seen today, the patient has a right lower extremity lateral supramalleolar wound and a left lower extremity lateral supramalleolar wound. The first wound measures 1.5 cm x 2.5 cm with a wound depth of less than 0.1 cm. The wound base shows a dry partially fixed eschar with little or no drainage. The periwound shows no erythema, maceration or ischemic changes. A second wound involving the medial aspect of the right second toe measures 2 mm x 1 mm with no appreciable depth of less than 0.1 cm. There is no drainage noted. No erythema or involvement of the webspace and/or digit is seen. The left lower extremity on the lateral supramalleolar area shows a wound measuring 1.0 cm x 0.7 cm with a wound depth of 0.2 cm. The wound base shows fibrin slough with some erythema involving the periwound. The drainage is minimal, serosanguineous without odor. Wound edges are open. Treatment will include dressing the wounds with Hydrofera glue on an every other day basis. Tubigrip stockings should be in place and a cover dressing of an OptiLock or absorptive foam to cover the Hydrofera glue should be used. Heel float boots for right and left lower extremities should be in place to prevent any potential hospital-acquired pressure injury. The right toe wound should be dressed with a foam dressing as well. No indication for antibiotic therapy for any of the wounds. Upon discharge, if needed, the patient should be scheduled for a followup at the wound clinic as he has been a patient here in the past.
[2019-04-09 06:00] VITALS: BP 153/84
[2019-04-09 06:19] LABS: HEMATOCRIT 31.1 % (42.0-52.0); HEMOGLOBIN 9.3 g/dl (13.5-17.5); MEAN CORPUSCULAR HEMOGLOBIN 27.9 pg (27.0-33.0); MEAN CORPUSCULAR HGB CONC 29.9 g/dl (32.0-36.5); MEAN CORPUSCULAR VOLUME 93.4 fl (80.0-96.0); PLATELET COUNT, AUTOMATED 269 10^3/uL (150-450); RED BLOOD COUNT 3.33 10^6/uL (4.30-6.10); WHITE BLOOD COUNT 5.7 10^3/uL (4.0-10.0)
[2019-04-09 06:47] LABS: ALBUMIN 2.5 GM/DL (3.2-5.2); ALT/SGPT 19 U/L (12-78); BILIRUBIN,TOTAL 1.3 MG/DL (0.2-1.0); BLOOD UREA NITROGEN 17 MG/DL (7-18); CALCIUM LEVEL 8.8 MG/DL (8.8-10.2); CARBON DIOXIDE LEVEL 28 MEQ/L (21-32); CHLORIDE LEVEL 101 MEQ/L (98-107); CREATININE FOR GFR 1.06 MG/DL (0.70-1.30); GLOMERULAR FILTRATION RATE > 60.0 (>42); GLUCOSE, FASTING 88 MG/DL (70-100); POTASSIUM SERUM 4.1 MEQ/L (3.5-5.1); SODIUM LEVEL 135 MEQ/L (136-145); TOTAL PROTEIN 6.6 GM/DL (6.4-8.2)
[2019-04-09] MEDS: APIXABAN 5 MG TAB (ELIQUIS) PO SCH ×2 (07:46→20:30)
[2019-04-09] MEDS: TORSEMIDE 20 MG TAB PO SCH (07:46)
[2019-04-09] MEDS: CHOLESTYRAMINE 4 GM PWD PKT PO SCH ×4 (09:07→22:08)
[2019-04-09] MEDS ORDERED: FLUBLOK(EGG FREE)(QUAD)INFLUENZA VACC 0.5ML SYRINGE (90682)18YRS&OLDER IM ONE (12:00)
[2019-04-09 14:00] VITALS: BP 140/65
[2019-04-09] MEDS: ZINC SULFATE 220 MG CAP PO SCH (20:29)
[2019-04-09] MEDS: ATORVASTATIN 20 MG TAB PO SCH (20:29)
[2019-04-09 20:30] VITALS: BP 153/81
[2019-04-09] MEDS: LATANOPROST 0.005% OPHTH SOLN 2.5 ML OU SCH (20:30)
[2019-04-09] MEDS: METOPROLOL SUCC *XL* 25MG TAB (TopROL *XL*) PO SCH (20:30)
[2019-04-10 06:00] VITALS: BP 146/74
[2019-04-10 06:52] LABS: ALBUMIN 2.5 GM/DL (3.2-5.2); ALT/SGPT 18 U/L (12-78); BILIRUBIN,TOTAL 1.1 MG/DL (0.2-1.0); BLOOD UREA NITROGEN 16 MG/DL (7-18); CALCIUM LEVEL 8.9 MG/DL (8.8-10.2); CARBON DIOXIDE LEVEL 28 MEQ/L (21-32); CHLORIDE LEVEL 101 MEQ/L (98-107); CREATININE FOR GFR 1.12 MG/DL (0.70-1.30); GLOMERULAR FILTRATION RATE > 60.0 (>42); GLUCOSE, FASTING 113 MG/DL (70-100); POTASSIUM SERUM 4.1 MEQ/L (3.5-5.1); SODIUM LEVEL 135 MEQ/L (136-145); TOTAL PROTEIN 6.9 GM/DL (6.4-8.2)
[2019-04-10] MEDS: IODOSORB TOP SCH (07:33)
[2019-04-10] MEDS: APIXABAN 5 MG TAB (ELIQUIS) PO SCH (07:33)
[2019-04-10] MEDS: CHOLESTYRAMINE 4 GM PWD PKT PO SCH (09:24)
[2019-04-10] MEDS ORDERED: CHOL4PW PO (11:47)
--- NOTE | 2019-04-10 11:54 | DS.PDOC ---
Discharge Summary General Date of Admission Apr 06, 2019 at 14:13 Date of Discharge 04/10/19 Primary Care Physician: Marco Merion MD Attending Physician: Escobar Braxton MD Specialist/Consultants Involve: Carlton Frank MD Discharge Summary PROCEDURES PERFORMED DURING STAY: [None]. ADMITTING DIAGNOSES: 1. . DISCHARGE DIAGNOSES: 1. . COMPLICATIONS/CHIEF COMPLAINT: Intractable Diarrhea. HISTORY OF PRESENT ILLNESS: . HOSPITAL COURSE: . DISCHARGE MEDICATIONS: Please see below. ALLERGIES: Please see below. PHYSICAL EXAMINATION ON DISCHARGE: VITAL SIGNS: Please see below. GENERAL: HEENT: NECK: CARDIOVASCULAR EXAMINATION: RESPIRATORY EXAMINATION: ABDOMINAL EXAMINATION: EXTREMITIES: SKIN: NEUROLOGICAL EXAMINATION: PSYCHIATRIC EXAMINATION: LABORATORY DATA: Please see below. IMAGING: PROGNOSIS: ACTIVITY: [As tolerated]. DIET: DISCHARGE PLAN: DISPOSITION: . DISCHARGE INSTRUCTIONS: 1. . ITEMS TO FOLLOWUP ON ON OUTPATIENT: 1. . DISCHARGE CONDITION: [Stable]. TIME SPENT ON DISCHARGE: Greater than minutes. Vital Signs/I&Os Vital Signs Date Time Temp Pulse Resp B/P (MAP) Pulse Ox O2 Delivery O2 Flow Rate FiO2 04/10/19 06:00 98.2 66 19 146/74 (98) 97 NIPPV (BIPAP/CPAP) I&O- Last 24 Hours up to 6 AM 04/10/19 06:00 Intake Total 1326 ml Balance 1326 ml Laboratory Data Labs 24H Laboratory Tests 2 04/10/19 05:26: Anion Gap 6L, Glomerular Filtration Rate > 60.0, Calcium Level 8.9, Total Bilirubin 1.1H, Aspartate Amino Transf (AST/SGOT) 21, Alanine Aminotransferase (ALT/SGPT) 18, Alkaline Phosphatase 153H, Total Protein 6.9, Albumin 2.5L, Albumin/Globulin Ratio 0.57L CBC/BMP Laboratory Tests 04/10/19 05:26 Microbiology Microbiology 04/06/19 Gastrointestinal Tract Panel (PCR) - Final, Complete 04/06/19 Blood Culture - Preliminary, Resulted No Growth after 72 hours. All specime... 04/06/19 Blood Culture - Preliminary, Resulted No Growth after 72 hours. All specime... Discharge Medications Scheduled Apixaban (Eliquis) 5 Mg Tablet, 5 MG PO BID, (Reported) Atorvastatin Calcium (Atorvastatin Calcium) 40 Mg Tablet, 40 MG PO QHS, (Reported) Cholestyramine (Cholestyramine Packet) 4 Gm Powd.pack, 2 GM PO ACHS Latanoprost (Xalatan) 0.005% 2.5ML Drops, 1 DROP OU QHS, (Reported) Metoprolol Succinate (Metoprolol Succinate) 25 Mg Tab.er.24h, 25 MG PO QHS, (Reported) Torsemide (Torsemide) 20 Mg Tablet, 10 MG PO Q2D, (Reported) Zinc Sulfate (Zinc Sulfate) 220 Mg Tab, 220 MG PO QHS, (Reported) Allergies Coded Allergies: No Known Allergies (Unverified , 11/17/18) Escobar Braxton MD Apr 10, 2019 11:54
--- NOTE | 2019-04-10 22:23 | DSES ---
DATE OF ADMISSION: 04/06/2019 DATE OF DISCHARGE: 04/10/2019 PRIMARY CARE PHYSICIAN: Dr. Marco Merino HISTORY: This is a 78-year-old patient who was admitted to the hospital with intractable diarrhea since discharge from acute rehabilitation unit (ARU) the week prior. He has recently undergone prolonged antibiotic exposure. Gastrointestinal (GI) panel was obtained to rule out Clostridium (C) difficile and was negative. Patient's medications were reviewed. Fluoxetine, which the patient had not been taking since discharge, had been discontinued. Aricept has also been discontinued. He has been started on Questran and had improvement in his frequency of bowel movements. His torsemide diuretic was held on admission, although patient did develop edema, and therefore this has been restarted. His fluid status has improved. His renal function has remained stable since initiation of this. He has been seen by physical therapy, who is recommending short-term rehabilitation, which the patient and family are both agreeable to. He has also been evaluated by Dr. Frank who made recommendations in regard to his wounds, which are placed on the chart. DISCHARGE DIAGNOSES: 1. Intractable diarrhea. 2. Cholelithiasis. 3. Chronic diastolic congestive heart failure with pleural effusion. 4. Type 2 diabetes with diabetic peripheral neuropathy. 5. Morbid obesity. 6. Atrial fibrillation. 7. Obstructive sleep apnea. Discharge medications and summary will be dictated at time of discharge from the hospital.
== END 2019-04-10 12:10 | DRG 392 ==
LOC: M ED 10:32 → EDBD 10:32 → M ED INP 14:13 → M MSPAV 17:16
PROVIDERS: ADMIT Family Medicine; ATTEND Family Medicine
DX: R19.7 Diarrhea, unspecified (principal); J90 Pleural effusion, not elsewhere classified; I50.32 Chronic diastolic (congestive) heart failure; L97.329 Non-pressure chronic ulcer of left ankle with unspecified severity; L97.319 Non-pressure chronic ulcer of right ankle with unspecified severity; E11.51 Type 2 diabetes mellitus with diabetic peripheral angiopathy without gangrene; G47.33 Obstructive sleep apnea (adult) (pediatric); E66.01 Morbid (severe) obesity due to excess calories; M10.9 Gout, unspecified; I48.91 Unspecified atrial fibrillation; F03.90 Unspecified dementia, unspecified severity, without behavioral disturbance, psychotic disturbance, mood disturbance, and anxiety; N18.3 Chronic kidney disease, stage 3 (moderate); E11.22 Type 2 diabetes mellitus with diabetic chronic kidney disease; E78.5 Hyperlipidemia, unspecified; K20.9 Esophagitis, unspecified; Z88.1 Allergy status to other antibiotic agents; Z88.8 Allergy status to other drugs, medicaments and biological substances; F32.9 Major depressive disorder, single episode, unspecified; Z79.01 Long term (current) use of anticoagulants; Z79.899 Other long term (current) drug therapy; K80.20 Calculus of gallbladder without cholecystitis without obstruction; E11.42 Type 2 diabetes mellitus with diabetic polyneuropathy; I11.0 Hypertensive heart disease with heart failure; E11.622 Type 2 diabetes mellitus with other skin ulcer; Z68.29 Body mass index [BMI] 29.0-29.9, adult

== ENCOUNTER → 2019-04-14 | Outpatient (REF) ==
[~2019-04-14] MED LIST changes: +CHOL4PW PO
[2019-04-14 10:17] LABS: HEMATOCRIT 34.1 % (42.0-52.0); HEMOGLOBIN 10.1 g/dl (13.5-17.5); MEAN CORPUSCULAR HEMOGLOBIN 27.6 pg (27.0-33.0); MEAN CORPUSCULAR HGB CONC 29.6 g/dl (32.0-36.5); MEAN CORPUSCULAR VOLUME 93.2 fl (80.0-96.0); PLATELET COUNT, AUTOMATED 289 10^3/uL (150-450); RED BLOOD COUNT 3.66 10^6/uL (4.30-6.10); WHITE BLOOD COUNT 6.6 10^3/uL (4.0-10.0)
[2019-04-14 10:48] LABS: BLOOD UREA NITROGEN 17 MG/DL (7-18); CALCIUM LEVEL 8.9 MG/DL (8.8-10.2); CARBON DIOXIDE LEVEL 26 MEQ/L (21-32); CHLORIDE LEVEL 102 MEQ/L (98-107); CREATININE FOR GFR 1.03 MG/DL (0.70-1.30); GLOMERULAR FILTRATION RATE > 60.0 (>42); GLUCOSE, FASTING 98 MG/DL (70-100); POTASSIUM SERUM 4.2 MEQ/L (3.5-5.1); SODIUM LEVEL 136 MEQ/L (136-145)
== END ==
PROVIDERS: ATTEND Internal Medicine
DX: R19.7 Diarrhea, unspecified (principal)

== ENCOUNTER → 2019-05-19 | Outpatient (REF) ==
[2019-05-19 12:23] LABS: HEMATOCRIT 29.6 % (42.0-52.0); HEMOGLOBIN 8.9 g/dl (13.5-17.5); MEAN CORPUSCULAR HEMOGLOBIN 27.4 pg (27.0-33.0); MEAN CORPUSCULAR HGB CONC 30.1 g/dl (32.0-36.5); MEAN CORPUSCULAR VOLUME 91.1 fl (80.0-96.0); PLATELET COUNT, AUTOMATED 276 10^3/uL (150-450); RED BLOOD COUNT 3.25 10^6/uL (4.30-6.10); WHITE BLOOD COUNT 5.3 10^3/uL (4.0-10.0)
[2019-05-19 13:40] LABS: BLOOD UREA NITROGEN 32 MG/DL (7-18); CALCIUM LEVEL 8.6 MG/DL (8.8-10.2); CARBON DIOXIDE LEVEL 25 MEQ/L (21-32); CHLORIDE LEVEL 103 MEQ/L (98-107); CREATININE FOR GFR 0.99 MG/DL (0.70-1.30); GLOMERULAR FILTRATION RATE > 60.0 (>35); GLUCOSE, FASTING 123 MG/DL (70-100); SODIUM LEVEL 138 MEQ/L (136-145)
== END ==
PROVIDERS: ATTEND Physician Assistant
DX: R19.7 Diarrhea, unspecified (principal)

== ENCOUNTER → 2019-05-27 | Outpatient (REF) | payer MEDICARE ==
[2019-05-27 12:18] LABS: HEMATOCRIT 31.8 % (42.0-52.0); HEMOGLOBIN 9.4 g/dl (13.5-17.5); MEAN CORPUSCULAR HGB CONC 29.6 g/dl (32.0-36.5); MEAN CORPUSCULAR VOLUME 91.4 fl (80.0-96.0); PLATELET COUNT, AUTOMATED 373 10^3/uL (150-450); RED BLOOD COUNT 3.48 10^6/uL (4.30-6.10); WHITE BLOOD COUNT 8.2 10^3/uL (4.0-10.0)
[2019-05-27 12:53] LABS: ALBUMIN 2.3 GM/DL (3.2-5.2); ALT/SGPT 11 U/L (12-78); BILIRUBIN,TOTAL 0.7 MG/DL (0.2-1.0); BLOOD UREA NITROGEN 31 MG/DL (7-18); CALCIUM LEVEL 8.5 MG/DL (8.8-10.2); CARBON DIOXIDE LEVEL 27 MEQ/L (21-32); CHLORIDE LEVEL 106 MEQ/L (98-107); CREATININE FOR GFR 0.95 MG/DL (0.70-1.30); GLOMERULAR FILTRATION RATE > 60.0 (>35); GLUCOSE, FASTING 123 MG/DL (70-100); POTASSIUM SERUM 4.1 MEQ/L (3.5-5.1); SODIUM LEVEL 141 MEQ/L (136-145); TOTAL PROTEIN 6.6 GM/DL (6.4-8.2)
== END ==
PROVIDERS: ATTEND Physician Assistant
DX: R19.7 Diarrhea, unspecified (principal)

== ENCOUNTER → 2019-06-17 | Outpatient (REF) | payer MEDICARE | PROVIDERS: ATTEND Family Medicine | DX: R19.7 Diarrhea, unspecified (principal) ==

== ENCOUNTER → 2019-06-18 | Outpatient (REF) | payer MEDICARE ==
[2019-06-18 11:53] LABS: CLOSTRIDIUM DIFFICILE PCR NEGATIVE (NEGATIVE)
== END ==
PROVIDERS: ATTEND Family Medicine
DX: A04.72 Enterocolitis due to Clostridium difficile, not specified as recurrent (principal)

== ENCOUNTER → 2019-06-24 | Outpatient (REF) | payer MEDICARE ==
[~2019-06-24] MED LIST changes: -FLUO20CA19 PO; +FLUO20CA22 PO
== END ==
PROVIDERS: ATTEND Family Medicine
DX: D64.9 Anemia, unspecified (principal)

== ENCOUNTER 2019-06-25 08:25 | Outpatient (CLI) | payer MEDICARE ==
[~2019-06-25] VITALS: Ht 180.3 cm; Wt 100.8 kg
[2019-06-25] VITALS (7 sets, daily range): BP systolic 127–162; BP diastolic 60–77
[~2019-06-25 08:25] MED LIST changes: +diphenhydrAMINE 25 MG CAP PO SCH
[2019-06-25] MEDS ORDERED: TORSEMIDE 10 MG TABLET PO ONE (09:00)
== END 2019-06-25 13:10 ==
LOC: M INFU 08:25
PROVIDERS: ATTEND Physician Assistant
DX: D64.9 Anemia, unspecified (principal); Z79.899 Other long term (current) drug therapy
CPT/HCPCS: 36415; 36430; 80048; 82270; 82728; 83550; 84165; 85027; 86335; P9016

== ENCOUNTER → 2019-06-25 | Outpatient (REF) | payer MEDICARE ==
[2019-06-24 11:13] LABS: HEMATOCRIT 26.8 % (42.0-52.0); HEMOGLOBIN 7.8 g/dl (13.5-17.5); MEAN CORPUSCULAR HEMOGLOBIN 27.6 pg (27.0-33.0); MEAN CORPUSCULAR HGB CONC 29.1 g/dl (32.0-36.5); MEAN CORPUSCULAR VOLUME 94.7 fl (80.0-96.0); PLATELET COUNT, AUTOMATED 309 10^3/uL (150-450); RED BLOOD COUNT 2.83 10^6/uL (4.30-6.10); WHITE BLOOD COUNT 8.7 10^3/uL (4.0-10.0)
[2019-06-24 11:34] LABS: CALCIUM LEVEL 8.3 MG/DL (8.8-10.2); CREATININE FOR GFR 1.75 MG/DL (0.70-1.30); GLOMERULAR FILTRATION RATE 40.1 (>35); POTASSIUM SERUM 4.3 MEQ/L (3.5-5.1)
== END ==
PROVIDERS: ATTEND Physician Assistant
DX: D64.9 Anemia, unspecified (principal)

== ENCOUNTER → 2019-06-25 | Outpatient (REF) | payer MEDICARE ==
[2019-06-25 07:41] LABS: HEMATOCRIT 24.1 % (42.0-52.0); HEMOGLOBIN 7.2 g/dl (13.5-17.5); MEAN CORPUSCULAR HEMOGLOBIN 27.5 pg (27.0-33.0); MEAN CORPUSCULAR HGB CONC 29.9 g/dl (32.0-36.5); PLATELET COUNT, AUTOMATED 309 10^3/uL (150-450); RED BLOOD COUNT 2.62 10^6/uL (4.30-6.10); WHITE BLOOD COUNT 8.3 10^3/uL (4.0-10.0)
[2019-06-25 07:49] LABS: BLOOD UREA NITROGEN 71 MG/DL (7-18); CALCIUM LEVEL 8.1 MG/DL (8.8-10.2); CARBON DIOXIDE LEVEL 28 MEQ/L (21-32); CHLORIDE LEVEL 110 MEQ/L (98-107); CREATININE FOR GFR 1.73 MG/DL (0.70-1.30); FERRITIN 20 NG/ML (26-388); GLOMERULAR FILTRATION RATE 40.7 (>35); GLUCOSE, FASTING 91 MG/DL (70-100); IRON (FE) 31 UG/DL (65-175); PERCENT SATURATION 11.3 % (19.7-50.0); POTASSIUM SERUM 4.1 MEQ/L (3.5-5.1); SODIUM LEVEL 146 MEQ/L (136-145); TOTAL IRON BINDING CAPACITY 275 UG/DL (250-450); TOTAL PROTEIN 6.1 GM/DL (6.4-8.2)
[2019-06-25 14:18] LABS: IMMUNOTYPING SERUM IGG ABNORMAL (NORMAL); IMMUNOTYPING SERUM KAPPA ABNORMAL (NORMAL)
[2019-06-25 14:19] LABS: ALBUMIN 2.31 GM/DL (3.29-5.55); ALBUMIN % 37.8 % (55.8-66.1); ALPHA-1-GLOBULIN % 7.1 % (2.9-4.9); ALPHA-1-GLOBULINS 0.43 GM/DL (0.17-0.41); ALPHA-2-GLOBULINS 0.79 GM/DL (0.42-0.99); BETA-1-GLOBULINS 0.48 GM/DL (0.28-0.60); BETA-1-GLOBULINS % 7.9 % (4.7-7.2); BETA-2-GLOBULINS 0.59 GM/DL (0.19-0.55); BETA-2-GLOBULINS % 9.7 % (3.2-6.5); GAMMA GLOBULIN % 24.5 % (11.1-18.8); GAMMA GLOBULINS 1.49 GM/DL (0.65-1.58)
== END ==
PROVIDERS: ATTEND Family Medicine
DX: D64.9 Anemia, unspecified (principal)

== ENCOUNTER → 2019-06-26 | Outpatient (REF) | payer MEDICARE ==
[~2019-06-26] MED LIST changes: -diphenhydrAMINE 25 MG CAP PO SCH
[2019-06-26 12:56] LABS: HEMATOCRIT 31.4 % (42.0-52.0); MEAN CORPUSCULAR HEMOGLOBIN 27.8 pg (27.0-33.0); MEAN CORPUSCULAR HGB CONC 29.9 g/dl (32.0-36.5); MEAN CORPUSCULAR VOLUME 92.9 fl (80.0-96.0); PLATELET COUNT, AUTOMATED 318 10^3/uL (150-450); RED BLOOD COUNT 3.38 10^6/uL (4.30-6.10); WHITE BLOOD COUNT 7.5 10^3/uL (4.0-10.0)
[2019-06-26 13:04] LABS: HEMOGLOBIN 9.4 g/dl (13.5-17.5)
[2019-06-26 13:26] LABS: CALCIUM LEVEL 9.2 MG/DL (8.8-10.2); CREATININE FOR GFR 1.75 MG/DL (0.70-1.30); GLOMERULAR FILTRATION RATE 40.1 (>35); POTASSIUM SERUM 4.2 MEQ/L (3.5-5.1)
[2019-06-30 10:53] LABS: IMMUNOTYPING SERUM IGA ABNORMAL (NORMAL); IMMUNOTYPING SERUM KAPPA ABNORMAL (NORMAL)
== END ==
PROVIDERS: ATTEND Family Medicine
DX: D64.9 Anemia, unspecified (principal)

== ENCOUNTER → 2019-06-29 | Outpatient (REF) | payer MEDICARE ==
[2019-06-29 11:53] LABS: HEMATOCRIT 29.3 % (42.0-52.0); HEMOGLOBIN 8.6 g/dl (13.5-17.5); MEAN CORPUSCULAR HEMOGLOBIN 27.4 pg (27.0-33.0); MEAN CORPUSCULAR HGB CONC 29.4 g/dl (32.0-36.5); MEAN CORPUSCULAR VOLUME 93.3 fl (80.0-96.0); PLATELET COUNT, AUTOMATED 296 10^3/uL (150-450); RED BLOOD COUNT 3.14 10^6/uL (4.30-6.10); WHITE BLOOD COUNT 7.8 10^3/uL (4.0-10.0)
[2019-06-29 12:24] LABS: CALCIUM LEVEL 8.4 MG/DL (8.8-10.2); CREATININE FOR GFR 1.77 MG/DL (0.70-1.30); GLOMERULAR FILTRATION RATE 39.6 (>35)
== END ==
PROVIDERS: ATTEND Family Medicine
DX: D64.9 Anemia, unspecified (principal)

== ENCOUNTER → 2019-07-01 | Outpatient (REF) | payer MEDICARE ==
[2019-07-01 12:41] LABS: HEMATOCRIT 33.2 % (42.0-52.0); HEMOGLOBIN 9.9 g/dl (13.5-17.5); MEAN CORPUSCULAR HEMOGLOBIN 28.1 pg (27.0-33.0); MEAN CORPUSCULAR HGB CONC 29.8 g/dl (32.0-36.5); MEAN CORPUSCULAR VOLUME 94.3 fl (80.0-96.0); PLATELET COUNT, AUTOMATED 259 10^3/uL (150-450); RED BLOOD COUNT 3.52 10^6/uL (4.30-6.10)
[2019-07-01 13:10] LABS: CALCIUM LEVEL 8.8 MG/DL (8.8-10.2); CREATININE FOR GFR 1.66 MG/DL (0.70-1.30); GLOMERULAR FILTRATION RATE 42.6 (>35); POTASSIUM SERUM 4.5 MEQ/L (3.5-5.1)
== END ==
PROVIDERS: ATTEND Family Medicine
DX: D64.9 Anemia, unspecified (principal)

== ENCOUNTER → 2019-07-07 | Outpatient (REF) | payer MEDICARE ==
[2019-07-07 12:29] LABS: BASO % 0.7 % (0.0-1.0); EOS # 0.2 10^3/uL (0.0-0.5); HEMATOCRIT 32.2 % (42.0-52.0); HEMOGLOBIN 9.4 g/dl (13.5-17.5); LYMPH # 1.2 10^3/uL (1.5-5.0); LYMPH % 20.1 % (24.0-44.0); MEAN CORPUSCULAR HEMOGLOBIN 27.7 pg (27.0-33.0); MEAN CORPUSCULAR HGB CONC 29.2 g/dl (32.0-36.5); MONO # 0.5 10^3/uL (0.0-0.8); MONO % 9.4 % (0.0-5.0); NEUTROPHILS # 3.8 10^3/uL (1.5-8.5); NEUTROPHILS % 65.5 % (36.0-66.0); PLATELET COUNT, AUTOMATED 217 10^3/uL (150-450); RED BLOOD COUNT 3.39 10^6/uL (4.30-6.10); WHITE BLOOD COUNT 5.7 10^3/uL (4.0-10.0)
[2019-07-07 13:06] LABS: CALCIUM LEVEL 8.9 MG/DL (8.8-10.2); CREATININE FOR GFR 1.57 MG/DL (0.70-1.30); GLOMERULAR FILTRATION RATE 45.5 (>35); POTASSIUM SERUM 4.2 MEQ/L (3.5-5.1)
== END ==
PROVIDERS: ATTEND Physician Assistant
DX: D64.9 Anemia, unspecified (principal)

== ENCOUNTER → 2019-07-08 | Outpatient (REF) | payer MEDICARE ==
[2019-07-08 10:21] LABS: CREATININE FOR GFR 1.66 MG/DL (0.70-1.30); GLOMERULAR FILTRATION RATE 42.6 (>35); POTASSIUM SERUM 4.2 MEQ/L (3.5-5.1)
[2019-07-08 12:29] LABS: ALBUMIN 2.4 GM/DL (3.2-5.2); BILIRUBIN,DIRECT 0.2 MG/DL (0.0-0.2); BILIRUBIN,TOTAL 0.4 MG/DL (0.2-1.0); TOTAL PROTEIN 7.2 GM/DL (6.4-8.2)
== END ==
PROVIDERS: ATTEND Family Medicine
DX: E86.0 Dehydration (principal)

== ENCOUNTER → 2019-07-13 | Outpatient (REF) ==
[2019-07-13 12:00] LABS: BASO % 0.7 % (0.0-1.0); EOS # 0.2 10^3/uL (0.0-0.5); EOS % 2.7 % (0.0-3.0); HEMATOCRIT 30.2 % (42.0-52.0); LYMPH # 1.1 10^3/uL (1.5-5.0); LYMPH % 18.3 % (24.0-44.0); MEAN CORPUSCULAR HEMOGLOBIN 28.3 pg (27.0-33.0); MEAN CORPUSCULAR HGB CONC 29.8 g/dl (32.0-36.5); MONO # 0.6 10^3/uL (0.0-0.8); MONO % 10.5 % (0.0-5.0); NEUTROPHILS # 4.1 10^3/uL (1.5-8.5); NEUTROPHILS % 67.5 % (36.0-66.0); PLATELET COUNT, AUTOMATED 236 10^3/uL (150-450); RED BLOOD COUNT 3.18 10^6/uL (4.30-6.10)
[2019-07-13 12:26] LABS: ALBUMIN 2.2 GM/DL (3.2-5.2); BILIRUBIN,TOTAL 0.4 MG/DL (0.2-1.0); CREATININE FOR GFR 1.72 MG/DL (0.70-1.30); GLOMERULAR FILTRATION RATE 40.9 (>35); POTASSIUM SERUM 3.8 MEQ/L (3.5-5.1); TOTAL PROTEIN 6.5 GM/DL (6.4-8.2)
== END ==
PROVIDERS: ATTEND Family Medicine
DX: D64.9 Anemia, unspecified (principal)

== ENCOUNTER → 2019-07-21 | Outpatient (REF) | payer MEDICARE ==
[2019-07-21 11:53] LABS: BASO % 0.6 % (0.0-1.0); EOS # 0.1 10^3/uL (0.0-0.5); HEMATOCRIT 29.7 % (42.0-52.0); HEMOGLOBIN 9.2 g/dl (13.5-17.5); LYMPH # 1.2 10^3/uL (1.5-5.0); LYMPH % 18.3 % (24.0-44.0); MEAN CORPUSCULAR HEMOGLOBIN 28.7 pg (27.0-33.0); MEAN CORPUSCULAR VOLUME 92.5 fl (80.0-96.0); MONO # 0.6 10^3/uL (0.0-0.8); MONO % 9.2 % (0.0-5.0); NEUTROPHILS # 4.5 10^3/uL (1.5-8.5); NEUTROPHILS % 69.7 % (36.0-66.0); PLATELET COUNT, AUTOMATED 266 10^3/uL (150-450); RED BLOOD COUNT 3.21 10^6/uL (4.30-6.10); WHITE BLOOD COUNT 6.5 10^3/uL (4.0-10.0)
[2019-07-21 12:26] LABS: CALCIUM LEVEL 8.6 MG/DL (8.8-10.2); CREATININE FOR GFR 1.41 MG/DL (0.70-1.30); GLOMERULAR FILTRATION RATE 51.5 (>35); POTASSIUM SERUM 3.8 MEQ/L (3.5-5.1)
== END ==
PROVIDERS: ATTEND Family Medicine
DX: D64.9 Anemia, unspecified (principal)

== ENCOUNTER → 2019-07-24 | Outpatient (REF) | payer MEDICARE ==
--- NOTE | 2019-07-24 10:48 | REPPI ---
Portable left knee to an nonstandard views: F line. There are no comparison studies. No fracture is identified. No dislocation is identified. No definite joint effusion is identified. 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 Impression: There are two nonstandard views of the left knee. There is no gross evidence of fracture or dislocation or joint effusion. There is narrowing of the medial joint compartment compatible with articular cartilage atrophy. Systems persist or worsen, I would recommend a follow-up routine five view study of the knee. MRI might also be considered. Electronically Signed by Will Yun MD 07/24/2019 10:40 A
[2019-07-24 11:37] LABS: HEMATOCRIT 24.9 % (42.0-52.0); HEMOGLOBIN 7.7 g/dl (13.5-17.5); MEAN CORPUSCULAR HEMOGLOBIN 28.2 pg (27.0-33.0); MEAN CORPUSCULAR HGB CONC 30.9 g/dl (32.0-36.5); MEAN CORPUSCULAR VOLUME 91.2 fl (80.0-96.0); PLATELET COUNT, AUTOMATED 236 10^3/uL (150-450); RED BLOOD COUNT 2.73 10^6/uL (4.30-6.10); WHITE BLOOD COUNT 5.9 10^3/uL (4.0-10.0)
[2019-07-24 12:10] LABS: C REACTIVE PROTEIN QUANTITATIV 1.26 MG/DL (0.00-0.30); CALCIUM LEVEL 8.2 MG/DL (8.8-10.2); CREATININE FOR GFR 1.44 MG/DL (0.70-1.30); GLOMERULAR FILTRATION RATE 50.2 (>35); POTASSIUM SERUM 3.5 MEQ/L (3.5-5.1); URIC ACID 7.6 MG/DL (3.5-7.2)
[2019-07-24 12:16] LABS: ERYTHROCYTE SEDIMENTATION RATE 107 mm/hr (0-20)
== END ==
PROVIDERS: ATTEND Family Medicine
DX: M25.562 Pain in left knee (principal)

== ENCOUNTER → 2019-07-26 | Outpatient (REF) | payer MEDICARE | PROVIDERS: ATTEND Internal Medicine | DX: R19.7 Diarrhea, unspecified (principal) ==

== ENCOUNTER 2019-07-27 08:42 | Outpatient (CLI) | payer MEDICARE ==
[~2019-07-27] VITALS: Ht 180.3 cm; Wt 100.8 kg
[2019-07-27] VITALS (7 sets, daily range): BP systolic 119–149; BP diastolic 55–82
[~2019-07-27 08:42] MED LIST changes: +ACETAMINOPHEN TAB 650MG DOSE (2X325MG) PO SCH; +diphenhydrAMINE 25 MG CAP PO SCH
== END 2019-07-27 12:50 | disposition home or self-care (01) ==
LOC: M INFU 08:42
PROVIDERS: ATTEND Physician Assistant
DX: D64.9 Anemia, unspecified (principal)
CPT/HCPCS: 36430; 86920; P9016

== ENCOUNTER → 2019-07-28 | Outpatient (REF) | payer MEDICARE ==
[~2019-07-28] MED LIST changes: -ACETAMINOPHEN TAB 650MG DOSE (2X325MG) PO SCH; -diphenhydrAMINE 25 MG CAP PO SCH
[2019-07-28 12:03] LABS: HEMATOCRIT 36.1 % (42.0-52.0); HEMOGLOBIN 11.5 g/dl (13.5-17.5); MEAN CORPUSCULAR HEMOGLOBIN 28.8 pg (27.0-33.0); MEAN CORPUSCULAR HGB CONC 31.9 g/dl (32.0-36.5); MEAN CORPUSCULAR VOLUME 90.5 fl (80.0-96.0); PLATELET COUNT, AUTOMATED 325 10^3/uL (150-450); RED BLOOD COUNT 3.99 10^6/uL (4.30-6.10); WHITE BLOOD COUNT 11.1 10^3/uL (4.0-10.0)
== END ==
PROVIDERS: ATTEND Family Medicine
DX: D64.9 Anemia, unspecified (principal)

== ENCOUNTER → 2019-08-04 | Outpatient (REF) | payer MEDICARE ==
[2019-08-04 10:02] LABS: BASO % 0.3 % (0.0-1.0); EOS # 0.1 10^3/uL (0.0-0.5); EOS % 1.2 % (0.0-3.0); HEMATOCRIT 36.1 % (42.0-52.0); HEMOGLOBIN 11.3 g/dl (13.5-17.5); LYMPH # 1.6 10^3/uL (1.5-5.0); LYMPH % 18.3 % (24.0-44.0); MEAN CORPUSCULAR HEMOGLOBIN 28.9 pg (27.0-33.0); MEAN CORPUSCULAR HGB CONC 31.3 g/dl (32.0-36.5); MEAN CORPUSCULAR VOLUME 92.3 fl (80.0-96.0); MONO # 0.8 10^3/uL (0.0-0.8); MONO % 8.8 % (0.0-5.0); NEUTROPHILS # 6.4 10^3/uL (1.5-8.5); PLATELET COUNT, AUTOMATED 298 10^3/uL (150-450); RED BLOOD COUNT 3.91 10^6/uL (4.30-6.10)
[2019-08-04 10:39] LABS: CALCIUM LEVEL 9.3 MG/DL (8.8-10.2); CREATININE FOR GFR 1.8 MG/DL (0.70-1.30); GLOMERULAR FILTRATION RATE 38.8 (>35); POTASSIUM SERUM 4.5 MEQ/L (3.5-5.1)
== END ==
PROVIDERS: ATTEND Family Medicine
DX: D64.9 Anemia, unspecified (principal)

== ENCOUNTER → 2019-08-11 | Outpatient (REF) | payer MEDICARE ==
[2019-08-11 11:06] LABS: HEMATOCRIT 30.9 % (42.0-52.0); HEMOGLOBIN 9.6 g/dl (13.5-17.5); MEAN CORPUSCULAR HEMOGLOBIN 28.5 pg (27.0-33.0); MEAN CORPUSCULAR HGB CONC 31.1 g/dl (32.0-36.5); MEAN CORPUSCULAR VOLUME 91.7 fl (80.0-96.0); PLATELET COUNT, AUTOMATED 291 10^3/uL (150-450); RED BLOOD COUNT 3.37 10^6/uL (4.30-6.10); WHITE BLOOD COUNT 6.6 10^3/uL (4.0-10.0)
[2019-08-11 11:22] LABS: CALCIUM LEVEL 9.4 MG/DL (8.8-10.2); CREATININE FOR GFR 1.51 MG/DL (0.70-1.30); GLOMERULAR FILTRATION RATE 47.6 (>35); POTASSIUM SERUM 4.5 MEQ/L (3.5-5.1)
== END ==
PROVIDERS: ATTEND Family Medicine
DX: D64.9 Anemia, unspecified (principal)

== ENCOUNTER → 2019-08-18 | Outpatient (REF) | payer MEDICARE ==
[2019-08-18 09:53] LABS: BASO % 0.6 % (0.0-1.0); EOS # 0.1 10^3/uL (0.0-0.5); EOS % 1.4 % (0.0-3.0); HEMATOCRIT 29.4 % (42.0-52.0); HEMOGLOBIN 9.7 g/dl (13.5-17.5); LYMPH # 1.6 10^3/uL (1.5-5.0); LYMPH % 25.3 % (24.0-44.0); MEAN CORPUSCULAR HEMOGLOBIN 29.8 pg (27.0-33.0); MEAN CORPUSCULAR VOLUME 90.5 fl (80.0-96.0); MONO # 0.7 10^3/uL (0.0-0.8); MONO % 11.6 % (0.0-5.0); NEUTROPHILS # 3.9 10^3/uL (1.5-8.5); NEUTROPHILS % 60.9 % (36.0-66.0); PLATELET COUNT, AUTOMATED 307 10^3/uL (150-450); RED BLOOD COUNT 3.25 10^6/uL (4.30-6.10); WHITE BLOOD COUNT 6.4 10^3/uL (4.0-10.0)
[2019-08-18 10:33] LABS: CALCIUM LEVEL 9.5 MG/DL (8.8-10.2); CREATININE FOR GFR 1.52 MG/DL (0.70-1.30); GLOMERULAR FILTRATION RATE 47.2 (>35); POTASSIUM SERUM 4.4 MEQ/L (3.5-5.1)
== END ==
PROVIDERS: ATTEND Family Medicine
DX: D64.9 Anemia, unspecified (principal)

== ENCOUNTER → 2019-08-25 | Outpatient (REF) | payer MEDICARE ==
[2019-08-25 10:27] LABS: BASO # 0.1 10^3/uL (0.0-0.2); BASO % 0.7 % (0.0-1.0); EOS # 0.1 10^3/uL (0.0-0.5); EOS % 1.3 % (0.0-3.0); HEMATOCRIT 31.7 % (42.0-52.0); HEMOGLOBIN 9.9 g/dl (13.5-17.5); LYMPH # 1.7 10^3/uL (1.5-5.0); LYMPH % 20.3 % (24.0-44.0); MEAN CORPUSCULAR HEMOGLOBIN 29.2 pg (27.0-33.0); MEAN CORPUSCULAR HGB CONC 31.2 g/dl (32.0-36.5); MEAN CORPUSCULAR VOLUME 93.5 fl (80.0-96.0); MONO # 0.7 10^3/uL (0.0-0.8); MONO % 7.7 % (0.0-5.0); NEUTROPHILS # 5.9 10^3/uL (1.5-8.5); NEUTROPHILS % 69.6 % (36.0-66.0); PLATELET COUNT, AUTOMATED 377 10^3/uL (150-450); RED BLOOD COUNT 3.39 10^6/uL (4.30-6.10); WHITE BLOOD COUNT 8.5 10^3/uL (4.0-10.0)
[2019-08-25 10:49] LABS: CALCIUM LEVEL 9.7 MG/DL (8.8-10.2); CREATININE FOR GFR 1.5 MG/DL (0.70-1.30); GLOMERULAR FILTRATION RATE 47.9 (>35); POTASSIUM SERUM 4.6 MEQ/L (3.5-5.1)
== END ==
PROVIDERS: ATTEND Family Medicine
DX: D64.9 Anemia, unspecified (principal)

== ENCOUNTER → 2019-09-02 | Outpatient (REF) | payer MEDICARE ==
[2019-09-02 11:13] LABS: CALCIUM LEVEL 10.2 MG/DL (8.8-10.2); CREATININE FOR GFR 1.45 MG/DL (0.70-1.30); GLOMERULAR FILTRATION RATE 49.9 (>35)
[2019-09-02 11:16] LABS: BASO # 0.1 10^3/uL (0.0-0.2); BASO % 0.7 % (0.0-1.0); EOS # 0.2 10^3/uL (0.0-0.5); HEMATOCRIT 31.3 % (42.0-52.0); HEMOGLOBIN 10.3 g/dl (13.5-17.5); LYMPH # 1.9 10^3/uL (1.5-5.0); LYMPH % 23.9 % (24.0-44.0); MEAN CORPUSCULAR HEMOGLOBIN 30.7 pg (27.0-33.0); MEAN CORPUSCULAR HGB CONC 32.9 g/dl (32.0-36.5); MEAN CORPUSCULAR VOLUME 93.4 fl (80.0-96.0); MONO # 0.7 10^3/uL (0.0-0.8); MONO % 8.8 % (0.0-5.0); NEUTROPHILS # 5.2 10^3/uL (1.5-8.5); NEUTROPHILS % 64.2 % (36.0-66.0); PLATELET COUNT, AUTOMATED 368 10^3/uL (150-450); RED BLOOD COUNT 3.35 10^6/uL (4.30-6.10)
== END ==
PROVIDERS: ATTEND Family Medicine
DX: D64.9 Anemia, unspecified (principal)

== ENCOUNTER → 2019-09-08 | Outpatient (REF) | payer MEDICARE ==
[2019-09-08 10:04] LABS: BASO % 0.4 % (0.0-1.0); EOS # 0.2 10^3/uL (0.0-0.5); EOS % 2.2 % (0.0-3.0); HEMATOCRIT 28.1 % (42.0-52.0); LYMPH # 1.3 10^3/uL (1.5-5.0); LYMPH % 19.1 % (24.0-44.0); MEAN CORPUSCULAR HEMOGLOBIN 30.4 pg (27.0-33.0); MEAN CORPUSCULAR VOLUME 94.9 fl (80.0-96.0); MONO # 0.6 10^3/uL (0.0-0.8); NEUTROPHILS # 4.8 10^3/uL (1.5-8.5); PLATELET COUNT, AUTOMATED 324 10^3/uL (150-450); RED BLOOD COUNT 2.96 10^6/uL (4.30-6.10); WHITE BLOOD COUNT 6.9 10^3/uL (4.0-10.0)
[2019-09-08 10:44] LABS: CREATININE FOR GFR 1.37 MG/DL (0.70-1.30); GLOMERULAR FILTRATION RATE 53.2 (>35); POTASSIUM SERUM 4.5 MEQ/L (3.5-5.1)
== END ==
PROVIDERS: ATTEND Family Medicine
DX: D64.9 Anemia, unspecified (principal)

== ENCOUNTER → 2019-09-16 | Outpatient (REF) | payer MEDICARE ==
[2019-09-16 11:10] LABS: BASO % 0.5 % (0.0-1.0); EOS # 0.2 10^3/uL (0.0-0.5); EOS % 2.2 % (0.0-3.0); HEMATOCRIT 27.5 % (42.0-52.0); HEMOGLOBIN 8.8 g/dl (13.5-17.5); LYMPH # 1.2 10^3/uL (1.5-5.0); LYMPH % 15.2 % (24.0-44.0); MEAN CORPUSCULAR VOLUME 96.8 fl (80.0-96.0); MONO # 0.6 10^3/uL (0.0-0.8); MONO % 8.4 % (0.0-5.0); NEUTROPHILS # 5.6 10^3/uL (1.5-8.5); NEUTROPHILS % 73.3 % (36.0-66.0); PLATELET COUNT, AUTOMATED 358 10^3/uL (150-450); RED BLOOD COUNT 2.84 10^6/uL (4.30-6.10); WHITE BLOOD COUNT 7.6 10^3/uL (4.0-10.0)
[2019-09-16 11:35] LABS: CALCIUM LEVEL 9.4 MG/DL (8.8-10.2); CREATININE FOR GFR 1.74 MG/DL (0.70-1.30); GLOMERULAR FILTRATION RATE 40.4 (>35); POTASSIUM SERUM 4.1 MEQ/L (3.5-5.1)
== END ==
PROVIDERS: ATTEND Family Medicine
DX: D64.9 Anemia, unspecified (principal)

== ENCOUNTER → 2019-09-22 | Outpatient (REF) | payer MEDICARE ==
[2019-09-22 09:19] LABS: BASO # 0.1 10^3/uL (0.0-0.2); BASO % 0.5 % (0.0-1.0); EOS # 0.2 10^3/uL (0.0-0.5); EOS % 2.3 % (0.0-3.0); HEMATOCRIT 28.2 % (42.0-52.0); HEMOGLOBIN 8.6 g/dl (13.5-17.5); LYMPH # 1.3 10^3/uL (1.5-5.0); LYMPH % 13.4 % (24.0-44.0); MEAN CORPUSCULAR HEMOGLOBIN 30.1 pg (27.0-33.0); MEAN CORPUSCULAR HGB CONC 30.5 g/dl (32.0-36.5); MEAN CORPUSCULAR VOLUME 98.6 fl (80.0-96.0); MONO # 0.8 10^3/uL (0.0-0.8); MONO % 7.6 % (0.0-5.0); NEUTROPHILS # 7.5 10^3/uL (1.5-8.5); NEUTROPHILS % 75.5 % (36.0-66.0); PLATELET COUNT, AUTOMATED 422 10^3/uL (150-450); RED BLOOD COUNT 2.86 10^6/uL (4.30-6.10); WHITE BLOOD COUNT 9.9 10^3/uL (4.0-10.0)
[2019-09-22 09:40] LABS: CALCIUM LEVEL 9.3 MG/DL (8.8-10.2); CREATININE FOR GFR 1.4 MG/DL (0.70-1.30); GLOMERULAR FILTRATION RATE 51.9 (>35); POTASSIUM SERUM 4.1 MEQ/L (3.5-5.1)
== END ==
PROVIDERS: ATTEND Family Medicine
DX: D64.9 Anemia, unspecified (principal)

== ENCOUNTER → 2019-09-29 | Outpatient (REF) | payer MEDICARE ==
[2019-09-29 10:57] LABS: BASO % 0.4 % (0.0-1.0); EOS # 0.2 10^3/uL (0.0-0.5); EOS % 2.4 % (0.0-3.0); HEMATOCRIT 26.2 % (42.0-52.0); LYMPH # 1.5 10^3/uL (1.5-5.0); LYMPH % 14.3 % (24.0-44.0); MEAN CORPUSCULAR HEMOGLOBIN 30.5 pg (27.0-33.0); MEAN CORPUSCULAR HGB CONC 30.5 g/dl (32.0-36.5); MONO % 9.4 % (0.0-5.0); NEUTROPHILS # 7.4 10^3/uL (1.5-8.5); NEUTROPHILS % 72.8 % (36.0-66.0); PLATELET COUNT, AUTOMATED 458 10^3/uL (150-450); RED BLOOD COUNT 2.62 10^6/uL (4.30-6.10); WHITE BLOOD COUNT 10.1 10^3/uL (4.0-10.0)
[2019-09-29 11:26] LABS: CREATININE FOR GFR 1.46 MG/DL (0.70-1.30); GLOMERULAR FILTRATION RATE 49.5 (>35); POTASSIUM SERUM 3.9 MEQ/L (3.5-5.1)
== END ==
PROVIDERS: ATTEND Family Medicine
DX: D64.9 Anemia, unspecified (principal)

== ENCOUNTER → 2019-09-29 | Outpatient (REF) ==
[~2019-09-29] MED LIST changes: +ATIV1TAB10 PO; +CARA1TAB6 PO; +FERR324T2 PO; +MIRT1TAB16 PO; +PROTPAK PO; +VANC1.754 IV; -VANC1INJ IV; +XALA0.007 OP
== END ==
PROVIDERS: ATTEND Internal Medicine
DX: Z03.818 Encounter for observation for suspected exposure to other biological agents ruled out (principal)

== ENCOUNTER → 2019-10-01 | Outpatient (REF) | payer MEDICARE ==
[~2019-10-01] MED LIST changes: -ATIV1TAB10 PO; -CARA1TAB6 PO; -FERR324T2 PO; -MIRT1TAB16 PO; -PROTPAK PO; -VANC1.754 IV; +VANC1INJ IV; -XALA0.007 OP
[2019-10-01 10:36] LABS: HEMATOCRIT 21.9 % (42.0-52.0); MEAN CORPUSCULAR HGB CONC 30.6 g/dl (32.0-36.5); MEAN CORPUSCULAR VOLUME 98.2 fl (80.0-96.0); PLATELET COUNT, AUTOMATED 351 10^3/uL (150-450); RED BLOOD COUNT 2.23 10^6/uL (4.30-6.10); WHITE BLOOD COUNT 6.8 10^3/uL (4.0-10.0)
[2019-10-01 10:37] LABS: HEMOGLOBIN 6.7 g/dl (13.5-17.5)
== END ==
PROVIDERS: ATTEND Family Medicine
DX: D64.9 Anemia, unspecified (principal)

== ENCOUNTER 2019-10-02 08:41 | Outpatient (CLI) | payer MEDICARE ==
[~2019-10-02] VITALS: Ht 180.3 cm; Wt 100.8 kg
[2019-10-02] VITALS (8 sets, daily range): BP systolic 124–138; BP diastolic 58–74
[2019-10-02] MEDS ORDERED: ACETAMINOPHEN TAB 650MG DOSE (2X325MG) PO ONE (09:00)
[2019-10-02] MEDS ORDERED: diphenhydrAMINE 25MG CAP PO ONE (09:00)
== END 2019-10-02 13:15 | disposition home or self-care (01) ==
LOC: M INFU 08:41
PROVIDERS: ATTEND Physician Assistant
DX: D50.9 Iron deficiency anemia, unspecified (principal)
CPT/HCPCS: 36430; P9016

== ENCOUNTER → 2019-10-03 | Outpatient (REF) | payer MEDICARE ==
[2019-10-03 13:54] LABS: HEMATOCRIT 29.5 % (42.0-52.0); MEAN CORPUSCULAR HEMOGLOBIN 29.9 pg (27.0-33.0); MEAN CORPUSCULAR HGB CONC 31.9 g/dl (32.0-36.5); MEAN CORPUSCULAR VOLUME 93.9 fl (80.0-96.0); PLATELET COUNT, AUTOMATED 389 10^3/uL (150-450); RED BLOOD COUNT 3.14 10^6/uL (4.30-6.10); WHITE BLOOD COUNT 8.2 10^3/uL (4.0-10.0)
[2019-10-03 13:57] LABS: HEMOGLOBIN 9.4 g/dl (13.5-17.5)
== END ==
PROVIDERS: ATTEND Physician Assistant
DX: D64.9 Anemia, unspecified (principal)

== ENCOUNTER → 2019-10-06 | Outpatient (REF) | payer MEDICARE ==
[2019-10-06 12:27] LABS: BASO # 0.1 10^3/uL (0.0-0.2); BASO % 0.8 % (0.0-1.0); EOS # 0.2 10^3/uL (0.0-0.5); EOS % 2.8 % (0.0-3.0); HEMATOCRIT 31.2 % (42.0-52.0); HEMOGLOBIN 9.8 g/dl (13.5-17.5); LYMPH # 1.1 10^3/uL (1.5-5.0); LYMPH % 15.1 % (24.0-44.0); MEAN CORPUSCULAR HEMOGLOBIN 30.8 pg (27.0-33.0); MEAN CORPUSCULAR HGB CONC 31.4 g/dl (32.0-36.5); MEAN CORPUSCULAR VOLUME 98.1 fl (80.0-96.0); MONO # 0.7 10^3/uL (0.0-0.8); MONO % 9.1 % (0.0-5.0); NEUTROPHILS # 5.4 10^3/uL (1.5-8.5); NEUTROPHILS % 71.7 % (36.0-66.0); PLATELET COUNT, AUTOMATED 389 10^3/uL (150-450); RED BLOOD COUNT 3.18 10^6/uL (4.30-6.10); WHITE BLOOD COUNT 7.5 10^3/uL (4.0-10.0)
[2019-10-06 12:46] LABS: CREATININE FOR GFR 1.42 MG/DL (0.70-1.30); GLOMERULAR FILTRATION RATE 51.1 (>35)
== END ==
PROVIDERS: ATTEND Family Medicine
DX: D64.9 Anemia, unspecified (principal)

== ENCOUNTER → 2019-10-13 | Outpatient (REF) | payer MEDICARE ==
[2019-10-13 11:53] LABS: BASO # 0.1 10^3/uL (0.0-0.2); EOS # 0.2 10^3/uL (0.0-0.5); EOS % 2.2 % (0.0-3.0); HEMATOCRIT 30.6 % (42.0-52.0); HEMOGLOBIN 9.6 g/dl (13.5-17.5); LYMPH # 1.3 10^3/uL (1.5-5.0); LYMPH % 14.7 % (24.0-44.0); MEAN CORPUSCULAR HEMOGLOBIN 30.4 pg (27.0-33.0); MEAN CORPUSCULAR HGB CONC 31.4 g/dl (32.0-36.5); MEAN CORPUSCULAR VOLUME 96.8 fl (80.0-96.0); MONO # 0.9 10^3/uL (0.0-0.8); MONO % 9.7 % (0.0-5.0); NEUTROPHILS # 6.5 10^3/uL (1.5-8.5); NEUTROPHILS % 71.8 % (36.0-66.0); PLATELET COUNT, AUTOMATED 327 10^3/uL (150-450); RED BLOOD COUNT 3.16 10^6/uL (4.30-6.10); WHITE BLOOD COUNT 9.1 10^3/uL (4.0-10.0)
[2019-10-13 12:14] LABS: CALCIUM LEVEL 8.8 MG/DL (8.8-10.2); CREATININE FOR GFR 1.37 MG/DL (0.70-1.30); GLOMERULAR FILTRATION RATE 53.2 (>35); POTASSIUM SERUM 4.1 MEQ/L (3.5-5.1)
== END ==
PROVIDERS: ATTEND Family Medicine
DX: D64.9 Anemia, unspecified (principal)

== ENCOUNTER → 2019-10-20 | Outpatient (REF) | payer MEDICARE ==
[2019-10-20 10:47] LABS: BASO # 0.1 10^3/uL (0.0-0.2); BASO % 1.2 % (0.0-1.0); EOS # 0.2 10^3/uL (0.0-0.5); EOS % 2.1 % (0.0-3.0); HEMATOCRIT 34.7 % (42.0-52.0); HEMOGLOBIN 10.8 g/dl (13.5-17.5); LYMPH # 1.4 10^3/uL (1.5-5.0); LYMPH % 17.8 % (24.0-44.0); MEAN CORPUSCULAR HEMOGLOBIN 30.6 pg (27.0-33.0); MEAN CORPUSCULAR HGB CONC 31.1 g/dl (32.0-36.5); MEAN CORPUSCULAR VOLUME 98.3 fl (80.0-96.0); MONO # 0.6 10^3/uL (0.0-0.8); MONO % 7.3 % (0.0-5.0); NEUTROPHILS # 5.7 10^3/uL (1.5-8.5); PLATELET COUNT, AUTOMATED 326 10^3/uL (150-450); RED BLOOD COUNT 3.53 10^6/uL (4.30-6.10)
[2019-10-20 11:13] LABS: CALCIUM LEVEL 9.3 MG/DL (8.8-10.2); CREATININE FOR GFR 1.59 MG/DL (0.70-1.30); GLOMERULAR FILTRATION RATE 44.8 (>35); POTASSIUM SERUM 3.7 MEQ/L (3.5-5.1)
== END ==
PROVIDERS: ATTEND Family Medicine
DX: D64.9 Anemia, unspecified (principal)

== ENCOUNTER → 2019-10-21 | Outpatient (REF) | payer MEDICARE ==
[2019-10-21 13:22] LABS: AMORPHOUS SEDIMENT MODERATE (NEGATIVE); APPEARANCE, URINE CLOUDY (CLEAR); BACTERIA, URINE AUTO NEGATIVE (NEGATIVE); BILIRUBIN, URINE AUTO NEGATIVE (NEGATIVE); BLOOD, URINE BLOOD NEGATIVE (NEGATIVE); COLOR, URINE YELLOW (YELLOW); GLUCOSE, URINE (UA) AUTO NEGATIVE (NEGATIVE); KETONE, URINE AUTO NEGATIVE (NEGATIVE); LEUKOCYTE ESTERASE, URINE AUTO 1+ (NEGATIVE); NITRITE, URINE AUTO NEGATIVE (NEGATIVE); PROTEIN, URINE AUTO NEGATIVE (NEGATIVE); RBC, URINE AUTO 3 /HPF (0-3); SPECIFIC GRAVITY URINE AUTO 1.012 (1.002-1.035); SQUAMOUS EPITHELIAL CELL UR AU 0 /HPF (0-6); UROBILINOGEN, URINE AUTO 0.2 mg/dL (0.0-2.0); WBC, URINE AUTO 2 /HPF (0-3)
--- NOTE | 2019-10-21 15:58 | REPPI ---
REASON: Wheezing. Followup. The latest prior for comparison 04/08/2019. AP and lateral views were obtained. The technique utilized in obtaining the radiograph has magnified the cardiac silhouette and accentuated the interstitial markings. Previous opacity seen the right have resolved. The lung cruz appear clear. There is mild cardiomegaly. The osseous structures are stable and intact. IMPRESSION: No evidence of acute cardiopulmonary disease. Electronically Signed by Carmelo Hopper DO 10/21/2019 05:06 P
== END ==
PROVIDERS: ATTEND Family Medicine
DX: R06.2 Wheezing (principal); R10.9 Unspecified abdominal pain

== ENCOUNTER → 2019-10-27 | Outpatient (REF) | payer MEDICARE ==
[2019-10-27 11:40] LABS: BASO # 0.1 10^3/uL (0.0-0.2); BASO % 0.6 % (0.0-1.0); EOS # 0.2 10^3/uL (0.0-0.5); EOS % 1.8 % (0.0-3.0); HEMATOCRIT 32.9 % (42.0-52.0); HEMOGLOBIN 10.1 g/dl (13.5-17.5); LYMPH # 1.5 10^3/uL (1.5-5.0); LYMPH % 15.7 % (24.0-44.0); MEAN CORPUSCULAR HEMOGLOBIN 30.3 pg (27.0-33.0); MEAN CORPUSCULAR HGB CONC 30.7 g/dl (32.0-36.5); MEAN CORPUSCULAR VOLUME 98.8 fl (80.0-96.0); MONO # 0.5 10^3/uL (0.0-0.8); MONO % 5.4 % (0.0-5.0); NEUTROPHILS # 7.5 10^3/uL (1.5-8.5); NEUTROPHILS % 75.8 % (36.0-66.0); PLATELET COUNT, AUTOMATED 358 10^3/uL (150-450); RED BLOOD COUNT 3.33 10^6/uL (4.30-6.10); WHITE BLOOD COUNT 9.8 10^3/uL (4.0-10.0)
[2019-10-27 12:45] LABS: CREATININE FOR GFR 1.49 MG/DL (0.70-1.30); GLOMERULAR FILTRATION RATE 48.3 (>35); POTASSIUM SERUM 3.6 MEQ/L (3.5-5.1)
== END ==
PROVIDERS: ATTEND Family Medicine
DX: D64.9 Anemia, unspecified (principal)

== ENCOUNTER → 2019-11-03 | Outpatient (REF) | payer MEDICARE ==
[2019-11-03 09:14] LABS: BASO % 0.3 % (0.0-1.0); EOS # 0.2 10^3/uL (0.0-0.5); EOS % 2.2 % (0.0-3.0); HEMATOCRIT 30.7 % (42.0-52.0); HEMOGLOBIN 9.7 g/dl (13.5-17.5); LYMPH # 1.5 10^3/uL (1.5-5.0); LYMPH % 16.5 % (24.0-44.0); MEAN CORPUSCULAR HEMOGLOBIN 30.9 pg (27.0-33.0); MEAN CORPUSCULAR HGB CONC 31.6 g/dl (32.0-36.5); MEAN CORPUSCULAR VOLUME 97.8 fl (80.0-96.0); MONO # 0.8 10^3/uL (0.0-0.8); NEUTROPHILS # 6.4 10^3/uL (1.5-8.5); NEUTROPHILS % 71.8 % (36.0-66.0); PLATELET COUNT, AUTOMATED 289 10^3/uL (150-450); RED BLOOD COUNT 3.14 10^6/uL (4.30-6.10); WHITE BLOOD COUNT 8.9 10^3/uL (4.0-10.0)
[2019-11-03 09:35] LABS: CALCIUM LEVEL 9.3 MG/DL (8.8-10.2); CREATININE FOR GFR 1.64 MG/DL (0.70-1.30); GLOMERULAR FILTRATION RATE 43.2 (>35); POTASSIUM SERUM 3.6 MEQ/L (3.5-5.1)
== END ==
PROVIDERS: ATTEND Family Medicine
DX: D64.9 Anemia, unspecified (principal)

== ENCOUNTER → 2019-11-10 | Outpatient (REF) | payer MEDICARE ==
[2019-11-10 11:49] LABS: BASO # 0.1 10^3/uL (0.0-0.2); BASO % 0.8 % (0.0-1.0); EOS # 0.2 10^3/uL (0.0-0.5); EOS % 2.9 % (0.0-3.0); HEMATOCRIT 32.1 % (42.0-52.0); HEMOGLOBIN 9.9 g/dl (13.5-17.5); LYMPH # 1.5 10^3/uL (1.5-5.0); LYMPH % 20.2 % (24.0-44.0); MEAN CORPUSCULAR HEMOGLOBIN 30.8 pg (27.0-33.0); MEAN CORPUSCULAR HGB CONC 30.8 g/dl (32.0-36.5); MONO # 0.5 10^3/uL (0.0-0.8); MONO % 6.9 % (0.0-5.0); NEUTROPHILS # 5.2 10^3/uL (1.5-8.5); NEUTROPHILS % 68.7 % (36.0-66.0); PLATELET COUNT, AUTOMATED 412 10^3/uL (150-450); RED BLOOD COUNT 3.21 10^6/uL (4.30-6.10); WHITE BLOOD COUNT 7.5 10^3/uL (4.0-10.0)
[2019-11-10 12:14] LABS: CALCIUM LEVEL 9.5 MG/DL (8.8-10.2); CREATININE FOR GFR 1.68 MG/DL (0.70-1.30); GLOMERULAR FILTRATION RATE 42.1 (>35); POTASSIUM SERUM 3.8 MEQ/L (3.5-5.1)
== END ==
PROVIDERS: ATTEND Family Medicine
DX: D64.9 Anemia, unspecified (principal); Z79.899 Other long term (current) drug therapy

== ENCOUNTER → 2019-11-17 | Outpatient (REF) | payer MEDICARE ==
[2019-11-17 12:52] LABS: BASO # 0.1 10^3/uL (0.0-0.2); BASO % 0.7 % (0.0-1.0); EOS # 0.2 10^3/uL (0.0-0.5); EOS % 1.8 % (0.0-3.0); HEMATOCRIT 31.1 % (42.0-52.0); HEMOGLOBIN 9.7 g/dl (13.5-17.5); LYMPH # 1.3 10^3/uL (1.5-5.0); LYMPH % 15.9 % (24.0-44.0); MEAN CORPUSCULAR HEMOGLOBIN 31.5 pg (27.0-33.0); MEAN CORPUSCULAR HGB CONC 31.2 g/dl (32.0-36.5); MONO # 0.6 10^3/uL (0.0-0.8); MONO % 7.7 % (0.0-5.0); NEUTROPHILS # 6.1 10^3/uL (1.5-8.5); NEUTROPHILS % 73.5 % (36.0-66.0); PLATELET COUNT, AUTOMATED 389 10^3/uL (150-450); RED BLOOD COUNT 3.08 10^6/uL (4.30-6.10); WHITE BLOOD COUNT 8.3 10^3/uL (4.0-10.0)
[2019-11-17 13:26] LABS: CALCIUM LEVEL 9.2 MG/DL (8.8-10.2); CREATININE FOR GFR 1.57 MG/DL (0.70-1.30); GLOMERULAR FILTRATION RATE 45.5 (>35); POTASSIUM SERUM 3.4 MEQ/L (3.5-5.1)
== END ==
PROVIDERS: ATTEND Family Medicine
DX: D64.9 Anemia, unspecified (principal)

== ENCOUNTER → 2019-11-25 | Outpatient (REF) | payer MEDICARE ==
[2019-11-25 12:02] LABS: BASO # 0.1 10^3/uL (0.0-0.2); BASO % 0.8 % (0.0-1.0); EOS # 0.2 10^3/uL (0.0-0.5); EOS % 1.7 % (0.0-3.0); HEMATOCRIT 33.5 % (42.0-52.0); HEMOGLOBIN 10.2 g/dl (13.5-17.5); LYMPH % 19.6 % (24.0-44.0); MEAN CORPUSCULAR HEMOGLOBIN 31.1 pg (27.0-33.0); MEAN CORPUSCULAR HGB CONC 30.4 g/dl (32.0-36.5); MEAN CORPUSCULAR VOLUME 102.1 fl (80.0-96.0); MONO # 0.8 10^3/uL (0.0-0.8); MONO % 7.6 % (0.0-5.0); NEUTROPHILS # 7.3 10^3/uL (1.5-8.5); NEUTROPHILS % 69.8 % (36.0-66.0); PLATELET COUNT, AUTOMATED 383 10^3/uL (150-450); RED BLOOD COUNT 3.28 10^6/uL (4.30-6.10); WHITE BLOOD COUNT 10.4 10^3/uL (4.0-10.0)
[2019-11-25 12:24] LABS: CALCIUM LEVEL 9.7 MG/DL (8.8-10.2); CREATININE FOR GFR 1.57 MG/DL (0.70-1.30); GLOMERULAR FILTRATION RATE 45.5 (>35); POTASSIUM SERUM 4.2 MEQ/L (3.5-5.1)
== END ==
PROVIDERS: ATTEND Internal Medicine
DX: D64.9 Anemia, unspecified (principal)

== ENCOUNTER → 2019-12-02 | Outpatient (REF) | payer MEDICARE ==
[~2019-12-02] MED LIST changes: +ATIV1TAB10 PO; +CARA1TAB6 PO; +FERR324T2 PO; +MIRT1TAB16 PO; +PROTPAK PO; +VANC1.754 IV; -VANC1INJ IV; +XALA0.007 OP
[2019-12-02 10:01] LABS: BASO # 0.1 10^3/uL (0.0-0.2); BASO % 0.7 % (0.0-1.0); EOS # 0.2 10^3/uL (0.0-0.5); EOS % 2.1 % (0.0-3.0); HEMATOCRIT 29.5 % (42.0-52.0); HEMOGLOBIN 9.3 g/dl (13.5-17.5); LYMPH % 20.6 % (24.0-44.0); MEAN CORPUSCULAR HEMOGLOBIN 31.8 pg (27.0-33.0); MEAN CORPUSCULAR HGB CONC 31.5 g/dl (32.0-36.5); MONO # 0.9 10^3/uL (0.0-0.8); MONO % 8.9 % (0.0-5.0); NEUTROPHILS # 6.4 10^3/uL (1.5-8.5); NEUTROPHILS % 67.2 % (36.0-66.0); PLATELET COUNT, AUTOMATED 325 10^3/uL (150-450); RED BLOOD COUNT 2.92 10^6/uL (4.30-6.10); WHITE BLOOD COUNT 9.6 10^3/uL (4.0-10.0)
[2019-12-02 10:33] LABS: CALCIUM LEVEL 9.1 MG/DL (8.8-10.2); CREATININE FOR GFR 1.68 MG/DL (0.70-1.30); GLOMERULAR FILTRATION RATE 42.1 (>35); POTASSIUM SERUM 3.5 MEQ/L (3.5-5.1)
== END ==
PROVIDERS: ATTEND Family Medicine
DX: D64.9 Anemia, unspecified (principal)

== ENCOUNTER → 2019-12-08 | Outpatient (REF) | payer MEDICARE ==
[2020-01-23 19:41] LABS: CREATININE FOR GFR 1.54 MG/DL (0.70-1.30); GLOMERULAR FILTRATION RATE 46.5 (>35); POTASSIUM SERUM 3.8 MEQ/L (3.5-5.1)
[2020-01-23 19:42] LABS: CALCIUM LEVEL 9.8 MG/DL (8.8-10.2)
[2020-01-23 20:20] LABS: HEMATOCRIT 33.2 % (42.0-52.0); HEMOGLOBIN 10.4 g/dl (13.5-17.5); MEAN CORPUSCULAR HEMOGLOBIN 31.8 pg (27.0-33.0); MEAN CORPUSCULAR HGB CONC 31.3 g/dl (32.0-36.5); MEAN CORPUSCULAR VOLUME 101.5 fl (80.0-96.0); PLATELET COUNT, AUTOMATED 360 10^3/uL (150-450); RED BLOOD COUNT 3.27 10^6/uL (4.30-6.10)
== END ==
PROVIDERS: ATTEND Internal Medicine
DX: R41.89 Other symptoms and signs involving cognitive functions and awareness (principal)

== ENCOUNTER → 2019-12-16 | Outpatient (REF) | payer MEDICARE ==
[2020-01-15 15:50] LABS: BASO # 0.1 10^3/uL (0.0-0.2); BASO % 0.9 % (0.0-1.0); EOS # 0.2 10^3/uL (0.0-0.5); EOS % 2.7 % (0.0-3.0); HEMATOCRIT 32.9 % (42.0-52.0); HEMOGLOBIN 10.3 g/dl (13.5-17.5); LYMPH # 1.5 10^3/uL (1.5-5.0); LYMPH % 19.3 % (24.0-44.0); MEAN CORPUSCULAR HEMOGLOBIN 32.3 pg (27.0-33.0); MEAN CORPUSCULAR HGB CONC 31.3 g/dl (32.0-36.5); MEAN CORPUSCULAR VOLUME 103.1 fl (80.0-96.0); MONO # 0.7 10^3/uL (0.0-0.8); MONO % 9.1 % (0.0-5.0); NEUTROPHILS # 5.2 10^3/uL (1.5-8.5); NEUTROPHILS % 67.4 % (36.0-66.0); PLATELET COUNT, AUTOMATED 257 10^3/uL (150-450); RED BLOOD COUNT 3.19 10^6/uL (4.30-6.10); WHITE BLOOD COUNT 7.8 10^3/uL (4.0-10.0)
[2020-03-04 08:52] LABS: CALCIUM LEVEL 9.1 MG/DL (8.8-10.2); CREATININE FOR GFR 1.6 MG/DL (0.70-1.30); GLOMERULAR FILTRATION RATE 44.5 (>35); POTASSIUM SERUM 3.8 MEQ/L (3.5-5.1)
== END ==
PROVIDERS: ATTEND Internal Medicine
DX: D64.9 Anemia, unspecified (principal)

== ENCOUNTER → 2019-12-22 | Outpatient (REF) | payer MEDICARE ==
[2020-03-01 08:56] LABS: BASO # 0.1 10^3/uL (0.0-0.2); BASO % 0.8 % (0.0-1.0); EOS # 0.2 10^3/uL (0.0-0.5); EOS % 2.8 % (0.0-3.0); HEMATOCRIT 29.1 % (42.0-52.0); HEMOGLOBIN 9.2 g/dl (13.5-17.5); LYMPH # 1.4 10^3/uL (1.5-5.0); LYMPH % 19.7 % (24.0-44.0); MEAN CORPUSCULAR HEMOGLOBIN 31.8 pg (27.0-33.0); MEAN CORPUSCULAR HGB CONC 31.6 g/dl (32.0-36.5); MEAN CORPUSCULAR VOLUME 100.7 fl (80.0-96.0); MONO # 0.5 10^3/uL (0.0-0.8); MONO % 7.1 % (0.0-5.0); NEUTROPHILS # 4.9 10^3/uL (1.5-8.5); PLATELET COUNT, AUTOMATED 308 10^3/uL (150-450); RED BLOOD COUNT 2.89 10^6/uL (4.30-6.10); WHITE BLOOD COUNT 7.1 10^3/uL (4.0-10.0)
[2020-03-19 07:54] LABS: CALCIUM LEVEL 9.1 MG/DL (8.8-10.2); CREATININE FOR GFR 1.47 MG/DL (0.70-1.30); GLOMERULAR FILTRATION RATE 49.1 (>35); POTASSIUM SERUM 3.9 MEQ/L (3.5-5.1)
== END ==
PROVIDERS: ATTEND Internal Medicine
DX: D64.9 Anemia, unspecified (principal)

== ENCOUNTER → 2019-12-23 | Outpatient (REF) | payer MEDICARE ==
[2020-03-01 13:05] LABS: BASO # 0.1 10^3/uL (0.0-0.2); BASO % 0.7 % (0.0-1.0); EOS # 0.2 10^3/uL (0.0-0.5); EOS % 2.5 % (0.0-3.0); HEMATOCRIT 28.8 % (42.0-52.0); LYMPH # 1.2 10^3/uL (1.5-5.0); LYMPH % 14.7 % (24.0-44.0); MEAN CORPUSCULAR HEMOGLOBIN 31.6 pg (27.0-33.0); MEAN CORPUSCULAR HGB CONC 31.3 g/dl (32.0-36.5); MEAN CORPUSCULAR VOLUME 101.1 fl (80.0-96.0); MONO # 0.7 10^3/uL (0.0-0.8); MONO % 8.7 % (0.0-5.0); NEUTROPHILS # 6.1 10^3/uL (1.5-8.5); NEUTROPHILS % 72.6 % (36.0-66.0); PLATELET COUNT, AUTOMATED 332 10^3/uL (150-450); RED BLOOD COUNT 2.85 10^6/uL (4.30-6.10); WHITE BLOOD COUNT 8.4 10^3/uL (4.0-10.0)
[2020-03-19 12:41] LABS: CALCIUM LEVEL 9.2 MG/DL (8.8-10.2); CREATININE FOR GFR 1.57 MG/DL (0.70-1.30); GLOMERULAR FILTRATION RATE 45.5 (>35); POTASSIUM SERUM 3.9 MEQ/L (3.5-5.1)
== END ==
PROVIDERS: ATTEND Physician Assistant
DX: D64.9 Anemia, unspecified (principal)

== ENCOUNTER → 2019-12-30 | Outpatient (REF) | payer MEDICARE ==
[2020-01-26 10:19] LABS: BASO # 0.1 10^3/uL (0.0-0.2); BASO % 0.7 % (0.0-1.0); EOS # 0.2 10^3/uL (0.0-0.5); EOS % 3.4 % (0.0-3.0); HEMATOCRIT 27.5 % (42.0-52.0); HEMOGLOBIN 8.5 g/dl (13.5-17.5); LYMPH % 14.2 % (24.0-44.0); MEAN CORPUSCULAR HEMOGLOBIN 31.7 pg (27.0-33.0); MEAN CORPUSCULAR HGB CONC 30.9 g/dl (32.0-36.5); MEAN CORPUSCULAR VOLUME 102.6 fl (80.0-96.0); MONO # 0.5 10^3/uL (0.0-0.8); MONO % 7.7 % (0.0-5.0); NEUTROPHILS # 5.1 10^3/uL (1.5-8.5); NEUTROPHILS % 72.7 % (36.0-66.0); PLATELET COUNT, AUTOMATED 348 10^3/uL (150-450); RED BLOOD COUNT 2.68 10^6/uL (4.30-6.10)
[2020-02-15 21:48] LABS: CALCIUM LEVEL 9.2 MG/DL (8.8-10.2); CREATININE FOR GFR 1.56 MG/DL (0.70-1.30); GLOMERULAR FILTRATION RATE 45.8 (>35); POTASSIUM SERUM 3.9 MEQ/L (3.5-5.1)
== END ==
PROVIDERS: ATTEND Internal Medicine
DX: D64.9 Anemia, unspecified (principal)

== ENCOUNTER → 2020-01-06 | Outpatient (REF) | payer MEDICARE ==
[2020-01-06 12:44] LABS: BASO % 0.7 % (0.0-1.0); EOS # 0.1 10^3/uL (0.0-0.5); EOS % 2.2 % (0.0-3.0); HEMATOCRIT 25.9 % (42.0-52.0); LYMPH # 0.9 10^3/uL (1.5-5.0); LYMPH % 14.7 % (24.0-44.0); MEAN CORPUSCULAR HEMOGLOBIN 31.7 pg (27.0-33.0); MEAN CORPUSCULAR HGB CONC 30.9 g/dl (32.0-36.5); MEAN CORPUSCULAR VOLUME 102.8 fl (80.0-96.0); MONO # 0.7 10^3/uL (0.0-0.8); MONO % 11.6 % (0.0-5.0); NEUTROPHILS % 69.3 % (36.0-66.0); PLATELET COUNT, AUTOMATED 288 10^3/uL (150-450); RED BLOOD COUNT 2.52 10^6/uL (4.30-6.10); WHITE BLOOD COUNT 5.8 10^3/uL (4.0-10.0)
[2020-01-06 12:59] LABS: CREATININE FOR GFR 1.58 MG/DL (0.70-1.30); GLOMERULAR FILTRATION RATE 45.1 (>35); POTASSIUM SERUM 3.9 MEQ/L (3.5-5.1)
== END ==
PROVIDERS: ATTEND Internal Medicine
DX: D64.9 Anemia, unspecified (principal)

== ENCOUNTER → 2020-01-07 | Outpatient (REF) | payer MEDICARE ==
[2020-01-07 11:07] LABS: HEMATOCRIT 30.1 % (42.0-52.0); HEMOGLOBIN 9.3 g/dl (13.5-17.5); MEAN CORPUSCULAR HEMOGLOBIN 32.3 pg (27.0-33.0); MEAN CORPUSCULAR HGB CONC 30.9 g/dl (32.0-36.5); MEAN CORPUSCULAR VOLUME 104.5 fl (80.0-96.0); PLATELET COUNT, AUTOMATED 348 10^3/uL (150-450); RED BLOOD COUNT 2.88 10^6/uL (4.30-6.10); WHITE BLOOD COUNT 7.1 10^3/uL (4.0-10.0)
== END ==
PROVIDERS: ATTEND Internal Medicine
DX: D64.9 Anemia, unspecified (principal)

== ENCOUNTER → 2020-01-13 | Outpatient (REF) | payer MEDICARE ==
[2020-01-13 10:02] LABS: BASO # 0.1 10^3/uL (0.0-0.2); BASO % 0.9 % (0.0-1.0); EOS # 0.2 10^3/uL (0.0-0.5); EOS % 2.3 % (0.0-3.0); HEMATOCRIT 30.7 % (42.0-52.0); HEMOGLOBIN 9.4 g/dl (13.5-17.5); LYMPH # 2.5 10^3/uL (1.5-5.0); MEAN CORPUSCULAR HEMOGLOBIN 31.9 pg (27.0-33.0); MEAN CORPUSCULAR HGB CONC 30.6 g/dl (32.0-36.5); MEAN CORPUSCULAR VOLUME 104.1 fl (80.0-96.0); MONO # 0.8 10^3/uL (0.0-0.8); MONO % 7.5 % (0.0-5.0); NEUTROPHILS # 6.8 10^3/uL (1.5-8.5); NEUTROPHILS % 64.8 % (36.0-66.0); PLATELET COUNT, AUTOMATED 473 10^3/uL (150-450); RED BLOOD COUNT 2.95 10^6/uL (4.30-6.10); WHITE BLOOD COUNT 10.5 10^3/uL (4.0-10.0)
[2020-01-13 10:23] LABS: CALCIUM LEVEL 9.5 MG/DL (8.8-10.2); CREATININE FOR GFR 1.73 MG/DL (0.70-1.30); GLOMERULAR FILTRATION RATE 40.7 (>35); POTASSIUM SERUM 3.7 MEQ/L (3.5-5.1)
== END ==
PROVIDERS: ATTEND Internal Medicine
DX: D64.9 Anemia, unspecified (principal)

== ENCOUNTER → 2020-01-14 | Outpatient (REF) | payer MEDICARE ==
[2020-01-14 09:23] LABS: CALCIUM LEVEL 9.5 MG/DL (8.8-10.2); CREATININE FOR GFR 1.47 MG/DL (0.70-1.30); GLOMERULAR FILTRATION RATE 49.1 (>35)
== END ==
PROVIDERS: ATTEND Internal Medicine
DX: E86.0 Dehydration (principal)

== ENCOUNTER → 2020-01-15 | Outpatient (REF) | payer MEDICARE ==
[2020-01-15 12:25] LABS: CALCIUM LEVEL 9.2 MG/DL (8.8-10.2); CREATININE FOR GFR 1.55 MG/DL (0.70-1.30); GLOMERULAR FILTRATION RATE 46.2 (>35); POTASSIUM SERUM 4.2 MEQ/L (3.5-5.1)
== END ==
PROVIDERS: ATTEND Internal Medicine
DX: E87.5 Hyperkalemia (principal)

== ENCOUNTER → 2020-01-20 | Outpatient (REF) | payer MEDICARE ==
[2020-01-20 10:54] LABS: HEMATOCRIT 29.8 % (42.0-52.0); HEMOGLOBIN 9.2 g/dl (13.5-17.5); MEAN CORPUSCULAR HEMOGLOBIN 31.6 pg (27.0-33.0); MEAN CORPUSCULAR HGB CONC 30.9 g/dl (32.0-36.5); MEAN CORPUSCULAR VOLUME 102.4 fl (80.0-96.0); PLATELET COUNT, AUTOMATED 406 10^3/uL (150-450); RED BLOOD COUNT 2.91 10^6/uL (4.30-6.10); WHITE BLOOD COUNT 8.2 10^3/uL (4.0-10.0)
[2020-01-20 11:15] LABS: BILIRUBIN,TOTAL 0.4 MG/DL (0.2-1.0); C REACTIVE PROTEIN QUANTITATIV 0.8 MG/DL (0.00-0.30); CALCIUM LEVEL 9.6 MG/DL (8.8-10.2); CREATININE FOR GFR 1.7 MG/DL (0.70-1.30); GLOMERULAR FILTRATION RATE 41.5 (>35); TOTAL PROTEIN 6.5 GM/DL (6.4-8.2)
== END ==
PROVIDERS: ATTEND Family Medicine
DX: D64.9 Anemia, unspecified (principal)

== ENCOUNTER → 2020-01-27 | Outpatient (REF) | payer MEDICARE ==
[2020-01-27 10:46] LABS: HEMATOCRIT 25.5 % (42.0-52.0); HEMOGLOBIN 7.7 g/dl (13.5-17.5); MEAN CORPUSCULAR HEMOGLOBIN 31.2 pg (27.0-33.0); MEAN CORPUSCULAR HGB CONC 30.2 g/dl (32.0-36.5); MEAN CORPUSCULAR VOLUME 103.2 fl (80.0-96.0); PLATELET COUNT, AUTOMATED 308 10^3/uL (150-450); RED BLOOD COUNT 2.47 10^6/uL (4.30-6.10); WHITE BLOOD COUNT 8.2 10^3/uL (4.0-10.0)
[2020-01-27 11:15] LABS: CREATININE FOR GFR 1.67 MG/DL (0.70-1.30); GLOMERULAR FILTRATION RATE 42.4 (>35)
== END ==
PROVIDERS: ATTEND Internal Medicine
DX: D64.9 Anemia, unspecified (principal)

== ENCOUNTER → 2020-01-27 | Outpatient (REF) | payer MEDICARE | PROVIDERS: ATTEND Physician Assistant | DX: D64.9 Anemia, unspecified (principal) ==

== ENCOUNTER 2020-01-28 07:15 | Outpatient (CLI) | payer MEDICARE ==
[2020-01-28] VITALS (9 sets, daily range): BP systolic 133–158; BP diastolic 63–78
[~2020-01-28] VITALS: Ht 180.3 cm; Wt 100.8 kg
[~2020-01-28 07:15] MED LIST changes: -ATIV1TAB10 PO; -CARA1TAB6 PO; -FERR324T2 PO; -MIRT1TAB16 PO; -PROTPAK PO; -XALA0.007 OP
[2020-01-28] MEDS ORDERED: diphenhydrAMINE 25MG CAP PO ONE (07:30)
[2020-01-28] MEDS ORDERED: diphenhydrAMINE 25MG CAP As Ordered ONE (07:31)
[2020-01-28] MEDS ORDERED: CARA1TAB6 PO (08:15)
[2020-01-28] MEDS ORDERED: XALA0.007 OP (08:19)
[2020-01-28] MEDS ORDERED: FERR324T2 PO (08:19)
[2020-01-28] MEDS ORDERED: MIRT1TAB16 PO (08:19)
[2020-01-28] MEDS ORDERED: ATIV1TAB10 PO (08:19)
[2020-01-28] MEDS ORDERED: PROTPAK PO (08:19)
== END 2020-01-28 12:10 | disposition home or self-care (01) ==
LOC: M INFU 07:15
PROVIDERS: ATTEND Physician Assistant
DX: D64.9 Anemia, unspecified (principal)
CPT/HCPCS: 36430; P9016

== ENCOUNTER → 2020-01-29 | Outpatient (REF) | payer MEDICARE ==
[~2020-01-29] MED LIST changes: +ATIV1TAB10 PO; +CARA1TAB6 PO; +FERR324T2 PO; +MIRT1TAB16 PO; +PROTPAK PO; +XALA0.007 OP
[2020-01-29 11:04] LABS: HEMATOCRIT 37.7 % (42.0-52.0); MEAN CORPUSCULAR HEMOGLOBIN 31.5 pg (27.0-33.0); PLATELET COUNT, AUTOMATED 333 10^3/uL (150-450); RED BLOOD COUNT 3.59 10^6/uL (4.30-6.10); WHITE BLOOD COUNT 9.9 10^3/uL (4.0-10.0)
[2020-01-29 11:09] LABS: HEMOGLOBIN 11.3 g/dl (13.5-17.5)
== END ==
PROVIDERS: ATTEND Physician Assistant
DX: D64.9 Anemia, unspecified (principal)

== ENCOUNTER → 2020-02-02 | Outpatient (REF) | payer MEDICARE ==
[2020-02-02 11:14] LABS: BASO # 0.1 10^3/uL (0.0-0.2); BASO % 0.6 % (0.0-1.0); EOS # 0.2 10^3/uL (0.0-0.5); EOS % 2.1 % (0.0-3.0); HEMATOCRIT 32.9 % (42.0-52.0); HEMOGLOBIN 10.2 g/dl (13.5-17.5); LYMPH # 1.7 10^3/uL (1.5-5.0); LYMPH % 15.9 % (24.0-44.0); MEAN CORPUSCULAR HEMOGLOBIN 31.7 pg (27.0-33.0); MEAN CORPUSCULAR VOLUME 102.2 fl (80.0-96.0); MONO # 0.9 10^3/uL (0.0-0.8); MONO % 8.1 % (0.0-5.0); NEUTROPHILS # 7.8 10^3/uL (1.5-8.5); NEUTROPHILS % 72.8 % (36.0-66.0); PLATELET COUNT, AUTOMATED 363 10^3/uL (150-450); RED BLOOD COUNT 3.22 10^6/uL (4.30-6.10); WHITE BLOOD COUNT 10.6 10^3/uL (4.0-10.0)
[2020-02-02 11:26] LABS: CALCIUM LEVEL 9.6 MG/DL (8.8-10.2); CREATININE FOR GFR 1.74 MG/DL (0.70-1.30); GLOMERULAR FILTRATION RATE 40.4 (>35); POTASSIUM SERUM 4.2 MEQ/L (3.5-5.1)
== END ==
PROVIDERS: ATTEND Internal Medicine
DX: D64.9 Anemia, unspecified (principal)

== ENCOUNTER → 2020-02-09 | Outpatient (REF) | payer MEDICARE ==
[2020-02-09 10:49] LABS: BASO # 0.1 10^3/uL (0.0-0.2); BASO % 0.5 % (0.0-1.0); EOS # 0.2 10^3/uL (0.0-0.5); EOS % 2.2 % (0.0-3.0); HEMATOCRIT 33.1 % (42.0-52.0); HEMOGLOBIN 10.1 g/dl (13.5-17.5); LYMPH # 1.4 10^3/uL (1.5-5.0); LYMPH % 12.4 % (24.0-44.0); MEAN CORPUSCULAR HEMOGLOBIN 31.6 pg (27.0-33.0); MEAN CORPUSCULAR HGB CONC 30.5 g/dl (32.0-36.5); MEAN CORPUSCULAR VOLUME 103.4 fl (80.0-96.0); MONO # 0.9 10^3/uL (0.0-0.8); MONO % 8.6 % (0.0-5.0); NEUTROPHILS # 8.3 10^3/uL (1.5-8.5); NEUTROPHILS % 75.6 % (36.0-66.0); PLATELET COUNT, AUTOMATED 375 10^3/uL (150-450); WHITE BLOOD COUNT 10.9 10^3/uL (4.0-10.0)
[2020-02-09 10:59] LABS: CALCIUM LEVEL 9.6 MG/DL (8.8-10.2); CREATININE FOR GFR 1.78 MG/DL (0.70-1.30); GLOMERULAR FILTRATION RATE 39.3 (>35); POTASSIUM SERUM 4.3 MEQ/L (3.5-5.1)
== END ==
PROVIDERS: ATTEND Internal Medicine
DX: D64.9 Anemia, unspecified (principal)

== ENCOUNTER → 2020-02-17 | Outpatient (REF) | payer MEDICARE ==
[2020-02-17 11:13] LABS: BASO % 0.4 % (0.0-1.0); EOS # 0.2 10^3/uL (0.0-0.5); EOS % 1.8 % (0.0-3.0); HEMATOCRIT 29.4 % (42.0-52.0); HEMOGLOBIN 8.9 g/dl (13.5-17.5); LYMPH # 1.1 10^3/uL (1.5-5.0); LYMPH % 10.9 % (24.0-44.0); MEAN CORPUSCULAR HEMOGLOBIN 31.6 pg (27.0-33.0); MEAN CORPUSCULAR HGB CONC 30.3 g/dl (32.0-36.5); MEAN CORPUSCULAR VOLUME 104.3 fl (80.0-96.0); MONO # 0.7 10^3/uL (0.0-0.8); MONO % 7.4 % (0.0-5.0); NEUTROPHILS # 7.8 10^3/uL (1.5-8.5); NEUTROPHILS % 78.9 % (36.0-66.0); PLATELET COUNT, AUTOMATED 330 10^3/uL (150-450); RED BLOOD COUNT 2.82 10^6/uL (4.30-6.10); WHITE BLOOD COUNT 9.9 10^3/uL (4.0-10.0)
[2020-02-17 11:43] LABS: CALCIUM LEVEL 9.1 MG/DL (8.8-10.2); CREATININE FOR GFR 1.59 MG/DL (0.70-1.30); GLOMERULAR FILTRATION RATE 44.8 (>35); POTASSIUM SERUM 4.3 MEQ/L (3.5-5.1)
== END ==
PROVIDERS: ATTEND Physician Assistant
DX: D64.9 Anemia, unspecified (principal)

== ENCOUNTER → 2020-02-22 | Outpatient (REF) | payer MEDICARE ==
[2020-02-22 09:15] LABS: BASO # 0.1 10^3/uL (0.0-0.2); BASO % 0.7 % (0.0-1.0); EOS # 0.2 10^3/uL (0.0-0.5); EOS % 1.7 % (0.0-3.0); HEMATOCRIT 33.5 % (42.0-52.0); HEMOGLOBIN 10.2 g/dl (13.5-17.5); LYMPH # 1.2 10^3/uL (1.5-5.0); LYMPH % 10.4 % (24.0-44.0); MEAN CORPUSCULAR HEMOGLOBIN 31.9 pg (27.0-33.0); MEAN CORPUSCULAR HGB CONC 30.4 g/dl (32.0-36.5); MEAN CORPUSCULAR VOLUME 104.7 fl (80.0-96.0); MONO # 0.8 10^3/uL (0.0-0.8); NEUTROPHILS # 9.3 10^3/uL (1.5-8.5); NEUTROPHILS % 79.5 % (36.0-66.0); PLATELET COUNT, AUTOMATED 401 10^3/uL (150-450); WHITE BLOOD COUNT 11.7 10^3/uL (4.0-10.0)
[2020-02-22 09:35] LABS: CALCIUM LEVEL 9.6 MG/DL (8.8-10.2); CREATININE FOR GFR 1.57 MG/DL (0.70-1.30); GLOMERULAR FILTRATION RATE 45.5 (>35); POTASSIUM SERUM 4.2 MEQ/L (3.5-5.1)
== END ==
PROVIDERS: ATTEND Internal Medicine
DX: D64.9 Anemia, unspecified (principal)

== ENCOUNTER → 2020-03-01 | Outpatient (REF) | payer MEDICARE ==
[2020-03-01 11:48] LABS: BASO # 0.1 10^3/uL (0.0-0.2); BASO % 0.7 % (0.0-1.0); EOS # 0.2 10^3/uL (0.0-0.5); EOS % 2.1 % (0.0-3.0); HEMATOCRIT 30.6 % (42.0-52.0); HEMOGLOBIN 9.4 g/dl (13.5-17.5); LYMPH # 1.3 10^3/uL (1.5-5.0); LYMPH % 13.7 % (24.0-44.0); MEAN CORPUSCULAR HEMOGLOBIN 31.9 pg (27.0-33.0); MEAN CORPUSCULAR HGB CONC 30.7 g/dl (32.0-36.5); MEAN CORPUSCULAR VOLUME 103.7 fl (80.0-96.0); MONO # 0.7 10^3/uL (0.0-0.8); MONO % 7.1 % (0.0-5.0); NEUTROPHILS # 7.1 10^3/uL (1.5-8.5); NEUTROPHILS % 75.9 % (36.0-66.0); PLATELET COUNT, AUTOMATED 341 10^3/uL (150-450); RED BLOOD COUNT 2.95 10^6/uL (4.30-6.10); WHITE BLOOD COUNT 9.4 10^3/uL (4.0-10.0)
[2020-03-01 12:12] LABS: CALCIUM LEVEL 9.2 MG/DL (8.8-10.2); CREATININE FOR GFR 1.36 MG/DL (0.70-1.30); GLOMERULAR FILTRATION RATE 53.7 (>35); POTASSIUM SERUM 3.9 MEQ/L (3.5-5.1)
== END ==
PROVIDERS: ATTEND Physician Assistant
DX: D64.9 Anemia, unspecified (principal)

== ENCOUNTER → 2020-03-08 | Outpatient (REF) | payer MEDICARE ==
[2020-03-08 10:30] LABS: BASO # 0.1 10^3/uL (0.0-0.2); BASO % 0.8 % (0.0-1.0); EOS # 0.2 10^3/uL (0.0-0.5); EOS % 2.3 % (0.0-3.0); HEMATOCRIT 29.5 % (42.0-52.0); HEMOGLOBIN 9.4 g/dl (13.5-17.5); LYMPH # 1.2 10^3/uL (1.5-5.0); LYMPH % 13.3 % (24.0-44.0); MEAN CORPUSCULAR HEMOGLOBIN 32.4 pg (27.0-33.0); MEAN CORPUSCULAR HGB CONC 31.9 g/dl (32.0-36.5); MEAN CORPUSCULAR VOLUME 101.7 fl (80.0-96.0); MONO # 0.7 10^3/uL (0.0-0.8); MONO % 7.6 % (0.0-5.0); NEUTROPHILS % 75.7 % (36.0-66.0); PLATELET COUNT, AUTOMATED 211 10^3/uL (150-450); WHITE BLOOD COUNT 9.2 10^3/uL (4.0-10.0)
[2020-03-08 10:46] LABS: CALCIUM LEVEL 8.9 MG/DL (8.8-10.2); CREATININE FOR GFR 1.36 MG/DL (0.70-1.30); GLOMERULAR FILTRATION RATE 53.7 (>35); POTASSIUM SERUM 4.1 MEQ/L (3.5-5.1)
== END ==
PROVIDERS: ATTEND Internal Medicine
DX: D64.9 Anemia, unspecified (principal)

== ENCOUNTER → 2020-03-15 | Outpatient (REF) | payer MEDICARE ==
[2020-03-15 10:26] LABS: BASO # 0.1 10^3/uL (0.0-0.2); BASO % 0.8 % (0.0-1.0); EOS # 0.2 10^3/uL (0.0-0.5); EOS % 3.1 % (0.0-3.0); HEMATOCRIT 31.5 % (42.0-52.0); HEMOGLOBIN 9.5 g/dl (13.5-17.5); LYMPH # 1.4 10^3/uL (1.5-5.0); LYMPH % 17.3 % (24.0-44.0); MEAN CORPUSCULAR HEMOGLOBIN 30.8 pg (27.0-33.0); MEAN CORPUSCULAR HGB CONC 30.2 g/dl (32.0-36.5); MEAN CORPUSCULAR VOLUME 102.3 fl (80.0-96.0); MONO # 0.5 10^3/uL (0.0-0.8); MONO % 6.1 % (0.0-5.0); NEUTROPHILS # 5.6 10^3/uL (1.5-8.5); NEUTROPHILS % 72.2 % (36.0-66.0); PLATELET COUNT, AUTOMATED 356 10^3/uL (150-450); RED BLOOD COUNT 3.08 10^6/uL (4.30-6.10); WHITE BLOOD COUNT 7.8 10^3/uL (4.0-10.0)
[2020-03-15 10:49] LABS: CALCIUM LEVEL 9.4 MG/DL (8.8-10.2); CREATININE FOR GFR 1.47 MG/DL (0.70-1.30); GLOMERULAR FILTRATION RATE 49.1 (>35)
== END ==
PROVIDERS: ATTEND Physician Assistant
DX: D64.9 Anemia, unspecified (principal)

== ENCOUNTER → 2020-03-22 | Outpatient (REF) | payer MEDICARE ==
[2020-03-22 10:46] LABS: BASO % 0.5 % (0.0-1.0); EOS # 0.2 10^3/uL (0.0-0.5); EOS % 2.5 % (0.0-3.0); HEMATOCRIT 27.4 % (42.0-52.0); HEMOGLOBIN 8.5 g/dl (13.5-17.5); LYMPH # 1.2 10^3/uL (1.5-5.0); LYMPH % 15.2 % (24.0-44.0); MEAN CORPUSCULAR HEMOGLOBIN 32.2 pg (27.0-33.0); MEAN CORPUSCULAR VOLUME 103.8 fl (80.0-96.0); MONO # 0.6 10^3/uL (0.0-0.8); MONO % 7.9 % (0.0-5.0); NEUTROPHILS # 5.6 10^3/uL (1.5-8.5); NEUTROPHILS % 73.2 % (36.0-66.0); PLATELET COUNT, AUTOMATED 236 10^3/uL (150-450); RED BLOOD COUNT 2.64 10^6/uL (4.30-6.10); WHITE BLOOD COUNT 7.6 10^3/uL (4.0-10.0)
[2020-03-22 10:57] LABS: CALCIUM LEVEL 8.8 MG/DL (8.8-10.2); CREATININE FOR GFR 1.46 MG/DL (0.70-1.30); GLOMERULAR FILTRATION RATE 49.5 (>35); POTASSIUM SERUM 4.1 MEQ/L (3.5-5.1)
== END ==
PROVIDERS: ATTEND Family Medicine
DX: D64.9 Anemia, unspecified (principal)

== ENCOUNTER → 2020-03-24 | Outpatient (REF) | PROVIDERS: ATTEND Internal Medicine | DX: Z20.828 Contact with and (suspected) exposure to other viral communicable diseases (principal) ==

== ENCOUNTER → 2020-03-29 | Outpatient (REF) | payer MEDICARE ==
[2020-03-29 11:54] LABS: BASO # 0.1 10^3/uL (0.0-0.2); BASO % 0.6 % (0.0-1.0); EOS # 0.2 10^3/uL (0.0-0.5); HEMATOCRIT 27.6 % (42.0-52.0); HEMOGLOBIN 8.7 g/dl (13.5-17.5); LYMPH # 1.2 10^3/uL (1.5-5.0); LYMPH % 14.6 % (24.0-44.0); MEAN CORPUSCULAR HEMOGLOBIN 32.3 pg (27.0-33.0); MEAN CORPUSCULAR HGB CONC 31.5 g/dl (32.0-36.5); MEAN CORPUSCULAR VOLUME 102.6 fl (80.0-96.0); MONO # 0.7 10^3/uL (0.0-0.8); MONO % 8.2 % (0.0-5.0); PLATELET COUNT, AUTOMATED 350 10^3/uL (150-450); RED BLOOD COUNT 2.69 10^6/uL (4.30-6.10)
[2020-03-29 12:48] LABS: CALCIUM LEVEL 9.2 MG/DL (8.8-10.2); CREATININE FOR GFR 1.37 MG/DL (0.70-1.30); GLOMERULAR FILTRATION RATE 53.2 (>35); POTASSIUM SERUM 4.1 MEQ/L (3.5-5.1)
== END ==
PROVIDERS: ATTEND Physician Assistant
DX: D64.9 Anemia, unspecified (principal)

== ENCOUNTER → 2020-03-31 | Outpatient (REF) | payer MEDICARE | LOC: EDSTATUS 05-07 15:03 | PROVIDERS: ATTEND Internal Medicine | DX: Z20.828 Contact with and (suspected) exposure to other viral communicable diseases (principal) ==

== ENCOUNTER → 2020-04-05 | Outpatient (REF) | payer MEDICARE ==
[2020-04-05 11:42] LABS: BASO # 0.1 10^3/uL (0.0-0.2); BASO % 0.6 % (0.0-1.0); EOS # 0.2 10^3/uL (0.0-0.5); EOS % 2.3 % (0.0-3.0); HEMATOCRIT 29.8 % (42.0-52.0); HEMOGLOBIN 9.1 g/dl (13.5-17.5); LYMPH # 1.1 10^3/uL (1.5-5.0); LYMPH % 13.2 % (24.0-44.0); MEAN CORPUSCULAR HEMOGLOBIN 31.5 pg (27.0-33.0); MEAN CORPUSCULAR HGB CONC 30.5 g/dl (32.0-36.5); MEAN CORPUSCULAR VOLUME 103.1 fl (80.0-96.0); MONO # 0.7 10^3/uL (0.0-0.8); MONO % 8.3 % (0.0-5.0); NEUTROPHILS # 6.3 10^3/uL (1.5-8.5); NEUTROPHILS % 75.4 % (36.0-66.0); PLATELET COUNT, AUTOMATED 344 10^3/uL (150-450); RED BLOOD COUNT 2.89 10^6/uL (4.30-6.10); WHITE BLOOD COUNT 8.3 10^3/uL (4.0-10.0)
[2020-04-05 12:05] LABS: CALCIUM LEVEL 9.3 MG/DL (8.8-10.2); CREATININE FOR GFR 1.43 MG/DL (0.70-1.30); GLOMERULAR FILTRATION RATE 50.7 (>35)
== END ==
PROVIDERS: ATTEND Physician Assistant
DX: D64.9 Anemia, unspecified (principal)

== ENCOUNTER → 2020-04-06 | Outpatient (REF) | payer MEDICARE | PROVIDERS: ATTEND Internal Medicine | DX: Z20.828 Contact with and (suspected) exposure to other viral communicable diseases (principal) ==

== ENCOUNTER → 2020-04-12 | Outpatient (REF) | payer MEDICARE ==
[2020-04-12 11:16] LABS: BASO # 0.1 10^3/uL (0.0-0.2); BASO % 0.6 % (0.0-1.0); EOS # 0.2 10^3/uL (0.0-0.5); EOS % 2.7 % (0.0-3.0); HEMOGLOBIN 8.1 g/dl (13.5-17.5); LYMPH % 11.9 % (24.0-44.0); MEAN CORPUSCULAR HEMOGLOBIN 31.2 pg (27.0-33.0); MEAN CORPUSCULAR VOLUME 103.8 fl (80.0-96.0); MONO # 0.8 10^3/uL (0.0-0.8); MONO % 9.3 % (0.0-5.0); NEUTROPHILS # 6.1 10^3/uL (1.5-8.5); PLATELET COUNT, AUTOMATED 317 10^3/uL (150-450); WHITE BLOOD COUNT 8.2 10^3/uL (4.0-10.0)
[2020-04-12 11:48] LABS: CALCIUM LEVEL 9.3 MG/DL (8.8-10.2); CREATININE FOR GFR 1.35 MG/DL (0.70-1.30); GLOMERULAR FILTRATION RATE 54.1 (>35); POTASSIUM SERUM 4.1 MEQ/L (3.5-5.1)
== END ==
PROVIDERS: ATTEND Physician Assistant
DX: D64.9 Anemia, unspecified (principal)

== ENCOUNTER → 2020-04-19 | Outpatient (REF) | payer MEDICARE ==
[2020-04-19 11:18] LABS: BASO # 0.1 10^3/uL (0.0-0.2); BASO % 0.8 % (0.0-1.0); EOS # 0.2 10^3/uL (0.0-0.5); EOS % 2.4 % (0.0-3.0); HEMATOCRIT 29.7 % (42.0-52.0); HEMOGLOBIN 8.7 g/dl (13.5-17.5); LYMPH # 1.1 10^3/uL (1.5-5.0); LYMPH % 13.8 % (24.0-44.0); MEAN CORPUSCULAR HGB CONC 29.3 g/dl (32.0-36.5); MEAN CORPUSCULAR VOLUME 105.7 fl (80.0-96.0); MONO # 0.5 10^3/uL (0.0-0.8); MONO % 6.7 % (0.0-5.0); NEUTROPHILS % 75.9 % (36.0-66.0); PLATELET COUNT, AUTOMATED 376 10^3/uL (150-450); RED BLOOD COUNT 2.81 10^6/uL (4.30-6.10); WHITE BLOOD COUNT 7.9 10^3/uL (4.0-10.0)
[2020-04-19 11:43] LABS: CALCIUM LEVEL 9.5 MG/DL (8.8-10.2); CREATININE FOR GFR 1.57 MG/DL (0.70-1.30); GLOMERULAR FILTRATION RATE 45.5 (>35)
== END ==
PROVIDERS: ATTEND Physician Assistant
DX: D64.9 Anemia, unspecified (principal)

== ENCOUNTER → 2020-04-24 | Outpatient (REF) | payer MEDICARE ==
--- NOTE | 2020-04-25 14:19 | WAPSY-ES ---
[facility] OFFICE NOTE DATE: 04/24/2020 This was a video assessment. Attempted a video assessment, but there were technical difficulties. I saw her only briefly. We spoke mostly over the phone. CHIEF COMPLAINT: Says is doing okay. SUBJECTIVE: Seen for followup on the phone. Says she is doing okay and continues to maintain precautions. Limited contact with others. Says Gamaliel was quite quiet. Expects Cyndy to be the same. Did not see her family. Says is in touch with them via social media, [employer], etc. She feels she is better at setting boundaries with others, including friends, and is more comfortable with that. Sleep and appetite are good. MENTAL STATUS EXAMINATION: This is modified on the phone. She is cooperative. She is coherent. No agitation that I can detect. She denies any thoughts of harming herself or anyone else. No evidence of any psychosis. Cognition is grossly intact. Her judgment is good. Insight is good overall. ASSESSMENT: Generalized anxiety disorder. Is doing well overall, including given the current state. She is coping well with the situation, better on setting boundaries. PLAN: Continue Effexor XR 187.5 mg daily. Continue Ambien 10 mg at night as needed for insomnia. No evidence of any misuse. She is given verbal support. She is receptive to it. She spoke about her current state, the improvements in setting boundaries as well. She is receptive to the discussion and support. She is to followup in 6 weeks, sooner if necessary. She agrees with the plan. We met for 15 minutes.
== END ==
PROVIDERS: ATTEND Internal Medicine
DX: Z20.828 Contact with and (suspected) exposure to other viral communicable diseases (principal)

== ENCOUNTER → 2020-04-26 | Outpatient (REF) | payer MEDICARE ==
[2020-04-26 11:23] LABS: BASO # 0.1 10^3/uL (0.0-0.2); BASO % 0.5 % (0.0-1.0); EOS # 0.2 10^3/uL (0.0-0.5); EOS % 2.1 % (0.0-3.0); HEMATOCRIT 33.1 % (42.0-52.0); HEMOGLOBIN 9.7 g/dl (13.5-17.5); LYMPH # 1.5 10^3/uL (1.5-5.0); LYMPH % 13.5 % (24.0-44.0); MEAN CORPUSCULAR HEMOGLOBIN 30.7 pg (27.0-33.0); MEAN CORPUSCULAR HGB CONC 29.3 g/dl (32.0-36.5); MEAN CORPUSCULAR VOLUME 104.7 fl (80.0-96.0); MONO # 0.5 10^3/uL (0.0-0.8); MONO % 4.6 % (0.0-5.0); NEUTROPHILS # 8.8 10^3/uL (1.5-8.5); NEUTROPHILS % 78.8 % (36.0-66.0); PLATELET COUNT, AUTOMATED 437 10^3/uL (150-450); RED BLOOD COUNT 3.16 10^6/uL (4.30-6.10); WHITE BLOOD COUNT 11.2 10^3/uL (4.0-10.0)
[2020-04-26 12:07] LABS: CALCIUM LEVEL 8.9 MG/DL (8.8-10.2); CREATININE FOR GFR 1.35 MG/DL (0.70-1.30); GLOMERULAR FILTRATION RATE 54.1 (>35); POTASSIUM SERUM 3.7 MEQ/L (3.5-5.1)
== END ==
PROVIDERS: ATTEND Physician Assistant
DX: D64.9 Anemia, unspecified (principal)

== ENCOUNTER → 2020-04-27 | Outpatient (REF) | payer MEDICARE ==
[2020-04-27 10:41] LABS: CALCIUM LEVEL 9.7 MG/DL (8.8-10.2); CREATININE FOR GFR 1.4 MG/DL (0.70-1.30); GLOMERULAR FILTRATION RATE 51.9 (>35)
== END ==
PROVIDERS: ATTEND Internal Medicine
DX: E86.0 Dehydration (principal)

== ENCOUNTER → 2020-04-28 | Outpatient (REF) | payer MEDICARE ==
[2020-04-28 09:33] LABS: CALCIUM LEVEL 9.1 MG/DL (8.8-10.2); CREATININE FOR GFR 1.29 MG/DL (0.70-1.30); GLOMERULAR FILTRATION RATE 57.1 (>35); POTASSIUM SERUM 4.2 MEQ/L (3.5-5.1)
[2020-04-28 12:44] LABS: INFLUENZA A AMPLIFICATION NEGATIVE (NEGATIVE); INFLUENZA B AMPLIFICATION NEGATIVE (NEGATIVE)
== END ==
PROVIDERS: ATTEND Internal Medicine
DX: E86.0 Dehydration (principal); Z20.828 Contact with and (suspected) exposure to other viral communicable diseases
CPT/HCPCS: 36415; 80048; 87502; U0003

== ENCOUNTER → 2020-04-28 | Outpatient (REF) | payer MEDICARE | PROVIDERS: ATTEND Internal Medicine | DX: Z20.828 Contact with and (suspected) exposure to other viral communicable diseases (principal) ==

== ENCOUNTER → 2020-05-02 | Outpatient (REF) | payer MEDICARE ==
[2020-05-02 13:40] LABS: RSV AMPLIFICATION NEGATIVE (NEGATIVE)
== END ==
PROVIDERS: ATTEND Internal Medicine
DX: Z20.828 Contact with and (suspected) exposure to other viral communicable diseases (principal)

== ENCOUNTER → 2020-05-04 | Outpatient (REF) | payer MEDICARE | PROVIDERS: ATTEND Internal Medicine | DX: Z20.828 Contact with and (suspected) exposure to other viral communicable diseases (principal) ==

== ENCOUNTER → 2020-05-06 | Outpatient (REF) | PROVIDERS: ATTEND Internal Medicine | DX: Z20.828 Contact with and (suspected) exposure to other viral communicable diseases (principal) ==

== ENCOUNTER → 2020-05-10 | Outpatient (REF) | payer MEDICARE | PROVIDERS: ATTEND Internal Medicine | DX: Z20.828 Contact with and (suspected) exposure to other viral communicable diseases (principal) ==

== ENCOUNTER → 2020-05-16 | Outpatient (REF) | payer MEDICARE | PROVIDERS: ATTEND Internal Medicine | DX: Z20.822 Contact with and (suspected) exposure to COVID-19 (principal) ==

== ENCOUNTER → 2020-05-18 | Outpatient (REF) | payer MEDICARE ==
[2020-05-18 10:22] LABS: BASO # 0.1 10^3/uL (0.0-0.2); BASO % 0.3 % (0.0-1.0); HEMATOCRIT 42.2 % (42.0-52.0); HEMOGLOBIN 12.2 g/dl (13.5-17.5); LYMPH # 1.3 10^3/uL (1.5-5.0); LYMPH % 5.7 % (24.0-44.0); MEAN CORPUSCULAR HEMOGLOBIN 29.3 pg (27.0-33.0); MEAN CORPUSCULAR HGB CONC 28.9 g/dl (32.0-36.5); MEAN CORPUSCULAR VOLUME 101.4 fl (80.0-96.0); MONO # 0.8 10^3/uL (0.0-0.8); MONO % 3.4 % (0.0-5.0); NEUTROPHILS # 20.3 10^3/uL (1.5-8.5); NEUTROPHILS % 89.8 % (36.0-66.0); PLATELET COUNT, AUTOMATED 483 10^3/uL (150-450); RED BLOOD COUNT 4.16 10^6/uL (4.30-6.10); WHITE BLOOD COUNT 22.6 10^3/uL (4.0-10.0)
[2020-05-18 10:39] LABS: CALCIUM LEVEL 9.7 MG/DL (8.8-10.2); CREATININE FOR GFR 1.84 MG/DL (0.70-1.30); GLOMERULAR FILTRATION RATE 37.8 (>35); POTASSIUM SERUM 4.1 MEQ/L (3.5-5.1)
[2020-05-18 11:35] LABS: ALBUMIN 2.8 GM/DL (3.2-5.2); BILIRUBIN,DIRECT 0.3 MG/DL (0.0-0.2); TOTAL PROTEIN 6.9 GM/DL (6.4-8.2)
--- NOTE | 2020-05-18 15:21 | REPPI ---
INDICATION: FEVER 459-1 COMPARISON: 10/21/2019 TECHNIQUE: Portable AP view of the chest FINDINGS: Bilateral perihilar opacities and suspected hilar adenopathy (right greater than left) noted. Cardiac silhouette is stable and within normal limits. No effusion. No pneumothorax. Skeletal structures intact. IMPRESSION: Hilar adenopathy and perihilar opacities (right greater than left). Differential diagnosis includes multifocal pneumonia as well as malignancy. <Electronically signed by Garett Beaulieu > 05/18/20 [id number]
== END ==
PROVIDERS: ATTEND Internal Medicine
DX: R91.8 Other nonspecific abnormal finding of lung field (principal); R50.9 Fever, unspecified